=== PATIENT | male | born 1960 | race Caucasian/White ===

== ENCOUNTER 2018-04-17 16:39 | Emergency (ER) | payer OTHER ==
--- NOTE | 2018-04-17 18:16 | EDPHYS ---
Physician Documentation [facility] Name: Dale Tovar Age: 58 yrs Sex: Male : 1960 Arrival Date: 04/17/2018 Time: 16:49 Bed 19 Private MD: ED Physician Farhan Alejo HPI: 04/17 18:00 This 58 yrs old Male presents to ER via Wheelchair with complaints of Back pm1 Pain. 18:00 The patient presents with pain that is acute. The symptoms are located in the left low pm1 back. Onset: The symptoms/episode began/occurred 2 day(s) ago. The pain does not radiate. Associated signs and symptoms: Pertinent negatives: abdominal pain, dysuria, fever, numbness, tingling, weakness. The problem was sustained when bending over, when lifting. Modifying factors: The patient symptoms are alleviated by nothing, the patient symptoms are aggravated by any movement. Severity of symptoms: in the emergency department the symptoms are actually worse. The patient has experienced a previous episode, approximately 3 years ago. The patient has not recently seen a physician. Onset after working on the yard and around the house. Historical: - Allergies: 16:51 No Known Allergies; sv - Home Meds: 16:51 Lisinopril Oral [Active]; Simvastatin Oral [Active]; aspirin 325 mg Oral tab [Active]; sv - PMHx: 16:51 Hypertension; sv - PSHx: 16:51 AAA repair; endoscopy; Tonsillectomy; Knee surgery; sv - Immunization history:: Adult Immunizations up to date. - Social history:: Smoking status: Patient uses tobacco products, chewing tobacco. - Ebola Screening: : No symptoms or risks identified at this time. ROS: 18:00 Constitutional: Negative for fever, chills, and weight loss, Eyes: Negative for injury, pm1 pain, redness, and discharge, ENT: Negative for injury, pain, and discharge, Neck: Negative for injury, pain, and swelling, Cardiovascular: Negative for chest pain, palpitations, and edema, Respiratory: Negative for shortness of breath, cough, wheezing, and pleuritic chest pain, Abdomen/GI: Negative for abdominal pain, nausea, vomiting, diarrhea, and constipation. 18:00 : Negative for injury, bleeding, discharge, and swelling, MS/Extremity: Negative for injury and deformity, Skin: Negative for injury, rash, and discoloration, Neuro: Negative for headache, weakness, numbness, tingling, and seizure. 18:00 Back: Positive for of the left low back. Exam: 18:00 Constitutional: This is a well developed, well nourished patient who is awake, alert, pm1 and in no acute distress. Head/Face: Normocephalic, atraumatic. Eyes: Pupils equal round and reactive to light, extra-ocular motions intact. Lids and lashes normal. Conjunctiva and sclera are non-icteric and not injected. Cornea within normal limits. Periorbital areas with no swelling, redness, or edema. ENT: Nares patent. No nasal discharge, no septal abnormalities noted. Tympanic membranes are normal and external auditory canals are clear. Oropharynx with no redness, swelling, or masses, exudates, or evidence of obstruction, uvula midline. Mucous membranes moist. Neck: Trachea midline, no thyromegaly or masses palpated, and no cervical lymphadenopathy. Supple, full range of motion without nuchal rigidity, or vertebral point tenderness. No Meningismus. Chest/axilla: Normal chest wall appearance and motion. Nontender with no deformity. No lesions are appreciated. Cardiovascular: Regular rate and rhythm with a normal S1 and S2. No gallops, murmurs, or rubs. Normal PMI, no JVD. No pulse deficits. Respiratory: Lungs have equal breath sounds bilaterally, clear to auscultation and percussion. No rales, rhonchi or wheezes noted. No increased work of breathing, no retractions or nasal flaring. Abdomen/GI: Soft, non-tender, with normal bowel sounds. No distension or tympany. No guarding or rebound. No evidence of tenderness throughout. 18:00 Skin: Warm, dry with normal turgor. Normal color with no rashes, no lesions, and no evidence of cellulitis. MS/ Extremity: Pulses equal, no cyanosis. Neurovascular intact. Full, normal range of motion. 18:00 Back: normal spinal alignment noted, muscle spasm, is appreciated in the left low back. 18:00 Neuro: Orientation: is normal, Mentation: is normal, Motor: moves all fours, strength is normal, strength is 5/5 in all extremities, Sensation: is normal, no obvious gross deficits. Vital Signs: 16:52 BP 119 / 93; Pulse 71; Resp 22; Temp 97.6; Pulse Ox 96% ; Weight 88.45 kg; Height 5 ft. sv 7 in. (170.18 cm); Pain 8/10; 18:07 BP 104 / 77; Pulse 66; Resp 16; Pulse Ox 94% on R/A; mb3 16:52 Body Mass Index 30.54 (88.45 kg, 170.18 cm) sv MDM: 16:59 Patient medically screened. pm1 18:13 ED course: Patient able to ambulate in the ER post medication administration without pm1 difficulty. 18:13 Data reviewed: vital signs. Counseling: I had a detailed discussion with the patient pm1 and/or guardian regarding: the historical points, exam findings, and any diagnostic results supporting the discharge/admit diagnosis, the need for outpatient follow up, to return to the emergency department if symptoms worsen or persist or if there are any questions or concerns that arise at home. Administered Medications: 17:24 Drug: TORadol 30 mg Route: IM; Site: right deltoid; mb3 18:06 Follow up: Response: No adverse reaction; Pain is decreased mb3 17:24 Drug: Flexeril 10 mg Route: PO; mb3 18:06 Follow up: Response: No adverse reaction; Pain is decreased mb3 17:24 Drug: [place] 10 mg-325 mg 1 tabs Route: PO; mb3 18:06 Follow up: Response: No adverse reaction; Pain is decreased mb3 Disposition: 04/18 12:40 Co-signature as Attending Physician, Farhan Alejo MD. Disposition: 04/17/18 18:15 Discharged to Home. Impression: Low back pain, Strain of muscle, fascia and tendon of lower back. - Condition is Stable. - Discharge Instructions: Back Pain, Adult, Muscle Strain, Back Injury Prevention, [id number]. - Prescriptions for Tylenol- Codeine #3 300-30 mg Oral Tablet - take 2 tablets by ORAL route every 6 hours As needed; 20 tablet. Cyclobenzaprine 10 mg Oral Tablet - take 1 tablet by ORAL route every 8 hours As needed; 30 tablet. - Medication Reconciliation Form, Thank You Letter form. - Follow up: Emergency Department; When: As needed; Reason: Worsening of condition. Follow up: Private Physician; When: 2 - 3 days; Reason: Recheck today's complaints, Continuance of care, Re-evaluation by your physician. - Problem is new. - Symptoms have improved. Signatures: Kelley Gonzalez, RN RN Jesus Alberto Middleton NP REMANUFACTURING TECHNICIAN pm1 Farhan Alejo MD MD Roby Ham RN RN mb3 Corrections: (The following items were deleted from the chart) 04/17 18:34 18:15 04/17/2018 18:15 Discharged to Home. Impression: Low back pain; Strain of muscle, mb3 fascia and tendon of lower back. Condition is Stable. Forms are Medication Reconciliation Form, Thank You Letter, Antibiotic Education, Prescription Opioid Use. Follow up: Emergency Department; When: As needed; Reason: Worsening of condition. Follow up: Private Physician; When: 2 - 3 days; Reason: Recheck today's complaints, Continuance of care, Re-evaluation by your physician. Problem is new. Symptoms have improved. pm1
--- NOTE | 2018-04-17 18:16 | ER ---
Nurse's Notes [facility] Name: Dale Tovar Age: 58 yrs Sex: Male : 1960 Arrival Date: 04/17/2018 Time: 16:49 Bed 19 Private MD: Diagnosis: Low back pain;Strain of muscle, fascia and tendon of lower back Presentation: 04/17 16:49 Presenting complaint: Patient states: left low back pain that started , sv possibly after doing some overhead sawing or when he carried some stuff upstairs at home. c/o spasms. Has been using hot/cold packs and taking ibuprofen. Transition of care: patient was not received from another setting of care. Onset of symptoms was April 15, 2018. Risk Assessment: Do you want to hurt yourself or someone else? Patient reports no desire to harm self or others. Initial Sepsis Screen: Does the patient meet any 2 criteria? No. Patient's initial sepsis screen is negative. Does the patient have a suspected source of infection? No. Patient's initial sepsis screen is negative. Care prior to arrival: None. 16:49 Method Of Arrival: Wheelchair sv 16:49 Acuity: ANGELA 4 sv Historical: - Allergies: 16:51 No Known Allergies; sv - Home Meds: 16:51 Lisinopril Oral [Active]; Simvastatin Oral [Active]; aspirin 325 mg Oral tab [Active]; sv - PMHx: 16:51 Hypertension; sv - PSHx: 16:51 AAA repair; endoscopy; Tonsillectomy; Knee surgery; sv - Immunization history:: Adult Immunizations up to date. - Social history:: Smoking status: Patient uses tobacco products, chewing tobacco. - Ebola Screening: : No symptoms or risks identified at this time. Screenin:33 Abuse screen: Denies threats or abuse. Nutritional screening: No deficits noted. mb3 Tuberculosis screening: No symptoms or risk factors identified. Fall Risk None identified. Assessment: 17:18 General: Appears uncomfortable, well groomed, Behavior is calm, cooperative, mb3 appropriate for age. Pain: Complains of pain in left low back and left mid back Pain does not radiate. Pain currently is 10 out of 10 on a pain scale. Neuro: Level of Consciousness is awake, alert, obeys commands, Oriented to person, place, time, situation, Appropriate for age. Cardiovascular: No deficits noted. Respiratory: No deficits noted. GI: No deficits noted. No signs and/or symptoms were reported involving the gastrointestinal system. : No deficits noted. No signs and/or symptoms were reported regarding the genitourinary system. EENT: No deficits noted. No signs and/or symptoms were reported regarding the EENT system. Musculoskeletal: Reports pain in left low back and left mid back. Vital Signs: 16:52 BP 119 / 93; Pulse 71; Resp 22; Temp 97.6; Pulse Ox 96% ; Weight 88.45 kg; Height 5 ft. sv 7 in. (170.18 cm); Pain 8/10; 18:07 BP 104 / 77; Pulse 66; Resp 16; Pulse Ox 94% on R/A; mb3 16:52 Body Mass Index 30.54 (88.45 kg, 170.18 cm) sv ED Course: 16:49 Patient arrived in ED. sv 16:51 Triage completed. sv 16:52 Arm band placed on right wrist. sv 16:57 Jesus Alberto Mina NP is PHCP. pm1 16:57 Farhan Alejo MD is Attending Physician. pm1 17:08 Roby Ham, CHELLE is Primary Nurse. mb3 18:33 No provider procedures requiring assistance completed. Patient did not have IV access mb3 during this emergency room visit. 18:34 Patient has correct armband on for positive identification. mb3 Administered Medications: 17:24 Drug: TORadol 30 mg Route: IM; Site: right deltoid; mb3 18:06 Follow up: Response: No adverse reaction; Pain is decreased mb3 17:24 Drug: Flexeril 10 mg Route: PO; mb3 18:06 Follow up: Response: No adverse reaction; Pain is decreased mb3 17:24 Drug: [place] 10 mg-325 mg 1 tabs Route: PO; mb3 18:06 Follow up: Response: No adverse reaction; Pain is decreased mb3 Outcome: 18:15 Discharge ordered by . pm1 18:34 Discharged to home ambulatory, with family. mb3 18:34 Condition: stable 18:34 Discharge instructions given to patient, family, Instructed on discharge instructions, follow up and referral plans. medication usage, Demonstrated understanding of instructions, follow-up care, medications, Prescriptions given X 2. 18:34 Patient left the ED. mb3 Signatures: Kelley Gonzalez, RN RN sv Jesus Alberto Mina, RETAIL GREETER RETAIL GREETER pm1 Roby Ham, CHELLE RN mb3
[2018-04-17 18:38] VITALS: TEMP 97.6
[2018-04-17 18:40] VITALS: BP 104/77; O2SAT 94
== END 2018-04-17 18:34 | disposition home or self-care (01) ==
LOC: ER 16:39
DX: S39.012A Strain of muscle, fascia and tendon of lower back, initial encounter (principal); X58.XXXA Exposure to other specified factors, initial encounter; Y92.019 Unspecified place in single-family (private) house as the place of occurrence of the external cause; I10 Essential (primary) hypertension; F17.220 Nicotine dependence, chewing tobacco, uncomplicated
CPT/HCPCS: 96372; 99283

== ENCOUNTER 2018-06-21 07:18 | Day surgery (SDC) | payer OTHER ==
[2018-06-21] MEDS ORDERED: Ringers Lactate 1,000 ML IV ONE (07:26)
[2018-06-21] MEDS ORDERED: PROPOFOL 200 MG/20 ML VIAL IV ONE (08:21)
[2018-06-21] MEDS ORDERED: LIDOCAINE 1% MPF 5 ML VIAL ONE (08:22)
[2018-06-21 08:55] VITALS: TEMP 98.5
--- NOTE | 2018-06-21 09:02 | ENDO RPT ---
[address], [address] COLONOSCOPY PROCEDURE REPORT EXAM DATE: 06/21/2018 PATIENT NAME: Dale Tovar MR #: [id number] BIRTHDATE: 1960 ATTENDING: Lacho May Dr STATUS: outpatient CHEMICAL PLANT OPERATOR: Delma Chin, Marcella Martinez RN, and Seng Chin INDICATIONS: The patient is a 58 yr old Male here for a colonoscopy due to hematochezia, abdominal pain, change in bowel habits, abnormal CT of abdomen, and diverticulitis PROCEDURE PERFORMED: Colonoscopy with biopsy MEDICATIONS: Per Anesthesia. ESTIMATED BLOOD LOSS: None CONSENT: The patient understands the risks and benefits of the procedure and understands that these risks include, but are not limited to: sedation, allergic reaction, infection, perforation and/or bleeding. Alternative means of evaluation and treatment include, among others: physical exam, x-rays, and/or surgical intervention. The patient elects to proceed with this endoscopic procedure. DESCRIPTION OF PROCEDURE: During intra-op preparation period all mechanical medical equipment was checked for proper function. Hand hygiene and appropriate measures for infection prevention was taken. Procedure, possible complications, alternatives including, but not limited to possibility of bleeding, perforation, tear, infection, sepsis, need for surgery, need for blood transfusion, were explained to the patient. After the risks, benefits and alternatives of the procedure were thoroughly explained, Informed consent was verified, confirmed and timeout was successfully executed by the treatment team. The patient was placed in the left lateral position. A digital rectal exam was performed and revealed several skin tags. After appropriate level of anesthesia, the scope was passed. The EC-[id number] ([id number]) endoscope was introduced through the anus and advanced to the terminal ileum which was intubated for a short distance. The quality of the prep was good. The instrument was then slowly withdrawn as the colon was fully examined. Scope withdrawal time was 9 minutes. COLON FINDINGS: Coilits with inflammation / edema / erythema / loss of vascular pattern was moderate in the sigmoid colon and mild / patchy throughout the remainder of the colon, with sparing of the distal 2/3 of the rectum. Random biopsies of the terminal ileum / right colon / left colon / sigmoid colon / rectum obtained. Mild diverticulosis was noted in the sigmoid colon. Moderate sized internal hemorrhoids were found. Retroflexed views revealed medium hemorrhoids. The scope was then completely withdrawn from the patient and the procedure terminated. ADVERSE EVENTS: There were no complications. IMPRESSIONS: 1. Coilits with inflammation / edema / erythema / loss of vascular pattern moderate in the sigmoid colon and mild / patchy throughout the remainder of the colon, with sparing of the distal 2/3 of the rectum 2. Mild diverticulosis was noted in the sigmoid colon 3. Moderate sized internal hemorrhoids 4. Random biopsies of the terminal ileum / right colon / left colon / sigmoid colon / rectum obtained RECOMMENDATIONS: 1. await biopsy results 2. antibiotic therapy RECALL: Return in 10 year(s) for Colonoscopy. Lacho May Dr eSigned: Lacho May Dr 06/21/2018 8:52 AM cc: Uriel Rios and Flash Gimenez CPT CODES: ICD9 CODES: 1. 455.9 Residual hemorrhoidal skin tags 2. 564.9 Unspecified functional disorder of intestine PATIENT NAME: Dale Tovar MR#: [id number]
[2018-06-21 09:05] VITALS: BP 107/80; O2SAT 98
== END 2018-06-21 09:15 | disposition home or self-care (01) ==
LOC: OR 07:18
PROVIDERS: ATTEND Internal Medicine Gastroenterology
PROC: 0DBN8ZX Excision of Sigmoid Colon, Via Natural or Artificial Opening Endoscopic, Diagnostic (ICD-10-PCS; 2018-06-21)
PROC: 0DBP8ZX Excision of Rectum, Via Natural or Artificial Opening Endoscopic, Diagnostic (ICD-10-PCS; 2018-06-21)
PROC: 0DBB8ZX Excision of Ileum, Via Natural or Artificial Opening Endoscopic, Diagnostic (ICD-10-PCS; 2018-06-21)
PROC: 0DBM8ZX Excision of Descending Colon, Via Natural or Artificial Opening Endoscopic, Diagnostic (ICD-10-PCS; 2018-06-21)
PROC: 0DBK8ZX Excision of Ascending Colon, Via Natural or Artificial Opening Endoscopic, Diagnostic (ICD-10-PCS; principal; 2018-06-21 08:30)
DX: K52.89 Other specified noninfective gastroenteritis and colitis (principal); K62.89 Other specified diseases of anus and rectum; K57.10 Diverticulosis of small intestine without perforation or abscess without bleeding; K64.8 Other hemorrhoids; K92.1 Melena; Z88.6 Allergy status to analgesic agent; J44.9 Chronic obstructive pulmonary disease, unspecified; I10 Essential (primary) hypertension; Z87.891 Personal history of nicotine dependence
CPT/HCPCS: 88305

== ENCOUNTER 2018-09-03 06:55 | Day surgery (SDC) | payer OTHER ==
--- NOTE | 2018-09-03 06:52 | EKG ---
Test Date: 2018-09-02 Test Time: 12:48:30 Coping Machine Operator: ISABELA MEASUREMENT RESULTS: Intervals: Rate: 69 [place]: 148 QRSD: 88 QT: 386 QTc: 413 [place]: P: 45 [place]: 148 QRS: 37 T: 58 INTERPRETIVE STATEMENTS: Normal sinus rhythm Normal ECG Compared to ECG 11/24/2013 22:42:55 Sinus tachycardia no longer present Electronically Signed On 09-03-18 06:49:19 CDT by Uriel Rios
[2018-09-03] MEDS ORDERED: EPINEPHRINE/PF 1 MG/ML AMP ONE (07:18)
[2018-09-03] MEDS ORDERED: Ringers Lactate 1,000 ML IV ONE (07:39)
[2018-09-03] MEDS ORDERED: PROPOFOL 200 MG/20 ML VIAL IV ONE (07:59)
[2018-09-03] MEDS ORDERED: LIDOCAINE 2% MPF 5 ML VIAL ONE (08:00)
[2018-09-03] MEDS ORDERED: MIDAZOLAM HCL 2 MG/2 ML INJ ONE (08:00)
[2018-09-03] MEDS ORDERED: FENTANYL CITR 100 MCG/2 ML ONE (08:00)
[2018-09-03] MEDS ORDERED: ROCURONIUM 50 MG/5 ML VIAL IV ONE (08:02)
[2018-09-03] MEDS ORDERED: DEXAMETHASONE 10 MG/ML VIAL ONE (08:18)
[2018-09-03] MEDS ORDERED: EPHEDRINE SULF 50 MG/10 ML SYR ONE (08:20)
--- NOTE | 2018-09-03 08:26 | P.BOP ---
Preoperative diagnosis: laryngeal cyst Postoperative diagnosis: same Primary procedure: Dl with telescope and excision of cyst Controls Technician: NONE,NONE Estimated blood loss: <5ml Specimen: epiglottic cyst Findings: mucous filled cyst Anesthesia: General Implants: none Fluids & blood products: crystalloid 450ml Transferred to: Recovery Room Condition: Good
[2018-09-03] MEDS ORDERED: MEPERIDINE HCL 25 MG/0.5 ML ONE (08:49)
[2018-09-03] MEDS ORDERED: SUCCINYLCHOLINE 20 MG/ML (10 ML) IV ONE (09:22)
[2018-09-03] MEDS ORDERED: TRAMADOL HCL 50 MG TAB ONE (09:42)
[2018-09-03 11:17] VITALS: BP 112/70; TEMP 97.6; O2SAT 94
--- NOTE | 2018-09-03 14:46 | OP ---
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 Procedures: Direct laryngoscopy with telescope and excision of cyst/tumor. Indication For Procedure: Mr. Tovar is a 58-year-old who was diagnosed with a follicular cyst in . He had progressive dysphagia. 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 The risks, benefits, and al ternatives to the procedure were discussed with the patient, who agreed to proceed. Description Of Procedure: The patient was brought to the operating room. He was placed under genera l anesthesia via oral endotracheal tube. The patient's maxilla was edentulous, so no tooth guard was necessary. His upper gingiva was protected with a Ray-Jamal gauze and the Kenzie-Berci laryngoscope w as used to perform a direct laryngoscopy. The cyst was easily noted, but due to location the Kenzie- Berci was insufficient in allowing adequate exposure and the Kenzie-Berci was withdrawn, and a Lindho lm laryngoscope fitted with appropriate light cord was used for better visualization. Photodocumenta tion of the lesion was obtained. The lesion appeared to be a moderate to large cystic structure rudy ched to the left edge of the epiglottis. The wall of the cyst was grasped using an alligator and the n the small laryngeal scissors were used to cut through the mucosa and carefully dissect along the cy st wall. The wall of the cyst initially was kept intact, which improved adequate removal. On the de eper aspect of the cyst wall, the cyst was slightly ruptured and a thick clear mucoid fluid was noted to come from the cyst. The angled laryngeal scissors to the left were then used to divide the remai da attachment point. The cyst wall was removed and grossly examined. There was no significant con cerning findings on gross examination, and specimen was sent to pathology for permanent section. A R ay-Jamal gauze was packed into the operative site and left in place for several minutes. The gauze was then removed and the site was noted to be hemostatic. Photodocumentation of the site was taken and the patient was then returned to care of Anesthesia for awakening and extubation in the operating juan r m, which proceeded without difficulty. Complications: None. Disposition: The patient will be discharged home later today to follow up with Dr. Rodriguez in 10-14 days. He has no dietary or voice restrictions and can contact the clinic for any additional concerns . TYRONE Voice ID: [id number] Report ID: [id number]
== END 2018-09-03 10:14 | disposition home or self-care (01) ==
LOC: OR 06:55
PROVIDERS: ATTEND Otolaryngology
PROC: 0CBR8ZZ Excision of Epiglottis, Via Natural or Artificial Opening Endoscopic (ICD-10-PCS; principal; 2018-09-03 08:00)
DX: J38.7 Other diseases of larynx (principal); R13.10 Dysphagia, unspecified; J44.9 Chronic obstructive pulmonary disease, unspecified; I10 Essential (primary) hypertension; Z87.891 Personal history of nicotine dependence; Z80.9 Family history of malignant neoplasm, unspecified; Z83.3 Family history of diabetes mellitus; Z82.49 Family history of ischemic heart disease and other diseases of the circulatory system; Z82.3 Family history of stroke
CPT/HCPCS: 88305; 93005; J0171; J0330; J1100; J2175; J2250; J3010

== ENCOUNTER 2018-11-14 09:50 | Emergency (ER) | payer OTHER ==
[2018-11-14 10:46] LABS: Absolute Lymphocytes (CBC) 1.1 K/uL (0.7-4.9); Absolute Monocytes 0.9 K/uL (0.1-1.3); Absolute Neutrophil 10.8 K/uL (1.8-8.0); Basophils % 0.8 % (0-1.3); Eosinophils % 1.7 % (0-4.4); Hematocrit 44.7 % (39.6-49.0); Lymphocytes % 8.4 % (15.3-44.8); Monocytes % 6.7 % (3.3-12.3); RBC Red Blood Cell Count 5.52 M/uL (4.33-5.43)
[2018-11-14 11:02] LABS: ALT/SGPT 50 U/L (12-78); AST/SGOT 24 U/L (15-37); Albumin 3.7 g/dL (3.4-5.0); Alkaline Phosphatase 112 U/L (45-117); BUN Blood Urea Nitrogen 12 mg/dL (7-18); Bicarbonate 26 mmol/L (21-32); Bilirubin Direct 0.2 mg/dL (0-0.2); Bilirubin Total 0.5 mg/dL (0.2-1.0); Glucose Level 93 mg/dL (74-106); Lipase 93 U/L (73-393); Protein, Total 7.4 g/dL (6.4-8.2); Sodium Level 135 mmol/L (136-145)
[2018-11-14 11:20] LABS: Urine Blood NEGATIVE (NEG); Urine Glucose NEGATIVE (NEG); Urine Protein NEGATIVE (NEG); Urine Specific Gravity 1.015 (1.005-1.030); Urine pH 7.5 (5.0-7.0)
[2018-11-14] MEDS ORDERED: ONDANSETRON 4 MG/2 ML VIAL ONE (11:36)
[2018-11-14] MEDS ORDERED: MORPHINE 4 MG/ML SYR ONE (11:36)
--- NOTE | 2018-11-14 12:11 | RAD REPORT ---
EXAM DESCRIPTION: CTAbdomen Pelvis W Contrast - 11/14/2018 11:45 am CLINICAL HISTORY: Abdominal pain. LOwer abdominal pain, rectal pain, IV ONLY COMPARISON: CTANGIO PELVIS dated 03/12/2015; CT ANGIO ABDOMEN dated 03/12/2015 TECHNIQUE: Biphasic CT imaging of the abdomen and pelvis was performed with 100 ml non-ionic IV cont rast. All CT scans are performed using dose optimization technique as appropriate and may include automated exposure control or mA/KV adjustment according to patient size. FINDINGS: The lung bases are clear.Small hiatal hernia. The liver contains several very small low-density lesions likely representing cysts but too small ful ly characterize. The spleen, pancreas, adrenal glands kidneys are within normal limits. Infrarenal ab dominal aortic aneurysm measuring 6.8 cm is noted with endograft in place. No bowel obstruction, free air, free fluid or abscess. 7 cm length of the sigmoid colon shows multipl e diverticula as well as surrounding inflammation in the pericolonic fat compatible with acute divert iculitis. No abscess is seen. The appendix is normal. No evidence of significant lymphadenopathy. No suspicious bony findings. IMPRESSION: Mild acute sigmoid diverticulitis is noted. No abscess seen.
[2018-11-14] MEDS ORDERED: metroNIDAZOLE 500 MG TABLET ONE (12:40)
[2018-11-14] MEDS ORDERED: SMZ./TMP. 800/160 MG TABLET ONE (12:40)
--- NOTE | 2018-11-14 12:42 | EDPHYS ---
Physician Documentation [facility] Name: Dale Tovar Age: 58 yrs Sex: Male : 1960 Arrival Date: 11/14/2018 Time: 09:55 Bed 17 Private MD: Eliel Gimenez H ED Physician Sunday Monroe HPI: 11/14 10:39 This 58 yrs old Male presents to ER via Ambulatory with complaints of jmm Abdominal Pain, Abdominal Cramping, Rectal Pain. 10:39 The patient presents with abdominal pain in the lower abdomen. Onset: The jmm symptoms/episode began/occurred last night. The symptoms radiate to rectum. Associated signs and symptoms: Pertinent negatives: diarrhea, vomiting. This is a 58 year old male with a history of htn that presents to the ED with lower abdominal pain which radiates to his rectum. Patient states having a history of diverticulitis, hemorrhoids, and AAA. Denies vomiting or diarrhea. Patient states tylenol relieved his symptoms. . Historical: - Allergies: 10:07 Codeine; tw2 10:07 acetaminophen; tw2 - Home Meds: 10:07 aspirin 325 mg Oral tab [Active]; lisinopril-hydrochlorothiazide 20-25 mg oral tab 1 tw2 tab once daily [Active]; simvastatin 40 mg oral tab once daily [Active]; omeprazole 20 mg Oral cpDR 1 cap once daily [Active]; Zantac 150 mg Oral tab 1 tab once daily [Active]; hydrocortisone 1 % Rectal crea 2 times per day [Active]; - PMHx: 10:07 Hypertension; tw2 - PSHx: 10:07 Knee surgery; Tonsillectomy; endoscopy; AAA repair; tw2 - Immunization history:: Adult Immunizations. - Social history:: Smoking status: . - Ebola Screening: : Patient denies travel to an Ebola-affected area in the 21 days before illness onset. ROS: 10:39 Constitutional: Negative for fever, chills, and weight loss, Cardiovascular: Negative jmm for chest pain, palpitations, and edema, Respiratory: Negative for shortness of breath, cough, wheezing, and pleuritic chest pain. 10:39 Abdomen/GI: Positive for abdominal pain, rectal pain. 10:39 All other systems are negative. Exam: 10:39 Constitutional: This is a well developed, well nourished patient who is awake, alert, jmm and in no acute distress. Head/Face: atraumatic. Eyes: EOMI, no conjunctival erythema appreciated ENT: Moist Mucus Membranes Neck: Trachea midline, Supple Chest/axilla: Normal chest wall appearance and motion. Cardiovascular: Regular rate and rhythm. No edema appreciated Respiratory: Normal respirations, no respiratory distress appreciated 10:39 Abdomen/GI: Inspection: abdomen appears normal, Bowel sounds: normal, Palpation: soft, mild abdominal tenderness, in the suprapubic area. 10:39 Back: ROM is normal. 10:39 Musculoskeletal/extremity: ROM: intact in all extremities. 10:39 Skin: Appearance: Color: normal in color. 10:39 Neuro: Orientation: is normal, Mentation: is normal, Memory: is normal. 10:39 Psych: Behavior/mood is pleasant, cooperative. Vital Signs: 10:01 BP 121 / 78; Pulse 77; Resp 16; Temp 99.8(O); Pulse Ox 100% on R/A; Pain 0/10; tw2 10:01 no pain now but when it hits me its a 1010 tw2 MDM: 10:27 Patient medically screened. [facility] 12:40 Data reviewed: vital signs, nurses notes. Counseling: I had a detailed discussion with [facility] the patient and/or guardian regarding: the historical points, exam findings, and any diagnostic results supporting the discharge/admit diagnosis, lab results, radiology results, the need for outpatient follow up, to return to the emergency department if symptoms worsen or persist or if there are any questions or concerns that arise at home. 13:00 ED course: Patient is alert and non toxic in appearance on discharge. Patient declined [facility] discharge and states he will follow up with Dr. May tomorrw for reevaluation. patient given initial dose of abx in the ED. patient given return precautions. patient understood and agrees with the plan of care. . 11/14 10:28 Order name: Basic Metabolic Panel; Complete Time: 11:20 [facility] 11/14 10:28 Order name: CBC with Diff; Complete Time: 11:20 [facility] 11/14 10:28 Order name: Creatinine for Radiology; Complete Time: 11:20 [facility] 11/14 10:28 Order name: Hepatic Function; Complete Time: 11:20 [facility] 11/14 10:28 Order name: Lipase; Complete Time: 11:20 [facility] 11/14 10:53 Order name: Urine Dipstick--Ancillary (enter results); Complete Time: 11:26 bd 11/14 10:28 Order name: IV Saline Lock; Complete Time: 10:43 [facility] 11/14 10:28 Order name: Labs collected and sent; Complete Time: 10:43 [facility] 11/14 10:28 Order name: CT Abd/Pelvis - W/Contrast; Complete Time: 12:13 [facility] 11/14 10:53 Order name: Urine Culture dh3 11/14 10:28 Order name: Urine Dipstick-Ancillary (obtain specimen); Complete Time: 10:52 jm Administered Medications: 11:33 Drug: morphine 4 mg Route: IVP; Site: right forearm; la1 12:41 Follow up: Response: No adverse reaction; Pain is decreased la1 11:33 Drug: Zofran 4 mg Route: IVP; Site: right forearm; la1 12:41 Follow up: Response: No adverse reaction la1 13:00 Drug: Bactrim (160 mg-800 mg (DS) 1 tablet Route: PO; la1 13:02 Follow up: Response: Medication administered at discharge. la1 13:00 Drug: Flagyl 500 mg Route: PO; la1 13:02 Follow up: Response: Medication administered at discharge. la1 Disposition: 13:57 Co-signature as Attending Physician, Sunday Monroe MD. rn Disposition: 11/14/18 12:41 Discharged to Home. Impression: Sigmoid Diverticulitis. - Condition is Stable. - Discharge Instructions: Diverticulitis. - Prescriptions for Flagyl 500 mg Oral Tablet - take 1 tablet by ORAL route every 6 hours for 10 days; 40 tablet. Tramadol 50 mg Oral Tablet - take 1 tablet by ORAL route every 8 hours as needed; 20 tablet. Bactrim DS 800- 160 mg Oral Tablet - take 1 tablet by ORAL route every 12 hours for 10 days; 20 tablet. - Medication Reconciliation Form, Thank You Letter, Antibiotic Education, Prescription Opioid Use form. - Follow up: Lacho May MD; When: 2 - 3 days; Reason: Recheck today's complaints, Continuance of care, Re-evaluation by your physician. Signatures: Dispatcher [employer] EDMS Mickail, SHAHIDA Padilla Roman, MD MD rn Kit Luque RN RN la1 Genie Montoya RN RN tw2 Corrections: (The following items were deleted from the chart) 13:02 12:41 11/14/2018 12:41 Discharged to Home. Impression: Sigmoid Diverticulitis. la1 Condition is Stable. Forms are Medication Reconciliation Form, Thank You Letter, Antibiotic Education, Prescription Opioid Use. Follow up: Lacho May; When: 2 - 3 days; Reason: Recheck today's complaints, Continuance of care, Re-evaluation by your physician. josemanuel 20:12 20:11 ED course: Patient is alert and non toxic in appearance on discharge. Patient odessatulio declined discharge and states he will follow up with Dr. May tomorrw for reevaluation. patient given initial dose of abx in the ED. patient given return precautions. patient understood and agrees with the plan of care. . [facility]
--- NOTE | 2018-11-14 12:42 | ER ---
Nurse's Notes [facility] Name: Dale Tovar Age: 58 yrs Sex: Male : 1960 Arrival Date: 11/14/2018 Time: 09:55 Bed 17 Private MD: Eliel Gimenez H Diagnosis: Sigmoid Diverticulitis Presentation: 11/14 09:59 Presenting complaint: Patient states: yesterday evening, started having lower abdominal tw2 pain, denies nvd, woke up about midnight with cramps, then i started having severe cramps 06/25, it goes a way and comes back i did take a tylenol, after i urinated this morning i started having rectal pain, i do have hemorrhoids. Transition of care: patient was not received from another setting of care. Onset of symptoms was November 14, 2018. Risk Assessment: Do you want to hurt yourself or someone else? Patient reports no desire to harm self or others. Initial Sepsis Screen: Does the patient meet any 2 criteria? No. Patient's initial sepsis screen is negative. Does the patient have a suspected source of infection? No. Patient's initial sepsis screen is negative. Care prior to arrival: None. 09:59 Method Of Arrival: Ambulatory tw2 09:59 Acuity: ANGELA 3 tw2 Triage Assessment: 10:03 General: Appears in no apparent distress. Behavior is calm, cooperative, appropriate tw2 for age. Pain: Complains of pain in abdomen and rectum. GI: Reports cramping, Patient currently denies diarrhea, nausea, vomiting. Historical: - Allergies: 10:07 Codeine; tw2 10:07 acetaminophen; tw2 - Home Meds: 10:07 aspirin 325 mg Oral tab [Active]; lisinopril-hydrochlorothiazide 20-25 mg oral tab 1 tw2 tab once daily [Active]; simvastatin 40 mg oral tab once daily [Active]; omeprazole 20 mg Oral cpDR 1 cap once daily [Active]; Zantac 150 mg Oral tab 1 tab once daily [Active]; hydrocortisone 1 % Rectal crea 2 times per day [Active]; - PMHx: 10:07 Hypertension; tw2 - PSHx: 10:07 Knee surgery; Tonsillectomy; endoscopy; AAA repair; tw2 - Immunization history:: Adult Immunizations. - Social history:: Smoking status: . - Ebola Screening: : Patient denies travel to an Ebola-affected area in the 21 days before illness onset. Screenin:52 Abuse screen: Denies threats or abuse. Nutritional screening: No deficits noted. la1 Tuberculosis screening: No symptoms or risk factors identified. Fall Risk None identified. Assessment: 10:51 General: Appears in no apparent distress. Behavior is calm, cooperative. Pain: la1 Complains of pain in gluteal cleft and suprapubic area. Neuro: Level of Consciousness is awake, alert, obeys commands, Oriented to person, place, time, situation. Cardiovascular: Capillary refill < 3 seconds Patient's skin is warm and dry. Respiratory: Airway is patent Respiratory effort is even, unlabored, Respiratory pattern is regular, symmetrical, Breath sounds are clear bilaterally. GI: Bowel sounds present X 4 quads. Abd is soft X 4 quads Abdomen is tender to palpation in suprapubic area Reports lower abdominal pain. : No signs and/or symptoms were reported regarding the genitourinary system. 11:49 Reassessment: Patient appears in no apparent distress at this time. No changes from la1 previously documented assessment. Patient and/or family updated on plan of care and expected duration. Pain level reassessed. Patient is alert, oriented x 3, equal unlabored respirations, skin warm/dry/pink. Vital Signs: 10:01 BP 121 / 78; Pulse 77; Resp 16; Temp 99.8(O); Pulse Ox 100% on R/A; Pain 0/10; tw2 10:01 no pain now but when it hits me its a 10/10 tw2 ED Course: 09:55 Patient arrived in ED. sb2 09:55 Eliel Gimenez DO is Private Physician. sb2 10:01 Triage completed. tw2 10:01 Arm band placed on. tw2 10:07 Randy Faust PA is PHCP. jmm 10:07 Sunday Monore MD is Attending Physician. jmm 10:13 Kit Luque, CHELLE is Primary Nurse. la1 10:52 Bed in low position. Call light in reach. Side rails up X 1. la1 11:44 CT Abd/Pelvis - W/Contrast In Process Unspecified. EDMS 11:44 CT completed. Patient tolerated procedure well. Patient moved back from CT. mw3 12:40 Lacho May MD is Referral Physician. [facility] 13:01 No provider procedures requiring assistance completed. IV discontinued, intact, la1 bleeding controlled, No redness/swelling at site. Pressure dressing applied. Administered Medications: 11:33 Drug: morphine 4 mg Route: IVP; Site: right forearm; la1 12:41 Follow up: Response: No adverse reaction; Pain is decreased la1 11:33 Drug: Zofran 4 mg Route: IVP; Site: right forearm; la1 12:41 Follow up: Response: No adverse reaction la1 13:00 Drug: Bactrim (160 mg-800 mg (DS) 1 tablet Route: PO; la1 13:02 Follow up: Response: Medication administered at discharge. la1 13:00 Drug: Flagyl 500 mg Route: PO; la1 13:02 Follow up: Response: Medication administered at discharge. la1 Outcome: 12:41 Discharge ordered by . [facility] 13:01 Discharged to home ambulatory. la1 13:01 Condition: stable 13:01 Discharge instructions given to patient, Instructed on discharge instructions, follow up and referral plans. medication usage, Demonstrated understanding of instructions, follow-up care, medications, Prescriptions given X 2. 13:02 Patient left the ED. la1 Signatures: Dispatcher [employer] EDMS Randy Faust PA PA jmm Attema, Lee, RN RN la1 Genie Montoya RN RN tw2 Angelique Mcmahon sb2 Radha Lam mw3
[2018-11-14 13:31] VITALS: BP 121/78; TEMP 99.8; O2SAT 100
== END 2018-11-14 13:02 | disposition home or self-care (01) ==
LOC: ER 09:50
DX: K57.32 Diverticulitis of large intestine without perforation or abscess without bleeding (principal); I10 Essential (primary) hypertension; Z79.82 Long term (current) use of aspirin; Z88.5 Allergy status to narcotic agent; Z88.6 Allergy status to analgesic agent
CPT/HCPCS: 36415; 74177; 80048; 80076; 81003; 83690; 85025; 87086; 87088; 96374; 96375; 99284; J2405; Q9967

== ENCOUNTER 2019-11-09 18:17 | Inpatient (IN) | payer OTHER ==
[2019-11-09] MEDS ORDERED: NA CHLORIDE 0.9% 1,000 ML ONE (20:03)
[2019-11-09 20:08] LABS: Absolute Lymphocytes (CBC) 1.3 K/uL (0.7-4.9); Basophils % 0.8 % (0-1.3); Hematocrit 33.2 % (39.6-49.0); Lymphocytes % 12.8 % (15.3-44.8); MPV 8.4 fL (7.6-11.3); RBC Red Blood Cell Count 4.39 M/uL (4.33-5.43)
[2019-11-09 20:09] LABS: Protime INR 1.07
[2019-11-09 20:22] LABS: ALT/SGPT 26 U/L (12-78); AST/SGOT 17 U/L (15-37); Albumin 2.9 g/dL (3.4-5.0); Alkaline Phosphatase 70 U/L (45-117); BUN Blood Urea Nitrogen 13 mg/dL (7-18); Bicarbonate 25 mmol/L (21-32); Bilirubin Direct < 0.1 mg/dL (0-0.2); Bilirubin Total 0.2 mg/dL (0.2-1.0); Glucose Level 113 mg/dL (74-106); Lipase 112 U/L (73-393); Magnesium 2.1 mg/dL (1.8-2.4); NT PRO-BNP 20 pg/mL (<125); Potassium 3.7 mmol/L (3.5-5.1); Protein, Total 6.6 g/dL (6.4-8.2); Sodium Level 137 mmol/L (136-145); Troponin (Emerg Dept Use Only) < 0.02 ng/mL (0.0-0.045)
--- NOTE | 2019-11-09 20:50 | RAD REPORT ---
EXAM DESCRIPTION: CT - Angio Aorta For Dissection - 11/09/2019 8:34 pm CLINICAL HISTORY: Chest pain radiating to the back. ABDOMINAL DISTENTION COMPARISON: Abdomen Pelvis W Contrast dated 11/14/2018 TECHNIQUE: CT angiography of the aorta was performed with MIPs. All CT scans are performed using dose optimization technique as appropriate and may include automated exposure control or mA/KV adjustment according to patient size. FINDINGS: A left aortic arch is present with normal branching pattern of the great vessels.No aortic dissection seen. Evidence of infrarenal abdominal aortic aneurysm present status post endograft. Rina meter of the aneurysm sac is 6.8 cm, unchanged since 11/14/2018. The celiac axis, SMA, FRANCIA and renal arteries are patent. No evidence of pulmonary embolism. The lungs are mildly emphysematous. The liver demonstrates no focal mass or biliary dilatation.The spleen, pancreas, adrenal glands and k idneys are within normal limits for arterial phase imaging. No bowel obstruction, free fluid or abscess.Small fat containing umbilical hernia.Inflammatory change s are noted surrounding the sigmoid colon in the left lower quadrant compatible with mild acute diver ticulitis. No abscess. Bilateral spondylolysis, chronic, noted L5-S1. Chronic compression deformity is seen affecting the ce ntral aspect L1. IMPRESSION: No acute aortic finding is demonstrated. Mild acute sigmoid diverticulitis without abscess.
--- NOTE | 2019-11-09 21:02 | RAD REPORT ---
EXAM DESCRIPTION: RAD - Chest Single View - 11/09/2019 8:53 pm CLINICAL HISTORY: COUGH Chest pain. COMPARISON: CHEST PA AND LAT 2 VIEW dated 11/26/2013; CHEST PA AND LAT 2 VIEW dated 11/24/2013; CHEST P A AND LAT 2 VIEW dated 05/23/2010 FINDINGS: Portable technique limits examination quality. Calcified granuloma is present in the left mid lung laterally. The lungs are otherwise emphysematous but clear. The heart is upper limit of normal in size. No displaced fractures.
--- NOTE | 2019-11-09 21:07 | EDPHYS ---
Physician Documentation [facility] Name: Dale Tovar Age: 59 yrs Sex: Male : 1960 Arrival Date: 11/09/2019 Time: 18:21 Bed 5 Private MD: Eliel Gimenez H ED Physician Caden Hernández HPI: 11/09 19:55 This 59 yrs old Male presents to ER via Ambulatory with complaints of panda Dizziness. 19:55 The patient presents with dizziness, generalized weakness. Onset: The symptoms/episode panda began/occurred 1 week(s) ago. Context: occurred at home. Modifying factors: The symptoms are alleviated by nothing, the symptoms are aggravated by nothing. Historical: - Allergies: 18:42 ACETAMINOPHEN; iw 18:42 Codeine; iw - PMHx: 18:42 Hypertension; iw - PSHx: 18:42 Knee surgery; Tonsillectomy; endoscopy; AAA repair; iw - Ebola Screening: : Patient negative for fever greater than or equal to 101.5 degrees Fahrenheit, and additional compatible Ebola Virus Disease symptoms Patient denies exposure to infectious person Patient denies travel to an Ebola-affected area in the 21 days before illness onset No symptoms or risks identified at this time. ROS: 19:56 Constitutional: Negative for fever, chills, and weight loss, Eyes: Negative for injury, panda pain, redness, and discharge, ENT: Negative for injury, pain, and discharge, Neck: Negative for injury, pain, and swelling, Cardiovascular: Negative for chest pain, palpitations, and edema, Respiratory: Negative for shortness of breath, cough, wheezing, and pleuritic chest pain, Back: Negative for injury and pain, : Negative for injury, bleeding, discharge, and swelling, MS/Extremity: Negative for injury and deformity, Skin: Negative for injury, rash, and discoloration, Psych: Negative for depression, anxiety, suicide ideation, homicidal ideation, and hallucinations, Allergy/Immunology: Negative for hives, rash, and allergies, Endocrine: Negative for neck swelling, polydipsia, polyuria, polyphagia, and marked weight changes, Hematologic/Lymphatic: Negative for swollen nodes, abnormal bleeding, and unusual bruising. 19:56 Abdomen/GI: Positive for abdominal pain, of the left lower quadrant. 19:56 Neuro: Positive for dizziness, weakness. Exam: 19:56 Constitutional: This is a well developed, well nourished patient who is awake, alert, panda and in no acute distress. Head/Face: Normocephalic, atraumatic. Eyes: Pupils equal round and reactive to light, extra-ocular motions intact. Lids and lashes normal. Conjunctiva and sclera are non-icteric and not injected. Cornea within normal limits. Periorbital areas with no swelling, redness, or edema. ENT: Nares patent. No nasal discharge, no septal abnormalities noted. Tympanic membranes are normal and external auditory canals are clear. Oropharynx with no redness, swelling, or masses, exudates, or evidence of obstruction, uvula midline. Mucous membranes moist. Neck: Trachea midline, no thyromegaly or masses palpated, and no cervical lymphadenopathy. Supple, full range of motion without nuchal rigidity, or vertebral point tenderness. No Meningismus. Chest/axilla: Normal chest wall appearance and motion. Nontender with no deformity. No lesions are appreciated. Respiratory: Lungs have equal breath sounds bilaterally, clear to auscultation and percussion. No rales, rhonchi or wheezes noted. No increased work of breathing, no retractions or nasal flaring. Back: No spinal tenderness. No costovertebral tenderness. Full range of motion. Male : Normal genitalia with no discharge or lesions. Skin: Warm, dry with normal turgor. Normal color with no rashes, no lesions, and no evidence of cellulitis. MS/ Extremity: Pulses equal, no cyanosis. Neurovascular intact. Full, normal range of motion. Neuro: Awake and alert, GCS 15, oriented to person, place, time, and situation. Cranial nerves II-XII grossly intact. Motor strength 5/5 in all extremities. Sensory grossly intact. Cerebellar exam normal. Normal gait. Psych: Awake, alert, with orientation to person, place and time. Behavior, mood, and affect are within normal limits. 19:56 Cardiovascular: Rate: tachycardic, Rhythm: regular, Pulses: Pulses are 4+ in bilateral radial, brachial, femoral, popliteal, posterior tibial and and dorsalis pedis arteries.. Heart sounds: Edema: is not appreciated, JVD: is not appreciated. Vital Signs: 18:42 BP 107 / 62; Pulse 107; Resp 16; Temp 98.2; Pulse Ox 97% on R/A; Weight 87.09 kg; iw Height 5 ft. 7 in. (170.18 cm); 19:03 BP 88 / 60; Pulse 104; Resp 12; Pulse Ox 98% on R/A; jp3 19:05 BP 109 / 59 LA (auto/reg); jp3 20:05 BP 99 / 58; Pulse 102; Resp 16; Pulse Ox 99% on R/A; jb4 21:30 BP 98 / 60; Pulse 90; Resp 19; Pulse Ox 99% on R/A; jb4 22:00 BP 102 / 65; Pulse 89; Resp 20; Pulse Ox 97% on R/A; jb4 18:42 Body Mass Index 30.07 (87.09 kg, 170.18 cm) iw MDM: 19:22 Patient medically screened. [facility] 19:57 Data reviewed: vital signs, nurses notes, lab test result(s), EKG, radiologic studies, [facility] CT scan, doppler, plain films. 11/09 19:55 Order name: Basic Metabolic Panel; Complete Time: 21:00 [facility] 11/09 19:55 Order name: CBC with Diff; Complete Time: 21:00 [facility] 11/09 19:55 Order name: LFT's; Complete Time: 21:00 [facility] 11/09 19:55 Order name: Magnesium; Complete Time: 21:00 [facility] 11/09 19:55 Order name: NT PRO-BNP; Complete Time: 21:00 [facility] 11/09 19:55 Order name: PT-INR; Complete Time: 21:00 [facility] 11/09 19:55 Order name: Troponin (emerg Dept Use Only); Complete Time: 21:00 [facility] 11/09 19:55 Order name: Lipase; Complete Time: 21:00 [facility] 11/09 21:15 Order name: CBC with Automated Diff EDMS 11/09 21:15 Order name: CBC with Automated Diff EDMS 11/09 21:15 Order name: Comprehensive Metabolic Panel EDMA 11/09 21:16 Order name: Comprehensive Metabolic Panel EDMA 11/09 21:16 Order name: Magnesium EDMS 11/09 21:16 Order name: Magnesium EDMS 11/09 19:55 Order name: XRAY Chest (1 view) [facility] 11/09 19:55 Order name: EKG; Complete Time: 19:56 [facility] 11/09 19:55 Order name: Cardiac monitoring; Complete Time: 19:59 [facility] 11/09 19:55 Order name: EKG - Nurse/Tech; Complete Time: 20:28 [facility] 11/09 19:55 Order name: IV Saline Lock; Complete Time: 20:17 [facility] 11/09 19:55 Order name: Labs collected and sent; Complete Time: 19:59 [facility] 11/09 19:55 Order name: CT Aorta for Dissection; Complete Time: 21:00 [facility] 11/09 19:55 Order name: Carotid Artery Bilateral US [facility] 11/09 21:15 Order name: Full Liquid EDMS 11/09 21:16 Order name: Phosphorus EDMS 11/09 21:16 Order name: Phosphorus EDMS 11/09 19:55 Order name: O2 Per Protocol; Complete Time: 19:59 [facility] 11/09 19:55 Order name: O2 Sat Monitoring; Complete Time: 19:59 [facility] 11/09 19:55 Order name: Urine Dipstick-Ancillary (obtain specimen); Complete Time: 19:59 [facility] Administered Medications: 20:16 Drug: NS 0.9% 1000 ml Route: IV; Rate: 1 bolus; Site: left antecubital; jb4 21:40 Follow up: Response: No adverse reaction; IV Status: Completed infusion; IV Intake: jb4 1000ml 21:41 Drug: Rocephin - (cefTRIAXone) 1 grams Route: IVPB; Infused Over: 30 mins; Site: left jb4 forearm; 21:43 Follow up: Response: No adverse reaction; IV Status: Completed infusion jb4 21:45 Drug: Cipro 400 mg Volume: 200 ml; Route: IVPB; Infused Over: 60 mins; Site: left jb4 forearm; 21:59 Follow up: Response: No adverse reaction; IV Status: Infusion continued upon admission jb4 21:45 Drug: Flagyl 500 mg Volume: 100 ml; Route: IVPB; Rate: 200 ml/hr; Infused Over: 30 jb4 mins; Site: left forearm; 21:58 Follow up: Response: No adverse reaction; IV Status: Infusion continued upon admission jb4 21:45 Drug: NS 0.9% 1000 ml Route: IV; Rate: 125 ml/hr; Site: left forearm; jb4 21:59 Follow up: Response: No adverse reaction; IV Status: Infusion continued upon admission 4 Disposition: 11/09/19 21:06 Hospitalization ordered by Arnoldo Santizo for Inpatient Admission. Preliminary diagnosis are Abdominal tenderness, Dizziness and giddiness, Diverticulitis of large intestine without perforation or abscess without bleeding - sigmoid, Unspecified kidney failure - insufficency. - Bed requested for Telemetry/MedSurg (Inpatient). - Status is Inpatient Admission. jb4 - Condition is Fair. - Problem is new. - Symptoms have improved. UTI on Admission? No Signatures: Dispatcher [employer] EDMS Caden Hernández MD MD cha Williams, Irene, RN CHELLE Carli Rodriguez RN RN tl1 Keegan Sotomayor RN RN jb4 Corrections: (The following items were deleted from the chart) 21:41 21:06 Hospitalization Ordered by Arnoldo Santizo MD for Inpatient Admission. Preliminary tl1 diagnosis is Abdominal tenderness; Dizziness and giddiness; Diverticulitis of large intestine without perforation or abscess without bleeding - sigmoid; Unspecified kidney failure - insufficency. Bed requested for Telemetry/MedSurg (Inpatient). Status is Inpatient Admission. Condition is Fair. Problem is new. Symptoms have improved. UTI on Admission? No. panda 23:08 21:41 11/09/2019 21:06 Hospitalization Ordered by Arnoldo Santizo MD for Inpatient jb4 Admission. Preliminary diagnosis is Abdominal tenderness; Dizziness and giddiness; Diverticulitis of large intestine without perforation or abscess without bleeding - sigmoid; Unspecified kidney failure - insufficency. Bed requested for Telemetry/MedSurg (Inpatient). Status is Inpatient Admission. Condition is Fair. Problem is new. Symptoms have improved. UTI on Admission? No. tl1
--- NOTE | 2019-11-09 21:07 | ER ---
Nurse's Notes [facility] Name: Dale Tovar Age: 59 yrs Sex: Male : 1960 Arrival Date: 11/09/2019 Time: 18:21 Bed 5 Private MD: Eliel Gimenez H Diagnosis: Abdominal tenderness;Dizziness and giddiness;Diverticulitis of large intestine without perforation or abscess without bleeding-sigmoid;Unspecified kidney failure-insufficency Presentation: 11/09 18:40 Presenting complaint: Patient states: has had episode of diverticulitis, started Flagyl iw and Levaquin yesterday , is having abd pain, took tylenol 3 yesterday , feels like antibiotics are making him really dizzy and feeling faint. Transition of care: patient was not received from another setting of care. Onset of symptoms was November 09, 2019. Risk Assessment: Do you want to hurt yourself or someone else? Patient reports no desire to harm self or others. Initial Sepsis Screen: Does the patient meet any 2 criteria? No. Patient's initial sepsis screen is negative. Does the patient have a suspected source of infection? No. Patient's initial sepsis screen is negative. Care prior to arrival: None. 18:40 Method Of Arrival: Ambulatory iw 18:40 Acuity: ANGELA 3 iw Historical: - Allergies: 18:42 ACETAMINOPHEN; iw 18:42 Codeine; iw - PMHx: 18:42 Hypertension; iw - PSHx: 18:42 Knee surgery; Tonsillectomy; endoscopy; AAA repair; iw - Ebola Screening: : Patient negative for fever greater than or equal to 101.5 degrees Fahrenheit, and additional compatible Ebola Virus Disease symptoms Patient denies exposure to infectious person Patient denies travel to an Ebola-affected area in the 21 days before illness onset No symptoms or risks identified at this time. Screenin:20 Abuse screen: Denies threats or abuse. Nutritional screening: No deficits noted. jb4 Tuberculosis screening: No symptoms or risk factors identified. Fall Risk None identified. Assessment: 19:20 General: Appears in no apparent distress. comfortable, Behavior is calm, cooperative, jb4 appropriate for age. Pain: Denies pain. Neuro: Level of Consciousness is awake, alert, obeys commands, Oriented to person, place, time, situation, Reports dizziness, since dinner. Cardiovascular: Patient's skin is warm and dry. Respiratory: Airway is patent Respiratory effort is even, unlabored, Respiratory pattern is regular, symmetrical. GI: No signs and/or symptoms were reported involving the gastrointestinal system. : No signs and/or symptoms were reported regarding the genitourinary system. EENT: No signs and/or symptoms were reported regarding the EENT system. Derm: Skin is intact, Skin is pink, warm \T\ dry. Musculoskeletal: Circulation, motion, and sensation intact. Range of motion: intact in all extremities. 20:30 Reassessment: Patient appears in no apparent distress at this time. Patient and/or jb4 family updated on plan of care and expected duration. Pain level reassessed. Patient is alert, oriented x 3, equal unlabored respirations, skin warm/dry/pink. 21:45 Reassessment: Patient appears in no apparent distress at this time. Patient and/or jb4 family updated on plan of care and expected duration. Pain level reassessed. Patient is alert, oriented x 3, equal unlabored respirations, skin warm/dry/pink. Hospitalist at the bedside discussing plan of care. 22:07 Reassessment: attempted to call report instructed to wait for call back. jb4 Vital Signs: 18:42 BP 107 / 62; Pulse 107; Resp 16; Temp 98.2; Pulse Ox 97% on R/A; Weight 87.09 kg; iw Height 5 ft. 7 in. (170.18 cm); 19:03 BP 88 / 60; Pulse 104; Resp 12; Pulse Ox 98% on R/A; jp3 19:05 BP 109 / 59 LA (auto/reg); jp3 20:05 BP 99 / 58; Pulse 102; Resp 16; Pulse Ox 99% on R/A; jb4 21:30 BP 98 / 60; Pulse 90; Resp 19; Pulse Ox 99% on R/A; jb4 22:00 BP 102 / 65; Pulse 89; Resp 20; Pulse Ox 97% on R/A; jb4 18:42 Body Mass Index 30.07 (87.09 kg, 170.18 cm) iw ED Course: 18:21 Patient arrived in ED. mr 18:21 Eliel Gimenez DO is Private Physician. mr 18:42 Triage completed. iw 18:43 Arm band placed on. iw 18:55 Bed in low position. Call light in reach. Side rails up X 1. Warm blanket given. Verbal jp3 reassurance given. quality assurance monitor chassis on. Pulse ox on. NIBP on. 19:04 Urine collected: clean catch specimen, clear, cuco colored. Patient maintains SpO2 jp3 saturation greater than 95% on room air. 19:22 Caden Hernández MD is Attending Physician. panda 19:40 Keegan Sotomayor RN is Primary Nurse. jb4 19:45 Missed attempt(s): 18 gauge in right wrist. antecubital area. Bleeding controlled, band jb4 aid applied, catheter tip intact. 19:45 Initial lab(s) drawn, by me, sent to lab. jb4 20:35 CT Aorta for Dissection In Process Unspecified. EDMS 20:54 XRAY Chest (1 view) In Process Unspecified. EDMS 21:03 Arnoldo Santizo MD is Hospitalizing Provider. panda 21:49 No provider procedures requiring assistance completed. Patient admitted, IV remains in jb4 place. Administered Medications: 20:16 Drug: NS 0.9% 1000 ml Route: IV; Rate: 1 bolus; Site: left antecubital; jb4 21:40 Follow up: Response: No adverse reaction; IV Status: Completed infusion; IV Intake: jb4 1000ml 21:41 Drug: Rocephin - (cefTRIAXone) 1 grams Route: IVPB; Infused Over: 30 mins; Site: left jb4 forearm; 21:43 Follow up: Response: No adverse reaction; IV Status: Completed infusion jb4 21:45 Drug: Cipro 400 mg Volume: 200 ml; Route: IVPB; Infused Over: 60 mins; Site: left jb4 forearm; 21:59 Follow up: Response: No adverse reaction; IV Status: Infusion continued upon admission jb4 21:45 Drug: Flagyl 500 mg Volume: 100 ml; Route: IVPB; Rate: 200 ml/hr; Infused Over: 30 jb4 mins; Site: left forearm; 21:58 Follow up: Response: No adverse reaction; IV Status: Infusion continued upon admission jb4 21:45 Drug: NS 0.9% 1000 ml Route: IV; Rate: 125 ml/hr; Site: left forearm; jb4 21:59 Follow up: Response: No adverse reaction; IV Status: Infusion continued upon admission jb4 Intake: 21:40 IV: 1000ml; Total: 1000ml. jb4 Outcome: 21:06 Decision to Hospitalize by Provider. panda 22:23 Admitted to Med/surg accompanied by tech, via wheelchair, with chart, Report called to yohana Trevino RN 22:23 Condition: stable 22:23 Discharge instructions given to patient, family, Instructed on the need for admit, Demonstrated understanding of instructions. 23:08 Patient left the ED. 4 Signatures: Dispatcher [employer] EDCaden Sprague MD MD cha Rivera Mohini mr Yessi Painting, RN RN Keegan Major RN RN jbEfrain Flores jp3 Corrections: (The following items were deleted from the chart) 22:00 21:58 IV Status: Infusion continued upon admission jb4 jb4
[2019-11-09] MEDS ORDERED: ONDANSETRON 4 MG/2 ML VIAL IV PRN (21:10)
[2019-11-09] MEDS ORDERED: ACETAMINOPHEN 500 MG TAB PO PRN (21:10)
[2019-11-09] MEDS ORDERED: CEFTRIAXONE/SWI 1gm 1 GM/10 ML SYR ONE (21:24)
[2019-11-09] MEDS ORDERED: CIPROFLOXACIN 400mg IV 400 MG/200 ML BAG IV ONE (21:24)
[2019-11-09] MEDS ORDERED: METRONIDAZOLE 500mg IVPB 500 MG/100 ML BAG IV ONE (21:25)
--- NOTE | 2019-11-09 21:43 | P.HP ---
Certification for Inpatient Patient admitted to: Inpatient With expected LOS: >2 Midnights Patient will require the following post-hospital care: None Practitioner: I am a practitioner with admitting privileges, knowledge of patient current condition, hospital course, and medical plan of care. Services: Services provided to patient in accordance with Admission requirements found in Title 42 Section 412.3 of the Code of Federal Regulations Patient History Date of Service: 11/09/19 Reason for admission: Dizziness/ abdominal pain History of Present Illness: 59-year-old male with past medical history of hypertension, history of diverticulitis, AAA repair, GERD started having dizziness today after taking antibiotic levofloxacin and Flagyl for diverticulitis. He states he has generalized weakness and started having the dizziness and mild abdominal pain in the lower left quadrant. Denies any nausea vomiting, no diarrhea. He checked his blood pressure at home which was running around 80s and was brought to ER for further management. In the ER he was evaluated and found to have low borderline blood pressure and CT showed no leak in the AAA repair and was suggestive of a sigmoid diverticulitis and acute kidney injury and was admitted for further management Allergies acetaminophen [From Tylenol-Codeine #3] Adverse Reaction (Verified 09/02/18 12: 00) Nausea/Vomiting codeine [From Tylenol-Codeine #3] Adverse Reaction (Verified 09/02/18 12:00) Nausea/Vomiting Home medications list reviewed: Yes Home Medications: Simvastatin [Zocor*] 40 mg PO DAILY 11/25/13 Aspirin [Aspirin EC 325 MG] 1 mg PO DAILY 06/21/18 Lisinopril/Hydrochlorothiazide [Zestoretic 20-25 mg Tablet] 1 each PO DAILY Omeprazole [Prilosec] 40 mg PO DAILY 09/02/18 - Past Medical/Surgical History Diabetic: No Past Medical History: Reviewed- Non-Contributory -: AAA -: HTN -: Hypercholesterolemia Past Surgical History: Reviewed- Non-Contributory -: Aortic stent -: andrea knee tendon repair -: eye surgery (foreign object removal) -: tonsilectomy - Family History Family History: Reviewed- Non-Contributory - Social History Smoking Status: Never smoker Alcohol use: No CD- Drugs: No Caffeine use: Yes Review of Systems 10-point ROS is otherwise unremarkable General: Weakness, Malaise Cardiovascular: Light Headedness Gastrointestinal: Abdominal Pain Physical Examination - Vital Signs Temperature: 98.1 F Blood Pressure: 88/65 Pulse: 79 Respirations: 18 - Physical Exam General: Alert, In no apparent distress, Oriented x3 HEENT: Atraumatic, Normocephalic Neck: Supple, 2+ carotid pulse no bruit Respiratory: Clear to auscultation bilaterally, Normal air movement Cardiovascular: Normal pulses, Regular rate/rhythm Capillary refill: <2 Seconds Gastrointestinal: Soft and benign, W/out hepatosplenomegaly, Tenderness ( Maintenance in the left lower quadrant) Musculoskeletal: No clubbing, No swelling Integumentary: No rashes, No breakdown Neurological: Normal speech, Normal strength at 5/5 x4 extr Lymphatics: No axilla or inguinal lymphadenopathy Urinary: Other (No bladder distention) External genitalia: Deferred Rectal: Deferred - Studies Laboratory Data (last 24 hrs) 11/09/19 19:45: PT 12.6 H, INR 1.07 11/09/19 19:45: WBC 9.9, Hgb 10.9 L, Hct 33.2 L, Plt Count 358 11/09/19 19:45: Sodium 137, Potassium 3.7, BUN 13, Creatinine 1.49 H, Glucose 113 H, Magnesium 2.1, Total Bilirubin 0.2, AST 17, ALT 26, Alkaline Phosphatase 70, Lipase 112 Assessment and Plan - Problems (Diagnosis) (1) Dizziness Current Visit: Yes Status: Acute (2) Hypotension Current Visit: Yes Status: Acute (3) Dehydration Current Visit: Yes Status: Acute (4) Acute renal insufficiency Current Visit: Yes Status: Acute (5) Sigmoid diverticulitis Current Visit: Yes Status: Acute (6) History of hypertension Current Visit: Yes Status: Acute (7) History of AAA (abdominal aortic aneurysm) repair Current Visit: Yes Status: Acute (8) Hyperlipidemia Current Visit: Yes Status: Acute - Plan Dizziness Hypotension History of hypertension Dehydration Sigmoid diverticulitis Acute renal insufficiency possibly prerenal History of AAA repair Hyperlipidemia Plan Monitor under telemetry Aggressive hydration Monitor blood pressure closely IV antibiotic Monitor renal parameters CT abdomen did not show any leak from triple A repair site Hold antihypertensives for now Patient has been followed by Dr. May previously and had endoscopies done previously Will consult GI if not better by tomorrow GI/DVT prophylaxis - Advance Directives Does patient have a Living Will: No Does patient have a Durable POA for Healthcare: No
[2019-11-09] MEDS: NA CHLORIDE 0.9% 1,000 ML IV SCH (22:00)
[2019-11-09 23:20] VITALS: O2SAT 97
[2019-11-09 23:38] VITALS: BMI 30.2
[2019-11-10] MEDS: PIPER/TAZO/NS 3.375gm 3.375 GM/100 ML BAG IVPB SCH ×2 (00:56→10:06)
[2019-11-10 02:07] LABS: Urine Appearance CLEAR; Urine Bilirubin NEGATIVE (NEG); Urine Blood NEGATIVE (NEG); Urine Color YELLOW; Urine Glucose NEGATIVE (NEG); Urine Protein NEGATIVE (NEG); Urine Specific Gravity >=1.030 (1.005-1.030); Urine Urobilinogen 0.2 mg/dL (0.2-1.0); Urine pH 5.5 (5.0-7.0)
[2019-11-10 02:16] LABS: Urine Microscopic Reflex NO UMIC
[2019-11-10 06:23] LABS: Absolute Lymphocytes (CBC) 1.3 K/uL (0.7-4.9); Basophils % 0.9 % (0-1.3); Hematocrit 30.6 % (39.6-49.0); Lymphocytes % 14.7 % (15.3-44.8); MPV 8.5 fL (7.6-11.3); RBC Red Blood Cell Count 4.02 M/uL (4.33-5.43)
[2019-11-10 06:45] LABS: Albumin 2.6 g/dL (3.4-5.0); Bilirubin Total 0.3 mg/dL (0.2-1.0); Magnesium 2.1 mg/dL (1.8-2.4); Phosphorus 2.7 mg/dL (2.5-4.9); Potassium 3.7 mmol/L (3.5-5.1); Protein, Total 5.8 g/dL (6.4-8.2)
--- NOTE | 2019-11-10 08:09 | EKG ---
Test Date: 2019-11-09 Test Time: 20:22:44 Taping Supervisor: TATY MEASUREMENT RESULTS: Intervals: Rate: 93 MT: 146 QRSD: 78 QT: 360 QTc: 447 [place]: P: 53 MT: 146 QRS: 56 T: 65 INTERPRETIVE STATEMENTS: Sinus rhythm with premature atrial complexes Otherwise normal ECG Compared to ECG 09/02/2018 12:48:30 Atrial premature complex(es) now present Electronically Signed On 11-10-19 08:08:16 TRADE MARKER by Uriel Rios
[2019-11-10] MEDS ORDERED: POTASSIUM 25 MEQ EFFERV TAB PO ONE (09:00)
--- NOTE | 2019-11-10 09:20 | RAD REPORT ---
EXAM DESCRIPTION: US - CP - 11/10/2019 8:58 am CLINICAL HISTORY: DIZZINESS Headache, drowsiness, CVA symptomology COMPARISON: SOFT TISSUE NECK W CONTRAST dated 11/24/2013 TECHNIQUE: Real-time sonographic evaluation of both carotid systems was performed. Doppler interroga tion was performed with waveform tracing bilaterally. FINDINGS: Normal high resistance waveforms are noted in both external carotid arteries. The common c arotid arteries and internal carotid arteries show normal low resistance waveforms. A small amount of soft plaque is seen left carotid bulb. Peak systolic and end diastolic velocity eric ues and the ICA/CCA ratios are in the non-hemodynamically significant range. Antegrade flow seen in both vertebral arteries. IMPRESSION: Small amount of left carotid bulb soft plaque. No evidence of a hemodynamically significant stenosis.
[2019-11-10] MEDS: NA CHLORIDE 0.9% 1,000 ML IV SCH (10:04)
--- NOTE | 2019-11-10 11:55 | P.DS ---
Admission Date: 11/09/19 Discharge Date: 11/10/19 Disposition: DC HOME/HOME HEALTH CARE Discharge Condition: GOOD Reason for Admission: Dizziness/ abdominal pain Brief History of Present Illness: pt with hx of recurrent dizverticultiis admitted for dizizness, abdominal pain and recent diarrhea with ARF Hospital Course: on admission a CT abdomen shows mild sigmoid diverticulitis . he was started on IVF with improvement in his dizziness, resolution of abdominal cramps and improvement in cr from 1.5 to 0.9 now . patient feels much better . he is now symptoms free . he will be discharged on po abx for next 7-10 days now . Encouraged to do high fluid intake Vital Signs/Physical Exam: Temp Pulse Resp BP Pulse Ox 97.8 F 71 16 105/62 97 11/10/19 08:00 11/10/19 08:00 11/10/19 08:00 11/10/19 08:00 11/10/19 08:00 General: Alert, In no apparent distress, Obese HEENT: Atraumatic, Normocephalic Neck: 2+ carotid pulse no bruit, JVD not distended Respiratory: Clear to auscultation bilaterally, Normal air movement Cardiovascular: No edema, Normal pulses, Regular rate/rhythm, Normal S1 S2 Gastrointestinal: Normal bowel sounds, Soft and benign, Non-distended, W/out splenomegaly, No ascites, No tenderness, No rebound, No guarding Musculoskeletal: No clubbing, No swelling, No warmth Integumentary: No rashes, No breakdown Neurological: Normal gait, Normal speech, Normal strength at 5/5 x4 extr, Sensation intact Laboratory Data at Discharge: WBC 8.5 K/uL (4.3-10.9) D 11/10/19 05:16 Hgb 10.1 g/dL (13.6-17.9) L 11/10/19 05:16 Hct 30.6 % (39.6-49.0) L 11/10/19 05:16 Plt Count 322 K/uL (152-406) 11/10/19 05:16 PT 12.6 SECONDS (9.5-12.5) H 11/09/19 19:45 INR 1.07 11/09/19 19:45 Sodium 140 mmol/L (136-145) 11/10/19 05:16 Potassium 3.7 mmol/L (3.5-5.1) 11/10/19 05:16 BUN 9 mg/dL (7-18) 11/10/19 05:16 Creatinine 0.92 mg/dL (0.55-1.3) 11/10/19 05:16 Glucose 99 mg/dL (74-106) 11/10/19 05:16 Phosphorus 2.7 mg/dL (2.5-4.9) 11/10/19 05:16 Magnesium 2.1 mg/dL (1.8-2.4) 11/10/19 05:16 Total Bilirubin 0.3 mg/dL (0.2-1.0) 11/10/19 05:16 AST 11 U/L (15-37) L 11/10/19 05:16 ALT 23 U/L (12-78) 11/10/19 05:16 Alkaline Phosphatase 64 U/L (45-117) 11/10/19 05:16 Lipase 112 U/L (73-393) 11/09/19 19:45 Home Medications: Simvastatin [Zocor*] 40 mg PO BEDTIME 11/25/13 Aspirin [Aspirin EC 325 MG] 1 mg PO DAILY 06/21/18 Omeprazole [Prilosec] 40 mg PO DAILY 09/02/18 Famotidine [Pepcid*] 20 mg PO BEDTIME 11/10/19 Levofloxacin [Levaquin] 500 mg PO DAILY #7 tablet 11/10/19 Metronidazole [Flagyl] 375 mg PO TID #30 capsule 11/10/19 Multivit-Mins/Iron/Folic/Lycop [Centrum Men's Tablet] 1 tab PO DAILY 11/10/19 New Medications: Levofloxacin [Levaquin] 500 mg PO DAILY #7 tablet Metronidazole [Flagyl] 375 mg PO TID #30 capsule Patient Discharge Instructions: high fluid intake. -avoid constipation. -hold BP meds for now. - follow with your PCP in 1 week and can restart BP meds then Diet: Low sodium Activity: Ad danny Physician Review: Patient Assessed, Agree with Above Assessment and Plan Time spent managing pt's care (in minutes): 35
[2019-11-10] MEDS ORDERED: NA CHLORIDE 0.9% 500 ML IV ONE (11:56)
[2019-11-10 12:31] VITALS: BP 124/71; TEMP 97.3
== END 2019-11-10 15:00 | disposition home or self-care (01) | DRG 683 ==
LOC: ER 18:17 → ERHOLD 21:16 → 2ND 22:51
PROVIDERS: ADMIT Family Medicine; ATTEND Internal Medicine
DX: N17.9 Acute kidney failure, unspecified (principal); K57.32 Diverticulitis of large intestine without perforation or abscess without bleeding; E78.5 Hyperlipidemia, unspecified; I10 Essential (primary) hypertension; E86.0 Dehydration; I95.9 Hypotension, unspecified
CPT/HCPCS: 36415; 71045; 71275; 74175; 80048; 80053; 80076; 81003; 83690; 83735; 83880; 84100; 84484; 85025; 85610; 93005; 93880; 96361; 96374; 96375; 99285; J0696; J0744; J2543; J7030; Q9967

== ENCOUNTER 2019-12-02 09:20 | Inpatient (IN) | payer BC, OTHER ==
[2019-12-02] MEDS ORDERED: NA CHLORIDE 0.9% 2,000 ML ONE (10:01)
[2019-12-02 10:09] LABS: Absolute Lymphocytes (CBC) 0.4 K/uL (0.7-4.9); Hematocrit 26.6 % (39.6-49.0); Lymphocytes % 2.3 % (15.3-44.8); MPV 7.6 fL (7.6-11.3); RBC Red Blood Cell Count 3.71 M/uL (4.33-5.43)
[2019-12-02 10:16] LABS: Protime INR 1.13
[2019-12-02] MEDS ORDERED: IBUPROFEN 100 MG/5 ML UCUP ONE ×2 (10:25→10:27)
[2019-12-02 10:36] LABS: ALT/SGPT 27 U/L (12-78); AST/SGOT 19 U/L (15-37); Albumin 2.4 g/dL (3.4-5.0); Alkaline Phosphatase 66 U/L (45-117); BUN Blood Urea Nitrogen 6 mg/dL (7-18); Bicarbonate 26 mmol/L (21-32); Bilirubin Direct 0.2 mg/dL (0-0.2); Bilirubin Total 0.4 mg/dL (0.2-1.0); CKMB Creatine Kinase MB < 1.0 ng/mL (0.3-3.6); Creatine Phosphokinase 54 U/L (39-308); Glucose Level 97 mg/dL (74-106); Lipase 78 U/L (73-393); Potassium 3.3 mmol/L (3.5-5.1); Protein, Total 5.9 g/dL (6.4-8.2); Sodium Level 136 mmol/L (136-145); Troponin (Emerg Dept Use Only) < 0.02 ng/mL (0.0-0.045)
[2019-12-02 10:38] LABS: Magnesium 1.7 mg/dL (1.8-2.4)
[2019-12-02] MEDS ORDERED: Levofloxacin 750mg IV 750 MG/150 ML BAG IV ONE (10:38)
--- NOTE | 2019-12-02 11:41 | RAD REPORT ---
EXAM DESCRIPTION: Pema Single View12/02/2019 10:04 am CLINICAL HISTORY: Fever COMPARISON: October 2019 FINDINGS: Calcified granulomas present within the left lung The lungs appear clear of acute infiltrate. The heart is normal size IMPRESSION: No acute abnormalities displayed
[2019-12-02] MEDS ORDERED: METRONIDAZOLE 500mg IVPB 500 MG/100 ML BAG IV ONE (11:43)
--- NOTE | 2019-12-02 11:51 | RAD REPORT ---
EXAM DESCRIPTION: CT - Abdomen Pelvis W Contrast - 12/02/2019 11:30 am CLINICAL HISTORY: ABD PAIN Diarrhea and abdominal cramping, fever 2-3 days, recent antibiotic treatment for diverticulitis COMPARISON: Abdomen Pelvis W Contrast dated 11/14/2018 TECHNIQUE: Biphasic, helical CT imaging of the abdomen and pelvis was performed following 100 ml non -ionic IV contrast. Oral contrast was given. All CT scans are performed using dose optimization technique as appropriate and may include automated exposure control or mA/KV adjustment according to patient size. FINDINGS: No suspicious findings in the lung bases. The liver, spleen, and pancreas show no suspicious findings. Liver attenuation is borderline fatty in filtrated. No gallbladder or biliary tree abnormality. Symmetric renal function is seen with no hydronephrosis or suspicious renal mass. No pyelonephritis o r acute parenchymal process. No bladder abnormalities. No adrenal abnormalities. Prostate gland withi n normal limits. No gastric dilatation gastric wall thickening. No small bowel abnormality seen. Appendix normal. From cecum through the descending colon no acute findings seen. There is mild left-sided diverticulosis o f the descending colon. More prominent sigmoid diverticulosis pattern present. Wall thickening is pre sent in the proximal and midportion. Surrounding small reactive lymph nodes are present. There is min imal stranding around the proximal portion of the sigmoid colon. These findings are less prominent th an seen November 14. No abscess or free air. No extraluminal extravasation of bowel content. No pneu matosis. No hernia, mass or bulky lymphadenopathy. No suspicious bony findings. Patient has a large infrarenal abdominal aortic aneurysm approximately 6.8 cm in diameter. This has a and treated with an endovascular stent graft. No endoleak seen. No acute aortic finding evident on t his study. IMPRESSION: Mild diverticulitis changes are present in the sigmoid colon. Given the history and appe arance of the November 14 CT, this is probably remnant rather than recurrent disease. No abscess, free air or complication from diverticulitis. No suspicion for C diff colitis. The remainder the study, as detailed above, is without significant or suspicious change from prior im aging.
[2019-12-02] MEDS ORDERED: CEFTRIAXONE/SWI 1gm 1 GM/10 ML SYR ONE (12:31)
[2019-12-02] MEDS ORDERED: MAGNESIUM SULFATE 1 gm IVPB 1 GM/100 ML BAG IV ONE (12:31)
[2019-12-02] MEDS ORDERED: NS KCL 20MEQ 1,000 ML IV ONE (12:31)
[2019-12-02] MEDS ORDERED: FAMOTIDINE 20 MG/2 ML VIAL IV ONE (12:31)
--- NOTE | 2019-12-02 12:49 | EDPHYS ---
Physician Documentation [facility] Name: Dale Tovar Age: 59 yrs Sex: Male : 1960 Arrival Date: 12/02/2019 Time: 09:24 Bed 19 Private MD: Eliel Gimenez H ED Physician Caden Hernández HPI: 12/02 11:41 This 59 yrs old Male presents to ER via Ambulatory with complaints of Fever. panda 11:41 The patient reports fever, that was measured at 103 degrees Fahrenheit. Onset: The panda symptoms/episode began/occurred 2 day(s) ago. Modifying factors: there are no obvious modifying factors. Associated signs and symptoms: Pertinent positives: abdominal pain. Severity of symptoms: At their worst the symptoms were mild moderate in the emergency department the symptoms are unchanged. The patient has not experienced similar symptoms in the past. Historical: - Allergies: 09:38 ACETAMINOPHEN; hb 09:38 Codeine; nausea; hb - Home Meds: 09:38 aspirin 325 mg Oral tab [Active]; hydrocortisone 1 % Rectal crea 2 times per day hb [Active]; lisinopril-hydrochlorothiazide 20-25 mg Oral tab 1 tab once daily [Active]; omeprazole 20 mg Oral cpDR 1 cap once daily [Active]; simvastatin 40 mg Oral tab once daily [Active]; Zantac 150 mg Oral tab 1 tab once daily [Active]; - PMHx: 09:38 Hypertension; hb - PSHx: 09:38 Knee surgery; Tonsillectomy; endoscopy; AAA repair; hb - Immunization history:: Adult Immunizations up to date. - Social history:: Smoking status: Patient/guardian denies using tobacco. - Ebola Screening: : No symptoms or risks identified at this time. ROS: 11:42 Eyes: Negative for injury, pain, redness, and discharge, ENT: Negative for injury, panda pain, and discharge, Neck: Negative for injury, pain, and swelling, Cardiovascular: Negative for chest pain, palpitations, and edema, Respiratory: Negative for shortness of breath, cough, wheezing, and pleuritic chest pain, Back: Negative for injury and pain, : Negative for injury, bleeding, discharge, and swelling, MS/Extremity: Negative for injury and deformity, Skin: Negative for injury, rash, and discoloration, Neuro: Negative for headache, weakness, numbness, tingling, and seizure, Psych: Negative for depression, anxiety, suicide ideation, homicidal ideation, and hallucinations, Allergy/Immunology: Negative for hives, rash, and allergies, Endocrine: Negative for neck swelling, polydipsia, polyuria, polyphagia, and marked weight changes, Hematologic/Lymphatic: Negative for swollen nodes, abnormal bleeding, and unusual bruising. 11:42 Constitutional: Positive for body aches, fever, malaise. 11:42 Abdomen/GI: Positive for abdominal pain, diarrhea. Exam: 11:42 Constitutional: This is a well developed, well nourished patient who is awake, alert, panda and in no acute distress. Head/Face: Normocephalic, atraumatic. Eyes: Pupils equal round and reactive to light, extra-ocular motions intact. Lids and lashes normal. Conjunctiva and sclera are non-icteric and not injected. Cornea within normal limits. Periorbital areas with no swelling, redness, or edema. ENT: Nares patent. No nasal discharge, no septal abnormalities noted. Tympanic membranes are normal and external auditory canals are clear. Oropharynx with no redness, swelling, or masses, exudates, or evidence of obstruction, uvula midline. Mucous membranes moist. Neck: Trachea midline, no thyromegaly or masses palpated, and no cervical lymphadenopathy. Supple, full range of motion without nuchal rigidity, or vertebral point tenderness. No Meningismus. Chest/axilla: Normal chest wall appearance and motion. Nontender with no deformity. No lesions are appreciated. Respiratory: Lungs have equal breath sounds bilaterally, clear to auscultation and percussion. No rales, rhonchi or wheezes noted. No increased work of breathing, no retractions or nasal flaring. Back: No spinal tenderness. No costovertebral tenderness. Full range of motion. Male : Normal genitalia with no discharge or lesions. Skin: Warm, dry with normal turgor. Normal color with no rashes, no lesions, and no evidence of cellulitis. MS/ Extremity: Pulses equal, no cyanosis. Neurovascular intact. Full, normal range of motion. Neuro: Awake and alert, GCS 15, oriented to person, place, time, and situation. Cranial nerves II-XII grossly intact. Motor strength 5/5 in all extremities. Sensory grossly intact. Cerebellar exam normal. Normal gait. Psych: Awake, alert, with orientation to person, place and time. Behavior, mood, and affect are within normal limits. 11:42 Cardiovascular: Rate: tachycardic, Rhythm: regular, Pulses: Pulses are 4+ in bilateral radial, brachial, femoral, popliteal, posterior tibial and and dorsalis pedis arteries.. Heart sounds: normal, normal S1and S2, no S3 or S4, no murmur, no rub, no gallop, Edema: is not appreciated, JVD: is not appreciated. Vital Signs: 09:34 BP 114 / 85; Pulse 135; Resp 20; Temp 101.3(TE); Pulse Ox 95% on R/A; Weight 81.19 kg; hb Height 5 ft. 7 in. (170.18 cm); Pain 0/10; 10:30 BP 116 / 82; Pulse 111; Resp 18; Pulse Ox 98% on R/A; sg 10:54 BP 99 / 68; Pulse 117; Resp 24; Temp 101.4(O); Pulse Ox 99% ; mh5 14:00 BP 102 / 42; Pulse 100; Resp 18; Temp 99.0; Pulse Ox 98% on R/A; sg 14:34 BP 110 / 50; Pulse 102 MON; Resp 18; Temp 99.0; Pulse Ox 100% on R/A; Pain 0/10; sg 09:34 Body Mass Index 28.04 (81.19 kg, 170.18 cm) hb MDM: 10:01 Patient medically screened. [facility] 11:44 Data reviewed: vital signs, nurses notes, lab test result(s), EKG, radiologic studies, [facility] CT scan, plain films. 12/02 09:38 Order name: Basic Metabolic Panel 12/02 09:38 Order name: Blood Culture Adult (2) 12/02 09:38 Order name: CBC with Diff 12/02 09:38 Order name: Ckmb; Complete Time: 11:39 12/02 09:38 Order name: CPK; Complete Time: 11:39 12/02 09:38 Order name: Lactate; Complete Time: 11:39 12/02 09:38 Order name: LFT's; Complete Time: 11:39 12/02 09:38 Order name: Lipase; Complete Time: 11:39 12/02 09:38 Order name: Procalcitonin; Complete Time: 11:39 12/02 09:38 Order name: Protime (+inr); Complete Time: 11:39 12/02 09:38 Order name: Ptt, Activated; Complete Time: 11:39 12/02 09:38 Order name: Troponin (emerg Dept Use Only); Complete Time: 11:39 12/02 09:38 Order name: Urine Microscopic Only 12/02 09:39 Order name: Basic Metabolic Panel; Complete Time: 11:39 [facility] 12/02 09:38 Order name: Chest Single View XRAY; Complete Time: 11:58 12/02 09:57 Order name: Glucose, Ancillary Testing; Complete Time: 11:39 [facility] 12/02 10:04 Order name: Magnesium; Complete Time: 11:39 [facility] 12/02 10:04 Order name: NT PRO-BNP; Complete Time: 11:39 [facility] 12/02 10:04 Order name: CT Abd/Pelvis - PO and IV Contrast; Complete Time: 11:58 [facility] 12/02 11:39 Order name: Stool Culture [facility] 12/02 11:39 Order name: Fecal Leukocyte Stain [facility] 12/02 11:40 Order name: Type And Screen [facility] 12/02 12:23 Order name: Urine Dipstick--Ancillary (enter results) formerly [facility] 12/02 13:18 Order name: CBC Smear Scan [facility] 12/02 14:42 Order name: Blood Culture [facility] 12/02 09:38 Order name: Accucheck; Complete Time: 10:10 12/02 09:38 Order name: Cardiac monitoring; Complete Time: 10:09 12/02 09:38 Order name: EKG - Nurse/Tech; Complete Time: 10:09 12/02 09:38 Order name: IV Saline Lock - Large Bore; Complete Time: 10:09 12/02 09:38 Order name: Labs collected and sent; Complete Time: 10:09 12/02 09:38 Order name: O2 Per Protocol; Complete Time: 10:09 12/02 09:38 Order name: O2 Sat Monitoring; Complete Time: 10:09 12/02 09:38 Order name: Urine Dipstick-Ancillary (obtain specimen); Complete Time: 14:24 12/02 10:04 Order name: EKG; Complete Time: 10:04 [facility] 12/02 10:04 Order name: IV Saline Lock; Complete Time: 10:09 [facility] Administered Medications: 09:45 Drug: NS 0.9% (30 ml/kg) 30 ml/kg Route: IV; Rate: bolus; Site: right antecubital; sg 11:00 Follow up: Response: No adverse reaction; IV Status: Completed infusion; IV Intake: sg 2500ml 10:30 Drug: Motrin 600 mg Route: PO; sg 11:30 Follow up: Response: No adverse reaction; Temperature is decreased sg 10:32 Drug: levofloxacin 750 mg Volume: 150 ml; Route: IVPB; Infused Over: 90 mins; Site: sg right antecubital; 12:04 Follow up: Response: No adverse reaction; IV Status: Completed infusion; IV Intake: sg 150ml 11:20 Drug: Flagyl 500 mg Volume: 100 ml; Route: IVPB; Rate: 200 ml/hr; Infused Over: 30 sg mins; Site: right antecubital; 11:55 Follow up: Response: No adverse reaction; IV Status: Completed infusion; IV Intake: sg 100ml 12:25 Drug: Magnesium Sulfate 1 grams Route: IVPB; Infused Over: 1 hrs; Site: right sg antecubital; 13:24 Follow up: Response: No adverse reaction; IV Status: Completed infusion; IV Intake: sg 100ml 12:25 Drug: Pepcid 20 mg Route: IVP; Site: right antecubital; sg 12:40 Follow up: Response: No adverse reaction sg 12:25 Drug: Rocephin 1 grams Route: IV; Rate: per protocol; Site: right antecubital; sg 12:27 Follow up: IV Status: Completed infusion; IV Intake: 10ml sg 13:00 Follow up: Response: No adverse reaction sg 13:30 Drug: Potassium Effervescent Tablet 25 mEq Route: PO; sg 14:22 Follow up: Response: No adverse reaction sg 14:24 Drug: NS 0.9% with KCl 20 mEq/L 1000 ml Route: IV; Rate: 125 ml/hr; Site: right sg antecubital; 14:32 Follow up: Response: No adverse reaction; IV Status: Infusion continued upon admission; sg IV Intake: 25ml Disposition: 12/02/19 12:48 Hospitalization ordered by Sridhar Goncalves for Inpatient Admission. Preliminary diagnosis are Fever, unspecified, Diverticulitis of intestine, part unspecified, without perforation or abscess without bleeding, Anemia, unspecified, Hypotension, Weakness, Volume depletion. - Bed requested for Telemetry/MedSurg (Inpatient). - Status is Inpatient Admission. sg - Condition is Fair. - Problem is new. - Symptoms have improved. UTI on Admission? No Signatures: Dispatcher [employer] [facility] Lynette Cat RN RN dw Gay, Steven, RN RN sg Anderson, Corey, MD MD cha Baxter, Heather, RN RN Corrections: (The following items were deleted from the chart) 14:25 12:48 Hospitalization Ordered by Sridhar Goncalves DO for Inpatient Admission. Preliminary dw diagnosis is Fever, unspecified; Diverticulitis of intestine, part unspecified, without perforation or abscess without bleeding; Anemia, unspecified; Hypotension; Weakness; Volume depletion. Bed requested for Telemetry/MedSurg (Inpatient). Status is Inpatient Admission. Condition is Fair. Problem is new. Symptoms have improved. UTI on Admission? No. [facility] 14:52 14:25 12/02/2019 12:48 Hospitalization Ordered by Sridhar Goncalves DO for Inpatient sg Admission. Preliminary diagnosis is Fever, unspecified; Diverticulitis of intestine, part unspecified, without perforation or abscess without bleeding; Anemia, unspecified; Hypotension; Weakness; Volume depletion. Bed requested for Telemetry/MedSurg (Inpatient). Status is Inpatient Admission. Condition is Fair. Problem is new. Symptoms have improved. UTI on Admission? No. dw
--- NOTE | 2019-12-02 12:49 | ER ---
Nurse's Notes [facility] Name: Dale Tovar Age: 59 yrs Sex: Male : 1960 Arrival Date: 12/02/2019 Time: 09:24 Bed 19 Private MD: Eliel Gimenez H Diagnosis: Fever, unspecified;Diverticulitis of intestine, part unspecified, without perforation or abscess without bleeding;Anemia, unspecified;Hypotension;Weakness;Volume depletion Presentation: 12/02 09:35 Presenting complaint: Diarrhea and abdominal cramping x 3-4 weeks. Fever x 2-3 days. hb TMAX 104.9. Recently completed abx for diverticulitis. Transition of care: patient was not received from another setting of care. Onset of symptoms was October 2019. Risk Assessment: Do you want to hurt yourself or someone else? Patient reports no desire to harm self or others. Initial Sepsis Screen: Does the patient meet any 2 criteria? Temp <36.0*C (96.8*F)) or > 38.3*C (100.9*F). HR > 90 bpm. Yes Does the patient have a suspected source of infection? Yes: Other: diarrhea. Care prior to arrival: None. 09:35 Method Of Arrival: Ambulatory hb 09:35 Acuity: ANGELA 2 hb Historical: - Allergies: 09:38 ACETAMINOPHEN; hb 09:38 Codeine; nausea; hb - Home Meds: 09:38 aspirin 325 mg Oral tab [Active]; hydrocortisone 1 % Rectal crea 2 times per day hb [Active]; lisinopril-hydrochlorothiazide 20-25 mg Oral tab 1 tab once daily [Active]; omeprazole 20 mg Oral cpDR 1 cap once daily [Active]; simvastatin 40 mg Oral tab once daily [Active]; Zantac 150 mg Oral tab 1 tab once daily [Active]; - PMHx: 09:38 Hypertension; hb - PSHx: 09:38 Knee surgery; Tonsillectomy; endoscopy; AAA repair; hb - Immunization history:: Adult Immunizations up to date. - Social history:: Smoking status: Patient/guardian denies using tobacco. - Ebola Screening: : No symptoms or risks identified at this time. Screenin:13 Abuse screen: Denies threats or abuse. Denies injuries from another. Nutritional iw screening: No deficits noted. Tuberculosis screening: No symptoms or risk factors identified. Fall Risk IV access (20 points). Assessment: 09:35 Reassessment: CODE SEPSIS CALLED. hb 09:48 General: Appears in no apparent distress. ill, Behavior is calm, cooperative. Pain: sg Pain currently is 3 out of 10 on a pain scale. Neuro: Level of Consciousness is awake, alert, obeys commands, Oriented to person, place, time, situation. Cardiovascular: Capillary refill < 3 seconds Patient's skin is warm and dry. Respiratory: Airway is patent Respiratory effort is even, unlabored, Respiratory pattern is regular, symmetrical, Breath sounds are clear bilaterally. GI: Abdomen is non-distended, Bowel sounds present X 4 quads. Abd is soft X 4 quads Abdomen is tender to palpation diffusely. : No signs and/or symptoms were reported regarding the genitourinary system. EENT: No signs and/or symptoms were reported regarding the EENT system. Derm: Skin is intact, with poor turgor Skin is dry, Skin is jaundiced. Musculoskeletal: No signs and/or symptoms reported regarding the musculoskeletal system. 10:22 Reassessment: Pt finished drinking oral contrast, CT notified. hb 11:00 Reassessment: Patient appears in no apparent distress at this time. Patient and/or sg family updated on plan of care and expected duration. Pain level reassessed. Patient is alert, oriented x 3, equal unlabored respirations, skin warm/dry/pink. 12:00 Reassessment: Patient appears in no apparent distress at this time. Patient and/or sg family updated on plan of care and expected duration. Pain level reassessed. Patient is alert, oriented x 3, equal unlabored respirations, skin warm/dry/pink. 13:00 Reassessment: Patient appears in no apparent distress at this time. Patient and/or sg family updated on plan of care and expected duration. Pain level reassessed. Patient is alert, oriented x 3, equal unlabored respirations, skin warm/dry/pink. 13:15 Reassessment: Admission ordered, awaiting room assignment at this time. sg 14:00 Reassessment: Patient appears in no apparent distress at this time. Patient and/or sg family updated on plan of care and expected duration. Pain level reassessed. Patient is alert, oriented x 3, equal unlabored respirations, skin warm/dry/pink. Vital Signs: 09:34 BP 114 / 85; Pulse 135; Resp 20; Temp 101.3(TE); Pulse Ox 95% on R/A; Weight 81.19 kg; hb Height 5 ft. 7 in. (170.18 cm); Pain 0/10; 10:30 BP 116 / 82; Pulse 111; Resp 18; Pulse Ox 98% on R/A; sg 10:54 BP 99 / 68; Pulse 117; Resp 24; Temp 101.4(O); Pulse Ox 99% ; mh5 14:00 BP 102 / 42; Pulse 100; Resp 18; Temp 99.0; Pulse Ox 98% on R/A; sg 14:34 BP 110 / 50; Pulse 102 MON; Resp 18; Temp 99.0; Pulse Ox 100% on R/A; Pain 0/10; sg 09:34 Body Mass Index 28.04 (81.19 kg, 170.18 cm) hb ED Course: 09:24 Patient arrived in ED. mr 09:24 Eliel Gimenez DO is Private Physician. mr 09:37 Triage completed. hb 09:38 Arm band placed on. hb 09:42 Initial lab(s) drawn, by az, sent to lab. Inserted saline lock: 20 gauge in right iw antecubital area, using aseptic technique. 09:45 Germán Barfield, RN is Primary Nurse. sg 10:01 Caden Hernández MD is Attending Physician. panda 10:03 EKG done, by geology technician. reviewed by Caden Hernández MD. at1 10:04 Chest Single View XRAY In Process Unspecified. EDMS 11:04 Patient has correct armband on for positive identification. Placed in gown. Bed in low mh5 position. Call light in reach. Side rails up X 1. Pillow given. potline monitor on. Pulse ox on. NIBP on. 11:30 CT Abd/Pelvis - PO and IV Contrast In Process Unspecified. EDMS 12:46 Sridhar Goncalves DO is Hospitalizing Provider. panda 14:15 No provider procedures requiring assistance completed. Patient admitted, IV remains in sg place. Administered Medications: 09:45 Drug: NS 0.9% (30 ml/kg) 30 ml/kg Route: IV; Rate: bolus; Site: right antecubital; sg 11:00 Follow up: Response: No adverse reaction; IV Status: Completed infusion; IV Intake: sg 2500ml 10:30 Drug: Motrin 600 mg Route: PO; sg 11:30 Follow up: Response: No adverse reaction; Temperature is decreased sg 10:32 Drug: levofloxacin 750 mg Volume: 150 ml; Route: IVPB; Infused Over: 90 mins; Site: sg right antecubital; 12:04 Follow up: Response: No adverse reaction; IV Status: Completed infusion; IV Intake: sg 150ml 11:20 Drug: Flagyl 500 mg Volume: 100 ml; Route: IVPB; Rate: 200 ml/hr; Infused Over: 30 sg mins; Site: right antecubital; 11:55 Follow up: Response: No adverse reaction; IV Status: Completed infusion; IV Intake: sg 100ml 12:25 Drug: Magnesium Sulfate 1 grams Route: IVPB; Infused Over: 1 hrs; Site: right sg antecubital; 13:24 Follow up: Response: No adverse reaction; IV Status: Completed infusion; IV Intake: sg 100ml 12:25 Drug: Pepcid 20 mg Route: IVP; Site: right antecubital; sg 12:40 Follow up: Response: No adverse reaction sg 12:25 Drug: Rocephin 1 grams Route: IV; Rate: per protocol; Site: right antecubital; sg 12:27 Follow up: IV Status: Completed infusion; IV Intake: 10ml sg 13:00 Follow up: Response: No adverse reaction sg 13:30 Drug: Potassium Effervescent Tablet 25 mEq Route: PO; sg 14:22 Follow up: Response: No adverse reaction sg 14:24 Drug: NS 0.9% with KCl 20 mEq/L 1000 ml Route: IV; Rate: 125 ml/hr; Site: right sg antecubital; 14:32 Follow up: Response: No adverse reaction; IV Status: Infusion continued upon admission; sg IV Intake: 25ml Intake: 11:00 IV: 2500ml; Total: 2500ml. sg 11:55 IV: 100ml; Total: 2600ml. sg 12:04 IV: 150ml; Total: 2750ml. sg 12:27 IV: 10ml; Total: 2760ml. sg 13:24 IV: 100ml; Total: 2860ml. sg 14:32 IV: 25ml; Total: 2885ml. sg Outcome: 12:48 Decision to Hospitalize by Provider. panda 14:33 Admitted to Tele accompanied by tech, via wheelchair, room 212, with chart, Report sg called to CHELLE ESTEVES 14:33 Condition: stable 14:33 Instructed on the need for admit, safety practices, Demonstrated understanding of instructions, follow-up care. 14:52 Patient left the ED. sg Signatures: Dispatcher [employer] Germán Santos, Caden Adams RN, MD MD cha Rivera, Mary mr Williams, Irene RN Rosie Lyle, parking cashier EKG Tat1 Aissatou Navarro, Ericka Centeno RN [facility]
[2019-12-02 12:59] LABS: Urine Bacteria NONE SEEN /HPF (NONE SEEN); Urine Culture Reflex Order NOT NEEDED; Urine RBC <5 /HPF (NONE SEEN)
[2019-12-02 13:18] LABS: Anisocytosis 1+; Blood Morphology Comment NOTED (NOT SEEN); Platelet Estimate ADEQ; Polychromasia 1+; Urine White Blood Cell Casts OK
[2019-12-02 13:31] LABS: Urine Blood TRACE (NEG); Urine Glucose NEGATIVE (NEG); Urine Protein NEGATIVE (NEG); Urine Specific Gravity 1.005 (1.005-1.030); Urine pH 5.5 (5.0-7.0)
[2019-12-02] MEDS ORDERED: POTASSIUM 25 MEQ EFFERV TAB ONE (13:53)
--- NOTE | 2019-12-02 14:05 | P.HP ---
Certification for Inpatient Patient admitted to: Inpatient With expected LOS: >2 Midnights Patient will require the following post-hospital care: None Practitioner: I am a practitioner with admitting privileges, knowledge of patient current condition, hospital course, and medical plan of care. Services: Services provided to patient in accordance with Admission requirements found in Title 42 Section 412.3 of the Code of Federal Regulations Patient History Date of Service: 12/02/19 Primary Care Provider: Dr. Gimenez; GI-Dr. May Reason for admission: Abdominal pain History of Present Illness: 59-year-old male presented with abdominal pain. Patient with history of recurrent diverticulitis. Patient last seen for diverticulitis on 2018. Patient was hospitalized at that time. Patient was given antibiotics for 2 weeks. Since that time he has seen GI-Dr. Duggan. GI had planned for colonoscopy in the near future and referral to colorectal surgery-Dr. aBnks. Over the last day he has been having increasing abdominal pain mainly to the left lower quadrant. Cramping noted. He rates the pain about at 7/10. Some nausea noted. Patient reports very little bowel movement noted. Some rectal bleeding noted. He has reported some weight loss. Today he had an elevated fever. Some chills noted. He came to the ER for further evaluation. In the ER patient evaluated. Patient was febrile. Vital signs stable. Patient was given IV fluids and started on antibiotic therapy. White count elevated at 17.6, hemoglobin 8.5. Platelet count of 415. Sodium 136, potassium 3.3, BUN of 6, creatinine 0.94 with a GFR of 82. Pro calcitonin slightly elevated at 1.07. Lactic acid normal. Chest x-ray unremarkable. CT shows sigmoid diverticulitis, mild. No perforation or abscess noted. Patient was admitted for further treatment. When I saw the patient ER, he appeared much more comfortable. Pain well controlled. Patient reports history of diverticulitis multiple times since 2009. Patient with history of hypertension, hyperlipidemia, AAA repair and GERD. Allergies No Known Allergies Allergy (Verified 11/10/19 00:55) Home medications list reviewed: Yes Home Medications: Simvastatin [Zocor*] 40 mg PO BEDTIME 11/25/13 Aspirin [Aspirin EC 325 MG] 1 mg PO DAILY 06/21/18 Omeprazole [Prilosec] 40 mg PO DAILY 10/18/18 Famotidine [Pepcid*] 20 mg PO BEDTIME 11/10/19 Levofloxacin [Levaquin] 500 mg PO DAILY #7 tablet 11/10/19 Metronidazole [Flagyl] 375 mg PO TID #30 capsule 11/10/19 Multivit-Mins/Iron/Folic/Lycop [Centrum Men's Tablet] 1 tab PO DAILY 11/10/19 - Past Medical/Surgical History Diabetic: No -: AAA repair -: HTN -: Hyperlipidemia -: GERD -: AAA stent -: andrea knee tendon repair -: eye surgery (foreign object removal) -: tonsilectomy Psychosocial/ Personal History: Patient is - Family History Father -: Stroke Notes: dementia Mother -: Diabetes Brother -: Heart disease Notes: passed from [place] - Social History Smoking Status: Never smoker Alcohol use: No CD- Drugs: No Caffeine use: Yes Place of Residence: Home Review of Systems General: Fever, Chills, Malaise, As per HPI Eyes: Unremarkable ENT: Unremarkable Respiratory: Unremarkable Cardiovascular: Unremarkable Gastrointestinal: Nausea, Vomiting, Abdominal Pain, Hematochezia, As per HPI Genitourinary: Unremarkable Musculoskeletal: Unremarkable Integumentary: Unremarkable Neurological: Unremarkable Lymphatics: Unremarkable Physical Examination - Physical Exam General: Alert, In no apparent distress, Oriented x3, Cooperative HEENT: Atraumatic, Normocephalic, Mucous membr. moist/pink Neck: Supple Respiratory: Clear to auscultation bilaterally, Normal air movement Cardiovascular: Normal pulses, Regular rate/rhythm Gastrointestinal: Hypoactive (Throughout), Soft and benign, Non-distended, No masses, No rebound, No guarding, Tenderness (Pain to the left lower quadrant) Musculoskeletal: No erythema, No tenderness, No warmth Integumentary: No tenderness/swelling, No erythema, No warmth, No cyanosis Neurological: Normal speech, Normal strength at 5/5 x4 extr, Normal tone, Normal affect - Studies Laboratory Data (last 24 hrs) 12/02/19 09:52: Magnesium 1.7 L 12/02/19 09:52: PT 13.3 H, INR 1.13, APTT 26.3 12/02/19 09:52: WBC 17.6 H, Hgb 8.5 L, Hct 26.6 L, Plt Count 415 H 12/02/19 09:52: Sodium 136, Potassium 3.3 L, BUN 6 L, Creatinine 0.94, Glucose 97, Total Bilirubin 0.4, AST 19, ALT 27, Alkaline Phosphatase 66, Lipase 78 Assessment and Plan - Plan Impression: Fever, abdominal pain secondary to Recurrent sigmoid diverticulitis without perforation or abscess Acute on chronic anemia likely related to above with history of rectal bleeding Hypertension Hyperlipidemia GERD History of AAA repair with stent Plan: Fever, abdominal pain secondary to Recurrent sigmoid diverticulitis without perforation or abscess: Patient will be admitted for further evaluation and treatment. Will continue with IV fluids. Will continue with IV Cipro and Flagyl. Will keep the patient NPO at this time. Will advance diet slowly. Will obtain blood cultures. Will discuss case with his insurance examiner. Patient will require colorectal surgery evaluation as an outpatient in the near future due to his recurrent diverticulitis. He is expected to have a colonoscopy in the near future by his insurance examiner. Anticipate discharge in the next 2-4 days with clinical improvement. Acute on chronic anemia likely related to above with history of rectal bleeding : Will monitor hemoglobin closely. Patient may require transfusion if hemoglobin below 7.0. Hypertension: Blood pressure low at this time. Will hold blood pressure medication. Patient takes lisinopril/hydrochlorothiazide. He reports that it has been running low over the past several weeks. Hyperlipidemia: Hold medication at this time. GERD: Provide IV medication at this time. History of AAA repair with stent: Start DVT prophylaxis. Discharge Plan: Home Plan to discharge in: Greater than 2 days - Advance Directives Does patient have a Living Will: Yes Does patient have a Durable POA for Healthcare: Yes - Code Status/Comfort Care Code Status Assessed: Yes (Patient is full code) Time Spent Managing Pts Care (In Minutes): 55
[2019-12-02] MEDS ORDERED: ACETAMINOPHEN 500 MG TAB PO PRN (14:30)
[2019-12-02] MEDS ORDERED: MORPHINE 2 MG/ML SYR IV PRN (14:30)
[2019-12-02] MEDS ORDERED: ONDANSETRON 4 MG/2 ML VIAL IV PRN (14:30)
[2019-12-02 15:17] VITALS: BMI 28.0
[2019-12-02] MEDS: ENOXAPARIN 40 MG/0.4 ML SQ SCH (15:44)
[2019-12-02] MEDS: CIPROFLOXACIN 400mg IV 400 MG/200 ML BAG IV SCH ×2 (15:44→20:24)
[2019-12-02] MEDS: D5 0.9 NS 1,000 ML IV SCH (15:44)
[2019-12-02] MEDS: METRONIDAZOLE 500mg IVPB 500 MG/100 ML BAG IV SCH (15:45)
[2019-12-02] MEDS: ACETAMINOPHEN 650MG/RECT SUPP PR PRN ×2 (18:07→23:04)
[2019-12-02 19:05] LABS: Hematocrit 23.2 % (39.6-49.0)
[2019-12-02 20:11] LABS: Hematocrit 23.2 % (39.6-49.0)
[2019-12-02] MEDS: FAMOTIDINE 20 MG/2 ML VIAL IV SCH (20:24)
[2019-12-02] MEDS ORDERED: NA CHLORIDE 0.9% 100 ML ONE (21:10)
[2019-12-02] MEDS ORDERED: HYDROCORTISONE SUC 100 MG INJ IV ONE (23:59)
[2019-12-03] MEDS ORDERED: ACETAMINOPHEN 500 MG TAB PO ONE
[2019-12-03] MEDS: METRONIDAZOLE 500mg IVPB 500 MG/100 ML BAG IV SCH ×3 (03:05→17:39)
[2019-12-03 05:52] LABS: Absolute Lymphocytes (CBC) 0.3 K/uL (0.7-4.9); Hematocrit 26.7 % (39.6-49.0); Lymphocytes % 3.1 % (15.3-44.8); MPV 8.1 fL (7.6-11.3); RBC Red Blood Cell Count 3.57 M/uL (4.33-5.43)
[2019-12-03 05:55] LABS: Hematocrit 26.2 % (39.6-49.0)
[2019-12-03 06:10] LABS: Urine Appearance CLOUDY; Urine Bilirubin NEGATIVE (NEG); Urine Blood NEGATIVE (NEG); Urine Color DK YELLOW; Urine Glucose NEGATIVE (NEG); Urine Protein NEGATIVE (NEG); Urine Specific Gravity 1.015 (1.005-1.030); Urine Urobilinogen 0.2 mg/dL (0.2-1.0); Urine pH 5.5 (5.0-7.0)
[2019-12-03 06:17] LABS: Urine Microscopic Reflex ORDER UMIC
[2019-12-03 06:19] LABS: BUN Blood Urea Nitrogen 7 mg/dL (7-18); Bicarbonate 26 mmol/L (21-32); Glucose Level 140 mg/dL (74-106); Magnesium 2.1 mg/dL (1.8-2.4); Potassium 3.4 mmol/L (3.5-5.1); Sodium Level 141 mmol/L (136-145)
[2019-12-03] MEDS: D5 0.9 NS 1,000 ML IV SCH ×5 (06:30→22:30)
--- NOTE | 2019-12-03 06:37 | EKG ---
Test Date: 2019-12-02 Test Time: 09:57:07 Manufacturing Director: LUCIANO MEASUREMENT RESULTS: Intervals: Rate: 121 ND: 126 QRSD: 78 QT: 342 QTc: 485 [place]: P: 42 ND: 126 QRS: 51 T: 68 INTERPRETIVE STATEMENTS: Sinus tachycardia Nonspecific ST and T wave abnormality Abnormal ECG Compared to ECG 11/09/2019 20:22:44 ST (T wave) deviation now present Sinus rhythm no longer present Atrial premature complex(es) no longer present Electronically Signed On 12-03-19 06:36:04 PATTERN WEAVER by Uriel Rios
[2019-12-03 07:11] LABS: Urine Bacteria <20 /HPF (NONE SEEN); Urine Culture Reflex Order REFLEXED; Urine Mucus 2+ /HPF (NONE SEEN); Urine RBC <5 /HPF (NONE SEEN)
[2019-12-03] MEDS ORDERED: CALCIUM GLUC 10% INJ 4.65 MEQ in NA CHLORIDE 0.9% 100 ML IV ONE (08:00)
[2019-12-03] MEDS: CIPROFLOXACIN 400mg IV 400 MG/200 ML BAG IV SCH ×2 (08:12→21:05)
[2019-12-03] MEDS: FAMOTIDINE 20 MG/2 ML VIAL IV SCH ×2 (08:13→21:05)
[2019-12-03] MEDS: POTASSIUM CL 40 MEQ in NA CHLORIDE 0.9% 500 ML IV SCH ×2 (08:32→10:31)
[2019-12-03] MEDS: ENOXAPARIN 40 MG/0.4 ML SQ SCH (09:00)
[2019-12-03 14:10] LABS: C.diff Antigen/Toxin Ag neg : Tox neg (NEG : NEG)
[2019-12-03 14:37] LABS: Ferritin 88.5 ng/mL (26-388)
--- NOTE | 2019-12-03 18:02 | PN ---
Subjective: Currently patient is lying in bed. He looks comfortable. He continued to have some abd ominal pain, continued to have diarrhea. No chest pain or shortness of breath. He is very thirsty. He would like some clear liquid. He continue to have a low-grade temperature up to 101. His a t the bedside. Review of Systems: Otherwise negative. Objective: Current Vital Signs: Blood pressure is 97/60, respiratory rate 18, pulse 89, temperature 97.2, max 101. General: He is alert and oriented x3. Does not look in any distress. HEENT: Atraumatic, normocephalic. PERRLA. Oral mucosa is moist. Neck: Supple. No JVD. No carotid bruits. Chest: Clear to auscultation. Good air entry. Heart: Regular rate and rhythm. S1, S2 normal. No gallop or murmur. Abdomen: Soft with hypoactive bowel sounds. Nondistended. No masses. No guarding except mild tend erness in the left lower quadrant. Extremities: No clubbing, cyanosis, or edema. No calf tenderness. Neurologic: Grossly intact. Cranial nerve exam, 2 through 12 intact. Normal sensation. Normal ref lexes. Normal muscle strength. Laboratory Data: This morning showed CBC was normal except for hemoglobin 8.6, platelets of 306. Ch emistry was normal except for potassium 3.4, calcium 6.9. Stool studies still pending for C diff. Assessment And Plan: 1.Recurrent sigmoid diverticulitis without perforation associated with fever, abdominal pain. Patie nt continued to have diarrhea. Stool studies pending which again for C diff, which is still pending. I will order stool occult blood, given patient's severe anemia. Patient's hemoglobin improved afte r transfusion yesterday. Continue patient on IV Cipro, Flagyl. Advance diet to just clear liquid. GI consult on Thursday if patient is still with significant diarrhea. Patient is scheduled as outpatie nt. See Dr. Banks in the [place] to consider colectomy given his recurrent diverticulitis. 2.Acute on chronic anemia, most likely secondary to rectal bleed with iron deficiency. Patient achi eved transfusion yesterday. I will check his iron profile and start replacement if needed. 3.Hypertension, well controlled. Continue lisinopril, hydrochlorothiazide as before. 4.Deep vein thrombosis prophylaxis. We will hold Lovenox given his study. 5.Hypokalemia. We will replace. We will recheck potassium. 6.Hypocalcemia. We will replace. We will check with calcium today and replace IV. 7.Acid reflex. Patient on Pepcid 20 b.i.d. 8.History of abdominal aortic aneurysm repair with stent. We will hold the Lovenox for deep venous thrombosis prophylaxis given his active gastrointestinal bleed. BRODERICK/MODL Voice ID: [id number] Report ID: [id number]
[2019-12-03] MEDS ORDERED: POTASSIUM 25 MEQ EFFERV TAB PO ONE (22:05)
[2019-12-04] MEDS: METRONIDAZOLE 500mg IVPB 500 MG/100 ML BAG IV SCH ×4 (01:42→17:53)
[2019-12-04] MEDS: D5 0.9 NS 1,000 ML IV SCH ×4 (06:30→22:30)
[2019-12-04 06:36] LABS: Absolute Lymphocytes (CBC) 0.9 K/uL (0.7-4.9); Hematocrit 24.2 % (39.6-49.0); Lymphocytes % 11.7 % (15.3-44.8); MPV 8.2 fL (7.6-11.3); RBC Red Blood Cell Count 3.29 M/uL (4.33-5.43)
[2019-12-04 07:05] LABS: ALT/SGPT 25 U/L (12-78); AST/SGOT 28 U/L (15-37); Albumin 1.7 g/dL (3.4-5.0); Alkaline Phosphatase 53 U/L (45-117); BUN Blood Urea Nitrogen 7 mg/dL (7-18); Bicarbonate 25 mmol/L (21-32); Bilirubin Total 0.3 mg/dL (0.2-1.0); Glucose Level 105 mg/dL (74-106); Magnesium 1.9 mg/dL (1.8-2.4); Potassium 3.4 mmol/L (3.5-5.1); Protein, Total 4.6 g/dL (6.4-8.2); Sodium Level 142 mmol/L (136-145)
[2019-12-04] MEDS ORDERED: NA CHLORIDE 0.9% 250 ML ONE (07:21)
[2019-12-04] MEDS: FAMOTIDINE 20 MG/2 ML VIAL IV SCH ×3 (09:00→21:45)
[2019-12-04] MEDS: CIPROFLOXACIN 400mg IV 400 MG/200 ML BAG IV SCH ×3 (09:00→21:45)
[2019-12-04] MEDS ORDERED: POTASSIUM CL SA 10 MEQ TAB PO ONE ×2 (11:00→18:00)
[2019-12-04] MEDS ORDERED: CALCIUM GLUC 10% INJ 9.3 MEQ in NA CHLORIDE 0.9% 100 ML IV ONE (13:00)
[2019-12-04 16:23] LABS: Potassium 3.6 mmol/L (3.5-5.1)
--- NOTE | 2019-12-04 17:15 | PN ---
Subjective: Currently, patient is lying in bed. He looks comfortable. He has no chest pain. No ab dominal pain. No fever. No chills. Diarrhea improved. He is feeling much better. He denies any b lack stool. Objective: Vital Signs: Blood pressure 122/78, respiratory rate 19, pulse 86, temperature 98.9. GENERAL: He is alert and oriented x3, does not look in any distress. HEENT: Atraumatic, normocephalic. PERRLA. Oral mucosa is moist. Neck: Supple. No JVD. No bruits. Chest: Clear to auscultation. Good air entry. Heart: Regular rate and rhythm. S1, S2 normal. No gallop or murmur. Abdomen: Soft. Hypoactive bowel sounds. Minimal tenderness in the left lower quadrant. Extremities: No clubbing, cyanosis, or edema. No calf tenderness. Neurologic: Grossly intact. Cranial exam 2 through 12 intact. Normal sensation. Normal reflexes. Normal muscle strength. Laboratory Data: Today showed white blood cells 7.6, hemoglobin 7.9, and platelets at 283. Chemistr y was normal except for potassium 3.4, calcium 7. Albumin 1.7. Assessment And Plan: 1.Recurrent sigmoid diverticulitis without perforation associated with fever, abdominal pain. Patie nt's diarrhea improved. He is currently on clear liquid diet. Stool studies still pending. For Brittany stridium difficile, stool occult blood was positive. Patient's hemoglobin dropped today 7.9. He rec eived 1 unit of blood. He will see Dr. May tomorrow. There is another arrangement for colonoscop y to be done in [place] according to the patient because camera is better somewhat there, so much of the test was done as an outpatient. We will await for official consult. In the meantime, we will c ontinue on IV Cipro, Flagyl, and continue clear liquid diet for now. Patient also supposed to be see ing Dr. Banks at [facility] to consider colectomy given his recurrent diverticulitis. 2.Progressive anemia secondary to gastrointestinal bleed. Stool occult was positive. Patient recei anika blood transfusion today. His iron study was consistent with normal iron, but most likely that is secondary to his transfusion. 3.Hypertension, well controlled today. Continue lisinopril, hydrochlorothiazide as before. 4.Hypokalemia, replaced yesterday and today's almost normal at 3.4. Continue replacement. 5.Hypocalcemia. We will give 2 g of calcium today and recheck at 4 p.m. 6.Acid reflux, on Pepcid 20 mg twice a day. 7.History of abdominal aortic aneurysm repair with stent, observe for now, stable. 8.Deep vein thrombosis prophylaxis, none. We will hold Lovenox given patient GI bleed. MT/ANDRESL Voice ID: [id number] Report ID: [id number]
[2019-12-04 18:39] LABS: Hematocrit 26.7 % (39.6-49.0)
[2019-12-05] MEDS: METRONIDAZOLE 500mg IVPB 500 MG/100 ML BAG IV SCH ×2 (00:06→08:41)
[2019-12-05 05:55] LABS: BUN Blood Urea Nitrogen 3 mg/dL (7-18); Bicarbonate 27 mmol/L (21-32); Glucose Level 117 mg/dL (74-106); Magnesium 1.9 mg/dL (1.8-2.4); Potassium 3.9 mmol/L (3.5-5.1); Sodium Level 144 mmol/L (136-145)
[2019-12-05 05:57] LABS: Basophils % 0.8 % (0-1.3); Hematocrit 28.7 % (39.6-49.0); Lymphocytes % 10.2 % (15.3-44.8); MPV 8.2 fL (7.6-11.3); RBC Red Blood Cell Count 3.83 M/uL (4.33-5.43)
[2019-12-05] MEDS: D5 0.9 NS 1,000 ML IV SCH (06:08)
[2019-12-05 08:14] LABS: Anisocytosis 1+; Blood Morphology Comment NOTED (NOT SEEN); Platelet Estimate ADEQ
--- NOTE | 2019-12-05 08:19 | P.DS ---
Admission Date: 12/02/19 Discharge Date: 12/05/19 Primary Care Provider: Dr. Gimenez; GI-Dr. May Reason for Admission: Abdominal pain Brief History of Present Illness: Patient with hx of diverticulitis admitted for sigmoid diverticulitis with blood per rectum Hospital Course: Admitted for CT eveidence of recurrent sigmoid diverticulitis without perforation associated with fever, abdominal pain and symptomatic anemia . . Patient's diarrhea improved. He is currently on diet. , stool occult blood was positive. Patient's hemoglobin dropped to 7.9 and he received 1 unit of blood. . There is a history of prior arrangement for colonoscopy to be done in [place] according to the patient because camera is better somewhat there, so much of the test was done as an outpatient. Consult was placed for GI-Dr Duggan but non reached yet . He was started on antibiotics . Patient will be seeing Dr. Banks at [facility] to consider colectomy given his recurrent diverticulitis. He will be discharged home to continue his outpatient follow . his h/h improevd to 9.0 post PRBC and again to 9.4 today . His symptoms has significantly improved <Sabiha Ko - Last Filed: 12/05/19 13:20> Admission Date: 12/02/19 Discharge Date: 12/11/19 <Lacho May - Last Filed: 12/11/19 14:11> Disposition: ROUTINE DISCHARGE Discharge Condition: GOOD Vital Signs/Physical Exam: Temp Pulse Resp BP Pulse Ox 97.7 F 77 18 101/56 L 99 12/05/19 04:00 12/05/19 04:00 12/05/19 04:00 12/05/19 04:00 12/05/19 04:00 General: Alert, Oriented x3 HEENT: Atraumatic, Normocephalic, PERRLA Neck: Supple, 2+ carotid pulse no bruit, JVD not distended Respiratory: Clear to auscultation bilaterally, Normal air movement Cardiovascular: No edema, Regular rate/rhythm, Normal S1 S2 Gastrointestinal: Normal bowel sounds, Soft and benign Musculoskeletal: No clubbing, No swelling Neurological: Normal gait, Normal speech, Normal strength at 5/5 x4 extr Lymphatics: No axilla or inguinal lymphadenopathy, Axilla lymphadenopathy Laboratory Data at Discharge: WBC 9.7 K/uL (4.3-10.9) D 12/05/19 05:10 Hgb 9.4 g/dL (13.6-17.9) L 12/05/19 05:10 Hct 28.7 % (39.6-49.0) L 12/05/19 05:10 Plt Count 282 K/uL (152-406) 12/05/19 05:10 PT 13.3 SECONDS (9.5-12.5) H 12/02/19 09:52 INR 1.13 12/02/19 09:52 APTT 26.3 SECONDS (24.3-36.9) 12/02/19 09:52 Sodium 144 mmol/L (136-145) 12/05/19 05:10 Potassium 3.9 mmol/L (3.5-5.1) 12/05/19 05:10 BUN 3 mg/dL (7-18) L 12/05/19 05:10 Creatinine 0.67 mg/dL (0.55-1.3) 12/05/19 05:10 Glucose 117 mg/dL (74-106) H 12/05/19 05:10 Magnesium 1.9 mg/dL (1.8-2.4) 12/05/19 05:10 Total Bilirubin 0.3 mg/dL (0.2-1.0) 12/04/19 05:16 AST 28 U/L (15-37) 12/04/19 05:16 ALT 25 U/L (12-78) 12/04/19 05:16 Alkaline Phosphatase 53 U/L (45-117) 12/04/19 05:16 Lipase 78 U/L (73-393) 12/02/19 09:52 <Sabiha Ko - Last Filed: 12/05/19 13:20> Vital Signs/Physical Exam: Temp Pulse Resp BP Pulse Ox 97.8 F 75 18 114/78 99 12/05/19 12:00 12/05/19 12:00 12/05/19 12:00 12/05/19 12:00 12/05/19 12:00 Laboratory Data at Discharge: WBC 9.7 K/uL (4.3-10.9) D 12/05/19 05:10 Hgb 9.4 g/dL (13.6-17.9) L 12/05/19 05:10 Hct 28.7 % (39.6-49.0) L 12/05/19 05:10 Plt Count 282 K/uL (152-406) 12/05/19 05:10 PT 13.3 SECONDS (9.5-12.5) H 12/02/19 09:52 INR 1.13 12/02/19 09:52 APTT 26.3 SECONDS (24.3-36.9) 12/02/19 09:52 Sodium 144 mmol/L (136-145) 12/05/19 05:10 Potassium 3.9 mmol/L (3.5-5.1) 12/05/19 05:10 BUN 3 mg/dL (7-18) L 12/05/19 05:10 Creatinine 0.67 mg/dL (0.55-1.3) 12/05/19 05:10 Glucose 117 mg/dL (74-106) H 12/05/19 05:10 Magnesium 1.9 mg/dL (1.8-2.4) 12/05/19 05:10 Total Bilirubin 0.3 mg/dL (0.2-1.0) 12/04/19 05:16 AST 28 U/L (15-37) 12/04/19 05:16 ALT 25 U/L (12-78) 12/04/19 05:16 Alkaline Phosphatase 53 U/L (45-117) 12/04/19 05:16 Lipase 78 U/L (73-393) 12/02/19 09:52 <Lacho May - Last Filed: 12/11/19 14:11> Patient Discharge Instructions: -follow up with Dr Duggan. -Call Dr Banks for appt Diet: Low sodium Activity: Ad danny <Sabiha Ko - Last Filed: 12/05/19 13:20> <Lacho May - Last Filed: 12/11/19 14:11> Home Medications: Simvastatin [Zocor*] 40 mg PO BEDTIME 11/25/13 Aspirin [Aspirin EC 325 MG] 1 mg PO DAILY 06/21/18 Omeprazole [Prilosec] 40 mg PO DAILY PRN 09/02/18 Famotidine [Pepcid*] 20 mg PO BEDTIME 11/10/19 Multivit-Mins/Iron/Folic/Lycop [Centrum Men's Tablet] 1 tab PO DAILY 11/10/19 Ferrous Sulfate 325 mg PO BID #60 tablet 12/05/19 Levofloxacin [Levaquin] 500 mg PO DAILY #7 tablet 12/05/19 Metronidazole [Flagyl] 500 mg PO TID #21 capsule 12/05/19 New Medications: Ferrous Sulfate 325 mg PO BID #60 tablet Levofloxacin [Levaquin] 500 mg PO DAILY #7 tablet Metronidazole [Flagyl] 500 mg PO TID #21 capsule Followup: Lacho May MD [ASSOCIATE-ACTIVE - CAN ADMIT] -
[2019-12-05] MEDS: CIPROFLOXACIN 400mg IV 400 MG/200 ML BAG IV SCH (08:40)
[2019-12-05] MEDS: FAMOTIDINE 20 MG/2 ML VIAL IV SCH (08:41)
[2019-12-05] MEDS ORDERED: POTASSIUM 25 MEQ EFFERV TAB PO ONE (09:00)
[2019-12-05 09:50] VITALS: O2SAT 98
[2019-12-05 14:28] VITALS: BP 114/78; TEMP 97.8
== END 2019-12-05 15:40 | disposition home or self-care (01) | DRG 377 ==
LOC: ER 09:20 → ERHOLD 13:25 → 2ND 14:43
PROVIDERS: ADMIT Family Medicine; ATTEND Family Medicine
DX: K57.33 Diverticulitis of large intestine without perforation or abscess with bleeding (principal); E43 Unspecified severe protein-calorie malnutrition; K92.1 Melena; I10 Essential (primary) hypertension; E87.6 Hypokalemia; E83.51 Hypocalcemia; K21.9 Gastro-esophageal reflux disease without esophagitis; D50.0 Iron deficiency anemia secondary to blood loss (chronic); Z68.28 Body mass index [BMI] 28.0-28.9, adult
CPT/HCPCS: 36415; 36430; 71045; 74177; 80048; 80053; 80076; 81003; 81015; 82274; 82310; 82550; 82553; 82728; 82947; 83540; 83605; 83690; 83735; 83880; 84132; 84145; 84466; 84484; 85014; 85018; 85025; 85610; 85730; 86850; 86900; 86901; 87040; 87045; 87046; 87086; 87088; 87205; 87324; 87449; 89055; 93005; 96365; 96367; 96375; 99285; J0610; J0696; J0744; J1650; J1720; J3475; J7030; J7040; J7042; P9016; Q9967

== ENCOUNTER 2019-12-27 07:30 | Day surgery (SDC) | payer BC ==
[2019-12-27] MEDS ORDERED: Ringers Lactate 1,000 ML IV ONE (07:53)
[2019-12-27 08:08] VITALS: O2SAT 100
[2019-12-27] MEDS ORDERED: LIDOCAINE 1% MPF 5 ML VIAL ONE (10:04)
[2019-12-27] MEDS ORDERED: propofoL 200 MG/20 ML VIAL IV ONE ×2 (10:04)
--- NOTE | 2019-12-27 10:29 | ENDO RPT ---
[address], [address] COLONOSCOPY PROCEDURE REPORT EXAM DATE: 12/27/2019 PATIENT NAME: Dale Tovar MR #: [id number] BIRTHDATE: 1960 ATTENDING: Lacho May Dr STATUS: outpatient FOUR SLIDE OPERATOR: Tika Rose RN and Jada Patino RN INDICATIONS: The patient is a 59 yr old Male here for a colonoscopy due to diverticulitis, abnormal CT of abdomen, and abdominal pain PROCEDURE PERFORMED: Colonoscopy with biopsy MEDICATIONS: Per Anesthesia. ESTIMATED BLOOD LOSS: None CONSENT: The patient understands the risks and benefits of the procedure and understands that these risks include, but are not limited to: sedation, allergic reaction, infection, perforation and/or bleeding. Alternative means of evaluation and treatment include, among others: physical exam, x-rays, and/or surgical intervention. The patient elects to proceed with this endoscopic procedure. DESCRIPTION OF PROCEDURE: During intra-op preparation period all mechanical medical equipment was checked for proper function. Hand hygiene and appropriate measures for infection prevention was taken. Procedure, possible complications, alternatives including, but not limited to possibility of bleeding, perforation, tear, infection, sepsis, need for surgery, need for blood transfusion, were explained to the patient. After the risks, benefits and alternatives of the procedure were thoroughly explained, Informed consent was verified, confirmed and timeout was successfully executed by the treatment team. The patient was placed in the left lateral position. A digital rectal exam was performed and revealed several skin tags. After appropriate level of anesthesia, the scope was passed. The [id number] ([id number]) endoscope was introduced through the anus and advanced to the sigmoid colon. The quality of the prep was good. The instrument was then slowly withdrawn as the colon was fully examined. Scope withdrawal time was 7 minutes. COLON FINDINGS: An area of moderately hemorrhagic mucosa was found in the rectosigmoid colon. Multiple biopsies of the area were performed using cold forceps. Small internal hemorrhoids were found. Retroflexion was not performed. The scope was then completely withdrawn from the patient and the procedure terminated. ADVERSE EVENTS: There were no complications. IMPRESSIONS: 1. Colitis with hemorrhagic mucosa / inflammation / edema / erythema / loss of vascular pattern in the rectosigmoid colon; multiple further intubation past sigmoid colon with CT verified diverticulitis of the sigmoid colon already - increased risk of perforation 2. Small internal hemorrhoids RECOMMENDATIONS: 1. await biopsy results 2. Anusol therapy RECALL: Return in 8 week(s) for Colonoscopy. Lacho May Dr eSigned: Lacho May Dr 12/27/2019 10:28 AM cc: Uriel Rios M.D and Flash Gimenez M.D. CPT CODES: ICD9 CODES: PATIENT NAME: Dale Tovar MR#: [id number]
[2019-12-27] MEDS ORDERED: CEFAZOLIN/SWI 2gm 2 GM/20 ML SYR ONE (10:37)
[2019-12-27 11:40] VITALS: TEMP 98.4
[2019-12-27 11:42] VITALS: BP 101/65
== END 2019-12-27 10:55 | disposition home or self-care (01) ==
LOC: OR 07:30
PROVIDERS: ATTEND Internal Medicine Gastroenterology
PROC: 0DBN8ZX Excision of Sigmoid Colon, Via Natural or Artificial Opening Endoscopic, Diagnostic (ICD-10-PCS; principal; 2019-12-27 09:45)
DX: K57.32 Diverticulitis of large intestine without perforation or abscess without bleeding (principal); K52.9 Noninfective gastroenteritis and colitis, unspecified; K64.8 Other hemorrhoids; K21.9 Gastro-esophageal reflux disease without esophagitis; I10 Essential (primary) hypertension; I25.10 Atherosclerotic heart disease of native coronary artery without angina pectoris; Z79.82 Long term (current) use of aspirin; Z88.6 Allergy status to analgesic agent; Z87.891 Personal history of nicotine dependence; Z83.3 Family history of diabetes mellitus
CPT/HCPCS: 88305; 45331; J2704; J0690; J7120

== ENCOUNTER 2021-03-18 15:20 | Emergency (ER) | payer BC ==
--- OUTSIDE RECORDS SUMMARY | 2021-03-18 15:24 | XMS REPORT | Continuity of Care Document ---
:1960 Author Organization [facility] t Address [address] [place] [address] Care Team Providers Name Role Phone Max Gimenez DO Primary Care Physician Carlos Banks MD Attending Clinician Fredy NGUYEN Attending Clinician JULIAN Admitting Clinician Unavailable Payers Payer Name Policy Type Policy Effective Date Expiration Date [facility] Number BCBSBCBS [facility] [id number] 2019 [place] PPO/FEDERAL 00:00:00 [facility] EMPL [id number] 2019-Presen tPPO Problems Condition Condition Condition Status Onset Resolution Last Treating Co mments Source Name Details Category Date Date Treatment Clinician Date Diverticul Diverticul Disease Active [place] itis of itis of 3-11 [facility] large large 00:00: st intestine intestine 00 without without perforatio perforatio n or n or abscess abscess without without bleeding bleeding Allergies, Adverse Reactions, Alerts Allergy Allergy Status Severity Reaction(s) Onset Inactive Treating Comm ents Source Name Type Date Date Clinician codeine DA Active [facility] 6- [place] 00:00: [facility] [address] Acetamin Propensi Active GI [place] ophen-Co ty to Intolerance 3-11 Met hodi deine adverse 00:00: st reaction 00 s to drug Other Propensi Active GI 2020-0 Tylenol # [place] on ty to Intolerance 2-11 3 Metho di adverse 00:00: st reaction 00 s Family History Family Member Diagnosis Comments Start Date Stop Date Source Natural brother Heart disease [place] [facility] Natural brother Hypertension [place] [facility] Natural brother Heart attack [place] [facility] Natural father Dementia [place] [facility] thodist Natural father Heart attack [place] [facility] Natural father Stroke [place] [facility] Natural mother Arthritis [place] [facility] Natural mother Diabetes [place] [facility] Natural sister Multiple sclerosis [place] [facility] Social History Social Habit Start Date Stop Date Quantity Comments Source History of tobacco Current smoker [place] [facility] Alcohol Std Drinks History SDOH [place] Meth odist Alcohol Binge Cigarettes smoked 2020-01-27 2020-01-27 [place] [facility] current (pack per 00:00:00 00:00:00 day) - Reported Cigarette 2020-01-27 2020-01-27 Wing Method ist pack-years 00:00:00 00:00:00 Tobacco use and 2020-01-27 2020-01-27 Current user [place] [facility]ist exposure 00:00:00 00:00:00 Alcohol intake 2020-01-27 2020-01-27 Lifetime [place] [facility] 00:00:00 00:00:00 non-drinker (finding) History SDOH 2019-12-27 2019-12-27 1 [place] Meth odist Alcohol Frequency 00:00:00 00:00:00 Sex Ass[birth year] At [birth year] [facility] ethodist 00:00:00 00:00:00 Smoking Status Start Date Stop Date Source Former smoker 2020-01-27 00:00:00 2020-01-27 00:00:00 Maciej Pruitt Medications Ordered Filled Start Stop Current Ordering Indication Dosage Frequency Signature Comments Components Source Medication Medication Date Date Medication? Clinician (SIG) Name Name hydrocortis 2019- 2020- No Q.5D Insert Jeff ston one 05-10 07-25 into the Methodi (ANUSOL-HC) 00:00: 23:59 rectum 2 s t 2.5 % 00 :00 (two) rectal times a cream day for 30 days. simvastatin 2019-0 Yes 40mg QD Take 40 mg [place] (ZOCOR) 40 3-15 by mouth Metho di MG tablet 12:12: nightly. st 50 famotidine 2019-0 Yes 20mg QD Take 20 mg [place] (PEPCID) 20 3-15 by mouth Meth morteza MG tablet 12:12: nightly. st 50 lisinopril 2020-0 Yes QD Take by Milan ton 20 mg 3-15 mouth Methodi tablet 1 12:12: every st tablet, 50 morning. hydroCHLORO thiazide 25 MG tablet 1 tablet omeprazole 2020-0 Yes 40mg Take 40 mg [place] (PriLOSEC) 3-15 by mouth Metho di 40 MG 12:12: as needed. st capsule 50 acetaminoph 2020-0 Yes 500mg Q6H Take 500 [place] en 3-15 mg by [facility] (TYLENOL) 12:12: mouth st 500 MG 50 every 6 tablet (six) hours as needed for mild pain. DUCODYL, 2020-0 Yes Take by Zachary n BISACODYL, 3-15 mouth. Methodi ORAL 12:12: Took 4 st 50 tablets all at once Vital Signs Vital Name Observation Time Observation Value Comments Source Heart rate 2020-05-04 09:00:00 74 /min Maciej Pruitt Oxygen saturation in 2020-05-04 09:00:00 99 /min Maciej Pruitt Arterial blood by Pulse oximetry Systolic blood 2020-05-04 08:51:00 142 mm[Hg] Zachary Pruitt pressure Diastolic blood 2020-05-04 08:51:00 79 mm[Hg] Blanca Pruitt pressure Respiratory rate 2020-05-04 06:30:00 18 /min [place] Pruitt Body temperature 2020-05-04 05:57:00 37.11 Diane [place] Pruitt Body height 2020-05-04 05:57:00 170.2 cm Maciej Pruitt Procedures Procedure Date / Time Performing Clinician Source Performed XR CHEST 1 VW PORTABLE 2020-05-04 06:28:30 Minor Dalton ECG ED PRELIMINARY 2020-05-04 06:23:45 Nicole Daniel ethodist INTERPRETATION HC COMPLETE BLD COUNT 2020-05-04 06:10:00 Minor Dalton W/AUTO DIFF PROTHROMBIN TIME WITH INR 2020-05-04 06:10:00 Minor Dalton PARTIAL THROMBOPLASTIN 2020-05-04 06:10:00 Minor Dalton TIME (PTT) COMPREHENSIVE METABOLIC 2020-05-04 06:10:00 Sha Minor Jeff ston [facility] PANEL TROPONIN 2020-05-04 06:10:00 ShaMinor Met hodist B NATRIURETIC PEPTIDE 2020-05-04 06:10:00 Minor Dalton on Sabianist TYPE AND SCREEN 2020-05-04 06:10:00 DaltonMinor gomez Met hodist ESTIMATED GFR 2020-05-04 06:10:00 Sha Minorkaushal [facility] Met hodist ECG 12-LEAD 2020-05-04 06:09:28 DaltonMinor gomez Met hodist FL COLON GASTROGRAFIN 2020-03-22 09:52:36 Blanca Gómez on Sabianist WATER SOLUBLE ENEMA [facility] Plan of Care Planned Activity Planned Date Details Comments Source Future Scheduled 2021-06-16 INFLUENZA VACCINE [place] [facility] Test 00:00:00 [code = INFLUENZA VACCINE] Future Scheduled 2010 COLONOSCOPY SCREENING [place] [facility] Test 00:00:00 [code = COLONOSCOPY SCREENING] Future Scheduled 2010 SHINGLES VACCINES [place] [facility] Test 00:00:00 (#1) [code = SHINGLES VACCINES (#1)] Future Scheduled 1978 Hepatitis C screening [place] [facility] Test 00:00:00 (procedure) [code = 277427198] Future Scheduled 1976 COVID-19 VACCINE (1) Jeff ston Sabianist Test 00:00:00 [code = COVID-19 VACCINE (1)] Encounters Start End Encounter Admission Attending Care Care Encounter Source Date/Time Date/Time Type Type Clinicians Facility Department ID 2020-05-04 2020-05-04 Emergency [facility] 064 [id number] [place] 00:00:00 00:00:00 NICOLE [address] 2020-03-22 2020-03-22 Outpatient BANKS, HARPRE[facility] [id number] [place] 00:00:00 00:00:[address] 2020-01-25 2020-01-29 Inpatient BANKS, HAR[facility] 021 [id number] [place] 00:00:00 00:00:[address] Results Test Description Test Time Test Comments Results Result Comments Source ECG 12 lead 2020-05-04 08:57:25 Test Item Value Reference Range Interpretation Comme nts Ventricular rate (test code = 253) 79 Atrial rate (test code = 255) 79 OR interval (test code = 266) 130 QRSD interval (test code = 260) 78 QT interval (test code = 264) 406 QTC interval (test code = 265) 465 P axis 1 (test code = 267) 65 QRS axis 1 (test code = 268) 66 T wave axis (test code = 270) 65 EKG impression (test code = 273) Normal sinus rhythm-Normal ECG-In automated comparison with ECG of 25-JAN-2020 20:57,-No significant change was found- [place] Methodist[facility] Chest 1 Vw [id number] 06:32:24Hm Interface, Radiology Results Incoming - 05/04/2020 6:35 AM CDT EXAMINATION: XR CHEST 1 VW PORTABLECLINICAL HISTORY: chest painCOMPARISON: NoneIMPRESSION:No acute airspace disease, pleural effusion, or pneumothorax.1.5 cm dense circumscribed nodular density in the left mid hemithorax projecting over a rib is likely benign but indeterminate. Recommend correlation with CT on nonurgent basis.Normal cardiomediastinal silhouette.[facility]-[id number] [facility] [facility] Preliminary Interpretation - Not an [id number] 06:23:45Nicole Daniel MD 05/05/2020 11:11 AMECG ED Preliminary Interpretation - Not an OrderPerformed by: Nicole Daniel MDAuthorized by: Nicole Daniel MD ECG reviewed by ED Physician in the absence of a tire trucker: yes Interpretation: Interpretation: normal Rate: ECG rate: 79 ECG rate assessment: normal Rhythm: Rhythm: sinus rhythm ST segments: ST segments: [facility] W/AUTO DIFF 2020-04-27 14:44:00 Test Item Value Reference Range Interpretation Comments WHITE BLOOD CELL (test code = 11.5 x10 3/uL 4.8-10.8 H WBC) RED BLOOD CELL (test code = 4.29 x10 6/uL 4.70-6.10 L RBC) HEMOGLOBIN (test code = HGB) 8.7 g/dL 14.5-20 L HEMATOCRIT (test code = HCT) 29.6 % 42.0-52.0 L MEAN CELL VOLUME (test code = 69.0 fL 80.0-94.0 L MCV) MEAN CELL HGB (test code = MCH) 20.3 pg 27-31 L MEAN CELL HGB CONCENTRATION 29.4 G/DL 33-36.5 L (test code = MCHC) RED CELL DISTRIBUTION WIDTH 28.5 % 12.9-16.9 H (test code = RDW) PLATELET COUNT (test code = 346 150-440 N PLT) MEAN PLATELET VOLUME (test code 10.0 fL 8.9-12.4 N = MPV) NEUTROPHIL % (test code = NT%) 75.1 % 42.2-75.2 N LYMPHOCYTE % (test code = LY%) 8.5 % 20.5-51.1 L MONOCYTE % (test code = MO%) 10.0 % 1.7-9.3 H EOSINOPHIL % (test code = EO%) 5.6 % 0.0-7.0 N BASOPHIL % (test code = BA%) 0.4 % 0-2.5 N NEUTROPHIL # (test code = NT#) 8.64 x10 3/uL 1.80-7.70 H LYMPHOCYTE # (test code = LY#) 0.98 x10 3/uL 1.00-4.80 L MONOCYTE # (test code = MO#) 1.15 x10 3/uL 0.00-0.80 H EOSINOPHIL # (test code = EO#) 0.65 x10 3/uL 0.00-0.45 H BASOPHIL # (test code = BA#) 0.05 x10 3/uL 0.0-0.20 N BASIC METABOLIC [id number] 06:13:00 Test Item Value Reference Range Interpretation Comments SODIUM (test code 134 MMOL/L 136-143 L = NA) POTASSIUM (test 4.4 MMOL/L 3.5-5.1 N code = K) CHLORIDE (test 103 MMOL/L 98-107 N code = CL) CARBON DIOXIDE 23 mmol/L 24-31 L (test code = CO2) GLUCOSE (test code 95 mg/dL 70-104 N = GLU) BLOOD UREA 3.7 MG/DL 7.0-21.0 L NITROGEN (test code = BUN) GLOMERULAR >=60 max >60 The estimated FILTRATION RATE estimate glomerular (test code = GFR) filtration rate is computed usingpatient ra ce, age (>18), sex, and serum creatinin e. If anyof the neede d data elements a re missing the Laboratory chilo ot compute an estimation of t he glomerular filtration rate . CREATININE (test 0.6 mg/dL 0.8-1.5 L code = CREAT) CALCIUM (test code 7.8 mg/dL 8.8-10.2 L = CA) [id number] 06:13:00 Test Item Value Reference Range Interpretation Comments MAGNESIUM (test code = MAG) 1.6 mg/dL 1.4-2.6 N CBC W/AUTO [id number] 05:54:00 Test Item Value Reference Range Interpretation Comments WHITE BLOOD CELL (test code = 13.4 x10 3/uL 4.8-10.8 H WBC) RED BLOOD CELL (test code = 3.97 x10 6/uL 4.70-6.10 L RBC) HEMOGLOBIN (test code = HGB) 7.5 g/dL 14.5-20 L HEMATOCRIT (test code = HCT) 26.6 % 42.0-52.0 L MEAN CELL VOLUME (test code = 67.0 fL 80.0-94.0 L MCV) MEAN CELL HGB (test code = 18.9 pg 27-31 L MCH) MEAN CELL HGB CONCENTRATION 28.2 G/DL 33-36.5 L (test code = MCHC) RED CELL DISTRIBUTION WIDTH 27.0 % 12.9-16.9 H (test code = RDW) PLATELET COUNT (test code = 335 150-440 N PLT) MEAN PLATELET VOLUME (test 9.7 fL 8.9-12.4 N code = MPV) NEUTROPHIL % (test code = NT%) 74.9 % 42.2-75.2 N LYMPHOCYTE % (test code = LY%) 8.8 % 20.5-51.1 L MONOCYTE % (test code = MO%) 10.1 % 1.7-9.3 H EOSINOPHIL % (test code = EO%) 5.5 % 0.0-7.0 N BASOPHIL % (test code = BA%) 0.4 % 0-2.5 N NEUTROPHIL # (test code = NT#) 10.02 x10 3/uL 1.80-7.70 H LYMPHOCYTE # (test code = LY#) 1.18 x10 3/uL 1.00-4.80 N MONOCYTE # (test code = MO#) 1.35 x10 3/uL 0.00-0.80 H EOSINOPHIL # (test code = EO#) 0.73 x10 3/uL 0.00-0.45 H BASOPHIL # (test code = BA#) 0.06 x10 3/uL 0.0-0.20 N BASIC METABOLIC [id number] 06:44:00 Test Item Value Reference Range Interpretation Comments SODIUM (test code 138 MMOL/L 136-143 N = NA) POTASSIUM (test 4.3 MMOL/L 3.5-5.1 N code = K) CHLORIDE (test 106 MMOL/L 98-107 N code = CL) CARBON DIOXIDE 24 mmol/L 24-31 N (test code = CO2) GLUCOSE (test code 94 mg/dL 70-104 N = GLU) BLOOD UREA 2.9 MG/DL 7.0-21.0 L NITROGEN (test code = BUN) GLOMERULAR >=60 max >60 The estimated FILTRATION RATE estimate glomerular (test code = GFR) filtration rate is computed usingpatient ra ce, age (>18), sex, and serum creatinin e. If anyof the neede d data elements a re missing the Laboratory chilo ot compute an estimation of t he glomerular filtration rate . CREATININE (test 0.6 mg/dL 0.8-1.5 L code = CREAT) CALCIUM (test code 7.7 mg/dL 8.8-10.2 L = CA) [id number] 06:44:00 Test Item Value Reference Range Interpretation Comments MAGNESIUM (test code = MAG) 1.9 mg/dL 1.4-2.6 N CBC W/AUTO [id number] 06:38:00 Test Item Value Reference Range Interpretation Comments WHITE BLOOD CELL (test code = 13.0 x10 3/uL 4.8-10.8 H WBC) RED BLOOD CELL (test code = 4.30 x10 6/uL 4.70-6.10 L RBC) HEMOGLOBIN (test code = HGB) 8.1 g/dL 14.5-20 L HEMATOCRIT (test code = HCT) 29.7 % 42.0-52.0 L MEAN CELL VOLUME (test code = 69.1 fL 80.0-94.0 L MCV) MEAN CELL HGB (test code = MCH) 18.8 pg 27-31 L MEAN CELL HGB CONCENTRATION 27.3 G/DL 33-36.5 L (test code = MCHC) RED CELL DISTRIBUTION WIDTH 27.0 % 12.9-16.9 H (test code = RDW) PLATELET COUNT (test code = 340 150-440 N PLT) MEAN PLATELET VOLUME (test code 10.7 fL 8.9-12.4 N = MPV) NEUTROPHIL % (test code = NT%) 76.2 % 42.2-75.2 H LYMPHOCYTE % (test code = LY%) 9.5 % 20.5-51.1 L MONOCYTE % (test code = MO%) 9.4 % 1.7-9.3 H EOSINOPHIL % (test code = EO%) 3.7 % 0.0-7.0 N BASOPHIL % (test code = BA%) 0.8 % 0-2.5 N NEUTROPHIL # (test code = NT#) 9.91 x10 3/uL 1.80-7.70 H LYMPHOCYTE # (test code = LY#) 1.24 x10 3/uL 1.00-4.80 N MONOCYTE # (test code = MO#) 1.22 x10 3/uL 0.00-0.80 H EOSINOPHIL # (test code = EO#) 0.48 x10 3/uL 0.00-0.45 H BASOPHIL # (test code = BA#) 0.11 x10 3/uL 0.0-0.20 N SURGICAL [id number] 17:02:00 RUN DATE: 04/25/20 [facility] - LAB PAGE 1 RUN TIME: 1702 Specimen Inquiry RUN USER: INTERFACE PATIENT: [facility]OSLAVA [facility]END[facility] #: [id number] AGE/SX: 60/M ROOM: [facility] RE04/24/20REG DR: Walker Denson MD : 60 BED: 1 DIS: STATUS: ADM IN TLOC: SPEC #: [id number] RECD: 04/24/20 STATUS: LUCILA AGUILAR #: [id number] ANTONINO: 04/24/20-1034 [facility] DR: Walker Denson MD ENTERED: 04/24/20-110 SP TYPE: SURG OTHR DR: DOES_NOT KNOW No Primary or Family PhysicianORDERED: PATHGM3, PATH SPEC, H E STAIN HISTOLOGY: TISSUE ID BLK PCS CASIE LEV / PROCEDURE DISPOSITION ____ ___ ___ ___ ___ ILEOSTOMY A 2 1 TISSUES: A. ILEOSTOMY - Ileostomy CLINICAL HISTORY Diverticulitis, ileostomy stoma FINAL DIAGNOSIS ILEOSTOMY STOMA, EXCISION: EN TEROCUTANEOUS ANASTAMOSIS (ILEOSTOMY STOMA) FOCAL SEROSAL FIBROUS ADHESIONS [facility] [id number] GROSS DESCRIPTION The specimen is designated with the patient's name, demographics and "ileostomy". It consists of a segment of bowel (7.3 cm in length, 2.6 cm diameter) with an ileostomy stoma (2.4 cm diameter) at 3 cm from either resection margin. The bowel mucosa is normally folded. There are no mass lesions. The rim of skin around the stoma ranges from 0.1 to 0.2 cm in thickness. Cigar Patcher sections are submitted in A1-A2. SECTION CODE: A1, stoma; A2, resection margin. /th Signed SIGNATURE ON FILE Bernie Guadarrama MD 04/25/20 1707 END OF REPORT BASIC METABOLIC [id number] 08:18:00 Test Item Value Reference Range Interpretation Comments SODIUM (test code 135 MMOL/L 136-143 L = NA) POTASSIUM (test 3.9 MMOL/L 3.5-5.1 N code = K) CHLORIDE (test 103 MMOL/L 98-107 N code = CL) CARBON DIOXIDE 20 mmol/L 24-31 L (test code = CO2) GLUCOSE (test code 93 mg/dL 70-104 N = GLU) BLOOD UREA 3.9 MG/DL 7.0-21.0 L NITROGEN (test code = BUN) GLOMERULAR >=60 max >60 The estimated FILTRATION RATE estimate glomerular (test code = GFR) filtration rate is computed usingpatient ra ce, age (>18), sex, and serum creatinin e. If anyof the neede d data elements a re missing the Laboratory chilo ot compute an estimation of t he glomerular filtration rate . CREATININE (test 0.6 mg/dL 0.8-1.5 L code = CREAT) CALCIUM (test code 7.7 mg/dL 8.8-10.2 L = CA) [id number] 08:18:00 Test Item Value Reference Range Interpretation Comments MAGNESIUM (test code = MAG) 2.0 mg/dL 1.4-2.6 N CBC W/AUTO [id number] 07:23:00 Test Item Value Reference Range Interpretation Comments WHITE BLOOD CELL (test code = 12.8 x10 3/uL 4.8-10.8 H WBC) RED BLOOD CELL (test code = 4.40 x10 6/uL 4.70-6.10 L RBC) HEMOGLOBIN (test code = HGB) 8.3 g/dL 14.5-20 L HEMATOCRIT (test code = HCT) 29.8 % 42.0-52.0 L MEAN CELL VOLUME (test code = 67.7 fL 80.0-94.0 L MCV) MEAN CELL HGB (test code = MCH) 18.9 pg 27-31 L MEAN CELL HGB CONCENTRATION 27.9 G/DL 33-36.5 L (test code = MCHC) RED CELL DISTRIBUTION WIDTH 26.5 % 12.9-16.9 H (test code = RDW) PLATELET COUNT (test code = 328 150-440 N PLT) MEAN PLATELET VOLUME (test code 10.6 fL 8.9-12.4 N = MPV) NEUTROPHIL % (test code = NT%) 76.5 % 42.2-75.2 H LYMPHOCYTE % (test code = LY%) 11.0 % 20.5-51.1 L MONOCYTE % (test code = MO%) 9.6 % 1.7-9.3 H EOSINOPHIL % (test code = EO%) 1.9 % 0.0-7.0 N BASOPHIL % (test code = BA%) 0.5 % 0-2.5 N NEUTROPHIL # (test code = NT#) 9.78 x10 3/uL 1.80-7.70 H LYMPHOCYTE # (test code = LY#) 1.41 x10 3/uL 1.00-4.80 N MONOCYTE # (test code = MO#) 1.23 x10 3/uL 0.00-0.80 H EOSINOPHIL # (test code = EO#) 0.24 x10 3/uL 0.00-0.45 N BASOPHIL # (test code = BA#) 0.07 x10 3/uL 0.0-0.20 N CBC W/AUTO [id number] 06:46:00 Test Item Value Reference Range Interpretation Comments WHITE BLOOD CELL (test code = 12.8 x10 3/uL 4.8-10.8 H WBC) RED BLOOD CELL (test code = 4.40 x10 6/uL 4.70-6.10 L RBC) HEMOGLOBIN (test code = HGB) 8.3 g/dL 14.5-20 L HEMATOCRIT (test code = HCT) 29.8 % 42.0-52.0 L MEAN CELL VOLUME (test code = 67.7 fL 80.0-94.0 L MCV) MEAN CELL HGB (test code = MCH) 18.9 pg 27-31 L MEAN CELL HGB CONCENTRATION 27.9 G/DL 33-36.5 L (test code = MCHC) RED CELL DISTRIBUTION WIDTH 26.5 % 12.9-16.9 H (test code = RDW) PLATELET COUNT (test code = 150-440 N PLT) MEAN PLATELET VOLUME (test code fL 8.9-12.4 N = MPV) NEUTROPHIL % (test code = NT%) 76.5 % 42.2-75.2 H LYMPHOCYTE % (test code = LY%) 11.0 % 20.5-51.1 L MONOCYTE % (test code = MO%) 9.6 % 1.7-9.3 H EOSINOPHIL % (test code = EO%) 1.9 % 0.0-7.0 N BASOPHIL % (test code = BA%) 0.5 % 0-2.5 N NEUTROPHIL # (test code = NT#) 9.78 x10 3/uL 1.80-7.70 H LYMPHOCYTE # (test code = LY#) 1.41 x10 3/uL 1.00-4.80 N MONOCYTE # (test code = MO#) 1.23 x10 3/uL 0.00-0.80 H EOSINOPHIL # (test code = EO#) 0.24 x10 3/uL 0.00-0.45 N BASOPHIL # (test code = BA#) 0.07 x10 3/uL 0.0-0.20 N Novel Coronavirus 2019 [id number] 17:15:00 Test Item Value Reference Range Interpretation Comments Novel Coronavirus 2019 Inhouse (test Negative Negative code = COVNONPUI) Testing Criteria: Preprocedure ScreeningCBC W/AUTO [id number] 10:38:00 Test Item Value Reference Range Interpretation Comments WHITE BLOOD CELL (test code = 15.0 x10 3/uL 4.8-10.8 H WBC) RED BLOOD CELL (test code = 4.32 x10 6/uL 4.70-6.10 L RBC) HEMOGLOBIN (test code = HGB) 7.0 g/dL 14.5-20 L HEMATOCRIT (test code = HCT) 26.2 % 42.0-52.0 L MEAN CELL VOLUME (test code = 60.6 fL 80.0-94.0 L MCV) MEAN CELL HGB (test code = 16.2 pg 27-31 L MCH) MEAN CELL HGB CONCENTRATION 26.7 G/DL 33-36.5 L (test code = MCHC) RED CELL DISTRIBUTION WIDTH 19.5 % 12.9-16.9 H (test code = RDW) PLATELET COUNT (test code = 515 150-440 H PLT) MEAN PLATELET VOLUME (test 9.9 fL 8.9-12.4 N code = MPV) NEUTROPHIL % (test code = NT%) 77.2 % 42.2-75.2 H LYMPHOCYTE % (test code = LY%) 10.6 % 20.5-51.1 L MONOCYTE % (test code = MO%) 6.9 % 1.7-9.3 N EOSINOPHIL % (test code = EO%) 3.9 % 0.0-7.0 N BASOPHIL % (test code = BA%) 0.9 % 0-2.5 N NEUTROPHIL # (test code = NT#) 11.55 x10 3/uL 1.80-7.70 H LYMPHOCYTE # (test code = LY#) 1.58 x10 3/uL 1.00-4.80 N MONOCYTE # (test code = MO#) 1.03 x10 3/uL 0.00-0.80 H EOSINOPHIL # (test code = EO#) 0.58 x10 3/uL 0.00-0.45 H BASOPHIL # (test code = BA#) 0.13 x10 3/uL 0.0-0.20 N POLYCHROMASIA (test code = 1+ NONE SEEN A POLC) HYPOCHROMIA (test code = HYPO) 4+ NONE SEEN A POIKILOCYTOSIS (test code = 1+ NONE SEEN A POIK) ANISOCYTOSIS (test code = 2+ NONE SEEN A ANISO) MICROCYTOSIS (test code = 1+ NONE SEEN A MICR) TARGET CELLS (test code = TGT) 1+ NONE SEEN A BASIC METABOLIC [id number] 10:22:00 Test Item Value Reference Range Interpretation Comments SODIUM (test code 139 MMOL/L 136-143 N = NA) POTASSIUM (test 4.6 MMOL/L 3.5-5.1 N code = K) CHLORIDE (test 102 MMOL/L 98-107 N code = CL) CARBON DIOXIDE 26 mmol/L 24-31 N (test code = CO2) GLUCOSE (test code 90 mg/dL 70-104 N = GLU) BLOOD UREA 9.8 MG/DL 7.0-21.0 N NITROGEN (test code = BUN) GLOMERULAR >=60 max >60 The estimated FILTRATION RATE estimate glomerular (test code = GFR) filtration rate is computed usingpatient ra ce, age (>18), sex, and serum creatinin e. If anyof the neede d data elements a re missing the Laboratory chilo ot compute an estimation of t he glomerular filtration rate . CREATININE (test 0.6 mg/dL 0.8-1.5 L code = CREAT) CALCIUM (test code 9.2 mg/dL 8.8-10.2 N = CA) CBC W/AUTO [id number] 10:08:00 Test Item Value Reference Range Interpretation Comments WHITE BLOOD CELL (test code = 15.0 x10 3/uL 4.8-10.8 H WBC) RED BLOOD CELL (test code = 4.32 x10 6/uL 4.70-6.10 L RBC) HEMOGLOBIN (test code = HGB) 7.0 g/dL 14.5-20 L HEMATOCRIT (test code = HCT) 26.2 % 42.0-52.0 L MEAN CELL VOLUME (test code = 60.6 fL 80.0-94.0 L MCV) MEAN CELL HGB (test code = 16.2 pg 27-31 L MCH) MEAN CELL HGB CONCENTRATION 26.7 G/DL 33-36.5 L (test code = MCHC) RED CELL DISTRIBUTION WIDTH 19.5 % 12.9-16.9 H (test code = RDW) PLATELET COUNT (test code = 515 150-440 H PLT) MEAN PLATELET VOLUME (test 9.9 fL 8.9-12.4 N code = MPV) NEUTROPHIL % (test code = NT%) 77.2 % 42.2-75.2 H LYMPHOCYTE % (test code = LY%) 10.6 % 20.5-51.1 L MONOCYTE % (test code = MO%) 6.9 % 1.7-9.3 N EOSINOPHIL % (test code = EO%) 3.9 % 0.0-7.0 N BASOPHIL % (test code = BA%) 0.9 % 0-2.5 N NEUTROPHIL # (test code = NT#) 11.55 x10 3/uL 1.80-7.70 H LYMPHOCYTE # (test code = LY#) 1.58 x10 3/uL 1.00-4.80 N MONOCYTE # (test code = MO#) 1.03 x10 3/uL 0.00-0.80 H EOSINOPHIL # (test code = EO#) 0.58 x10 3/uL 0.00-0.45 H BASOPHIL # (test code = BA#) 0.13 x10 3/uL 0.0-0.20 N CBC W/AUTO [id number] 10:06:00 Test Item Value Reference Range Interpretation Comments WHITE BLOOD CELL (test code = 15.0 x10 3/uL 4.8-10.8 H WBC) RED BLOOD CELL (test code = 4.32 x10 6/uL 4.70-6.10 L RBC) HEMOGLOBIN (test code = HGB) 7.0 g/dL 14.5-20 L HEMATOCRIT (test code = HCT) 26.2 % 42.0-52.0 L MEAN CELL VOLUME (test code = 60.6 fL 80.0-94.0 L MCV) MEAN CELL HGB (test code = 16.2 pg 27-31 L MCH) MEAN CELL HGB CONCENTRATION 26.7 G/DL 33-36.5 L (test code = MCHC) RED CELL DISTRIBUTION WIDTH 19.5 % 12.9-16.9 H (test code = RDW) PLATELET COUNT (test code = 515 150-440 H PLT) MEAN PLATELET VOLUME (test 9.9 fL 8.9-12.4 N code = MPV) NEUTROPHIL % (test code = NT%) 77.2 % 42.2-75.2 H LYMPHOCYTE % (test code = LY%) 10.6 % 20.5-51.1 L MONOCYTE % (test code = MO%) 6.9 % 1.7-9.3 N EOSINOPHIL % (test code = EO%) 3.9 % 0.0-7.0 N BASOPHIL % (test code = BA%) 0.9 % 0-2.5 N NEUTROPHIL # (test code = NT#) 11.55 x10 3/uL 1.80-7.70 H LYMPHOCYTE # (test code = LY#) 1.58 x10 3/uL 1.00-4.80 N MONOCYTE # (test code = MO#) 1.03 x10 3/uL 0.00-0.80 H EOSINOPHIL # (test code = EO#) 0.58 x10 3/uL 0.00-0.45 H BASOPHIL # (test code = BA#) 0.13 x10 3/uL 0.0-0.20 N FL Colon Gastrografin Water Soluble [id number] 10:23:08Hm Interface, Radiology Results 03/22/2020 10:26 AM CDT EXAMINATION: FL COLON GASTROGRAFIN WATER SOLUBLE ENEMACLINICAL HISTORY: K57.92 Diverticulitis of intestine part unspecified without perforation or abscess without bleeding, Z93.2 Ileostomy status, evaluate anastomosisCOMPARISON: None.TECHNIQUE: Gastrografin administeredvia a rectal tube by gravity under fluoroscopic guidance. Spot radiographs and overhead films were obtained.RADIATION DOSE: 1.4 minutes. 13 fluoroscopic exposures. 153.7 mGy (Reference Air Kerma)FINDINGS:Store Clerk radiograph demonstrates aortoiliac stent graft and aortic aneurysm. There are scattered pe lvic phleboliths.Colon was normally distensible. No fixed stricture or annular mass. No contrast extravasation/leak.IMPRESSION:Unremarkable enema.[facility]-[id number] Sabianist
[2021-03-18] MEDS ORDERED: CYCLOBENZAPRINE 10 MG TAB ONE (16:41)
[2021-03-18] MEDS ORDERED: HYDROCODONE/APAP 10/325 TAB ONE (16:42)
[2021-03-18] MEDS ORDERED: KETOROLAC 30 MG/ML INJ ONE (16:42)
--- NOTE | 2021-03-18 17:42 | RAD REPORT ---
EXAM DESCRIPTION: RAD - Lumbar Spine 3 Views - 03/18/2021 5:34 pm CLINICAL HISTORY: PAIN COMPARISON: Small Bowel Series dated 12/25/2020; Abdomen Pelvis W Contrast dated 12/02/2019 FINDINGS: A three-view lumbar spine examination was performed. L2-L5 bodies are normal in height. Anterior subluxation of L5 on S1 noted of only a few mm. This is s econdary to pars interarticularis defects. Partial compression L1 body seen with concavity to the sup erior endplate. Posterior wall height is preserved. These findings are all stable from the December 05 CT study. No new or acute vertebral body finding. Mild facet joint degenerative change present. T12-L1 disc spa ce narrowing matches comparison. Aortoiliac stent in place. IMPRESSION: Negative Lumbar Spine examination for acute finding. L5 pars defects and partial compression of the L1 body date back to at least November 2019.
[2021-03-18] MEDS ORDERED: DIAZEPAM 5 MG TABLET ONE (18:07)
[2021-03-18] MEDS ORDERED: MORPHINE 2 MG/ML SYR ONE (18:07)
[2021-03-18] MEDS ORDERED: MORPHINE 4 MG/ML SYR ONE (18:08)
--- NOTE | 2021-03-18 18:35 | EDPHYS ---
Physician Documentation [facility] Name: Dale Tovar Age: 61 yrs Sex: Male : 1960 Arrival Date: 03/18/2021 Time: 15:33 Bed 25 Private MD: ED Physician Herve Garcia HPI: 03/18 18:31 This 61 yrs old Male presents to ER via EMS with complaints of back pain. ma2 18:31 Onset: The symptoms/episode began/occurred gradually, 2 day(s) ago. Severity of ma2 symptoms: At their worst the symptoms were mild in the emergency department the symptoms are unchanged. The patient has experienced similar episodes in the past. Historical: - Allergies: 16:11 Codeine; nausea; zb - Home Meds: 16:10 aspirin 325 mg Oral tab [Active]; hydrocortisone 1 % Rectal crea 2 times per day zb [Active]; lisinopril-hydrochlorothiazide 20-25 mg Oral tab 1 tab once daily [Active]; omeprazole 20 mg Oral cpDR 1 cap once daily [Active]; simvastatin 40 mg Oral tab once daily [Active]; Zantac 150 mg Oral tab 1 tab once daily [Active]; tramadol 50 mg Oral tab 1 tab every 6 hours [Active]; mesalamine oral oral [Active]; cyclobenzaprine 10 mg Oral tab 1 tab 3 times per day [Active]; - PMHx: 16:10 Hypertension; AAA; zb - PSHx: 16:10 Knee surgery; Tonsillectomy; endoscopy; zb - Immunization history:: Adult Immunizations up to date. - Social history:: Smoking status: unknown Patient/guardian denies using alcohol, street drugs, The patient lives with family. - Family history:: not pertinent. ROS: 18:31 Constitutional: Negative for fever, chills, and weight loss. ma2 18:31 All other systems are negative. Exam: 18:31 Constitutional: This is a well developed, well nourished patient who is awake, alert, ma2 and in no acute distress. Neck: Trachea midline, no thyromegaly or masses palpated, and no cervical lymphadenopathy. Supple, full range of motion without nuchal rigidity, or vertebral point tenderness. No Meningismus. Chest/axilla: Normal chest wall appearance and motion. Nontender with no deformity. No lesions are appreciated. Cardiovascular: Regular rate and rhythm with a normal S1 and S2. No gallops, murmurs, or rubs. Normal PMI, no JVD. No pulse deficits. Respiratory: Lungs have equal breath sounds bilaterally, clear to auscultation and percussion. No rales, rhonchi or wheezes noted. No increased work of breathing, no retractions or nasal flaring. Abdomen/GI: Soft, non-tender, with normal bowel sounds. No distension or tympany. No guarding or rebound. No evidence of tenderness throughout. Skin: Warm, dry with normal turgor. Normal color with no rashes, no lesions, and no evidence of cellulitis. MS/ Extremity: Pulses equal, no cyanosis. Neurovascular intact. Full, normal range of motion. Neuro: Awake and alert, GCS 15, oriented to person, place, time, and situation. Cranial nerves II-XII grossly intact. Motor strength 5/5 in all extremities. Sensory grossly intact. Cerebellar exam normal. Normal gait. 18:31 Back: pain, that is moderate, ROM is painful, normal spinal alignment noted, CVA tenderness, is absent, vertebral tenderness, is not appreciated, muscle spasm, is appreciated in the left low back. Vital Signs: 16:00 BP 147 / 89; Pulse 73; Resp 16; Temp 98.2; Pulse Ox 98% on R/A; Weight 63.05 kg; Height zb 5 ft. 7 in. (170.18 cm); Pain 10/10; 17:15 BP 146 / 87; Pulse 70; Resp 16; Pulse Ox 99% on R/A; zb 18:00 BP 131 / 94; Pulse 89; Resp 18; Pulse Ox 95% on R/A; zb 19:05 BP 144 / 76; Pulse 79; Resp 16; Pulse Ox 97% on R/A; zb 16:00 Body Mass Index 21.77 (63.05 kg, 170.18 cm) zb MDM: 15:39 Patient medically screened. ma2 18:31 Differential Diagnosis back pain, muscle sprain, chronic low back pain, vertebral ma2 fracture unlikley . Data reviewed: vital signs, nurses notes. Counseling: I had a detailed discussion with the patient and/or guardian regarding: the historical points, exam findings, and any diagnostic results supporting the discharge/admit diagnosis, the presence of at least one elevated blood pressure reading (>120/80) during this emergency department visit, the need for outpatient follow up. Response to treatment: the patient's symptoms have markedly improved after treatment. ED course: back pain w no red flags, no urinary incontinence or saddle anaesthesia, fever or midline tenderness . 03/18 16:37 Order name: Lumbar Spine 3 Views; Complete Time: 17:46 EDMS Administered Medications: 16:26 Drug: Flexeril (cyclobenzaprine) 10 mg Route: PO; zb 17:56 Follow up: Response: No adverse reaction; Marked relief of symptoms; Pain is decreased zb 16:26 Drug: Marcus (HYDROcodone-acetaminophen) 10 mg-325 mg 1 tabs {Note: RASS +1.} Route: PO; zb 17:56 Follow up: Response: No adverse reaction; Marked relief of symptoms; Pain is decreased; zb RASS: Alert and Calm (0) 16:52 Drug: TORadol (ketorolac) 60 mg Route: IM; Site: right gluteus; zb 17:56 Follow up: Response: No adverse reaction; Marked relief of symptoms; Pain is decreased zb 17:55 Drug: morphine 10 mg {Note: RASS +0.} Route: IM; Site: right gluteus; zb 19:00 Follow up: Response: No adverse reaction; Marked relief of symptoms; Pain is decreased; zb RASS: Alert and Calm (0) 17:56 Drug: Valium (diazepam) 5 mg Route: PO; zb 19:00 Follow up: Response: No adverse reaction; Marked relief of symptoms; Pain is decreased; zb RASS: Alert and Calm (0) Disposition: 03/18/21 18:34 Discharged to Home. Impression: Low back pain. - Condition is Stable. - Discharge Instructions: Back Pain, Adult, Back Exercises, [id number]. - Prescriptions for Cyclobenzaprine 10 mg Oral Tablet - take 1 tablet by ORAL route every 8 hours As needed; 30 tablet. Diclofenac Sodium 75 mg Oral Tablet Sustained Release - take 1 tablet by ORAL route 2 times per day; 30 tablet. Medrol ([place]) 4 mg Oral Tablets, Dose Pack - take 1 tablet by ORAL route as directed - follow package instructions; 1 packet. - Medication Reconciliation Form, Thank You Letter, Antibiotic Education, Prescription Opioid Use form. - Follow up: Private Physician; When: Tomorrow; Reason: Continuance of care. - Notes: follow up with your primary care doctor to get lumbar spine MRI for further evaluation Signatures: Dispatcher [employer] [facility] Herve Garcia MD MD ma2 Lizett Regan RN RN zb Corrections: (The following items were deleted from the chart) 16:37 16:29 Lumbar Spine Single View+[email or web address] ordered. [facility] 19:06 18:34 03/18/2021 18:34 Discharged to Home. Impression: Low back pain. Condition is zb Stable. Forms are Medication Reconciliation Form, Thank You Letter, Antibiotic Education, Prescription Opioid Use. Follow up: Private Physician; When: Tomorrow; Reason: Continuance of care. almas
--- NOTE | 2021-03-18 18:35 | ER ---
Nurse's Notes [facility] Name: Dale Tovar Age: 61 yrs Sex: Male : 1960 Arrival Date: 03/18/2021 Time: 15:33 Bed 25 Private MD: Diagnosis: Low back pain Presentation: 03/18 15:44 Chief complaint: EMS states: patient called from home states he is having severe back zb pain. chronic history of back pain but today has been the worst 08/25. Coronavirus screen: At this time, the client does not indicate any symptoms associated with coronavirus-19. Ebola Screen: No symptoms or risks identified at this time. Initial Sepsis Screen: Does the patient meet any 2 criteria? No. Patient's initial sepsis screen is negative. Does the patient have a suspected source of infection? No. Patient's initial sepsis screen is negative. Risk Assessment: Do you want to hurt yourself or someone else? Patient reports no desire to harm self or others. Onset of symptoms was March 18, 2021. Care prior to arrival: Medication(s) given: 25mcg of nasal fentanyl and 600mg of liquid IB. 15:44 Acuity: ANGELA 3 zb 15:44 Method Of Arrival: EMS: [facility] Triage Assessment: 16:10 General: Appears in no apparent distress. Behavior is agitated. Pain: Complains of pain zb in low back area Pain does not radiate. Pain currently is 10 out of 10 on a pain scale. at worst was 10 out of 10 on a pain scale. Quality of pain is described as crampy, throbbing, Aggravated by increased activity, repositioning, Noted to be agitated. Neuro: Level of Consciousness is awake, alert, obeys commands, Oriented to person, place, time, situation. Cardiovascular: Capillary refill < 3 seconds Patient's skin is warm and dry. Respiratory: No deficits noted. GI: No deficits noted. : Urine is clear. Derm: Skin is intact, is healthy with good turgor, Skin is dry, Skin is normal. Musculoskeletal: Range of motion: intact in all extremities. Historical: - Allergies: 16:11 Codeine; nausea; zb - Home Meds: 16:10 aspirin 325 mg Oral tab [Active]; hydrocortisone 1 % Rectal crea 2 times per day zb [Active]; lisinopril-hydrochlorothiazide 20-25 mg Oral tab 1 tab once daily [Active]; omeprazole 20 mg Oral cpDR 1 cap once daily [Active]; simvastatin 40 mg Oral tab once daily [Active]; Zantac 150 mg Oral tab 1 tab once daily [Active]; tramadol 50 mg Oral tab 1 tab every 6 hours [Active]; mesalamine oral oral [Active]; cyclobenzaprine 10 mg Oral tab 1 tab 3 times per day [Active]; - PMHx: 16:10 Hypertension; AAA; zb - PSHx: 16:10 Knee surgery; Tonsillectomy; endoscopy; zb - Immunization history:: Adult Immunizations up to date. - Social history:: Smoking status: unknown Patient/guardian denies using alcohol, street drugs, The patient lives with family. - Family history:: not pertinent. Screenin:14 Abuse screen: Denies threats or abuse. Denies injuries from another. Nutritional zb screening: No deficits noted. Tuberculosis screening: No symptoms or risk factors identified. Fall Risk None identified. Assessment: 15:44 Reassessment: ecp at bedside. zb 17:15 Reassessment: Patient appears in no apparent distress at this time. Patient and/or zb family updated on plan of care and expected duration. Pain level reassessed. Patient is alert, oriented x 3, equal unlabored respirations, skin warm/dry/pink. 18:00 Reassessment: Patient appears in no apparent distress at this time. Patient and/or zb family updated on plan of care and expected duration. Pain level reassessed. Patient is alert, oriented x 3, equal unlabored respirations, skin warm/dry/pink. pt states that he feel a lot better. able to sit up in bed. remains at bedside. 19:03 Reassessment: Patient appears in no apparent distress at this time. Patient and/or zb family updated on plan of care and expected duration. Pain level reassessed. Patient is alert, oriented x 3, equal unlabored respirations, skin warm/dry/pink. Patient states feeling better. Patient states symptoms have improved. 19:04 Reassessment: patient ambulated out with . d/c instructions given. zb Vital Signs: 16:00 BP 147 / 89; Pulse 73; Resp 16; Temp 98.2; Pulse Ox 98% on R/A; Weight 63.05 kg; Height zb 5 ft. 7 in. (170.18 cm); Pain 10/10; 17:15 BP 146 / 87; Pulse 70; Resp 16; Pulse Ox 99% on R/A; zb 18:00 BP 131 / 94; Pulse 89; Resp 18; Pulse Ox 95% on R/A; zb 19:05 BP 144 / 76; Pulse 79; Resp 16; Pulse Ox 97% on R/A; zb 16:00 Body Mass Index 21.77 (63.05 kg, 170.18 cm) zb ED Course: 15:33 Patient arrived in ED. ma2 15:39 Herve Garcia MD is Attending Physician. ma2 15:40 Lizett Regan RN is Primary Nurse. zb 15:46 Triage completed. zb 16:14 Arm band placed on. zb 16:14 Patient has correct armband on for positive identification. Placed in gown. Bed in low zb position. Call light in reach. Pulse ox on. NIBP on. Door closed. Noise minimized. Warm blanket given. 17:32 Lumbar Spine 3 Views In Process Unspecified. EDMS 19:04 No provider procedures requiring assistance completed. Patient did not have IV access zb during this emergency room visit. Administered Medications: 16:26 Drug: Flexeril (cyclobenzaprine) 10 mg Route: PO; zb 17:56 Follow up: Response: No adverse reaction; Marked relief of symptoms; Pain is decreased zb 16:26 Drug: Moss (HYDROcodone-acetaminophen) 10 mg-325 mg 1 tabs {Note: RASS +1.} Route: PO; zb 17:56 Follow up: Response: No adverse reaction; Marked relief of symptoms; Pain is decreased; zb RASS: Alert and Calm (0) 16:52 Drug: TORadol (ketorolac) 60 mg Route: IM; Site: right gluteus; zb 17:56 Follow up: Response: No adverse reaction; Marked relief of symptoms; Pain is decreased zb 17:55 Drug: morphine 10 mg {Note: RASS +0.} Route: IM; Site: right gluteus; zb 19:00 Follow up: Response: No adverse reaction; Marked relief of symptoms; Pain is decreased; zb RASS: Alert and Calm (0) 17:56 Drug: Valium (diazepam) 5 mg Route: PO; zb 19:00 Follow up: Response: No adverse reaction; Marked relief of symptoms; Pain is decreased; zb RASS: Alert and Calm (0) Outcome: 18:34 Discharge ordered by MD. coburn 19:05 Discharged to home ambulatory, with family. zb 19:05 Condition: stable 19:05 Discharge instructions given to patient, family, Instructed on discharge instructions, follow up and referral plans. medication usage, Demonstrated understanding of instructions, follow-up care, medications, Prescriptions given X 3. 19:06 Patient left the ED. faustina Signatures: Dispatcher [employer] EDMS Herve Garcia MD MD ma2 Brown, Zipporah, RN RN faustina
[2021-03-18 19:11] VITALS: TEMP 98.2
[2021-03-18 19:15] VITALS: BP 144/76; O2SAT 97
== END 2021-03-18 19:06 | disposition home or self-care (01) ==
LOC: ER 15:20
DX: M54.5 Low back pain (principal); I10 Essential (primary) hypertension; Z79.82 Long term (current) use of aspirin; Z88.5 Allergy status to narcotic agent
CPT/HCPCS: 72100; J2270; 96372; 99284

== ENCOUNTER 2022-12-27 08:22 | Emergency (ER) | payer BC ==
--- OUTSIDE RECORDS SUMMARY | 2022-12-27 08:25 | XMS REPORT | Continuity of Care Document ---
:1960 Author Organization [facility] t Address [address] [place] [address] Care Team Providers Name Role Phone Eliel Gimenez DO [place]ana Primary Care Physician Walker Denson Attending Clinician Unavailable GENNY GRUBBS Attending Clinician Unavailable UNKNOWN Attending Clinician Unavailable HARPREET JORDAN Attending Clinician Unavailable Physician, No Primary or Family Admitting Clinician Unavaila HARPREET Appiah Admitting Clinician Unavailable Payers Payer Name Policy Type Policy Number Effective Date Expiration Date S ource Problems Condition Condition Condition Status Onset Resolution Last Treating Co mments Source Name Details Category Date Date Treatment Clinician Date Diverticul Diverticul Disease Active 2019-0 M ethod[facility] itis of itis of [facility] large large 00:00: Hospita intestine intestine 00 l without without perforatio perforatio n or n or abscess abscess without without bleeding bleeding Allergies, Adverse Reactions, Alerts Allergy Allergy Status Severity Reaction(s) Onset Inactive Treating Comm ents Source Name Type Date Date Clinician codeine DA Active SV NAUSEA 2019-0 [facility] 04-20 [place] 00:00: [facility] 00 are [facility] codeine DA Active SV 2019-0 [facility] 04-20 [place] 00:00: [facility] 00 are [facility] Acetamin Propensi Active GI 2019-0 Method i ophen-Co ty to Intolerance 11 st deine adverse 00:00: Hospita reaction 00 l s to drug Other Propensi Active GI 2020-0 Tylenol # Metho di ty to Intolerance 12-[address] adverse 00:00: Hospita reaction 00 l s Family History Family Member Diagnosis Comments Start Date Stop Date Source Natural mother Arthritis [facility] Natural mother Diabetes [facility] Natural sister [facility] Natural brother Heart attack [facility] Natural brother Heart disease [facility] Natural brother Hypertension [facility] Natural father Dementia [facility] Natural father Heart attack [facility] Natural father Stroke [facility] Social History Social Habit Start Date Stop Date Quantity Comments Source History of tobacco Current smoker [facility] Hospital History [facility] Alcohol Std Drinks Hospit al History [facility] Alcohol Binge Hospital Alcohol intake 2020-01-27 2020-01-27 Lifetime [facility] 00:00:00 00:00:00 non-drinker Hospital (finding) History SDOH 2020-01-25 2020-01-25 1 [facility] Alcohol Frequency 00:00:00 00:00:00 Hospita l Cigarettes smoked 2019-12-27 2019-12-[address] [facility] current (pack per 00:00:00 00:00:00 Hospita l day) - Reported Cigarette 2019-12-27 2019-12-27 [facility] pack-years 00:00:00 00:00:00 Hospital Tobacco use and 2019-12-27 2019-12-27 User of smokeless [facility] exposure 00:00:00 00:00:00 tobacco Hospital Sex Assigned At [birth year] [facility] 00:00:00 00:00:00 Hospital Smoking Status Start Date Stop Date Source Ex-smoker 2019-12-27 00:00:00 2019-12-27 00:00:00 [facility] Medications Ordered Filled Start Stop Current Ordering Indication Dosage Frequency Signature Comments Components Source Medication Medication Date Date Medication? Clinician (SIG) Name Name simvastatin 2019-0 Yes 40mg QD Take 40 mg Methodi (ZOCOR) 40 3-[address] MG tablet 12:12: nightly. Hosp tanner 50 l famotidine 2020-0 Yes 20mg QD Take 20 mg M ethodi (PEPCID) 20 3-[address] MG tablet 12:12: nightly. Hosp tanner 50 l lisinopril 2020-0 Yes QD Take by Meth morteza 20 mg 3-[address] tablet 1 12:12: every Hospita tablet, 50 morning. l hydroCHLORO thiazide 25 MG tablet 1 tablet omeprazole 2020-0 Yes 40mg Take 40 mg M ethodi (PriLOSEC) 3-[address] 40 MG 12:12: as needed. Hospit a capsule 50 l acetaminoph 2020-0 Yes 500mg Q6H Take 500 M ethodi en 3-[address] (TYLENOL) 12:12: mouth Hospita 500 MG 50 every 6 l tablet (six) hours as needed for mild pain. DUCODYL, 2020-0 Yes Take by Method i BISACODYL, 3-[address] ORAL 12:12: Took 4 Hospita 50 tablets l all at once Procedures Procedure Date / Time Performed Performing Clinician [facility] john [id number] 2020-04-24 00:00:00 [facility] [id number] 2020-04-24 00:00:00 [facility] [id number] 2020-04-24 00:00:00 [facility] Plan of Care Planned Activity Planned Date Details Comments Source Future Scheduled 2022-11-02 COVID-19 VACCINE (#1) [facility] Test 06:56:40 [code = COVID-19 VACCINE (#1)] Future Scheduled 2022-11-02 Hepatitis C screening [facility] Test 06:56:40 (procedure) [code = [id number]] Future Scheduled 2022-11-02 COLONOSCOPY SCREENING [facility] Test 06:56:40 [code = COLONOSCOPY SCREENING] Future Scheduled 2022-11-02 SHINGLES VACCINES (1 [facility] Test 06:56:40 of 2) [code = SHINGLES VACCINES (1 of 2)] Future Scheduled 2022-11-02 INFLUENZA VACCINE [facility] Test 06:56:40 [code = INFLUENZA VACCINE] Encounters Start End Encounter Admission Attending Care Care Encounter Source Date/Time Date/Time Type Type Clinicians Facility Department ID 2020-04-24 [id number] 07:30:[address] [place] [address] 2020-05-04 2020-05-04 Emergency [facility] [id number] [place] 00:00:00 00:00:00 GENNY [address] 2020-04-24 2020-04-24 Outpatient Janiya, HCANW REF [id number] [facility] 15:00:00 15:00:00 Walker crowe [facility] 2020-04-20 2020-04-20 Outpatient UNKNOWN HCACL OUTD [id number] [facility] 09:55:00 09:55:00 00 [facility] 2020-03-22 2020-03-22 Outpatient JORDAN, HARPREET [facility] [id number] [place] 00:00:00 00:00:[address] 2020-01-25 2020-01-29 Inpatient JORDAN, HARPREET [facility] [id number] [place] 00:00:00 00:00:[address] Results Test Description Test Time Test Comments Results Result Comments Source CBC W/AUTO DIFF 2020-04-27 14:44:00 Test Item Value Reference Range Interpretation Comme nts WHITE BLOOD CELL (test code = WBC) 11.5 x10 3/uL 4.8-10.8 H RED BLOOD CELL (test code = RBC) 4.29 x10 6/uL 4.70-6.10 L HEMOGLOBIN (test code = HGB) 8.7 g/dL 14.5-20 L HEMATOCRIT (test code = HCT) 29.6 % 42.0-52.0 L MEAN CELL VOLUME (test code = MCV) 69.0 fL 80.0-94.0 L MEAN CELL HGB (test code = MCH) 20.3 pg 27-31 L MEAN CELL HGB CONCENTRATION (test code = MCHC) 29.4 G/DL 33-36.5 L RED CELL DISTRIBUTION WIDTH (test code = RDW) 28.5 % 12.9-16. 9 H PLATELET COUNT (test code = PLT) 346 150-440 N MEAN PLATELET VOLUME (test code = MPV) 10.0 fL 8.9-12.4 N NEUTROPHIL % (test code = NT%) 75.1 [...] 0.05 x10 3/uL 0.0-0.20 N BASIC METABOLIC [id number] 06:13:00 Test Item Value Reference Range Interpretation [...] code 7.8 mg/dL 8.8-10.2 L = CA) [id number] 06:13:00 Test Item Value Reference Range Interpretation Comments MAGNESIUM (test code = MAG) 1.6 mg/dL 1.4-2.6 N CBC W/AUTO [id number] 05:54:00 Test Item Value Reference Range Interpretation [...] 0.06 x10 3/uL 0.0-0.20 N BASIC METABOLIC [id number] 06:44:00 Test Item Value Reference Range Interpretation [...] code 7.7 mg/dL 8.8-10.2 L = CA) [id number] 06:44:00 Test Item Value Reference Range Interpretation Comments MAGNESIUM (test code = MAG) 1.9 mg/dL 1.4-2.6 N CBC W/AUTO [id number] 06:38:00 Test Item Value Reference Range Interpretation [...] BA#) 0.11 x10 3/uL 0.0-0.20 N SURGICAL [id number] 17:02:00 RUN DATE: 04/25/20 [facility] - LAB PAGE 1 RUN TIME: 1702 Specimen Inquiry RUN USER: INTERFACE ------- -----PATIENT: MIROSLAVA TOVAR LOC: PNicciN POD B U #: [id number] AGE/SX: 60/M ROOM: [facility] RE04/24/20REG DR: Walker Denson MD : 60 BED: 1 DIS: STATUS: ADM IN TLOC: SPEC #: [id number] RECD: 04/24/20 STATUS: LUCILA AGUILAR #: [id number] ANTONINO: 04/24/[address] [facility] [address]: Walker Denson MD ENTERED: 04/24/20 SP TYPE: SURG OTHR DR: DOES_NOT KNOW No Primary or Family PhysicianORDERED: PATHGM3, PATH SPEC, H E STAIN HISTOLOGY: TISSUE ID BLK PCS CASIE LEV / PROCEDURE DISPOSITION ____ ___ ___ ___ ___ ILEOSTOMY A 2 1 TISSUES: A. ILEOSTOMY - Ileostomy CLINICAL HISTORY Diverticulitis, ileostomy stoma FINAL DIAGNOSIS ILEOSTOMY STOMA, EXCISION: ENTER OCUTANEOUS ANASTAMOSIS (ILEOSTOMY STOMA) FOCAL SEROSAL FIBROUS ADHESIONS [facility] [id number] GROSS DESCRIPTIONThe specimen is designated with the patient's name, demographics and "ileostomy". It consists of a segment of bowel (7.3 cm in length, 2.6 cm diameter) with an ileostomy stoma (2.4 cm diameter) at 3 cmfrom either resection margin. The bowel mucosa is normally folded. There are no mass lesions. The rim of skin around the stoma ranges from 0.1 to 0.2 cm in thickness. Data Warehousing Engineer sections are submitted in A1-A2. SECTION CODE: A1, stoma; A2, resection margin. /th Signed SIGNATURE ON FILE Bernie Guadarrama MD 04/25/20 1702 END OF REPORT BASIC METABOLIC [id number] 08:18:00 Test Item Value Reference Range Interpretation [...] code 7.7 mg/dL 8.8-10.2 L = CA) [id number] 08:18:00 Test Item Value Reference Range Interpretation Comments MAGNESIUM (test code = MAG) 2.0 mg/dL 1.4-2.6 N CBC W/AUTO [id number] 07:23:00 Test Item Value Reference Range Interpretation [...] 0.07 x10 3/uL 0.0-0.20 N CBC W/AUTO [id number] 06:46:00 Test Item Value Reference Range Interpretation [...] x10 3/uL 0.0-0.20 N Novel Coronavirus 2019 [id number] 17:15:00 Test Item Value Reference Range Interpretation Comments Novel Coronavirus 2019 Inhouse (test Negative Negative code = COVNONPUI) Testing Criteria: Preprocedure ScreeningNovel Coronavirus 2019 [id number] 17:14:00 Test Item Value Reference Range Interpretation Comments Novel Coronavirus 2019 Inhouse (test Negative Negative code = COVNONPUI) Testing Criteria: Preprocedure ScreeningCBC W/AUTO [id number] 10:38:00 Test Item Value Reference Range Interpretation [...] TGT) 1+ NONE SEEN A BASIC METABOLIC [id number] 10:22:00 Test Item Value Reference Range Interpretation [...] mg/dL 8.8-10.2 N = CA) CBC W/AUTO [id number] 10:08:00 Test Item Value Reference Range Interpretation [...] 0.13 x10 3/uL 0.0-0.20 N CBC W/AUTO [id number] 10:06:00 Test Item Value Reference Range Interpretation [...]
[2022-12-27 09:15] LABS: Absolute Lymphocytes (CBC) 1.1 K/uL (0.7-4.9); Hematocrit 47.3 % (39.6-49.0); Lymphocytes % 13.5 % (15.3-44.8); MCV 80.5 fL (80-100); MPV 8.5 fL (7.6-11.3); RBC Red Blood Cell Count 5.87 M/uL (4.33-5.43)
[2022-12-27 09:36] LABS: Albumin 3.7 g/dL (3.4-5.0); Bilirubin Direct 0.2 mg/dL (0-0.2); Bilirubin Total 0.6 mg/dL (0.2-1.0); Magnesium 2.1 mg/dL (1.6-2.4); Potassium 3.8 mmol/L (3.5-5.1); Protein, Total 7.7 g/dL (6.4-8.2); Troponin High Sensitivity 8.7 pg/mL (<58.9)
[2022-12-27 10:03] LABS: Urine Blood Negative (Negative); Urine Glucose Negative (Negative); Urine Protein Negative (Negative)
--- NOTE | 2022-12-27 10:34 | RAD REPORT ---
EXAM DESCRIPTION: CTAngio Aorta For Dissection - 12/27/2022 10:16 am CLINICAL HISTORY: ABD PAIN COMPARISON: Angio Aorta For Dissection dated 11/09/2019; Abdomen Pelvis W Contrast dated 0 TECHNIQUE: CTA of the chest, abdomen, and pelvis was performed. MIPs of the aorta created. All CT scans are performed using dose optimization technique as appropriate and may include automated exposure control or mA/KV adjustment according to patient size. FINDINGS: Thorax: Chest Wall: No abnormal mass Lungs: No acute abnormality. Pleura: No effusions or pneumothorax. Anjelica/Mediastinum: No lymphadenopathy. Small hiatal hernia. Aorta/Pulmonary Arteries: Unremarkable Heart: Normal size. Abdomen/Pelvis: Liver: Hepatic steatosis sub mm low-density lesion in segment 8 is unchanged from prior and almost ce rtainly benign. Biliary: No biliary ductal dilatation. Stomach: No significant focal abnormality. Duodenum: No significant focal abnormality. Pancreas: No significant abnormality. Spleen: No significant abnormality. Adrenal: No suspicious lesions. Kidney/ureter: No hydronephrosis. No renal calculi. Retroperitoneum: No retroperitoneal adenopathy. Vascular: Status post aorto bi-iliac stent graft repair. The aneurysm sac is increased in size from a pproximately 6.9 cm to 7.5 cm. Bowel: No significant focal abnormality. Appendectomy. Peritoneum: No ascites or free air. Right lateral ventral hernia. Bladder: Grossly unremarkable. Reproductive: No adnexal masses. Bones: No acute fracture. Remote L1 compression fracture. Pars defects at L5. Other: n/a IMPRESSION: Enlarging aneurysm sac s/p abdominal aortic aneurysm repair with aortic stent graft. Thi s could suggest a chronic endoleak. Referral to vascular surgery and/or interventional radiology is r ecommended for further evaluation. No acute findings identified.
[2022-12-27] MEDS ORDERED: METOPROLOL TARTRATE 5 MG/5 ML INJ IV ONE (10:37)
--- NOTE | 2022-12-27 10:57 | ER ---
Nurse's Notes [facility] Name: Dale Tovar Age: 62 yrs Sex: Male : 1960 Arrival Date: 12/27/2022 Time: 08:24 Bed External Waiting Private MD: Eliel Gimenez H Diagnosis: Essential (primary) hypertension;Abdominal aortic aneurysm, without rupture-endovascular leak , 7.5 cm aneurysm sac Presentation: 12/27 08:43 Chief complaint: Patient states: "I had an ultrasound yesterday at Dr. Alexis's office ss to check my AAA repair that I had in 2009. They said they didn't like what they saw and that I needed a CT. Well, they couldn't get me in until next week, so they told me to come here in the morning.". Coronavirus screen: Client denies travel out of the [place] in the last 14 days. Ebola Screen: Patient denies exposure to infectious person. Patient denies travel to an Ebola-affected area in the 21 days before illness onset. Initial Sepsis Screen: Does the patient meet any 2 criteria? No. Patient's initial sepsis screen is negative. Does the patient have a suspected source of infection? No. Patient's initial sepsis screen is negative. Risk Assessment: Do you want to hurt yourself or someone else? Patient reports no desire to harm self or others. Onset of symptoms is unknown. 08:43 Method Of Arrival: Ambulatory ss 08:43 Acuity: ANGELA 3 ss Triage Assessment: 08:54 General: Appears in no apparent distress. comfortable, Behavior is calm, cooperative. ss Pain: Denies pain. Respiratory: Airway is patent Respiratory effort is even, unlabored, Respiratory pattern is regular, symmetrical. Derm: Skin is pink, warm \\T\\ dry. normal. Historical: - Allergies: 08:47 NKA; ss - Home Meds: 08:47 simvastatin 40 mg Oral tab once daily [Active]; omeprazole 20 mg Oral cpDR 1 cap once ss daily [Active]; iron supplement [Active]; - PMHx: 08:47 AAA; Hypertension; Diverticulitis; ss - PSHx: 08:47 AAA repair 2009; colon resection; ss - Immunization history:: Client reports receiving the 1st dose of the Covid vaccine. - Social history:: Smoking status: Patient reports use of chewing tobacco. - Family history:: not pertinent. Screenin:15 [facility] ED Fall Risk Assessment (Adult) History of falling in the last 3 months, ph including since admission No falls in past 3 months (0 pts) Confusion or Disorientation No (0 pts) Intoxicated or Sedated No (0 pts) Impaired Gait No (0 pts) Mobility Assist Device Used No (0 pt) Altered Elimination No (0 pt) Score/Fall Risk Level 0 - 2 = Low Risk Oriented to surroundings, Maintained a safe environment, Hourly rounding (assess needs \\T\\ fall precautionary measures) done. Abuse screen: Denies threats or abuse. Denies injuries from another. Nutritional screening: No deficits noted. Tuberculosis screening: No symptoms or risk factors identified. Assessment: 09:31 General: Appears in no apparent distress. comfortable, well groomed, Behavior is calm, ph cooperative, appropriate for age, Denies fever, feeling ill. Pain: Denies pain. Neuro: Level of Consciousness is awake, alert, obeys commands, Oriented to person, place, time, situation, Denies weakness dizziness. Cardiovascular: Denies chest pain, fatigue, lightheadedness, nausea, shortness of breath, vomiting, Capillary refill < 3 seconds in bilateral fingers Patient's skin is warm and dry. Rhythm is sinus rhythm. Respiratory: Airway is patent Respiratory effort is even, unlabored, Respiratory pattern is regular, symmetrical, Denies shortness of breath. GI: No signs and/or symptoms were reported involving the gastrointestinal system. Derm: Skin is healthy with good turgor, Skin is pink, warm \\T\\ dry. Musculoskeletal: Circulation, motion, and sensation intact. Range of motion: intact in all extremities. 10:30 Reassessment: Patient appears in no apparent distress at this time. Patient and/or ph family updated on plan of care and expected duration. Pain level reassessed. Patient is alert, oriented x 3, equal unlabored respirations, skin warm/dry/pink. Patient denies pain at this time. 11:30 Reassessment: Patient appears in no apparent distress at this time. Patient and/or ph family updated on plan of care and expected duration. Pain level reassessed. Patient is alert, oriented x 3, equal unlabored respirations, skin warm/dry/pink. Informed pt that ERP was initiating transfer to another facility for possible intervention for AAA, transfer process explained to pt, when pt learned that he would go from this facility to another via EMS pt states, " I'm not doing that. I have perishable food in my truck refrigerator, my doesn't know that I'm going because I don't have my phone with me. I haven't eaten yet today, I need to get some clothes together. I understand why he wants me to go but if I had went about this another way and just got my CT scan done outpatient on Thursday I would be at home waiting on results and then they would have called me to make an appointment w/ the surgeon. I don't think me going home and waiting until Thursday would make any difference. I know that it needs to be addressed and I am definitely going to call the news editor first thing Thursday but I don't want to be transferred right now.". 12:30 Reassessment: Patient appears in no apparent distress at this time. Patient and/or ph family updated on plan of care and expected duration. Pain level reassessed. Patient is alert, oriented x 3, equal unlabored respirations, skin warm/dry/pink. Pt accepted at [facility], informed pt of acceptance, pt states that he does not want to be transferred, requesting to speak w/ ED provider. 13:10 Reassessment: Dr Hernández at bedside to speak w/ pt about transfer. ph 13:39 Reassessment: Patient appears in no apparent distress at this time. Patient and/or ph family updated on plan of care and expected duration. Pain level reassessed. Patient is alert, oriented x 3, equal unlabored respirations, skin warm/dry/pink. Pt refusing transfer at this time, states, " I should have just kept my CT appointment for Thursday. I'll be sure and call the news editor first thing Thursday morning and get everything scheduled." Pt instructed to return to ED if he has HTN at home, chest pain or SOB. Vital Signs: 08:43 BP 177 / 108; Pulse 78; Resp 16; Temp 97.7(O); Pulse Ox 97% on R/A; Weight 92.99 kg; ss Height 5 ft. 7 in. (170.18 cm); Pain 0/10; 09:32 BP 163 / 93; Pulse 72; Resp 18; Pulse Ox 98% on R/A; ph 10:30 BP 156 / 91; Pulse 71; Resp 18; Pulse Ox 98% ; ph 11:33 BP 151 / 100; Pulse 61; Resp 18; Pulse Ox 96% on R/A; ph 12:31 BP 147 / 105; Pulse 65; Resp 16; Pulse Ox 95% on R/A; ph 13:30 BP 148 / 98; Pulse 60; Resp 16; Temp 97.9; Pulse Ox 97% on R/A; ph 08:43 Body Mass Index 32.11 (92.99 kg, 170.18 cm) ss Vitals: 09:33 Cardiac Rhythm Assessment Sinus rhythm. ph 13:30 Cardiac Rhythm Assessment Sinus rhythm. ph ED Course: 08:24 Patient arrived in ED. mr 08:25 Eliel Gimenez DO is Private Physician. mr 08:33 Caden Hernández MD is Attending Physician. panda 08:[address], RN is Primary Nurse. ph 08:47 Triage completed. ss 08:47 Arm band placed on right wrist. ss 09:09 Basic Metabolic Panel Sent. bc6 09:09 CBC with Diff Sent. bc6 09:09 LFT's Sent. bc6 09:09 Magnesium Sent. bc6 09:09 NT PRO-BNP Sent. bc6 09:09 PT-INR Sent. bc6 09:09 Troponin HS Sent. bc6 09:09 Inserted saline lock: 20 gauge in right antecubital area, using aseptic technique. bc6 09:15 Patient has correct armband on for positive identification. Placed in gown. Bed in low ph position. Call light in reach. Side rails up X2. Client placed on continuous cardiac and pulse oximetry monitoring. NIBP monitoring applied. Door closed. Noise minimized. 10:18 CT Aorta for Dissection In Process Unspecified. EDMS 10:[address] Hernández with H[facility] from the [facility] transfer enter at eb the request of the patient. / patient was denied due to facility being at capacity. 10:57 Alejandro Alexis MD is Referral Physician. panda 11:04 intiated a transfer with Zackary Madrid from the [facility]. eb 11:19 per Zackary Rivera [facility] will have to decline the patient in transfer due to the eb facility being at capacity. 11:22 initiated a transfer with Philomena from the [facility]. eb 11:29 per Philomena [facility] will have to decline the patient in transfer due to facility eb being at capacity. 11:36 intiated a transfer with Leroy Draperoswaldomj from the [facility] transfer Center. eb 12:14 connected the cardiovascular surgeon interface control officer for [facility] with Dr. Hernández for eb patient transfer consultation. 12:15 connected the hospitalist interface control officer for [facility] with Dr. Hernández for patient eb transfer consultation. 12:16 administrative approval given by Leroy Nunez/ patient has been accepted to [facility] 4a 4015/ Dr. Alejo has accepted the patient in transfer/ report to be called to [phone]. 12:31 No provider procedures requiring assistance completed. ph 14:27 Alejandro Alexis MD is Referral Physician. panda 14:30 Referral Physician role handed off by Alejandro Alexis MD panda 14:30 Alejandro Alexis MD is Referral Physician. panda Administered Medications: 10:39 Drug: Lopressor (metoprolol) 5 mg Route: IVP; Site: right antecubital; ph 13:51 Follow up: Response: No adverse reaction ph 11:15 Drug: NS 0.9% 1000 ml Route: IV; Rate: 125 ml/hr; Site: right antecubital; ph 13:51 Follow up: Response: No adverse reaction; IV Status: Completed infusion ph 11:15 Drug: Lopressor (metoprolol TARTRATE) 50 mg Route: PO; ph 13:51 Follow up: Response: No adverse reaction ph 11:15 Drug: Labetalol 20 mg Route: IV; Rate: per protocol; Infused Over: 2 mins; Site: right ph antecubital; 11:20 Follow up: Response: No adverse reaction; IV Status: Completed infusion ph 13:38 Not Given (Patient Refused): Labetalol 20 mg IV at per protocol once over 2 mins ph 13:38 Not Given (Patient Refused): Labetalol 100 mg PO once ph Medication: 09:15 VIS not applicable for this client. ph Outcome: 10:57 Discharge ordered by . panda 11:01 ER care complete, transfer ordered by . panda 13:50 AMA AMA form signed ph 13:50 Condition: stable 13:50 Instructed on follow up and referral plans. 14:30 Discharge ordered by MD. mosqueda 14:37 Patient left the ED. Signatures: Dispatcher [employer] EDCaden Sprague MD MD cha Rivera, Mohini Shaniqua Ragsdale, CHELLE RN Princess Street RN RN Wilda Mejia [facility]
--- NOTE | 2022-12-27 11:02 | EDPHYS ---
Physician Documentation [facility] Name: Dale Tovar Age: 62 yrs Sex: Male : 1960 Arrival Date: 12/27/2022 Time: 08:24 Bed External Waiting [facility] MD: Eliel Gimenez H ED Physician Caden Hernández HPI: 12/27 09:22 This 62 yrs old Male presents to ER via Ambulatory with complaints of panda Abnormal Lab Results. 09:22 The patient presents with abdominal distention in the upper abdomen, in the lower panda abdomen. Onset: The symptoms/episode began/occurred 2 day(s) ago. The symptoms do not radiate. Associated signs and symptoms: none. Severity of pain: At its worst the pain was none, in the emergency department the pain is unchanged. The patient has experienced similar episodes in the past, several times. Historical: - Allergies: 08:47 NKA; ss - Home Meds: 08:47 simvastatin 40 mg Oral tab once daily [Active]; omeprazole 20 mg Oral cpDR 1 cap once ss daily [Active]; iron supplement [Active]; - PMHx: 08:47 AAA; Hypertension; Diverticulitis; ss - PSHx: 08:47 AAA repair 2009; colon resection; ss - Immunization history:: Client reports receiving the 1st dose of the Covid vaccine. - Social history:: Smoking status: Patient reports use of chewing tobacco. - Family history:: not pertinent. ROS: 09:22 Constitutional: Negative for fever, chills, and weight loss, Eyes: Negative for injury, panda pain, redness, and discharge, ENT: Negative for injury, pain, and discharge, Neck: Negative for injury, pain, and swelling, Cardiovascular: Negative for chest pain, palpitations, and edema, Respiratory: Negative for shortness of breath, cough, wheezing, and pleuritic chest pain, Abdomen/GI: Negative for abdominal pain, nausea, vomiting, diarrhea, and constipation, Back: Negative for injury and pain, : Negative for injury, bleeding, discharge, and swelling, MS/Extremity: Negative for injury and deformity, Skin: Negative for injury, rash, and discoloration, Neuro: Negative for headache, weakness, numbness, tingling, and seizure, Psych: Negative for depression, anxiety, suicide ideation, homicidal ideation, and hallucinations, Allergy/Immunology: Negative for hives, rash, and allergies, Endocrine: Negative for neck swelling, polydipsia, polyuria, polyphagia, and marked weight changes, Hematologic/Lymphatic: Negative for swollen nodes, abnormal bleeding, and unusual bruising. Exam: 09:22 Constitutional: This is a well developed, well nourished patient who is awake, alert, panda and in no acute distress. Head/Face: Normocephalic, atraumatic. Eyes: Pupils equal round and reactive to light, extra-ocular motions intact. Lids and lashes normal. Conjunctiva and sclera are non-icteric and not injected. Cornea within normal limits. Periorbital areas with no swelling, redness, or edema. ENT: Nares patent. No nasal discharge, no septal abnormalities noted. Tympanic membranes are normal and external auditory canals are clear. Oropharynx with no redness, swelling, or masses, exudates, or evidence of obstruction, uvula midline. Mucous membranes moist. Neck: Trachea midline, no thyromegaly or masses palpated, and no cervical lymphadenopathy. Supple, full range of motion without nuchal rigidity, or vertebral point tenderness. No Meningismus. Chest/axilla: Normal chest wall appearance and motion. Nontender with no deformity. No lesions are appreciated. Cardiovascular: Regular rate and rhythm with a normal S1 and S2. No gallops, murmurs, or rubs. Normal PMI, no JVD. No pulse deficits. Respiratory: Lungs have equal breath sounds bilaterally, clear to auscultation and percussion. No rales, rhonchi or wheezes noted. No increased work of breathing, no retractions or nasal flaring. Abdomen/GI: Soft, non-tender, with normal bowel sounds. No distension or tympany. No guarding or rebound. No evidence of tenderness throughout. Back: No spinal tenderness. No costovertebral tenderness. Full range of motion. Male : Normal genitalia with no discharge or lesions. Skin: Warm, dry with normal turgor. Normal color with no rashes, no lesions, and no evidence of cellulitis. MS/ Extremity: Pulses equal, no cyanosis. Neurovascular intact. Full, normal range of motion. Neuro: Awake and alert, GCS 15, oriented to person, place, time, and situation. Cranial nerves II-XII grossly intact. Motor strength 5/5 in all extremities. Sensory grossly intact. Cerebellar exam normal. Normal gait. Psych: Awake, alert, with orientation to person, place and time. Behavior, mood, and affect are within normal limits. 09:22 ECG was reviewed by the Attending Physician. Vital Signs: 08:43 BP 177 / 108; Pulse 78; Resp 16; Temp 97.7(O); Pulse Ox 97% on R/A; Weight 92.99 kg; ss Height 5 ft. 7 in. (170.18 cm); Pain 0/10; 09:32 BP 163 / 93; Pulse 72; Resp 18; Pulse Ox 98% on R/A; ph 10:30 BP 156 / 91; Pulse 71; Resp 18; Pulse Ox 98% ; ph 11:33 BP 151 / 100; Pulse 61; Resp 18; Pulse Ox 96% on R/A; ph 12:31 BP 147 / 105; Pulse 65; Resp 16; Pulse Ox 95% on R/A; ph 13:30 BP 148 / 98; Pulse 60; Resp 16; Temp 97.9; Pulse Ox 97% on R/A; ph 08:43 Body Mass Index 32.11 (92.99 kg, 170.18 cm) ss MDM: 08:33 Patient medically screened. [facility] 09:24 Differential diagnosis: AAA, bowel obstruction, Cholelithiasis, diverticulitis, panda gastritis, non-specific abd pain, pancreatitis, Prostatitis, Pyelonephritis. Data reviewed: vital signs, nurses notes, lab test result(s), EKG, radiologic studies, CT scan, plain films. Consideration of Admission/Observation Patient was admitted/placed on observation. Escalation of care including admission/observation considered. Test considered but Not performed: MRI: no mri abd. Care significantly affected by the following chronic conditions: Hypertension. 09:59 I considered the following discharge prescriptions or medication management in the [facility] emergency department Medications were administered in the Emergency Department. See JAN. 12/27 08:44 Order name: Basic Metabolic Panel; Complete Time: 09:59 [facility] 12/27 08:44 Order name: CBC with Diff; Complete Time: 09:59 [facility] 12/27 08:44 Order name: LFT's; Complete Time: 09:59 [facility] 12/27 08:44 Order name: Magnesium; Complete Time: 09:59 [facility] 12/27 08:44 Order name: NT PRO-BNP; Complete Time: 09:59 panda 12/27 08:44 Order name: PT-INR; Complete Time: 09:59 [facility] 12/27 08:44 Order name: Troponin HS; Complete Time: 09:59 panda 12/27 08:44 Order name: CT Aorta for Dissection; Complete Time: 10:36 panda 12/27 10:04 Order name: Urine Dipstick-Ancillary; Complete Time: 10:36 EDMS 12/27 10:47 Order name: SARS RAPID 12/27 08:44 Order name: EKG; Complete Time: 08:45 panda 12/27 08:44 Order name: Cardiac monitoring; Complete Time: 08:59 [facility] 12/27 08:44 Order name: EKG - Nurse/Tech; Complete Time: 09:10 [facility] 12/27 08:44 Order name: IV Saline Lock; Complete Time: 09:09 panda 12/27 08:44 Order name: Labs collected and sent; Complete Time: 09:09 [facility] 12/27 08:44 Order name: O2 Per Protocol; Complete Time: 09:00 [facility] 12/27 08:44 Order name: O2 Sat Monitoring; Complete Time: 08:59 [facility] 12/27 08:44 Order name: Urine Dipstick-Ancillary (obtain specimen); Complete Time: 10:21 panda EC:22 Rate is 74 beats/min. Rhythm is regular. QRS [place] is Normal. DE interval is normal. QRS panda interval is normal. QT interval is normal. No Q waves. T waves are Normal. No ST changes noted. Clinical impression: Normal ECG and No evidence of ischemia. Interpreted by me. Reviewed by me. Administered Medications: 10:39 Drug: Lopressor (metoprolol) 5 mg Route: IVP; Site: right antecubital; ph 13:51 Follow up: Response: No adverse reaction ph 11:15 Drug: NS 0.9% 1000 ml Route: IV; Rate: 125 ml/hr; Site: right antecubital; ph 13:51 Follow up: Response: No adverse reaction; IV Status: Completed infusion ph 11:15 Drug: Lopressor (metoprolol TARTRATE) 50 mg Route: PO; ph 13:51 Follow up: Response: No adverse reaction ph 11:15 Drug: Labetalol 20 mg Route: IV; Rate: per protocol; Infused Over: 2 mins; Site: right ph antecubital; 11:20 Follow up: Response: No adverse reaction; IV Status: Completed infusion ph 13:38 Not Given (Patient Refused): Labetalol 20 mg IV at per protocol once over 2 mins ph 13:38 Not Given (Patient Refused): Labetalol 100 mg PO once ph Disposition Summary: 12/27/22 14:30 Discharge Ordered Location: Home(12/27/22 14:30) panda Problem: new(12/27/22 14:30) panda Symptoms: are unchanged(12/27/22 14:31) panda Condition: Undetermined(12/27/22 14:31) panda Diagnosis - Essential (primary) hypertension(12/27/22 14:30) panda - Abdominal aortic aneurysm, without rupture - endovascular leak , 7.5 cm aneurysm panda sac(12/27/22 14:30) Followup: panda - With: Private Physician - When: 2 - 3 days - Reason: Recheck today's complaints, Continuance of care, Re-evaluation by your physician Followup: panda - With: - When: 2 - 3 days - Reason: Recheck today's complaints, Re-evaluation by your physician Followup: panda - With: Alejandro Alexis MD - When: Upon discharge from the Emergency Department - Reason: Recheck today's complaints, Continuance of care, Re-evaluation by your physician Forms: - Medication Reconciliation Form panda - Thank You Letter panda - Antibiotic Education panda - Prescription Opioid Use panda Signatures: Dispatcher [employer] EDCaden Sprague MD MD cha Smirch, Shelby, RN RN ss [address] RN RN ph Corrections: (The following items were deleted from the chart) 10:57 10:57 Home panda panda 10:57 10:57 new panda panda 10:57 10:57 have improved panda panda 10:57 10:57 Stable panda panda 10:57 10:57 Essential (primary) hypertension panda panda 14:27 11:01 janeen llanos panda panda 14:27 11:01 [employer] panda panda 14:27 11:01 Higher level of care panda panda 14:27 11:01 Fair panda panda 14:27 11:01 new panda panda 14:27 11:01 have improved panda panda 14:27 11:01 Essential (primary) hypertension panda panda 14:27 11:01 Abdominal aortic aneurysm, without rupture - enlarging aneurysm sac with aortic panda stent graft 7.5 cm panda 14:30 have improved panda panda 14:30 Stable panda panda
[2022-12-27] MEDS ORDERED: LABETALOL 20 MG/4ML SYRINGE IV ONE (11:06)
[2022-12-27] MEDS ORDERED: NA CHLORIDE 0.9% 1,000 ML ONE (11:06)
[2022-12-27] MEDS ORDERED: METOPROLOL TAR 50 MG TAB ONE (11:06)
[2022-12-27 11:35] LABS: SARS-CoV-2 Antigen Rapid Res Negative (Negative)
[2022-12-27 15:04] VITALS: BP 148/98; TEMP 97.9; O2SAT 97
--- NOTE | 2022-12-30 17:22 | EKG ---
Test Date: 2022-12-27 Test Time: 09:15:41 Academic Dean: KEVIN MEASUREMENT RESULTS: Intervals: Rate: 74 WV: 150 QRSD: 84 QT: 406 QTc: 450 [place]: P: 67 WV: 150 QRS: 45 T: 74 INTERPRETIVE STATEMENTS: Normal sinus rhythm Normal ECG Compared to ECG 12/02/2019 09:57:07 Sinus tachycardia no longer present ST (T wave) deviation no longer present Electronically Signed On 12-30-22 17:15:17 HIDE OR SKIN BUFFER by Alejandro Alexis
== END 2022-12-27 14:37 | disposition home or self-care (01) ==
LOC: ER 08:22
DX: I71.40 Abdominal aortic aneurysm, without rupture, unspecified (principal); I10 Essential (primary) hypertension; F17.220 Nicotine dependence, chewing tobacco, uncomplicated; Z20.822 Contact with and (suspected) exposure to COVID-19
CPT/HCPCS: 96361; 85025; 80048; 36415; 83735; 85610; 80076; 81003; 84484; 83880; 71275; 74175; 96375; 96374; 99284; 87811; Q9967; J7030; 93005

== ENCOUNTER 2023-09-05 11:09 | Inpatient (IN) | payer BC ==
--- OUTSIDE RECORDS SUMMARY | 2023-09-05 11:17 | XMS REPORT | Continuity of Care Document ---
:[address] [facility] t Address [address] [facility]. [address] [place] [address] Care Team Providers Name Role Phone Eliel Gimenez DO Primary Care Physician Walker Denson Attending Clinician Unavailable Maximo Murphy Attending Clinician Unavailable GENNY GRUBBS Attending Clinician Unavailable UNKNOWN Attending Clinician Unavailable HARPREET JORDAN Attending Clinician Unavailable Julianna Do Admitting Clinician Unavailable Physician, No Primary or Family Admitting Clinician Unavaila HARPREET Appiah Admitting Clinician Unavailable Payers Payer Name Policy Type Policy Number Effective Date Expiration Date S ource Problems Condition Condition Condition Status Onset Resolution Last Treating Co mments Source Name Details Category Date Date Treatment Clinician Date Diverticul Diverticul Disease Active M ethodi itis of itis of 3-[facility] st large large 00:00: Hospita intestine intestine 00 l without without perforatio perforatio n or n or abscess abscess without without bleeding bleeding Allergies, Adverse Reactions, Alerts Allergy Allergy Status Severity Reaction(s) Onset Inactive Treating Comm ents Source Name Type Date Date Clinician No Known DA Active U [facility] Allergie 2-27 Clear s 00:00: Mejia 00 [facility] codeine DA Active SV [facility] 6 [place] 00:00: [facility] 00 are [facility] codeine DA Active SV NAUSEA 2019- [facility] 6-05 Wing 00:00: [facility] 00 are [facility] Acetamin Propensi Active GI Method i ophen-Co ty to Intolerance 3-11 st deine adverse 00:00: Hospita reaction 00 l s to drug Other Propensi Active GI Tylenol # Metho di ty to Intolerance 2-[address] adverse 00:00: Hospita reaction 00 l s Family History Family Member Diagnosis Comments Start Date Stop Date Source Natural mother Arthritis [facility] Natural mother Diabetes [facility] Natural sister Multiple sclerosis [facility] Natural brother Heart attack [facility] Natural brother Heart disease [facility] Natural brother Hypertension [facility] father Dementia [facility] Natural father Heart attack [facility] Natural father Stroke [facility] Social History Social Habit Start Date Stop Date Quantity Comments Source History of tobacco Snuff User [facility] use Hospital History [facility] al History [facility] Sexual orientation [facility] History of Social 2023-01-23 2023-01-[address] function 00:00:00 00:00:00 Hospital Alcohol intake 2020-01-27 2020-01-27 [facility] 00:00:00 00:00:00 non-drinker Hospital (finding) History SDOH 2020-01-25 2020-01-25 1 [facility] Alcohol Frequency 00:00:00 00:00:00 Hospita l Tobacco use and 2019-12-27 2019-12-27 [facility] of [facility] exposure 00:00:00 00:00:00 smokeless Hospital tobacco Cigarettes smoked 2019-12-27 2019-12-[address] current (pack per 00:00:00 00:00:00 Hospita l day) - Reported Cigarette 2019-12-27 2019-12-27 [facility] pack-years 00:00:00 00:00:00 Hospital Sex Assigned At [birth year] [facility] 00:00:00 [facility]00 Hospital Smoking Status Start Date Stop Date Source Ex-smoker 2019-12-27 00:00:00 2019-12-27 00:00:00 [facility] Medications Ordered Filled Start Stop Current Ordering Indication Dosage Frequency Signature Comments Components Source Medication Medication Date Date Medication? Clinician (SIG) Name Name simvastatin 2020-0 Yes 40mg QD Take 40 mg Methodi [...] Hospita 50 tablets l all at once simvastatin 2020-0 Yes 40mg QD Take 40 mg Methodi [...] Hospita 50 tablets l all at once simvastatin 2020-0 Yes 40mg QD Take 40 mg Methodi [...] Procedure Date / Time Performed Performing Clinician Jakub john [id number] 2023-01-14 00:00:00 [facility] [id number] 2023-01-14 00:00:00 [facility] [id number] 2023-01-14 00:00:00 [facility] [id number] 2023-01-14 00:00:00 [facility] [id number] 2020-04-24 00:00:00 [facility] [id number] 2020-04-24 00:00:00 [facility] [id number] 2020-04-24 00:00:00 [facility] Plan of Care Planned Activity Planned Date Details Comments Source Future Scheduled 2023-08-29 [facility] Test 09:55:48 malignant neoplasm of colon (procedure) [code = 855526168] Future Scheduled 2023-08-29 [facility] Test 09:55:48 malignant neoplasm of colon (procedure) [code = 460853149] Future Scheduled 2023-08-29 [facility] Test 09:55:48 malignant neoplasm of colon (procedure) [code = 653117994] Future Scheduled 2023-08-29 COVID-19 VACCINE (#1) [facility] Test 09:55:48 [code = COVID-19 VACCINE (#1)] Future Scheduled 2023-08-29 [facility] Test 09:55:48 malignant neoplasm of colon (procedure) [code = 113011247] Future Scheduled 2023-08-29 [facility] Test 09:55:48 malignant neoplasm of colon (procedure) [code = 572014493] Future Scheduled 2023-08-29 SHINGLES VACCINES (1 [facility] Test 09:55:48 of 2) [code = SHINGLES VACCINES (1 of 2)] Future Scheduled 2023-08-29 RSV VACCINES > 60 YR [facility] Test 09:55:48 (1 - 1-dose 60+ series) [code = RSV VACCINES > 60 YR (1 - 1-dose 60+ series)] Future Scheduled 2023-08-29 INFLUENZA VACCINE [facility] Test 09:55:48 (#1) [code = INFLUENZA VACCINE (#1)] Future Scheduled 2022-11-02 COVID-19 VACCINE (#1) [facility] Test 06:56:40 [code = COVID-19 VACCINE (#1)] Future Scheduled 2022-11-02 Hepatitis C screening [facility] Test 06:56:40 (procedure) [code = [id number]] Future Scheduled 2022-11-02 COLONOSCOPY SCREENING [facility] Test 06:56:40 [code = COLONOSCOPY SCREENING] Future Scheduled 2022-11-02 SHINGLES VACCINES (1 [facility] Test 06:56:40 of 2) [code = SHINGLES VACCINES (1 of 2)] Future Scheduled 2022-11-02 INFLUENZA VACCINE [facility] Test 06:56:40 [code = INFLUENZA VACCINE] Future Scheduled 2022-11-02 COVID-19 VACCINE (#1) [facility] Test 06:56:40 [code = COVID-19 VACCINE (#1)] Future Scheduled 2022-11-02 Hepatitis C screening [facility] Test 06:56:40 (procedure) [code = [id number]] Future Scheduled 2022-11-02 COLONOSCOPY SCREENING [facility] Test 06:56:40 [code = COLONOSCOPY SCREENING] Future Scheduled 2022-11-02 SHINGLES VACCINES (1 Met [facility] Test 06:56:40 of 2) [code = SHINGLES VACCINES (1 of 2)] Future Scheduled 2022-11-02 INFLUENZA VACCINE [facility] Test 06:56:40 [code = INFLUENZA VACCINE] Encounters Start End Encounter Admission Attending Care Care Encounter Source Date/Time Date/Time Type Type Clinicians Facility Department ID 2020-04-24 Inpatient Janiya, [facility] DAYS [id number] [facility] 07:30:00 Walkerwin Morrell [facility] 2023-01-14 2023-01-26 Inpatient LALIT Murphy, HCACL INTE [id number] [facility] 08:32:00 14:37:[address] [place] [address] 2020-05-04 2020-05-04 Emergency [facility] [id number] [place] 00:00:00 00:00:00 GENNY [address] 2020-04-24 2020-04-24 Outpatient Janiya, JOLIENW REF [id number] [facility] 15:00:00 15:00:00 Walker Youssef [facility] 2020-04-20 2020-04-20 Outpatient UNKNOWN [facility] OUTD [id number] [facility] 09:55:00 09:55:00 00 [facility] 2020-03-22 2020-03-22 Outpatient JORDAN, HARPREET [facility] [id number] [place] 00:00:00 00:00:[address] 2020-01-25 2020-01-29 Inpatient JORDAN, HARPREET [facility] [id number] [place] 00:00:00 00:00:[address] Results Test Description Test Time Test Comments Results Result Comments Source CBC W/AUTO DIFF 2023-01-26 21:08:00 Test Item Value Reference Range Interpretation Comme nts WHITE BLOOD CELL (test code = 15.6 x10 3/uL 4.5-11.0 H WBC) RED BLOOD CELL (test code = 3.28 x10 6/uL 4.00-5.60 L RBC) HEMOGLOBIN (test code = HGB) 8.5 g/dL 12.5-16.9 L HEMATOCRIT (test code = HCT) 28.7 % 37.5-50.7 L MEAN CELL VOLUME (test code = 87.5 fL 81.0-99.0 MCV) MEAN CELL HGB (test code = 25.9 pg 27.0-33.0 L MCH) MEAN CELL HGB CONCETRATION 29.6 g/dL 33.0-37.0 L (test code = MCHC) RED CELL DISTRIBUTION WIDTH CV 14.9 % 11.5-14.5 H (test code = RDW) RED CELL DISTRIBUTION WIDTH SD 48.1 fL 37.0-54.0 N (test code = RDW-SD) PLATELET COUNT (test code = 210 x10 3/uL 150-400 N PLT) MEAN PLATELET VOLUME (test 11.6 fL 7.0-9.0 H code = MPV) NEUTROPHIL % (test code = NT%) 77.3 % 56.0-77.0 H LYMPHOCYTE % (test code = LY%) 5.8 % 14.0-32.0 L NEUTROPHIL # (test code = NT#) 12.06 x10 3/uL 2.0-7.6 H LYMPHOCYTE # (test code = LY#) 0.91 x10 3/uL 1.0-3.8 L MANUAL DIFF REQUIRED (test NO S LIDE REVIEWED, CONSISTENT code = MDIFF) WITH AUTO DIFF . IMMATURE GRANULOCYTE % (test 4.6 % 0.0-2.0 H code = IG%) MONOCYTE % (test code = MO%) 9.7 % 4.8-9.0 H EOSINOPHIL % (test code = EO%) 1.8 % 0.3-3.7 N BASOPHIL % (test code = BA%) 0.8 % 0.0-2.0 N NUCLEATED RBC % (test code = 0.0 % 0-0 N NRBC%) IMMATURE GRANULOCYTE # (test 0.72 x10 3/uL 0.00-0.03 H code = IG#) MONOCYTE # (test code = MO#) 1.52 x10 3/uL 0.1-0.8 H EOSINOPHIL # (test code = EO#) 0.28 x10 3/uL 0.0-0.2 H BASOPHIL # (test code = BA#) 0.12 x10 3/uL 0.0-0.2 N NUCLEATED RBC # (test code = 0.00 x10 3/uL 0.0-0.1 N NRBC#) BASIC METABOLIC [id number] 19:04:00 Test Item Value Reference Range Interpretation Comments SODIUM (test code = 136 mEq/L 134-147 N NA) POTASSIUM (test code 4.1 mEq/L 3.4-5.0 N = K) CHLORIDE (test code 100 mEq/L 100-108 N = CL) CARBON DIOXIDE (test 28 mEq/l 21-33 N code = CO2) ANION GAP (test code 13 0-20 N = GAP) GLUCOSE (test code = 79 mg/dL 70-110 N GLU) BLOOD UREA NITROGEN 14 mg/dL 7-18 N (test code = BUN) GLOMERULAR 52.0 80-90 L The Glomerular FILTRATION RATE Filtration R ate is a (test code = GFR) calculated parameterbased on serum Creatinine, pat ient age and sex. GFR va luesless than 60 mL/min/ 1.73 square meters a re indicative ofCh ronic Kidney Disease. Values less than 15 mL/min/1.73squa re meters indicate Kidney failure. The calculation forGFR is based on the CKD-EPI (2020) calculat ion. This formulais race indifferent and is the recommended for diomedes for GFRby the [facility] on for Adults.The GFR will not calculate if th e sex is unknown or if thepatient's ag e is <18 years. CREATININE (test 1.5 mg/dL 0.6-1.3 H code = CREAT) CALCIUM (test code = 8.3 mg/dL 8.0-10.5 N CA) [id number] 19:04:00 Test Item Value Reference Range Interpretation Comments PHOSPHOROUS (test code = PHOS) 3.2 MG/DL 2.5-4.9 N [id number] 19:04:00 Test Item Value Reference Range Interpretation Comments MAGNESIUM (test code = MAG) 1.99 mg/dL 1.80-2.40 N CBC W/AUTO [id number] 08:31:00 Test Item Value Reference Range Interpretation Comments WHITE BLOOD CELL 15.1 x10 3/uL 4.5-11.0 H (test code = WBC) RED BLOOD CELL (test 2.98 x10 6/uL 4.00-5.60 L code = RBC) HEMOGLOBIN (test code 7.8 g/dL 12.5-16.9 L = HGB) HEMATOCRIT (test code 24.7 % 37.5-50.7 L = HCT) MEAN CELL VOLUME 82.9 fL 81.0-99.0 N (test code = MCV) MEAN CELL HGB (test 26.2 pg 27.0-33.0 L code = MCH) MEAN CELL HGB 31.6 g/dL 33.0-37.0 L CONCETRATION (test code = MCHC) RED CELL DISTRIBUTION 14.6 % 11.5-14.5 H WIDTH CV (test code = RDW) RED CELL DISTRIBUTION 43.7 fL 37.0-54.0 N WIDTH SD (test code = RDW-SD) PLATELET COUNT (test 187 x10 3/uL 150-400 N code = PLT) MEAN PLATELET VOLUME 11.4 fL 7.0-9.0 H (test code = MPV) NEUTROPHIL % (test 76.6 % 56.0-77.0 N code = NT%) LYMPHOCYTE % (test 5.3 % 14.0-32.0 L code = LY%) NEUTROPHIL # (test 11.62 x10 3/uL 2.0-7.6 H code = NT#) LYMPHOCYTE # (test 0.80 x10 3/uL 1.0-3.8 L code = LY#) MANUAL DIFF REQUIRED NO SLIDE R SARA, (test code = MDIFF) CONSISTE NT WITH AUTO DIFF. IMMATURE GRANULOCYTE 4.2 % 0.0-2.0 H % (test code = IG%) MONOCYTE % (test code 12.1 % 4.8-9.0 H = MO%) EOSINOPHIL % (test 1.5 % 0.3-3.7 N code = EO%) BASOPHIL % (test code 0.3 % 0.0-2.0 N = BA%) NUCLEATED RBC % (test 0.0 % 0-0 N code = NRBC%) IMMATURE GRANULOCYTE 0.63 x10 3/uL 0.00-0.03 H # (test code = IG#) MONOCYTE # (test code 1.83 x10 3/uL 0.1-0.8 H = MO#) EOSINOPHIL # (test 0.22 x10 3/uL 0.0-0.2 H code = EO#) BASOPHIL # (test code 0.04 x10 3/uL 0.0-0.2 N = BA#) NUCLEATED RBC # (test 0.00 x10 3/uL 0.0-0.1 N code = NRBC#) BASIC METABOLIC [id number] 07:55:00 Test Item Value Reference Range Interpretation Comments SODIUM (test code = 136 mEq/L 134-147 N NA) POTASSIUM (test code 4.5 mEq/L 3.4-5.0 N = K) CHLORIDE (test code 97 mEq/L 100-108 L = CL) CARBON DIOXIDE (test 33 mEq/l 21-33 N code = CO2) ANION GAP (test code 10 0-20 N = GAP) GLUCOSE (test code = 89 mg/dL 70-110 N GLU) BLOOD UREA NITROGEN 17 mg/dL 7-18 N (test code = BUN) GLOMERULAR 56.5 80-90 L The Glomerular FILTRATION RATE Filtration R ate is a (test code = GFR) calculated parameterbased on serum Creatinine, pat ient age and sex. GFR va luesless than 60 mL/min/ 1.73 square meters a re indicative ofCh ronic Kidney Disease. Values less than 15 mL/min/1.73squa re meters indicate Kidney failure. The calculation forGFR is based on the CKD-EPI (2020) calculat ion. This formulais race indifferent and is the recommended for diomedes for GFRby the [facility]ney Foundati on for Adults.The GFR will not calculate if th e sex is unknown or if thepatient's ag e is <18 years. CREATININE (test 1.4 mg/dL 0.6-1.3 H code = CREAT) CALCIUM (test code = 7.7 mg/dL 8.0-10.5 L CA) [id number] 07:55:00 Test Item Value Reference Range Interpretation Comments PHOSPHOROUS (test code = PHOS) 2.6 MG/DL 2.5-4.9 N [id number] 07:55:00 Test Item Value Reference Range Interpretation Comments MAGNESIUM (test code = MAG) 1.81 mg/dL 1.80-2.40 N - DUP VEIN [id number] 00:00:00 [facility] 1960 Sex: M Name: MIROSLAVA MENDOZA [facility] : 1960 Age/S: 63 / M [address] [place] [address] Unit #: [id number] Loc: KAROLINE Maldonado [address] Phys: Maximo Murphy MD Acct: [id number] Dis Date: Status: ADM IN PHONE #: [phone] Exam Date: 01/25/2023 1042 FAX #: [phone] Reason: RULE OUT BLOODCLOT Report Has Been Amended EXAMS: CPT CODE: [id number] DUP VEIN UNI/LTD 35058 Addendum - 01/25/2023 SIGNED 01/25/2023 ADDENDUM: [id number] US/DUPVUNI The patient's nurse, Sheyla, was notified of these findings by telephone on 01/25/2023 11:10 AM CDT. at 1110 Reported and signed by: Miguel Jean M.D. Report PROCEDURE INFORMATION: Exam: US Duplex Right Upper Extremity Veins, Limited Exam date and time: 01/25/2023 9:58 AMAge: 63 years old Clinical indication: Edema, localized; Upper extremity, right; Additional info: Rule out blood clot TECHNIQUE: Imaging protocol: Real-time duplex ultrasound of the right Upper Extremity with 2-D dhaliwal scale, color Doppler flow and spectral waveform analysis with image documentation. Limited exam focused on the right upper extremity veins. COMPARISON: No relevant prior studies available. FINDINGS: Right deep veins: The deep veins of the right upper extremity including the deep brachial vein, axillary vein, subclavian vein, and right internal jugular vein are patent and compressible. Right superficial veins: Venous thrombosis is noted in the right basilic vein. The right basilic vein is thrombosed without flow. The right cephalic vein is patent and compressible. Soft tissues: Unremarkable. IMPRESSION: 1. Venous thrombosis is noted in the right basilic vein. The right basilic vein is thrombosed without flow. 2. The deep veins of the right upper extremity including the deep brachial vein, axillary vein, subclavian vein, and right internal jugular vein are patent and compressible. PAGE 1 Signed Report (CONTINUED) Name: MIROSLAVA MENDOZA [facility] : 1960 Age/S: 63 / M [address] [place] [address] Unit #: [id number] Loc: [place] [address] Phys: Maximo Murphy MD Acct: [id number] Dis Date: Status: ADM IN PHONE #: [phone] Exam Date: 01/25/2023 1042 FAX #: [phone] Reason: RULE OUT BLOOD CLOT Report Has Been Amended EXAMS: CPT CODE: [id number] DUP VEIN UNI/LTD 37005 (Continued) at 1102 Reported and signed by: Miguel Jean M.D. CC: Eliel Gimenez DO; Uriel Teixeira MD; Maximo Murphy MD Technologist: Jammie Asher RDMS(AB) Trnscb Date/Time: 01/25/2023 (1102) [id number] Orig Print D/T: S: 01/25/2023 (1103) Probe: PAGE 2 Signed ReportBASIC METABOLIC PANEL 2023-01-24 04:57:00 Test Item Value Reference Range Interpretation Comments SODIUM (test code = 134 mEq/L 134-147 N NA) POTASSIUM (test code 3.8 mEq/L 3.4-5.0 N = K) CHLORIDE (test code 97 mEq/L 100-108 L = CL) CARBON DIOXIDE (test 31 mEq/l 21-33 N code = CO2) ANION GAP (test code 10 0-20 N = GAP) GLUCOSE (test code = 117 mg/dL 70-110 H GLU) BLOOD UREA NITROGEN 18 mg/dL 7-18 N (test code = BUN) GLOMERULAR 56.5 80-90 L The Glomerular FILTRATION RATE Filtration R ate is a (test code = GFR) calculated parameterbased on serum Creatinine, pat ient age and sex. GFR va luesless than 60 mL/min/ 1.73 square meters a re indicative ofCh ronic Kidney Disease. Values less than 15 mL/min/1.73squa re meters indicate Kidney failure. The calculation forGFR is based on the CKD-EPI (2020) calculat ion. This formulais race indifferent and is the recommended for diomedes for GFRby the [facility] on for Adults.The GFR will not calculate if th e sex is unknown or if thepatient's ag e is <18 years. CREATININE (test 1.4 mg/dL 0.6-1.3 H code = CREAT) CALCIUM (test code = 7.6 mg/dL 8.0-10.5 L CA) [id number] 04:57:00 Test Item Value Reference Range Interpretation Comments PHOSPHOROUS (test code = PHOS) 2.9 MG/DL 2.5-4.9 N [id number] 04:57:00 Test Item Value Reference Range Interpretation Comments MAGNESIUM (test code = MAG) 1.82 mg/dL 1.80-2.40 N CBC W/AUTO [id number] 04:51:00 Test Item Value Reference Range Interpretation Comments WHITE BLOOD CELL 15.4 x10 3/uL 4.5-11.0 H (test code = WBC) RED BLOOD CELL (test 3.20 x10 6/uL 4.00-5.60 L code = RBC) HEMOGLOBIN (test code 8.2 g/dL 12.5-16.9 L = HGB) HEMATOCRIT (test code 26.9 % 37.5-50.7 L = HCT) MEAN CELL VOLUME 84.1 fL 81.0-99.0 N (test code = MCV) MEAN CELL HGB (test 25.6 pg 27.0-33.0 L code = MCH) MEAN CELL HGB 30.5 g/dL 33.0-37.0 L CONCETRATION (test code = MCHC) RED CELL DISTRIBUTION 14.6 % 11.5-14.5 H WIDTH CV (test code = RDW) RED CELL DISTRIBUTION 44.8 fL 37.0-54.0 N WIDTH SD (test code = RDW-SD) PLATELET COUNT (test 189 x10 3/uL 150-400 N code = PLT) MEAN PLATELET VOLUME 11.0 fL 7.0-9.0 H (test code = MPV) NEUTROPHIL % (test 79.8 % 56.0-77.0 H code = NT%) LYMPHOCYTE % (test 3.8 % 14.0-32.0 L code = LY%) NEUTROPHIL # (test 12.27 x10 3/uL 2.0-7.6 H code = NT#) LYMPHOCYTE # (test 0.59 x10 3/uL 1.0-3.8 L code = LY#) MANUAL DIFF REQUIRED NO SLIDE R SARA, (test code = MDIFF) CONSISTE NT WITH AUTO DIFF. IMMATURE GRANULOCYTE 3.8 % 0.0-2.0 H % (test code = IG%) MONOCYTE % (test code 10.5 % 4.8-9.0 H = MO%) EOSINOPHIL % (test 1.8 % 0.3-3.7 N code = EO%) BASOPHIL % (test code 0.3 % 0.0-2.0 N = BA%) NUCLEATED RBC % (test 0.0 % 0-0 N code = NRBC%) IMMATURE GRANULOCYTE 0.58 x10 3/uL 0.00-0.03 H # (test code = IG#) MONOCYTE # (test code 1.62 x10 3/uL 0.1-0.8 H = MO#) EOSINOPHIL # (test 0.28 x10 3/uL 0.0-0.2 H code = EO#) BASOPHIL # (test code 0.05 x10 3/uL 0.0-0.2 N = BA#) NUCLEATED RBC # (test 0.00 x10 3/uL 0.0-0.1 N code = NRBC#) CBC W/AUTO [id number] 10:34:00 Test Item Value Reference Range Interpretation Comments WHITE BLOOD CELL (test code = 17.9 x10 3/uL 4.5-11.0 H WBC) RED BLOOD CELL (test code = 3.20 x10 6/uL 4.00-5.60 L RBC) HEMOGLOBIN (test code = HGB) 8.3 g/dL 12.5-16.9 L HEMATOCRIT (test code = HCT) 26.6 % 37.5-50.7 L MEAN CELL VOLUME (test code = 83.1 fL 81.0-99.0 N MCV) MEAN CELL HGB (test code = MCH) 25.9 pg 27.0-33.0 L MEAN CELL HGB CONCETRATION 31.2 g/dL 33.0-37.0 L (test code = MCHC) RED CELL DISTRIBUTION WIDTH CV 14.6 % 11.5-14.5 H (test code = RDW) RED CELL DISTRIBUTION WIDTH SD 44.8 fL 37.0-54.0 N (test code = RDW-SD) PLATELET COUNT (test code = 213 x10 3/uL 150-400 N PLT) MEAN PLATELET VOLUME (test code 10.7 fL 7.0-9.0 H = MPV) NEUTROPHIL % (test code = NT%) % 56.0-77.0 LYMPHOCYTE % (test code = LY%) % 14.0-32.0 NEUTROPHIL # (test code = NT#) x10 3/uL 2.0-7.6 LYMPHOCYTE # (test code = LY#) x10 3/uL 1.0-3.8 MANUAL DIFF REQUIRED (test code YES = MDIFF) WBC [id number] 10:34:00 Test Item Value Reference Range Interpretation Comments BAND NEUTROPHIL (test code 0.9 % 0.0-10.0 N = BAND) ANISOCYTOSIS (test code = 1+ ANISO) PLATELET ESTIMATE (test Adequate THOUSAND ADEQUATE code = PLTEST) SEGMENTED NEUTROPHILS (test 83.7 % 37-69 H code = SEG) LYMPHOCYTE (test code = 2.7 % 23-55 L LYMPH) MONOCYTE (test code = MON) 7.3 % 0-10 N EOSINOPHIL (test code = 2.7 % 0.0-4.0 N EOS) METAMYELOCYTE (test code = 0.9 % 0.0-0.0 H META) MYELOCYTE (test code = 1.8 % 0.0-0.0 H MYELO) POLYCHROMASIA (test code = 1+ POLC) BASOPHILIC STIPPLING (test 1+ code = STP) BASIC METABOLIC [id number] 10:18:00 Test Item Value Reference Range Interpretation Comments SODIUM (test code = 132 mEq/L 134-147 L NA) POTASSIUM (test code 3.7 mEq/L 3.4-5.0 N = K) CHLORIDE (test code 96 mEq/L 100-108 L = CL) CARBON DIOXIDE (test 32 mEq/l 21-33 N code = CO2) ANION GAP (test code 8 0-20 N = GAP) GLUCOSE (test code = 101 mg/dL 70-110 N GLU) BLOOD UREA NITROGEN 22 mg/dL 7-18 H (test code = BUN) GLOMERULAR 52.0 80-90 L The Glomerular FILTRATION RATE Filtration R ate is a (test code = GFR) calculated parameterbased on serum Creatinine, pat ient age and sex. GFR va luesless than 60 mL/min/ 1.73 square meters a re indicative ofCh ronic Kidney Disease. Values less than 15 mL/min/1.73squa re meters indicate Kidney failure. The calculation forGFR is based on the CKD-EPI (2020) calculat ion. This formulais race indifferent and is the recommended for diomedes for GFRby the [facility] on for Adults.The GFR will not calculate if th e sex is unknown or if thepatient's ag e is <18 years. CREATININE (test 1.5 mg/dL 0.6-1.3 H code = CREAT) CALCIUM (test code = 7.6 mg/dL 8.0-10.5 L CA) [id number] 10:18:00 Test Item Value Reference Range Interpretation Comments PHOSPHOROUS (test code = PHOS) 2.6 MG/DL 2.5-4.9 N [id number] 10:18:00 Test Item Value Reference Range Interpretation Comments MAGNESIUM (test code = MAG) 1.91 mg/dL 1.80-2.40 N [id number] 08:44:00 Test Item Value Reference Range Interpretation Comments MAGNESIUM (test code = MAG) 1.97 mg/dL 1.80-2.40 N CBC W/AUTO [id number] 06:13:00 Test Item Value Reference Range Interpretation Comments WHITE BLOOD CELL 13.9 x10 3/uL 4.5-11.0 H (test code = WBC) RED BLOOD CELL (test 3.16 x10 6/uL 4.00-5.60 L code = RBC) HEMOGLOBIN (test code 8.3 g/dL 12.5-16.9 L = HGB) HEMATOCRIT (test code 25.9 % 37.5-50.7 L = HCT) MEAN CELL VOLUME 82.0 fL 81.0-99.0 N (test code = MCV) MEAN CELL HGB (test 26.3 pg 27.0-33.0 L code = MCH) MEAN CELL HGB 32.0 g/dL 33.0-37.0 L CONCETRATION (test code = MCHC) RED CELL DISTRIBUTION 14.9 % 11.5-14.5 H WIDTH CV (test code = RDW) RED CELL DISTRIBUTION 44.8 fL 37.0-54.0 N WIDTH SD (test code = RDW-SD) PLATELET COUNT (test 248 x10 3/uL 150-400 N code = PLT) MEAN PLATELET VOLUME 10.8 fL 7.0-9.0 H (test code = MPV) NEUTROPHIL % (test 76.2 % 56.0-77.0 N code = NT%) LYMPHOCYTE % (test 5.8 % 14.0-32.0 L code = LY%) NEUTROPHIL # (test 10.56 x10 3/uL 2.0-7.6 H code = NT#) LYMPHOCYTE # (test 0.80 x10 3/uL 1.0-3.8 L code = LY#) MANUAL DIFF REQUIRED NO SLIDE R SARA, (test code = MDIFF) CONSISTE NT WITH AUTO DIFF. IMMATURE GRANULOCYTE 5.0 % 0.0-2.0 H % (test code = IG%) MONOCYTE % (test code 9.7 % 4.8-9.0 H = MO%) EOSINOPHIL % (test 3.2 % 0.3-3.7 N code = EO%) BASOPHIL % (test code 0.1 % 0.0-2.0 N = BA%) NUCLEATED RBC % (test 0.1 % 0-0 H code = NRBC%) IMMATURE GRANULOCYTE 0.69 x10 3/uL 0.00-0.03 H # (test code = IG#) MONOCYTE # (test code 1.35 x10 3/uL 0.1-0.8 H = MO#) EOSINOPHIL # (test 0.44 x10 3/uL 0.0-0.2 H code = EO#) BASOPHIL # (test code 0.02 x10 3/uL 0.0-0.2 N = BA#) NUCLEATED RBC # (test 0.02 x10 3/uL 0.0-0.1 N code = NRBC#) BASIC METABOLIC [id number] 06:08:00 Test Item Value Reference Range Interpretation Comments SODIUM (test code = 137 mEq/L 134-147 N NA) POTASSIUM (test code 3.5 mEq/L 3.4-5.0 N = K) CHLORIDE (test code 100 mEq/L 100-108 N = CL) CARBON DIOXIDE (test 32 mEq/l 21-33 N code = CO2) ANION GAP (test code 9 0-20 N = GAP) GLUCOSE (test code = 105 mg/dL 70-110 N GLU) BLOOD UREA NITROGEN 29 mg/dL 7-18 H (test code = BUN) GLOMERULAR 48.1 80-90 L The Glomerular FILTRATION RATE Filtration R ate is a (test code = GFR) calculated parameterbased on serum Creatinine, pat ient age and sex. GFR va luesless than 60 mL/min/ 1.73 square meters a re indicative ofCh ronic Kidney Disease. Values less than 15 mL/min/1.73squa re meters indicate Kidney failure. The calculation forGFR is based on the CKD-EPI (2020) calculat ion. This formulais race indifferent and is the recommended for diomedes for GFRby the [facility] Ad[facility].The GFR will not calculate if th e sex is unknown or if thepatient's ag e is <18 years. CREATININE (test 1.6 mg/dL 0.6-1.3 H code = CREAT) CALCIUM (test code = 7.9 mg/dL 8.0-10.5 L CA) [id number] 06:08:00 Test Item Value Reference Range Interpretation Comments PHOSPHOROUS (test code = PHOS) 3.0 MG/DL 2.5-4.9 N CBC W/AUTO [id number] 16:20:00 Test Item Value Reference Range Interpretation Comments WHITE BLOOD CELL 14.3 x10 3/uL 4.5-11.0 H (test code = WBC) RED BLOOD CELL (test 3.14 x10 6/uL 4.00-5.60 L code = RBC) HEMOGLOBIN (test code 8.3 g/dL 12.5-16.9 L = HGB) HEMATOCRIT (test code 26.1 % 37.5-50.7 L = HCT) MEAN CELL VOLUME 83.1 fL 81.0-99.0 N (test code = MCV) MEAN CELL HGB (test 26.4 pg 27.0-33.0 L code = MCH) MEAN CELL HGB 31.8 g/dL 33.0-37.0 L CONCETRATION (test code = MCHC) RED CELL DISTRIBUTION 15.3 % 11.5-14.5 H WIDTH CV (test code = RDW) RED CELL DISTRIBUTION 46.3 fL 37.0-54.0 N WIDTH SD (test code = RDW-SD) PLATELET COUNT (test 246 x10 3/uL 150-400 N code = PLT) MEAN PLATELET VOLUME 11.1 fL 7.0-9.0 H (test code = MPV) NEUTROPHIL % (test 77.0 % 56.0-77.0 N code = NT%) LYMPHOCYTE % (test 4.3 % 14.0-32.0 L code = LY%) NEUTROPHIL # (test 10.98 x10 3/uL 2.0-7.6 H code = NT#) LYMPHOCYTE # (test 0.61 x10 3/uL 1.0-3.8 L code = LY#) MANUAL DIFF REQUIRED NO SLIDE R EVDESIRAEWED, (test code = MDIFF) CONSISTE NT WITH AUTO DIFF. IMMATURE GRANULOCYTE 4.1 % 0.0-2.0 H % (test code = IG%) MONOCYTE % (test code 11.4 % 4.8-9.0 H = MO%) EOSINOPHIL % (test 3.0 % 0.3-3.7 N code = EO%) BASOPHIL % (test code 0.2 % 0.0-2.0 N = BA%) NUCLEATED RBC % (test 0.1 % 0-0 H code = NRBC%) IMMATURE GRANULOCYTE 0.58 x10 3/uL 0.00-0.03 H # (test code = IG#) MONOCYTE # (test code 1.63 x10 3/uL 0.1-0.8 H = MO#) EOSINOPHIL # (test 0.43 x10 3/uL 0.0-0.2 H code = EO#) BASOPHIL # (test code 0.03 x10 3/uL 0.0-0.2 N = BA#) NUCLEATED RBC # (test 0.02 x10 3/uL 0.0-0.1 N code = NRBC#) COMPREHENSIVE METABOLIC [id number] 16:00:00 Test Item Value Reference Range Interpretation Comments SODIUM (test code = 138 mEq/L 134-147 N NA) POTASSIUM (test code 3.9 mEq/L 3.4-5.0 N = K) CHLORIDE (test code 104 mEq/L 100-108 N = CL) CARBON DIOXIDE (test 28 mEq/l 21-33 N code = CO2) ANION GAP (test code 9 0-20 N = GAP) GLUCOSE (test code = 113 mg/dL 70-110 H GLU) BLOOD UREA NITROGEN 23 mg/dL 7-18 H (test code = BUN) GLOMERULAR 56.5 80-90 L The Glomerular FILTRATION RATE Filtration R ate is a (test code = GFR) calculated parameterbased on serum Creatinin e, patient age and sex. GFR valuesless than 60 mL/min/1.73 squ are meters are harman cative ofChronic Kidne y Disease. Values less than 15 mL/min/1.73squa re meters indicate Kidney failure. The calculation for GFR is based on the CK D-EPI (2020) calculat ion. This formulais race indifferent and is the recommended for diomedes for G[facility]by the [facility].The GFR will not calculate i f the sex is unknown or if thepatient's ag e is <18 years. CREATININE (test 1.4 mg/dL 0.6-1.3 H code = CREAT) TOTAL PROTEIN (test 5.4 g/dL 6.4-8.2 L code = PROT) ALBUMIN (test code = 2.40 g/dL 3.4-5.0 L ALB) CALCIUM (test code = 7.7 mg/dL 8.0-10.5 L CA) BILIRUBIN TOTAL 0.70 mg/dL 0.0-1.0 N (test code = BILT) SGOT/AST (test code 25 IUnit/L 15-37 N = AST) SGPT/ALT (test code 23 IUnit/L 30-65 L = ALT) ALKALINE PHOSPHATASE 102 IUnit/L 20-125 N TOTAL (test code = ALKP) CBC W/AUTO [id number] 05:19:00 Test Item Value Reference Range Interpretation Comments WHITE BLOOD CELL (test code = 12.8 x10 3/uL 4.5-11.0 H WBC) RED BLOOD CELL (test code = 2.90 x10 6/uL 4.00-5.60 L RBC) HEMOGLOBIN (test code = HGB) 7.6 g/dL 12.5-16.9 L HEMATOCRIT (test code = HCT) 24.0 % 37.5-50.7 L MEAN CELL VOLUME (test code = 82.8 fL 81.0-99.0 N MCV) MEAN CELL HGB (test code = MCH) 26.2 pg 27.0-33.0 L MEAN CELL HGB CONCETRATION 31.7 g/dL 33.0-37.0 L (test code = MCHC) RED CELL DISTRIBUTION WIDTH CV 14.8 % 11.5-14.5 H (test code = RDW) RED CELL DISTRIBUTION WIDTH SD 44.6 fL 37.0-54.0 N (test code = RDW-SD) PLATELET COUNT (test code = 207 x10 3/uL 150-400 N PLT) MEAN PLATELET VOLUME (test code 11.2 fL 7.0-9.0 H = MPV) NEUTROPHIL % (test code = NT%) % 56.0-77.0 LYMPHOCYTE % (test code = LY%) % 14.0-32.0 NEUTROPHIL # (test code = NT#) x10 3/uL 2.0-7.6 LYMPHOCYTE # (test code = LY#) x10 3/uL 1.0-3.8 MANUAL DIFF REQUIRED (test code YES = MDIFF) WBC [id number] 05:19:00 Test Item Value Reference Range Interpretation Comments BAND NEUTROPHIL (test code 0.0 % 0.0-10.0 N = BAND) ANISOCYTOSIS (test code = 1+ ANISO) PLATELET ESTIMATE (test Adequate THOUSAND ADEQUATE code = PLTEST) SEGMENTED NEUTROPHILS (test 80.9 % 37-69 H code = SEG) LYMPHOCYTE (test code = 11.8 % 23-55 L LYMPH) MONOCYTE (test code = MON) 2.7 % 0-10 N EOSINOPHIL (test code = 4.6 % 0.0-4.0 H EOS) MICROCYTOSIS (test code = 1+ MICR) BASIC METABOLIC [id number] 05:09:00 Test Item Value Reference Range Interpretation Comments SODIUM (test code = 140 mEq/L 134-147 N NA) POTASSIUM (test code 3.8 mEq/L 3.4-5.0 N = K) CHLORIDE (test code 105 mEq/L 100-108 N = CL) CARBON DIOXIDE (test 30 mEq/l 21-33 N code = CO2) ANION GAP (test code 9 0-20 N = GAP) GLUCOSE (test code = 113 mg/dL 70-110 H GLU) BLOOD UREA NITROGEN 27 mg/dL 7-18 H (test code = BUN) GLOMERULAR 56.5 80-90 L The Glomerular FILTRATION RATE Filtration R ate is a (test code = GFR) calculated parameterbased on serum Creatinine, pat ient age and sex. GFR va luesless than 60 mL/min/ 1.73 square meters a re indicative ofCh ronic Kidney Disease. Values less than 15 mL/min/1.73squa re meters indicate Kidney failure. The calculation forGFR is based on the CKD-EPI (2020) calculat ion. This formulais race indifferent and is the recommended for diomedes for GFRby the [facility] Ad[facility].The GFR will not calculate if th e sex is unknown or if thepatient's ag e is <18 years. CREATININE (test 1.4 mg/dL 0.6-1.3 H code = CREAT) CALCIUM (test code = 7.7 mg/dL 8.0-10.5 L CA) [id number] 05:09:00 Test Item Value Reference Range Interpretation Comments PHOSPHOROUS (test code = PHOS) 3.3 MG/DL 2.5-4.9 N [id number] 05:08:00 Test Item Value Reference Range Interpretation Comments MAGNESIUM (test code = MAG) 2.12 mg/dL 1.80-2.40 N HGB [id number] 21:01:00 Test Item Value Reference Range Interpretation Comments HEMOGLOBIN (test code = HGB) 7.2 g/dL 12.5-16.9 L HEMATOCRIT (test code = HCT) 22.9 % 37.5-50.7 L BASIC METABOLIC [id number] 12:39:00 Test Item Value Reference Range Interpretation Comments SODIUM (test code = 140 mEq/L 134-147 N NA) POTASSIUM (test code 3.7 mEq/L 3.4-5.0 N = K) CHLORIDE (test code 105 mEq/L 100-108 N = CL) CARBON DIOXIDE (test 28 mEq/l 21-33 N code = CO2) ANION GAP (test code 10 0-20 N = GAP) GLUCOSE (test code = 113 mg/dL 70-110 H GLU) BLOOD UREA NITROGEN 28 mg/dL 7-18 H (test code = BUN) GLOMERULAR 56.5 80-90 L The Glomerular FILTRATION RATE Filtration R ate is a (test code = GFR) calculated parameterbased on serum Creatinine, pat ient age and sex. GFR va luesless than 60 mL/min/ 1.73 square meters a re indicative ofCh ronic Kidney Disease. Values less than 15 mL/min/1.73squa re meters indicate Kidney failure. The calculation forGFR is based on the CKD-EPI (2020) calculat ion. This formulais race indifferent and is the recommended for diomedes for GFRby the [facility] Ad[facility].The GFR will not calculate if th e sex is unknown or if thepatient's ag e is <18 years. CREATININE (test 1.4 mg/dL 0.6-1.3 H code = CREAT) CALCIUM (test code = 8.0 mg/dL 8.0-10.5 N CA) BASIC METABOLIC [id number] 03:48:00 Test Item Value Reference Range Interpretation Comments SODIUM (test code = 143 mEq/L 134-147 N NA) POTASSIUM (test code 3.8 mEq/L 3.4-5.0 N = K) CHLORIDE (test code 104 mEq/L 100-108 N = CL) CARBON DIOXIDE (test 30 mEq/l 21-33 N code = CO2) ANION GAP (test code 12 0-20 N = GAP) GLUCOSE (test code = 94 mg/dL 70-110 N GLU) BLOOD UREA NITROGEN 42 mg/dL 7-18 H (test code = BUN) GLOMERULAR 48.1 80-90 L The Glomerular FILTRATION RATE Filtration R ate is a (test code = GFR) calculated parameterbased on serum Creatinine, pat ient age and sex. GFR va luesless than 60 mL/min/ 1.73 square meters a re indicative ofCh ronic Kidney Disease. Values less than 15 mL/min/1.73squa re meters indicate Kidney failure. The calculation forGFR is based on the CKD-EPI (2020) calculat ion. This formulais race indifferent and is the recommended for diomedes for GFRby the [facility] Ad[facility].The GFR will not calculate if th e sex is unknown or if thepatient's ag e is <18 years. CREATININE (test 1.6 mg/dL 0.6-1.3 H code = CREAT) CALCIUM (test code = 8.1 mg/dL 8.0-10.5 N CA) [id number] 03:48:00 Test Item Value Reference Range Interpretation Comments PHOSPHOROUS (test code = PHOS) 3.8 MG/DL 2.5-4.9 N [id number] 03:48:00 Test Item Value Reference Range Interpretation Comments MAGNESIUM (test code = MAG) 2.18 mg/dL 1.80-2.40 N CBC W/AUTO [id number] 03:39:00 Test Item Value Reference Range Interpretation Comments WHITE BLOOD CELL (test code = 13.1 x10 3/uL 4.5-11.0 H WBC) RED BLOOD CELL (test code = 2.96 x10 6/uL 4.00-5.60 L RBC) HEMOGLOBIN (test code = HGB) 7.8 g/dL 12.5-16.9 L HEMATOCRIT (test code = HCT) 24.4 % 37.5-50.7 L MEAN CELL VOLUME (test code = 82.4 fL 81.0-99.0 N MCV) MEAN CELL HGB (test code = 26.4 pg 27.0-33.0 L MCH) MEAN CELL HGB CONCETRATION 32.0 g/dL 33.0-37.0 L (test code = MCHC) RED CELL DISTRIBUTION WIDTH CV 14.5 % 11.5-14.5 N (test code = RDW) RED CELL DISTRIBUTION WIDTH SD 43.7 fL 37.0-54.0 N (test code = RDW-SD) PLATELET COUNT (test code = 217 x10 3/uL 150-400 N PLT) MEAN PLATELET VOLUME (test 11.0 fL 7.0-9.0 H code = MPV) NEUTROPHIL % (test code = NT%) 79.9 % 56.0-77.0 H IMMATURE GRANULOCYTE % (test 1.5 % 0.0-2.0 N code = IG%) LYMPHOCYTE % (test code = LY%) 5.4 % 14.0-32.0 L MONOCYTE % (test code = MO%) 10.8 % 4.8-9.0 H EOSINOPHIL % (test code = EO%) 2.2 % 0.3-3.7 N BASOPHIL % (test code = BA%) 0.2 % 0.0-2.0 N NUCLEATED RBC % (test code = 0.2 % 0-0 H NRBC%) NEUTROPHIL # (test code = NT#) 10.49 x10 3/uL 2.0-7.6 H IMMATURE GRANULOCYTE # (test 0.20 x10 3/uL 0.00-0.03 H code = IG#) LYMPHOCYTE # (test code = LY#) 0.71 x10 3/uL 1.0-3.8 L MONOCYTE # (test code = MO#) 1.42 x10 3/uL 0.1-0.8 H EOSINOPHIL # (test code = EO#) 0.29 x10 3/uL 0.0-0.2 H BASOPHIL # (test code = BA#) 0.03 x10 3/uL 0.0-0.2 N NUCLEATED RBC # (test code = 0.02 x10 3/uL 0.0-0.1 N NRBC#) MANUAL DIFF REQUIRED (test NO code = MDIFF) GLUCOSE [id number] 20:58:00 Test Item Value Reference Range Interpretation Comments GLUCOSE BEDSIDE (test 77 MG/DL 70-110 N Perfor med by certified code = GLUBED) 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 [facility] BASIC METABOLIC [id number] 17:21:00 Test Item Value Reference Range Interpretation Comments SODIUM (test code = 143 mEq/L 134-147 N NA) POTASSIUM (test code 3.6 mEq/L 3.4-5.0 N = K) CHLORIDE (test code 104 mEq/L 100-108 N = CL) CARBON DIOXIDE (test 31 mEq/l 21-33 N code = CO2) ANION GAP (test code 12 0-20 N = GAP) GLUCOSE (test code = 89 mg/dL 70-110 N GLU) BLOOD UREA NITROGEN 38 mg/dL 7-18 H (test code = BUN) GLOMERULAR 41.8 80-90 L The Glomerular FILTRATION RATE Filtration R ate is a (test code = GFR) calculated parameterbased on serum Creatinine, pat ient age and sex. GFR va luesless than 60 mL/min/ 1.73 square meters a re indicative ofCh ronic Kidney Disease. Values less than 15 mL/min/1.73squa re meters indicate Kidney failure. The calculation forGFR is based on the CKD-EPI (2020) calculat ion. This formulais race indifferent and is the recommended for diomedes for GFRby the [facility].The GFR will not calculate if th e sex is unknown or if thepatient's ag e is <18 years. CREATININE (test 1.8 mg/dL 0.6-1.3 H code = CREAT) CALCIUM (test code = 8.3 mg/dL 8.0-10.5 N CA) B-TYPE NATRIURETIC [id number] 03:51:00 Test Item Value Reference Range Interpretation Comments B-TYPE NATRIURETIC PEPTIDE (test 60.0 PG/ML 0-100 N code = BNP) BASIC METABOLIC [id number] 03:50:00 Test Item Value Reference Range Interpretation Comments SODIUM (test code = 149 mEq/L 134-147 H NA) POTASSIUM (test code 3.8 mEq/L 3.4-5.0 N = K) CHLORIDE (test code 109 mEq/L 100-108 H = CL) CARBON DIOXIDE (test 32 mEq/l 21-33 N code = CO2) ANION GAP (test code 12 0-20 N = GAP) GLUCOSE (test code = 102 mg/dL 70-110 N GLU) BLOOD UREA NITROGEN 52 mg/dL 7-18 H (test code = BUN) GLOMERULAR 34.7 80-90 L The Glomerular FILTRATION RATE Filtration R ate is a (test code = GFR) calculated parameterbased on serum Creatinine, pat ient age and sex. GFR va luesless than 60 mL/min/ 1.73 square meters a re indicative ofCh ronic Kidney Disease. Values less than 15 mL/min/1.73squa re meters indicate Kidney failure. The calculation forGFR is based on the CKD-EPI (2020) calculat ion. This formulais race indifferent and is the recommended for diomedes for GFRby the [facility].The GFR will not calculate if th e sex is unknown or if thepatient's ag e is <18 years. CREATININE (test 2.1 mg/dL 0.6-1.3 H code = CREAT) CALCIUM (test code = 8.0 mg/dL 8.0-10.5 N CA) [id number] 03:50:00 Test Item Value Reference Range Interpretation Comments PHOSPHOROUS (test code = PHOS) 3.6 MG/DL 2.5-4.9 N CALCIUM [id number] 03:50:00 Test Item Value Reference Range Interpretation Comments CALCIUM IONIZED (test code = JONEL) 1.07 MMOL/L 1.09-1.30 L [id number] 03:49:00 Test Item Value Reference Range Interpretation Comments MAGNESIUM (test code = MAG) 2.29 mg/dL 1.80-2.40 N CBC W/AUTO [id number] 03:28:00 Test Item Value Reference Range Interpretation Comments WHITE BLOOD CELL (test code = 12.3 x10 3/uL 4.5-11.0 H WBC) RED BLOOD CELL (test code = 3.02 x10 6/uL 4.00-5.60 L RBC) HEMOGLOBIN (test code = HGB) 8.1 g/dL 12.5-16.9 L HEMATOCRIT (test code = HCT) 25.1 % 37.5-50.7 L MEAN CELL VOLUME (test code = 83.1 fL 81.0-99.0 N MCV) MEAN CELL HGB (test code = 26.8 pg 27.0-33.0 L MCH) MEAN CELL HGB CONCETRATION 32.3 g/dL 33.0-37.0 L (test code = MCHC) RED CELL DISTRIBUTION WIDTH CV 14.6 % 11.5-14.5 H (test code = RDW) RED CELL DISTRIBUTION WIDTH SD 44.0 fL 37.0-54.0 N (test code = RDW-SD) PLATELET COUNT (test code = 186 x10 3/uL 150-400 N PLT) MEAN PLATELET VOLUME (test 10.4 fL 7.0-9.0 H code = MPV) NEUTROPHIL % (test code = NT%) 82.1 % 56.0-77.0 H IMMATURE GRANULOCYTE % (test 0.6 % 0.0-2.0 N code = IG%) LYMPHOCYTE % (test code = LY%) 4.7 % 14.0-32.0 L MONOCYTE % (test code = MO%) 10.9 % 4.8-9.0 H EOSINOPHIL % (test code = EO%) 1.5 % 0.3-3.7 N BASOPHIL % (test code = BA%) 0.2 % 0.0-2.0 N NUCLEATED RBC % (test code = 0.0 % 0-0 N NRBC%) NEUTROPHIL # (test code = NT#) 10.08 x10 3/uL 2.0-7.6 H IMMATURE GRANULOCYTE # (test 0.07 x10 3/uL 0.00-0.03 H code = IG#) LYMPHOCYTE # (test code = LY#) 0.58 x10 3/uL 1.0-3.8 L MONOCYTE # (test code = MO#) 1.34 x10 3/uL 0.1-0.8 H EOSINOPHIL # (test code = EO#) 0.18 x10 3/uL 0.0-0.2 N BASOPHIL # (test code = BA#) 0.02 x10 3/uL 0.0-0.2 N NUCLEATED RBC # (test code = 0.00 x10 3/uL 0.0-0.1 N NRBC#) MANUAL DIFF REQUIRED (test NO code = MDIFF) - CTA ABD PEL W [id number] 00:00:[address] [facility] 1960 Sex: M Name: MIROSLAVA MENDOZA [facility] Zach Mejia : 1960 Age/S: 63 / M [address] [place] [address] Blvd Unit #: [id number] Loc: [place] [address] Phys: Reyna Robbins APRNNDominick Acct: [id number] Dis Date: Status: ADM IN PHONE #: [phone] Exam Date: 01/19/2023 1229 FAX #: [phone] Reason: R/o obstruction EXAMS: CPT CODE: [id number] CTA ABD PEL W CONT [id number] PROCEDURE INFORMATION: Exam: CTA Abdomen and Pelvis Without And With Contrast Exam date and time: 01/19/2023 12:09 PM Age: 63 years old Clinical indication: Other: Abd distention, S/P aaa repair, obstruction; Additional info: R/O obstruction TECHNIQUE: Imaging protocol: Computed tomographic angiography of the abdomen and pelvis without and with c ontrast. 3D rendering (Not supervised by radiologist): MIP and/or 3D reconstructed images were created by the technologist. Radiation optimization: All CT scans at this facility use at least one of these dose optimization techniques: automated exposure control; mA and/or kV adjustment per patient size (includes targeted exams where dose is matched to clinical indication); or iterative reconstruction.Contrast material: ISOVUE 370; Contrast volume: 100 ml; Contrast route: INTRAVENOUS (IV); REPORTING DATA: Count of CT and Cardiac NM exams in prior 12 months: This patient has received 0 known CTs and 0 known cardiac nuclear medicine studies in the 12 months prior to the current study. COMPARISON: CR XR ABDOMEN AP 1 V 01/19/2023 8:39 AM FINDINGS: Lungs: There are bandlike opacities in the lung bases compatible with subsegmental atelectasis or scarring. There is no consolidation. Pleural spaces: Smallleft pleural effusion layering dependently to approximately 3 cm depth. Aorta: There is extensive castro cified plaque in the infrarenal abdominal aorta. There are postoperative changes of recent in situ graft repair of infrarenal aortic aneurysm. The graft lumen is patent through the iliac anastomoses. There is no contrast extravasation to indicate anastomotic leak. Partially collapsed excluded aneurysmcavity is otherwise thrombosed with maximum AP and transverse diameters 5.4 x 4.8 cm respectively. There is ill-defined low-attenuation fluid in the para-aortic space with small volume gas in the operative bed. Celiac trunk and mesenteric arteries: The celiac and superior mesenteric arteries are patent. Caudal course of the proximal celiac artery with moderate luminal narrowing compatible with arcuate ligament impression. The inferior mesenteric artery is occluded proximally, reconstituting distally via collateral supply. Renal arteries: No occlusion or significant stenosis. PAGE 1 Signed Report(CONTINUED) Name: MIROSLAVA MENDOZA [facility] : 1960 Age/S: 63 / M [address] [place] [address] Unit #: [id number] Loc: [place] [address] Phys: Reyna Robbins APRNNP Acct: [id number] Dis Date: Status: ADM IN PHONE #: [phone] Exam Date: 01/19/2023 1229 FAX #: [phone] Reason: R/o obstruction EXAMS: CPT CODE: [id number] CTA ABD PEL W CONT [id number] (Continued) Right iliac arteries: Mild calcified plaque. No flow limiting stenosis. Ectasia of the common iliac artery to 1.8 cm diameter. Left iliac arteries: Moderate atherosclerosis. 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 Focal plaque ulceration with displaced intima narrowing the vessel lumen. The external iliac artery is patent. The visualized femoral arteries are patent. Veins: The IVC is displaced posteriorly by the para-aortic fluid collection with diffuse luminal narrowing of the infrarenal IVC and common iliac veins from extrinsic mass effect. Examination not designed for survey of the venous system. Grossly patency is maintained. Liver: There is a diffuse decrease in liver parenchymal density, consistent with fatty infiltration. There is a 7 mm low-attenuation lesion segment 4A, series 10, image 27, too small to characterize. Otherwise normal liver morphology. Gallbladder and bile ducts: Unremarkable. No ductal dilation. Pancreas: The caudal aspect of the tail of pancreas is inseparable from edema in the anterior pararenal space. Pancreas otherwise demonstrates normal morphology and attenuation. The remaining peripancreatic tissue planes are maintained. The main pancreatic duct is nondilated. Spleen: Unremarkable. Adrenal glands: Unremarkable. No mass. Kidneys and ureters: The kidneys are unremarkable. There is no hydronephrosis. Stomach and bowel: The stomach is unremarkable. Enteric contrast progresses into proximal small bowel. Few air- fluid levels within normal caliber to mildly dilated small bowel. Anastomotic segment of bowel in the left mid abdomen is unremarkable. Distal small bowel is unopacified at the time of this exam, predominantly contracted. Liquid feces in the colon. The colon is predominantly contracted. Left-sided colonic diverticula. Mild stranding of regional tissue planes along the descending and proximal sigmoid colon not out of proportion to edematous changes elsewhere. Appendix: No evidence of appendicitis. Intraperitoneal space: There is trace free intraperitoneal fluid in the pelvis, simple water attenuation. There is no free intraperitoneal air. Retroperitoneal space: Low-attenuation para-aortic fluid as noted. Edema in the anterior and posterior pararenal spaces. Asymmetric involvement left anterior pararenal space. Lymph nodes: Unremarkable. No enlarged lymph nodes. Urinary bladder: Contracted with Gutierrez catheter in place. PAGE 2 Signed Report (CONTINUED) Name: MIROSLAVA MENDOZA [facility] : 1960 Age/S: 63 / M [address] [place] [address] Blvd Unit #: [id number] Loc: [place] [address] Phys: Reyna Robbins [facility] Acct: [id number] Dis Date: Status: ADM IN PHONE #: [phone] Exam Date: 01/19/2023 1229 FAX #: [phone] Reason: R/o obstruction EXAMS: CPT CODE: [id number] CTA ABD PEL W CONT [id number] (Continued) Associated small volume of intraluminal gas. No radiopaque filling defects. Reproductive: Unremarkable as visualized. Bones/joints: The chronic appearing superior endplate depression L1 vertebral body associated withSchmorl's node. Similar findings superior endplate T8, inferior endplate T10 vertebrae. Bilateral L5pars interarticularis defects. Grade 1 anterolisthesis L5-S1. 1.3 cm sclerotic lesion right iliac wing. No lytic or expansile components. No acute skeletal abnormality. Soft tissues: Generalized subcutaneous edema. No focal fluid collection. Small fat containing right spigelian hernia the level of umbilicus. IMPRESSION: 1. Postoperative changes of recent in situ graft repair of abdominal aortic aneurysm. Low- attenuation tissue in the adjacent retroperitoneal spaces compatible with postoperative seroma and or evolving hematoma to be correlated with preoperative imaging outside of this facility. Patent graft lumen without contrast extravasation to indicate active hemorrhage. 2. Bilateral lytton common iliac atherosclerosis. 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 Recommend consultation with vascular interventionalist. 3. Air contrast levels within mildly dilated proximal small bowel. Anastomotic segment of small bowel in the left mid abdomen. No definite evidence of high-grade obstruction. Continued radiographic follow-up is suggested to confirm egress of contrast. 4. Retroperitoneal edema in the left anterior pararenal space extending to the tail of pancreas. Acute pancreatitis included in the differential. 5. Small volume ascites. 6. Small left pleural effusion. 7. Incidental subcentimeter left lobe liver lesion, too small to characterize.In a low-risk patient, this is most likely to be benign and no further follow-up is recommended. In a high-risk patient, follow-up MRI in 3-6 months is recommended (or earlier if warranted by the patient's specific clinical circumstances). (Reference: Margaret) 8. Other nonemergent findings as above. REFERENCES: Margaret CARDENAS, et al. Management of Incidental Liver Lesions onCT: A White Paper of the ACR Incidental Findings Committee. J Am Madhav Radiol. 2017;14(11):0351-8676.PAGE 3 Signed Report (CONTINUED) Name: MIROSLAVA MENDOZA [facility] : 1960 Age/S: 63 / M [address] [place] [address] Unit #: [id number] Loc: [place] [address] Phys: Reyna Robbins Acct: [id number] Dis Date: Status: ADM IN PHONE #: [phone] Exam Date: 01/19/2023 1229 FAX #: [phone] Reason: R/o obstruction EXAMS: CPT CODE: [id number] CTA ABD PEL W CONT 21807 (Continued) at 1344 Reported and signed by: Darion Curry M.D. CC: Eliel Gimenez DO; Reyna Robbins; Uriel Murphy MD Technologist:Boogie Lizama, RT(R)(CT) CTDI: DLP: Trnscb Date/Time: 01/19/2023 (1343) VandanaL Orig Print D/T: S: 01/19/2023 (6188) PAGE 4 Signed Report- XR CHEST 1 [id number] 00:00:00[facility] 1960 Sex: M FAX: Paulo GimenezEarleneSebastian EspinoRajioh Westfall DO [phone] [place]: St: [facility] FAX: Reyna Robbins FAX: Uriel Torers [phone] FAX: Maximo Murphy MD [phone] Name: MIROSLAVA MENDOZA [facility] : 1960 Age/S: 63/M [address] [place] [address] Unit #: [id number] Loc: [id number] [place] [address] Phys: Reyna Robbins Acct: [id number] Dis Date: Status: ADM IN PHONE #: [phone] Exam Date: 01/19/2023 1101 FAX #: [phone] Reason: Acute resp failure, hypoxia EXAMS: CPT CODE: [id number] XR CHEST1 V 98867 PROCEDURE INFORMATION: Exam: XR Chest Exam date and time: 01/19/2023 10:23 AM Age: 63 years old Clinical indication: Other: Hypoxia; Additional info: Acute resp failure, hypoxia TECHNIQUE: Imaging protocol: Radiologic exam of the chest. Views: 1 view. COMPARISON: CR XR CHEST 1V 01/16/2023 6:09 AM FINDINGS: Lungs: Minimal bibasilar airspace opacities. Pleural spaces: No pleural effusion. Heart/M ediastinum: The heart and vascular markings are within limits of normal. Bones/joints: No gross acute findings. IMPRESSION: Minimal bibasilar airspace opacities. at 1125 Reported and signed by: Genaro Iniguez D.O. CC: Eliel Gimenez DO; Reyna Robbins; Uriel Murphy MD Technologist: Sanam CostaRT(R) Trnscrd Date/Time/By: 01/19/2023 (1125) : By: [email or web address] Orig Print D/T: S: 01/19/2023 (1126) PAGE 1 Signed Report- XR ABDOMEN 1V (KUB) 2023-01-19 00:00:[address] [facility] 1960 Sex: M FAX: Jose Thompson DO [phone] [place]: St: [facility] FAX: Reyna Robbins AP FAX: Uriel Torres Rafael [phone] FAX: Maximo Murphy MD [phone] Name: MIROSLAVA MENDOZA [facility] : 1960Age/S: 63/M [address] [place] [address] Unit #: [id number] Loc: G.3314 [place] [address] Phys: Reyna Robbins APRNNP Acct: [id number] Dis Date: Status: ADM IN PHONE #: [phone] Exam Date: 01/19/2023931 FAX #: [phone] Reason: ileus EXAMS: CPT CODE: [id number] XR ABDOMEN 1V (KUB) 20798 PROCEDURE INFORMATION: Exam: XR Abdomen Exam date and time: 01/19/2023 8:39 AM Age: 63 years old Clinical indication: Abdominal distension: Ileus TECHNIQUE: Imaging protocol: Radiologic exam of the abdomen. Views: Frontal supine view of the abdomen. 1 View. COMPARISON: CR XR ABDOMEN AP 1 V 01/18/2023 6:56 AM. Studies of 01/17/2023, 01/16/2023, and 01/14/2023 were reviewed. * ABDOMEN, 1 view HISTORY: Abdominal distension. Concern for ileus. TECHNIQUE: A supine radiograph of the abdomen was obtained. IMPRESSION: 1. Moderately severely dilated gas-filled loops of small bowel, worsening from yesterday and significant worsening from 01/14/2023. The findings may represent ileus or obstruction. It is noted there is minimal gas within the colon. 2. The previously noted nasogastric tube has been removed. 3. Postoperative changes involving the abdomen. at 1026 Reported and signed by: Miguel Jean M.D. 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 [facility] GLUCOSE [id number] 17:24:00 Test Item Value Reference Range Interpretation Comments GLUCOSE BEDSIDE (test 104 MG/DL 70-110 N Perfor med by certified code = GLUBED) 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 [facility] BASIC METABOLIC [id number] 04:20:00 Test Item Value Reference Range Interpretation Comments SODIUM (test code = 146 mEq/L 134-147 N NA) POTASSIUM (test code 4.2 mEq/L 3.4-5.0 N = K) CHLORIDE (test code 113 mEq/L 100-108 H = CL) CARBON DIOXIDE (test 30 mEq/l 21-33 N code = CO2) ANION GAP (test code 7 0-20 N = GAP) GLUCOSE (test code = 108 mg/dL 70-110 N GLU) BLOOD UREA NITROGEN 59 mg/dL 7-18 H (test code = BUN) GLOMERULAR 22.6 80-90 L The Glomerular FILTRATION RATE Filtration R ate is a (test code = GFR) calculated parameterbased on serum Creatinine, pat ient age and sex. GFR va luesless than 60 mL/min/ 1.73 square meters a re indicative ofCh ronic Kidney Disease. Values less than 15 mL/min/1.73squa re meters indicate Kidney failure. The calculation forGFR is based on the CKD-EPI (2020) calculat ion. This formulais race indifferent and is the recommended for diomedes for GFRby the Natio nal Kidney Foundati on for Adults.The GFR will not calculate if th e sex is unknown or if thepatient's ag e is <18 years. CREATININE (test 3.0 mg/dL 0.6-1.3 H code = CREAT) CALCIUM (test code = 7.6 mg/dL 8.0-10.5 L CA) CALCIUM [id number] 04:20:00 Test Item Value Reference Range Interpretation Comments CALCIUM IONIZED (test code = JONEL) 1.07 MMOL/L 1.09-1.30 L [id number] 04:20:00 Test Item Value Reference Range Interpretation Comments MAGNESIUM (test code = MAG) 2.35 mg/dL 1.80-2.40 N CBC W/AUTO [id number] 04:05:00 Test Item Value Reference Range Interpretation Comments WHITE BLOOD CELL (test code = 13.3 x10 3/uL 4.5-11.0 H WBC) RED BLOOD CELL (test code = 3.04 x10 6/uL 4.00-5.60 L RBC) HEMOGLOBIN (test code = HGB) 8.1 g/dL 12.5-16.9 L HEMATOCRIT (test code = HCT) 25.1 % 37.5-50.7 L MEAN CELL VOLUME (test code = 82.6 fL 81.0-99.0 MCV) MEAN CELL HGB (test code = 26.6 pg 27.0-33.0 L MCH) MEAN CELL HGB CONCETRATION 32.3 g/dL 33.0-37.0 L (test code = MCHC) RED CELL DISTRIBUTION WIDTH CV 14.6 % 11.5-14.5 H (test code = RDW) RED CELL DISTRIBUTION WIDTH SD 43.6 fL 37.0-54.0 N (test code = RDW-SD) PLATELET COUNT (test code = 172 x10 3/uL 150-400 N PLT) MEAN PLATELET VOLUME (test 11.2 fL 7.0-9.0 H code = MPV) NEUTROPHIL % (test code = NT%) 86.9 % 56.0-77.0 H IMMATURE GRANULOCYTE % (test 0.5 % 0.0-2.0 N code = IG%) LYMPHOCYTE % (test code = LY%) 3.2 % 14.0-32.0 L MONOCYTE % (test code = MO%) 8.7 % 4.8-9.0 N EOSINOPHIL % (test code = EO%) 0.5 % 0.3-3.7 N BASOPHIL % (test code = BA%) 0.2 % 0.0-2.0 N NUCLEATED RBC % (test code = 0.0 % 0-0 N NRBC%) NEUTROPHIL # (test code = NT#) 11.53 x10 3/uL 2.0-7.6 H IMMATURE GRANULOCYTE # (test 0.06 x10 3/uL 0.00-0.03 H code = IG#) LYMPHOCYTE # (test code = LY#) 0.43 x10 3/uL 1.0-3.8 L MONOCYTE # (test code = MO#) 1.15 x10 3/uL 0.1-0.8 H EOSINOPHIL # (test code = EO#) 0.07 x10 3/uL 0.0-0.2 N BASOPHIL # (test code = BA#) 0.03 x10 3/uL 0.0-0.2 N NUCLEATED RBC # (test code = 0.00 x10 3/uL 0.0-0.1 N NRBC#) MANUAL DIFF REQUIRED (test NO code = MDIFF) - XR ABDOMEN 1V ([facility])2023-01-18 00:00:[address] [facility] [facility] : 1960 Sex: M FAX: Jose Thompson DO [phone] [place]: St: ADM FAX: Reyna Robbins FAX: Uriel Torres [phone] FAX: Maximo Murphy MD [phone] Name: MIROSLAVA MENDOZA [facility] : 1960 Age/S: 63/M [address] [place] [address] Unit #: [id number] Loc: .[address] [place] [address] Phys: Reyna Robbins Acct: [id number] Dis Date: Status: ADM IN PHONE #: [phone] Exam Date: 01/18/2023701 FAX #: [phone] Reason: ileus follow up EXAMS: CPT CODE: [id number] XR ABDOMEN 1V (KUB)[id number] PROCEDURE INFORMATION: Exam: XR Abdomen Exam date and time: 01/18/2023 6:56 AM Age: 63 years oldClinical indication: Other: Ileus follow up TECHNIQUE: Imaging protocol: Radiologic exam of the abdomen. Views: Frontal supine view of the abdomen. 1 View. COMPARISON: CR XR ABDOMEN AP 1 V 01/17/2023 6:43 AM FINDINGS: Enteric feeding catheter with tip projecting over the expected region the gastric fundu s. Gastrointestinal tract: There is a non-obstructive bowel gas pattern. There is no abnormal dilatation of bowel loops. There is no pneumatosis or mass effect. Several air-filled prominent loops of small bowel. Air and feces are present in the rectum. Bones/joints: Unremarkable. Degenerative changes of the lumbar spine. Soft tissues: No abnormal radiopaque densities. Nodule projects over the left lung base. Surgical clips in the mid abdomen. IMPRESSION: Air- filled loops of small bowel, without air-fluid levels may represent ileus. Air and feces are present in the rectum. at 0849 Reported and signed by: Keegan Desouza M.D. 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 [facility] GLUCOSE [id number] 16:20:00 Test Item Value Reference Range Interpretation Comments GLUCOSE BEDSIDE (test 89 MG/DL 70-110 N Perfor med by certified code = GLUBED) 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 [facility] [id number] 04:03:00 Test Item Value Reference Range Interpretation Comments MAGNESIUM (test code = MAG) 2.22 mg/dL 1.80-2.40 N B-TYPE NATRIURETIC [id number] 04:03:00 Test Item Value Reference Range Interpretation Comments B-TYPE NATRIURETIC PEPTIDE (test 50.0 PG/ML 0-100 code = BNP) BASIC METABOLIC [id number] 03:55:00 Test Item Value Reference Range Interpretation Comments SODIUM (test code = 145 mEq/L 134-147 N NA) POTASSIUM (test code 4.8 mEq/L 3.4-5.0 N = K) CHLORIDE (test code 115 mEq/L 100-108 H = CL) CARBON DIOXIDE (test 25 mEq/l 21-33 N code = CO2) ANION GAP (test code 10 0-20 N = GAP) GLUCOSE (test code = 140 mg/dL 70-110 H GLU) BLOOD UREA NITROGEN 55 mg/dL 7-18 H (test code = BUN) GLOMERULAR 16.5 80-90 L The Glomerular FILTRATION RATE Filtration R ate is a (test code = GFR) calculated parameterbased on serum Creatinine, pat ient age and sex. GFR va luesless than 60 mL/min/ 1.73 square meters a re indicative ofCh ronic Kidney Disease. Values less than 15 mL/min/1.73squa re meters indicate Kidney failure. The calculation forGFR is based on the CKD-EPI (2020) calculat ion. This formulais race indifferent and is the recommended for diomedes for GFRby the Natio nal Kidney Foundati on for Adults.The GFR will not calculate if th e sex is unknown or if thepatient's ag e is <18 years. CREATININE (test 3.9 mg/dL 0.6-1.3 H code = CREAT) CALCIUM (test code = 7.3 mg/dL 8.0-10.5 L CA) [id number] 03:55:00 Test Item Value Reference Range Interpretation Comments PHOSPHOROUS (test code = PHOS) 4.8 MG/DL 2.5-4.9 N CBC W/AUTO [id number] 03:27:00 Test Item Value Reference Range Interpretation Comments WHITE BLOOD CELL (test code = 15.4 x10 3/uL 4.5-11.0 H WBC) RED BLOOD CELL (test code = 3.01 x10 6/uL 4.00-5.60 L RBC) HEMOGLOBIN (test code = HGB) 8.1 g/dL 12.5-16.9 L HEMATOCRIT (test code = HCT) 25.9 % 37.5-50.7 L MEAN CELL VOLUME (test code = 86.0 fL 81.0-99.0 MCV) MEAN CELL HGB (test code = 26.9 pg 27.0-33.0 L MCH) MEAN CELL HGB CONCETRATION 31.3 g/dL 33.0-37.0 L (test code = MCHC) RED CELL DISTRIBUTION WIDTH CV 14.8 % 11.5-14.5 H (test code = RDW) RED CELL DISTRIBUTION WIDTH SD 46.5 fL 37.0-54.0 N (test code = RDW-SD) PLATELET COUNT (test code = 143 x10 3/uL 150-400 L PLT) MEAN PLATELET VOLUME (test 11.0 fL 7.0-9.0 H code = MPV) NEUTROPHIL % (test code = NT%) 89.3 % 56.0-77.0 H IMMATURE GRANULOCYTE % (test 0.5 % 0.0-2.0 N code = IG%) LYMPHOCYTE % (test code = LY%) 2.6 % 14.0-32.0 L MONOCYTE % (test code = MO%) 7.2 % 4.8-9.0 N EOSINOPHIL % (test code = EO%) 0.1 % 0.3-3.7 L BASOPHIL % (test code = BA%) 0.3 % 0.0-2.0 N NUCLEATED RBC % (test code = 0.0 % 0-0 N NRBC%) NEUTROPHIL # (test code = NT#) 13.73 x10 3/uL 2.0-7.6 H IMMATURE GRANULOCYTE # (test 0.08 x10 3/uL 0.00-0.03 H code = IG#) LYMPHOCYTE # (test code = LY#) 0.40 x10 3/uL 1.0-3.8 L MONOCYTE # (test code = MO#) 1.11 x10 3/uL 0.1-0.8 H EOSINOPHIL # (test code = EO#) 0.02 x10 3/uL 0.0-0.2 N BASOPHIL # (test code = BA#) 0.04 x10 3/uL 0.0-0.2 N NUCLEATED RBC # (test code = 0.00 x10 3/uL 0.0-0.1 N NRBC#) MANUAL DIFF REQUIRED (test NO code = MDIFF) GLUCOSE [id number] 00:11:00 Test Item Value Reference Range Interpretation Comments GLUCOSE BEDSIDE (test 117 MG/DL 70-110 H Perfor med by certified code = GLUBED) 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 [facility] - XR ABDOMEN 1V (KUB)2023-01-17 00:00:00 [facility] : 1960 Sex: M FAX: Jose Thompson DO [phone] [place]: St: ADM FAX: Reyna Robbins FAX: Uriel Torres [phone] FAX: Maximo Murphy MD [phone] Name: MIROSLAVA MENDOZA [facility] : 1960 Age/S: 63/M [address] [place] [address] Unit #: [id number] Loc: G.3314 [place] [address] Phys: Reyna Robbins Acct: [id number] Dis Date: Status: ADM IN PHONE #: [phone] Exam Date: 01/17/2023733 FAX #: [phone] Reason: ileus follow up EXAMS: CPT CODE: [id number] XR ABDOMEN 1V (KUB)[id number] PROCEDURE INFORMATION: Exam: XR Abdomen Exam date and time: 01/17/2023 6:43 AM Age: 63 years oldClinical indication: Other: Ileus follow up TECHNIQUE: Imaging protocol: Radiologic exam of the abdomen. Views: Frontal supine view of the abdomen. 1 View. COMPARISON: CR XR ABDOMEN AP 1 V 01/16/2023 6:09 AM IMPRESSION: NG tube projects over the left upper abdomen, expected location of the stomach. Persistent moderate volume gas within small bowel loops measuring up to 3.5 cm diameter without definite e vidence of obstruction. Left mid abdominal and pelvic surgical clips. Osseous structures are unchanged. at 0801 Reported and signed by: Antoni Mayberry M.D. CC: Jose Gimenez DO; Reyna Robbins; Uriel Murphy MD Technologist: Durga Velasco; Marilee Vasquez, RT(R) Trnscrd Date/Time/By: 01/17/2023 (800) : By: [email or web address] Orig Print D/T: S: 01/17/2023 (800) PAGE 1 Signed ReportGLUCOSE [id number] 20:15:00 Test Item Value Reference Range Interpretation Comments GLUCOSE BEDSIDE (test 123 MG/DL 70-110 H [facility] med by certified code = GLUBED) 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 [facility] BASIC METABOLIC [id number] 15:38:00 Test Item Value Reference Range Interpretation Comments SODIUM (test code = 145 mEq/L 134-147 N NA) POTASSIUM (test code 5.0 mEq/L 3.4-5.0 N = K) CHLORIDE (test code 113 mEq/L 100-108 H = CL) CARBON DIOXIDE (test 28 mEq/l 21-33 N code = CO2) ANION GAP (test code 9 0-20 N = GAP) GLUCOSE (test code = 115 mg/dL 70-110 H GLU) BLOOD UREA NITROGEN 54 mg/dL 7-18 H (test code = BUN) GLOMERULAR 14.3 80-90 L The Glomerular FILTRATION RATE Filtration R ate is a (test code = GFR) calculated parameterbased on serum Creatinine, pat ient age and sex. GFR va luesless than 60 mL/min/ 1.73 square meters a re indicative ofCh ronic Kidney Disease. Values less than 15 mL/min/1.73squa re meters indicate Kidney failure. The calculation forGFR is based on the CKD-EPI (2020) calculat ion. This formulais race indifferent and is the recommended for diomedes for GFRby the [facility] Kidney Foundati on for Adults.The GFR will not calculate if th e sex is unknown or if thepatient's ag e is <18 years. CREATININE (test 4.4 mg/dL 0.6-1.3 H code = CREAT) CALCIUM (test code = 7.4 mg/dL 8.0-10.5 L CA) [id number] 11:01:00 Test Item Value Reference Range Interpretation Comments SURGICAL (test code = SR) R UN DATE: 01/16/23 [facility] PAGE 1 RUN TIME: 1102 Specimen Inquiry RUN USER: INTERFACE P ATIENT: MIROSLAVA MENDOZA LOC: [place] U #: [id number] AGE/SX: 63/M ROOM: [facility] RE01/14/23REG DR: Maximo Murphy MD : 60 BED: 1 DIS: STATUS: ADM IN TLOC: SPEC #: [id number] RECD: 01/15/23 STATUS: LUCILA JEFF #: [id number] MDAHAV: 01/14/23- SUBM DR: Maximo Murphy MD ENTERED: 01/15/23 SP TYPE: SURGICAL OTHR DR: Eliel Gimenez Zulfiqar F MD Dweik, Mahmood O MD Mouchli, Anas MDORDERED: GROSS ONL 99512, 91469, ANATOMIC SPEC COPIES TO: Eliel Gimenez DO [address] [place] [address] Uriel Teixeira MD [address] [facility] [place] [address] Julianna Do MD [address] [place] [address] [place] [address] [address] [place] [address] Gaudencio Sesay MD [address] [place] [address] PROCEDURES: GROSS ONL 99245 (01/16/23-1051) 60226 (01/16/23) TISSUES: A. AORTA, ABDOMINAL - ABDOMINAL AORTIC ANEURYSM CLINICAL HISTORY SAME CONTINUED ON NEXT PAGE R UN DATE: 01/16/23 [place] - LAB PAGE 2 RUN TIME: 1102 Specimen Inquiry RUN USER: INTERFACE S PEC #: [id number] PATIENT: MIROSLAVA MENDOZA #[id number] (Continued) FINAL DIAGNOSIS Abdominal aortic aneurysm and old stents/graft, removal:Hemorrhage and necrosis consistent with aneurysm.Stent/graft (gross diagnosis). GROSS DESCRIPTION The specimen received in formalin in a container labeled with the patient's name anddesignated abdominal aortic aneurysm with old stents/graft and consists of multiplefragments of soft tissue and stent which in aggregate measures 20 x 15 x 5 cm. Adult Neuropsychologist sections of the soft tissue are submitted in cassettes A through C. Noidentifiers are seen on the old stents/graft. Technical component performed at [facility],[address] [place] [address], [place] [address] Unless gross only, the diagnosis is based upon microscopic examination.Immunohistochemistr y: This test was developed and its performance characteristicsdetermined by this laboratory. It has not been approved nor does it need approvalby the [place] FDA. Appropriate positive and negative controls are reviewed and judgedto be acceptable. This laboratory is certified under the Clinical Laboratory ImprovementAmendments (CLIA-88) as qualified to perform high complexity clinical laboratory testing. MICROSCOPIC DESCRIPTION A microscopic examination was performed. CLINICAL INFORMATION DISLOCATION OF PREVIOUS INTRARENAL ENDOVASCULAR ANEURISM REPAIR STENT GRAFT ---- Signed SIGNATURE ON FILE Ken Krause Flash 01/16/23 1101 END OF REPORT [id number] 04:35:00 Test Item Value Reference Range Interpretation Comments MAGNESIUM (test code = MAG) 2.04 mg/dL 1.80-2.40 N B-TYPE NATRIURETIC [id number] 04:35:00 Test Item Value Reference Range Interpretation Comments B-TYPE NATRIURETIC PEPTIDE (test 16.0 PG/ML 0-100 N code = BNP) BASIC METABOLIC [id number] 04:10:00 Test Item Value Reference Range Interpretation Comments SODIUM (test code = 143 mEq/L 134-147 N NA) POTASSIUM (test code 5.0 mEq/L 3.4-5.0 N = K) CHLORIDE (test code 112 mEq/L 100-108 H = CL) CARBON DIOXIDE (test 28 mEq/l 21-33 N code = CO2) ANION GAP (test code 8 0-20 N = GAP) GLUCOSE (test code = 129 mg/dL 70-110 H GLU) BLOOD UREA NITROGEN 51 mg/dL 7-18 H (test code = BUN) GLOMERULAR 15.6 80-90 L The Glomerular FILTRATION RATE Filtration R ate is a (test code = GFR) calculated parameterbased on serum Creatinine, pat ient age and sex. GFR va luesless than 60 mL/min/ 1.73 square meters a re indicative ofCh ronic Kidney Disease. Values less than 15 mL/min/1.73squa re meters indicate Kidney failure. The calculation forGFR is based on the CKD-EPI (2020) calculat ion. This formulais race indifferent and is the recommended for diomedes for GFRby the [facility] Kidney Foundati on for Adults.The GFR will not calculate if th e sex is unknown or if thepatient's ag e is <18 years. CREATININE (test 4.1 mg/dL 0.6-1.3 H code = CREAT) CALCIUM (test code = 7.3 mg/dL 8.0-10.5 L CA) [id number] 04:10:00 Test Item Value Reference Range Interpretation Comments PHOSPHOROUS (test code = PHOS) 5.2 MG/DL 2.5-4.9 H CBC W/AUTO [id number] 03:57:00 Test Item Value Reference Range Interpretation Comments WHITE BLOOD CELL (test code = 18.5 x10 3/uL 4.5-11.0 H WBC) RED BLOOD CELL (test code = 3.48 x10 6/uL 4.00-5.60 L RBC) HEMOGLOBIN (test code = HGB) 9.2 g/dL 12.5-16.9 L HEMATOCRIT (test code = HCT) 28.8 % 37.5-50.7 L MEAN CELL VOLUME (test code = 82.8 fL 81.0-99.0 N MCV) MEAN CELL HGB (test code = 26.4 pg 27.0-33.0 L MCH) MEAN CELL HGB CONCETRATION 31.9 g/dL 33.0-37.0 L (test code = MCHC) RED CELL DISTRIBUTION WIDTH CV 14.8 % 11.5-14.5 H (test code = RDW) RED CELL DISTRIBUTION WIDTH SD 44.6 fL 37.0-54.0 N (test code = RDW-SD) PLATELET COUNT (test code = 161 x10 3/uL 150-400 N PLT) MEAN PLATELET VOLUME (test 10.4 fL 7.0-9.0 H code = MPV) NEUTROPHIL % (test code = NT%) 88.4 % 56.0-77.0 H IMMATURE GRANULOCYTE % (test 0.8 % 0.0-2.0 N code = IG%) LYMPHOCYTE % (test code = LY%) 3.5 % 14.0-32.0 L MONOCYTE % (test code = MO%) 7.1 % 4.8-9.0 N EOSINOPHIL % (test code = EO%) 0.0 % 0.3-3.7 L BASOPHIL % (test code = BA%) 0.2 % 0.0-2.0 N NUCLEATED RBC % (test code = 0.0 % 0-0 N NRBC%) NEUTROPHIL # (test code = NT#) 16.33 x10 3/uL 2.0-7.6 H IMMATURE GRANULOCYTE # (test 0.15 x10 3/uL 0.00-0.03 H code = IG#) LYMPHOCYTE # (test code = LY#) 0.65 x10 3/uL 1.0-3.8 L MONOCYTE # (test code = MO#) 1.31 x10 3/uL 0.1-0.8 H EOSINOPHIL # (test code = EO#) 0.00 x10 3/uL 0.0-0.2 N BASOPHIL # (test code = BA#) 0.03 x10 3/uL 0.0-0.2 N NUCLEATED RBC # (test code = 0.00 x10 3/uL 0.0-0.1 N NRBC#) MANUAL DIFF REQUIRED (test NO code = MDIFF) - XR CHEST 1 [id number] 00:00:00 [facility] [place] : 1960 Sex: M FAX: Jose Thompson DO [phone] [place]: St: ADM FAX: Uriel Torres [phone]: Maximo Murphy MD [phone] FAX: Chuck Lockwood Jr [phone] Name: MIROSLAVA MENDOZA [facility] Zach Mejia : 1960 Age/S: 63/M [address] [place] [address] Unit #: [id number] Loc: [id number] [place] [address] Phys: Chuck Lockwood Jr, MD Acct: [id number] Dis Date: Status: ADM IN PHONE #: [phone] Exam Date: 01/16/2023 0709 FAX #: [phone] Reason: REQUIRING MORE OXYGEN EXAMS: CPT CODE: [id number] XR CHEST 1 V 65041 PROCEDURE INFORMATION: Exam: XR Chest Exam date and time: 01/16/2023 6:09 AM Age: 63 yearsold Clinical indication: Other: Requiring more oxygen TECHNIQUE: Imaging protocol: Radiologic exam of the chest. Views: 1 view. COMPARISON: CR XR ABDOMEN AP 1 V 01/15/2023 10:01 AM FINDINGS: Tubes, catheters and devices: Nasogastric tube with distal tip projecting over gastric body. Lungs: Bilateral lung opacities have not significantly changed. Pleural spaces: No pneumothorax. No large pleural effusion. Heart/Mediastinum: The heart size is stable. Bones/joints: Stable. IMPRESSION: No significant feldman e. at 0827 Reported and signed by: Marv Navarro M.D. CC: Eliel Gimenez DO; Uriel Teixeira MD; Maximo Murphy MD; Chuck Lockwood Jr, MD Technologist: RT Camilo(R) Trnscrd Date/Time/By: 01/16/2023 (826) : By: [email or web address] [facility] HospitalPrint [facility]T: S: 01/16/2023 (826) PAGE 1 Signed Report- XR ABDOMEN 1V (KUB)2023-01-16 00:00:00[facility] : 1960 Sex: M FAX: Jose Thompson DO [phone] [place]: St: ADM FAX: Reyna Robbins FAX: Uriel Torres [phone] FAX: Maximo Murphy MD [phone] Name: MIROSLAVA MENDOZA [facility] : 1960Age/S: 63/M [address] [place] [address] Bl Unit #: [id number] Loc: G.3314 [place] [address] Phys: Reyna Robbins Acct: [id number] Dis Date: Status: ADM IN PHONE #: [phone] Exam Date: 01/16/2023 0709 FAX #: [phone] Reason: ileus follow up EXAMS: CPT CODE: [id number] XR ABDOMEN 1V (KUB) [id number] PROCEDURE INFORMATION: Exam: XR Abdomen Exam date and time: 01/16/2023 6:09 AM Age: 63 years old Clinical indication: Other: Ileus follow up TECHNIQUE: Imaging protocol: Radiologic exam of the abdomen. Views: Frontal supine view of the abdomen. 1 View. COMPARISON: CR XR ABDOMEN AP 1 V 01/14/2023 7:04 PM FINDINGS: Tubes, catheters and devices: Enteric tube with tip and side port projecting the stomach.Gastrointestinal tract: Nonspecific, nonobstructive bowel gas pattern with scattered gas seen throughout the small and large bowel. Intraperitoneal space: Surgical clips projecting in the left abdomen.Bones/joints: No acute abnormality. IMPRESSION: Nonspecific, nonobstructive bowel gas pattern. at 0807 Reported and signed by: Faheem Ca M.D. CC: Earlene-Raji H Gimenez ; Reyna Robbins; Uriel Murphy MD Technologist: RT Camilo(R) Trnscrd Date/Time/By: 01/16/2023 (0807) : By: BaileyAM01 PAGE 1 Signed [id number] 17:00:00 Test Item Value Reference Range Interpretation Comments MAGNESIUM (test code = MAG) 2.01 mg/dL 1.80-2.40 N BASIC METABOLIC [id number] 16:37:00 Test Item Value Reference Range Interpretation Comments SODIUM (test code = 145 mEq/L 134-147 N NA) POTASSIUM (test code 4.8 mEq/L 3.4-5.0 N = K) CHLORIDE (test code 110 mEq/L 100-108 H = CL) CARBON DIOXIDE (test 28 mEq/l 21-33 N code = CO2) ANION GAP (test code 11 0-20 N = GAP) GLUCOSE (test code = 124 mg/dL 70-110 H GLU) BLOOD UREA NITROGEN 40 mg/dL 7-18 H (test code = BUN) GLOMERULAR 18.8 80-90 L The Glomerular FILTRATION RATE Filtration R ate is a (test code = GFR) calculated parameterbased on serum Creatinine, pat ient age and sex. GFR va luesless than 60 mL/min/ 1.73 square meters a re indicative ofCh ronic Kidney Disease. Values less than 15 mL/min/1.73squa re meters indicate Kidney failure. The calculation forGFR is based on the CKD-EPI (2020) calculat ion. This formulais race indifferent and is the recommended for diomedes for GFRby the [facility] Found[facility] on for Adults.The GFR will not calculate if th e sex is unknown or if thepatient's ag e is <18 years. CREATININE (test 3.5 mg/dL 0.6-1.3 H code = CREAT) CALCIUM (test code = 7.1 mg/dL 8.0-10.5 L CA) [id number] 16:37:00 Test Item Value Reference Range Interpretation Comments PHOSPHOROUS (test code = PHOS) 4.7 MG/DL 2.5-4.9 N CALCIUM [id number] 16:37:00 Test Item Value Reference Range Interpretation Comments CALCIUM IONIZED (test code = JONEL) 1.03 MMOL/L 1.09-1.30 L CBC W/AUTO [id number] 16:28:00 Test Item Value Reference Range Interpretation Comments WHITE BLOOD CELL (test code = 16.3 x10 3/uL 4.5-11.0 H WBC) RED BLOOD CELL (test code = 3.57 x10 6/uL 4.00-5.60 L RBC) HEMOGLOBIN (test code = HGB) 9.3 g/dL 12.5-16.9 L HEMATOCRIT (test code = HCT) 29.9 % 37.5-50.7 L MEAN CELL VOLUME (test code = 83.8 fL 81.0-99.0 N MCV) MEAN CELL HGB (test code = 26.1 pg 27.0-33.0 L MCH) MEAN CELL HGB CONCETRATION 31.1 g/dL 33.0-37.0 L (test code = MCHC) RED CELL DISTRIBUTION WIDTH CV 14.7 % 11.5-14.5 H (test code = RDW) RED CELL DISTRIBUTION WIDTH SD 44.9 fL 37.0-54.0 N (test code = RDW-SD) PLATELET COUNT (test code = 174 x10 3/uL 150-400 N PLT) MEAN PLATELET VOLUME (test 10.8 fL 7.0-9.0 H code = MPV) NEUTROPHIL % (test code = NT%) 86.0 % 56.0-77.0 H IMMATURE GRANULOCYTE % (test 0.6 % 0.0-2.0 N code = IG%) LYMPHOCYTE % (test code = LY%) 5.2 % 14.0-32.0 L MONOCYTE % (test code = MO%) 8.0 % 4.8-9.0 N EOSINOPHIL % (test code = EO%) 0.0 % 0.3-3.7 L BASOPHIL % (test code = BA%) 0.2 % 0.0-2.0 N NUCLEATED RBC % (test code = 0.0 % 0-0 N NRBC%) NEUTROPHIL # (test code = NT#) 14.03 x10 3/uL 2.0-7.6 H IMMATURE GRANULOCYTE # (test 0.10 x10 3/uL 0.00-0.03 H code = IG#) LYMPHOCYTE # (test code = LY#) 0.85 x10 3/uL 1.0-3.8 L MONOCYTE # (test code = MO#) 1.31 x10 3/uL 0.1-0.8 H EOSINOPHIL # (test code = EO#) 0.00 x10 3/uL 0.0-0.2 N BASOPHIL # (test code = BA#) 0.03 x10 3/uL 0.0-0.2 N NUCLEATED RBC # (test code = 0.00 x10 3/uL 0.0-0.1 N NRBC#) MANUAL DIFF REQUIRED (test NO code = MDIFF) UR SODIUM [id number] 12:09:00 Test Item Value Reference Range Interpretation Comments UR SODIUM RANDOM 38 MEQ/L The Referen ce Range and (test code = AISHWARYA) Method Per formance specificationsh ave not been established for this fluid. The test result should be correlated into the clinical context forinte rpretation. UR POTASSIUM [id number] 12:09:00 Test Item Value Reference Range Interpretation Comments UR POTASSIUM 88.3 MEQ/L The Reference R theresa and RANDOM (test code Method Per formance = KU) specificationsh ave not been establishe d for this fluid. The test resultshould be correlated into the clinic al context forinterpretati on. UR PROTEIN [id number] 12:09:00 Test Item Value Reference Range Interpretation Comments UR PROTEIN RANDOM (test code = 63 mg/dL PROTU) UR CREATININE [id number] 12:09:00 Test Item Value Reference Range Interpretation Comments UR CREATININE 119.0 mg/dL The Reference Range and RANDOM (test code Method Per formance = CREATU) specificationsh ave not been establishe d for this fluid. The test resultshould be correlated into the clinical contex t forinterpretati on. [id number] 08:46:00 Test Item Value Reference Range Interpretation Comments MAGNESIUM (test code = MAG) 2.02 mg/dL 1.80-2.40 N GLUCOSE [id number] 08:16:00 Test Item Value Reference Range Interpretation Comments GLUCOSE BEDSIDE (test 111 MG/DL 70-110 H [facility] med by certified code = GLUBED) 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 [facility] BASIC METABOLIC [id number] 05:02:00 Test Item Value Reference Range Interpretation Comments SODIUM (test code = 145 mEq/L 134-147 N NA) POTASSIUM (test code 4.9 mEq/L 3.4-5.0 N = K) CHLORIDE (test code 109 mEq/L 100-108 H = CL) CARBON DIOXIDE (test 27 mEq/l 21-33 N code = CO2) ANION GAP (test code 14 0-20 N = GAP) GLUCOSE (test code = 144 mg/dL 70-110 H GLU) BLOOD UREA NITROGEN 27 mg/dL 7-18 H (test code = BUN) GLOMERULAR 24.6 80-90 L The Glomerular FILTRATION RATE Filtration R ate is a (test code = GFR) calculated parameterbased on serum Creatinine, pat ient age and sex. GFR va luesless than 60 mL/min/ 1.73 square meters a re indicative ofCh ronic Kidney Disease. Values less than 15 mL/min/1.73squa re meters indicate Kidney failure. The calculation forGFR is based on the CKD-EPI (2020) calculat ion. This formulais race indifferent and is the recommended for diomedes for GFRby the [facility] Kidney Foundati on for Adults.The GFR will not calculate if th e sex is unknown or if thepatient's ag e is <18 years. CREATININE (test 2.8 mg/dL 0.6-1.3 H code = CREAT) CALCIUM (test code = 7.6 mg/dL 8.0-10.5 L CA) LACTIC ACID 2ND [id number] 04:58:00 Test Item Value Reference Range Interpretation Comments LACTIC ACID 2ND REPEAT (test code 2.6 mmol/L 0.4-1.9 H = LACT2) 0228CBC W/AUTO [id number] 04:44:00 Test Item Value Reference Range Interpretation Comments WHITE BLOOD CELL (test code = 16.6 x10 3/uL 4.5-11.0 H WBC) RED BLOOD CELL (test code = 3.75 x10 6/uL 4.00-5.60 L RBC) HEMOGLOBIN (test code = HGB) 10.0 g/dL 12.5-16.9 L HEMATOCRIT (test code = HCT) 30.6 % 37.5-50.7 L MEAN CELL VOLUME (test code = 81.6 fL 81.0-99.0 N MCV) MEAN CELL HGB (test code = 26.7 pg 27.0-33.0 L MCH) MEAN CELL HGB CONCETRATION 32.7 g/dL 33.0-37.0 L (test code = MCHC) RED CELL DISTRIBUTION WIDTH CV 14.6 % 11.5-14.5 H (test code = RDW) RED CELL DISTRIBUTION WIDTH SD 42.5 fL 37.0-54.0 N (test code = RDW-SD) PLATELET COUNT (test code = 198 x10 3/uL 150-400 N PLT) MEAN PLATELET VOLUME (test 10.6 fL 7.0-9.0 H code = MPV) NEUTROPHIL % (test code = NT%) 86.2 % 56.0-77.0 H IMMATURE GRANULOCYTE % (test 0.8 % 0.0-2.0 N code = IG%) LYMPHOCYTE % (test code = LY%) 5.3 % 14.0-32.0 L MONOCYTE % (test code = MO%) 7.6 % 4.8-9.0 N EOSINOPHIL % (test code = EO%) 0.0 % 0.3-3.7 L BASOPHIL % (test code = BA%) 0.1 % 0.0-2.0 N NUCLEATED RBC % (test code = 0.0 % 0-0 N NRBC%) NEUTROPHIL # (test code = NT#) 14.28 x10 3/uL 2.0-7.6 H IMMATURE GRANULOCYTE # (test 0.14 x10 3/uL 0.00-0.03 H code = IG#) LYMPHOCYTE # (test code = LY#) 0.88 x10 3/uL 1.0-3.8 L MONOCYTE # (test code = MO#) 1.26 x10 3/uL 0.1-0.8 H EOSINOPHIL # (test code = EO#) 0.00 x10 3/uL 0.0-0.2 N BASOPHIL # (test code = BA#) 0.02 x10 3/uL 0.0-0.2 N NUCLEATED RBC # (test code = 0.00 x10 3/uL 0.0-0.1 N NRBC#) MANUAL DIFF REQUIRED (test NO code = MDIFF) - RETROPERITONEAL [id number] 00:00:[address] [facility] : 1960 Sex: M Name: MIROSLAVA MENDOZA [facility] : 1960 Age/S: [address] Unit #: [id number] Loc: KAROLINE Maldonado [address] Phys: ItzleReyna CARBALLO Acct: [id number] Dis Date: Status: ADM IN PHONE #: [phone] Exam Date: 01/15/2023 1328 FAX #: [phone] Reason: acute renal failure EXAMS: CPT CODE: [id number] US RETROPERITONEAL COM [id number] PROCEDURE INFORMATION: Exam: US Retroperitoneal; Complete; Kidneys and Bladder Exam date and time: 01/15/2023 12:39 PM Age: 63 years old Clinical indication: Screening exam; Post surgical status; Acute renal failure TECHNIQUE: Imaging protocol: Real-time ultrasound of the retroperitoneum with image documentation. Complete exam focused on the kidneys and bladder. COMPARISON: CR XR ABDOMEN AP 1 V 01/14/2023 7:04 PM FINDINGS: Right kidney:The right kidney measures 11.6 cm. No mass, calculi or hydronephrosis. Left kidney: The left kidney measures 10 cm. No mass, calculi or hydronephrosis. Urinary bladder: The bladder was not well seen secondary to the presence of a Gutierrez catheter and overlying bandage material. IMPRESSION: No acute findings. at 1350 Reported and signed by: Leon Peralta M.D. CC: Jose Gimenez DO; Reyna Robbins; Uriel Murphy MD Technologist: Jammie Asher RDMS(AB) Trnscb Date/Time: 01/15/2023 (1350) BaileyTDO Orig Print D/T: S: 01/15/2023 (9721) Probe: PAGE 1 Signed Report- XR ABDOMEN 1V (KUB)2023-01-15 00:00:[address] [facility] [address] [facility]: 1960 Sex: M FAX: Jose Thompson DO [phone] [place]: St: ADM FAX: Reyna Robbins FAX: Paulo TeixeiraUriel Rafael [phone] FAX: Maximo Murphy MD [phone] Name: MIROSLAVA MENDOZA [facility] : 1960 Age/S: 63/M [address] [place] [address] Unit #: [id number] Loc: G.3314 [place] [address] Phys: Reyna Robbins APRNNP Acct: [id number] Dis Date: Status: ADM IN PHONE #: [phone] Exam Date: 01/15/2023 1003 FAX #: [phone] Reason: Ileus EXAMS: CPT CODE: [id number] XR ABDOMEN 1V (KUB) [id number] PROCEDURE INFORMATION: Exam: XR Chest Exam date and time: 01/15/2023 10:01 AM Age: 63 years old Clinical in dication: Other: Ileus TECHNIQUE: Imaging protocol: Radiologic exam of the chest. Views: 1 view. Other technique: AP portable view of the chest obtained with the patient semi upright. COMPARISON: 1. CR XR ABDOMEN AP 1 V 01/14/2023 7:04 PM 2. DX XR CHEST 2 V 01/12/2023 12:15 PM FINDINGS: Tubes, cathetersand devices: Enteric tube tip below the diaphragm. Lungs: Lung volumes are diminished from 01/12/2023. Aeration slightly improved from 01/14/2023 with decreased interstitial opacities. There are bandlike opacities in the mid and lower lung zones. There is no consolidation. A rounded partially circumscribed relatively dense nodule in the left mid lung zone redemonstrated. Pleural spaces: There is no pneumothorax. The costophrenic angles are indistinct and small pleural effusion would be difficult toexclude. Heart/Mediastinum: The cardiomediastinal silhouette is normal for projection. The pulmonaryvasculature is indistinct. Bones/joints: Unremarkable. IMPRESSION: 1. Lung aeration improved at 1 day interval compatible with resolving edema. Hypoventilatory changes with bibasilar subsegmental atelectasis. 2. Nodular opacity left mid lung zone redemonstrated, possibly calcified. By report, this hasbeen previously evaluated with PET-CT, results unknown to this reader. at 1140 Reported and signed by: Darion Curry M.D. PAGE 1 Signed Report (CONTINUED) FAX: Eliel Thompson DO [phone] [place]: St: [facility] FAX: Reyna Robbins FAX: Uriel Torres [phone] FAX: Maximo Murphy MD [phone] Name: MIROSLAVA MENDOZA [facility] : 1960 Age/S: 63/M [address] [place] [address] Unit #: [id number] Loc: G.3314 [place] [address] Phys: Reyna Robbins APRNNP Acct: [id number] Dis Date: Status: ADM IN PHONE #: [phone] Exam Date: 01/15/2023 1003 FAX #: [phone] Reason: Ileus EXAMS: CPT CODE: [id number] XR ABDOMEN 1V (KUB) [id number] (Continued) CC: Eliel Gimenez DO; Reyna Robbins; Uriel Murphy MD Technologist: Claritza Pedersen RT(R) Trnscrd Date/Time/By: 01/15/2023 (1140) :By: Hitesh Orig Print D/T: S: 01/15/2023 (1141) PAGE 2 Signed Report- XR ABDOMEN 1V (KUB)2023-01-15 00:00:00 [facility] JIMMIE : 1960 Sex: M FAX: Jose Thompson DO [phone] [place]: St: [facility] FAX: Uriel Torres [phone]: Ok Alfred CRNA [phone] FAX: Maximo Murphy MD [phone] Name: MIROSLAVA MENDOZA [facility] : 1960 Age/S: 63/M [address] [place] [address] Unit #: [id number] Loc: Slava[address]14 [place] [address] Phys: Ok Alfred MEGAN Acct: [id number] Dis Date: Status: ADM IN PHONE #: [phone] Exam Date: 2022 FAX #: [phone] Reason: NGT placement EXAMS: CPT CODE: [id number] XR ABDOMEN 1V (KUB) [id number] PROCEDURE INFORMATION: Exam: XR Abdomen Exam date and time: 01/14/2023 7:04 PM Age: 63 years old Clinical indication: Device placement; Gi device; Nasogastric tube; Additional info: Ngt placement TECHNIQUE: Imaging protocol: Radiologic exam of the abdomen. Views: Frontal supine view of the abdomen. 1 View. COMPARISON: DX XR CHEST 2 V 01/12/2023 12:15 PM FINDINGS: Tubes, catheters and devices: The nasogastric tube tip terminates at the level of the stomach. Heart/Mediastinum: The cardiac silhouette is magnified in the AP projection. Lungs: Limited inspiration with marked pulmonary vascular congestion and or interstitial edema. Ill-defined bibasilar pulmonary opacities, left greater than right. Similar round nodular density in the left lower lobe. Gastrointestinal tract: Nonobstructive bowel gas pattern without pneumatosis. Moderate volume colonic fecal material diffusely. Bones/joints: No destructive bone lesions. Soft tissues: No abnormal radiopaque densities. IMPRESSION: 1. Nasogastric tube terminating in the stomach. 2. Limited inspiration with marked pulmonary vascular congestion and or central interstitial edema. 3. Ill-defined bibasilar pulmonary opacities, probably atelectasis and or secretions. at 0727 Reported and signed by: Juan Bailey M.D. CC: Eliel Gimenez DO; Uriel Teixeira MD; Desiree GUZMAN; Maximo Murphy MD Technologist: RT Nirmal(R) Trnscrd Date/Time/By: 01/15/2023 (726) : By: [email or web address] Orig Print D/T: S: 01/15/2023 (727) PAGE 1 Signed ReportLACTIC ACID REPEAT 2023-01-14 20:53:00 Test Item Value Reference Range Interpretation Comments LACTIC ACID REPEAT (test code = 3.0 mmol/l 0.4-1.9 H LACTR) CBC W/AUTO [id number] 17:52:00 Test Item Value Reference Range Interpretation Comments WHITE BLOOD CELL (test code = 21.7 x10 3/uL 4.5-11.0 H WBC) RED BLOOD CELL (test code = 4.10 x10 6/uL 4.00-5.60 N RBC) HEMOGLOBIN (test code = HGB) 11.0 g/dL 12.5-16.9 L HEMATOCRIT (test code = HCT) 33.4 % 37.5-50.7 L MEAN CELL VOLUME (test code = 81.5 fL 81.0-99.0 N MCV) MEAN CELL HGB (test code = MCH) 26.8 pg 27.0-33.0 L MEAN CELL HGB CONCETRATION 32.9 g/dL 33.0-37.0 L (test code = MCHC) RED CELL DISTRIBUTION WIDTH CV 14.1 % 11.5-14.5 N (test code = RDW) RED CELL DISTRIBUTION WIDTH SD 41.2 fL 37.0-54.0 N (test code = RDW-SD) PLATELET COUNT (test code = 243 x10 3/uL 150-400 N PLT) MEAN PLATELET VOLUME (test code 10.4 fL 7.0-9.0 H = MPV) NEUTROPHIL % (test code = NT%) % 56.0-77.0 LYMPHOCYTE % (test code = LY%) % 14.0-32.0 NEUTROPHIL # (test code = NT#) x10 3/uL 2.0-7.6 LYMPHOCYTE # (test code = LY#) x10 3/uL 1.0-3.8 MANUAL DIFF REQUIRED (test code YES = MDIFF) WBC [id number] 17:52:00 Test Item Value Reference Range Interpretation Comments BAND NEUTROPHIL (test code 0.0 % 0.0-10.0 N = BAND) ANISOCYTOSIS (test code = ANISO) PLATELET ESTIMATE (test Adequate THOUSAND ADEQUATE code = PLTEST) SEGMENTED NEUTROPHILS (test 86.4 % 37-69 H code = SEG) LYMPHOCYTE (test code = 4.5 % 23-55 L LYMPH) MONOCYTE (test code = MON) 7.3 % 0-10 N METAMYELOCYTE (test code = 1.8 % 0.0-0.0 H META) POLYCHROMASIA (test code = FEW POLC) BASOPHILIC STIPPLING (test RARE code = STP) BASIC METABOLIC [id number] 17:51:00 Test Item Value Reference Range Interpretation Comments SODIUM (test code = 144 mEq/L 134-147 N NA) POTASSIUM (test code 5.0 mEq/L 3.4-5.0 N SPECIM EN 1+ = K) HEMOLYZED.Resul ts known to be adversely affected by hemolysis ar e: Potassium Magne sium LDH Phosphorus CHLORIDE (test code 109 mEq/L 100-108 H = CL) CARBON DIOXIDE (test 28 mEq/l 21-33 N code = CO2) ANION GAP (test code 12 0-20 N = GAP) GLUCOSE (test code = 168 mg/dL 70-110 H GLU) BLOOD UREA NITROGEN 16 mg/dL 7-18 N (test code = BUN) GLOMERULAR 48.1 80-90 L The Glomerular FILTRATION RATE Filtration R ate is a (test code = GFR) calculated parameterbased on serum Creatinine, pat ient age and sex. GFR va luesless than 60 mL/min/ 1.73 square meters a re indicative ofCh ronic Kidney Disease. Values less than 15 mL/min/1.73squa re meters indicate Kidney failure. The calculation forGFR is based on the CKD-EPI (2020) calculat ion. This formulais race indifferent and is the recommended for diomedes for GFRby the [facility] Kidney Foundati on for Adults.The GFR will not calculate if th e sex is unknown or if thepatient's ag e is <18 years. CREATININE (test 1.6 mg/dL 0.6-1.3 H code = CREAT) CALCIUM (test code = 8.2 mg/dL 8.0-10.5 N CA) [id number] 17:51:00 Test Item Value Reference Range Interpretation Comments PHOSPHOROUS (test code = PHOS) 3.8 MG/DL 2.5-4.9 N CALCIUM [id number] 17:51:00 Test Item Value Reference Range Interpretation Comments CALCIUM IONIZED (test code = JONEL) 1.08 MMOL/L 1.09-1.30 L [id number] 17:50:00 Test Item Value Reference Range Interpretation Comments MAGNESIUM (test code = MAG) 2.02 mg/dL 1.80-2.40 N LACTIC [id number] 17:40:00 Test Item Value Reference Range Interpretation Comments LACTIC ACID (test 4.4 mmol/L 0.4-1.9 HH Critical r esult called code = LACT) to HARPER Dyson,RNby [id number] at 174 0 01/14/23Nurse r ead back result and tech confirmed it's correct? Y PROTHROMBIN [id number] 17:36:00 Test Item Value Reference Range Interpretation Comments PROTHROMBIN TIME 13.7 SECONDS 9.3-12.9 H PATIENT (test code = PTP) INTERNATIONAL NORMAL 1.2 0.8-1.2 N TARGE T INR BY RATIO (test code = INDICATIO N Indication INR) INR1. Prophylax is of venous thrombos is 2.0 - 3.0 (orthoped ic surgery), Proph ylaxis of venous throm bosis (other than hig h-risk surgery), Treat ment of Deep Vein Thrombosis/Pulm onary Embolism, Preve ntion of systemic emb olism - Tissue heart va lves, Acute Myocardia l Infarction (to prevent systemic embol ism), Valvular heart disease, Atrial Fibrillation, Bileaflet mecha nical valve in aortic position.2. Mec hanical prosthetic valv es (high risk), 2. 5 - 3.5 Presence of Lup us Anticoagulant o r Antiphospholipi d Antibodies, Pre vention of systemic emb olism - Acute Myocardia l Infarction (to prevent recurrent infar ct). HGB [id number] 17:00:00 Test Item Value Reference Range Interpretation Comments HEMOGLOBIN (test code = HGB) 11.5 g/dL 12.5-16.9 L HEMATOCRIT (test code = HCT) 35.9 % 37.5-50.7 L [id number] 15:05:00 Test Item Value Reference Range Interpretation Comments ACT-ISTAT (test code 143 SEC 74-137 H Perform ed by certified = ACTI) 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 [facility] POC ARTERIAL BLOOD [id number] 15:04:00 Test Item Value Reference Range Interpretation Comments POC ARTERIAL BLOOD GAS PH (test 7.340 7.35-7.45 L code = POCPHA) POC ARTERIAL BLOOD GAS PCO2 (test 49.8 mmHg 35.0-45 H code = [id number]) POC TCO2 ARTERIAL (test code = 28.4 POCTCO2) POC ARTERIAL BLOOD GAS PO2 (test 259.2 mmHg 80-100.0 HH code = TVQIP7D) POC HCO3 ARTERIAL (test code = 26.9 MMOL/L 22.0-26.0 H [id number]) POC BASE EXCESS (test code = 0.7 MMOL/L -4.0-4.0 N POCBEA) POC O2 SATURATION (test code = 99.8 % 90-100 N POCO2S) BASIC METABOLIC [id number] 15:04:00 Test Item Value Reference Range Interpretation Comments SODIUM (test code = NA/ABG) 145 mmol/L 134-147 N POTASSIUM (test code = K/ABG) 4.9 mmol/L 3.4-5.0 N CHLORIDE (test code = CL/ABG) 107 mmol/L 100-108 N CREATININE ABG (test code = 1.4 mg/dL 0.8-1.3 H CREAABG) POC IONIZED CALCIUM (test code = 1.05 MMOL/L 1.12-1.32 L POCCA) POC GLUCOSE (test code = POCGLU) 129 MG/DL 70-110 H HEMOGLOBIN [id number] 15:04:00 Test Item Value Reference Range Interpretation Comments HEMOGLOBIN ABG (test code = HGB/ABG) 9.3 G/DL 12.5-16.9 L [id number] 15:04:00 Test Item Value Reference Range Interpretation Comments HEMATOCRIT (test code = HCT/ABG) 27 % 37.5-50.7 L POC LACTIC [id number] 15:04:00 Test Item Value Reference Range Interpretation Comments POC LACTIC ACID (test code = 6.5 mmol/l 0.9-1.7 HH POCLAC) [id number] 13:58:00 Test Item Value Reference Range Interpretation Comments ACT-ISTAT (test code 215 SEC 74-137 H Perform ed by certified = ACTI) 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 [facility] POC ARTERIAL BLOOD [id number] 13:45:00 Test Item Value Reference Range Interpretation Comments POC ARTERIAL BLOOD GAS PH (test 7.233 7.35-7.45 LL code = POCPHA) POC ARTERIAL BLOOD GAS PCO2 (test 52.6 mmHg 35.0-45 HH code = [id number]) POC TCO2 ARTERIAL (test code = 23.8 POCTCO2) POC ARTERIAL BLOOD GAS PO2 (test 420.6 mmHg 80-100.0 HH code = [id number]) POC HCO3 ARTERIAL (test code = 22.2 MMOL/L 22.0-26.0 N [id number]) POC BASE EXCESS (test code = -5.5 MMOL/L -4.0-4.0 L POCBEA) POC O2 SATURATION (test code = 99.9 % 90-100 N POCO2S) BASIC METABOLIC [id number] 13:45:00 Test Item Value Reference Range Interpretation Comments SODIUM (test code = NA/ABG) 144 mmol/L 134-147 N POTASSIUM (test code = K/ABG) 5.4 mmol/L 3.4-5.0 H CHLORIDE (test code = CL/ABG) 106 mmol/L 100-108 N CREATININE ABG (test code = 1.3 mg/dL 0.8-1.3 CREAABG) POC IONIZED CALCIUM (test code = 1.30 MMOL/L 1.12-1.32 N POCCA) POC GLUCOSE (test code = POCGLU) 171 MG/DL 70-110 H HEMOGLOBIN [id number] 13:45:00 Test Item Value Reference Range Interpretation Comments HEMOGLOBIN ABG (test code = 11.0 G/DL 12.5-16.9 L HGB/ABG) [id number] 13:45:00 Test Item Value Reference Range Interpretation Comments HEMATOCRIT (test code = HCT/ABG) 32 % 37.5-50.7 L POC LACTIC [id number] 13:45:00 Test Item Value Reference Range Interpretation Comments POC LACTIC ACID (test code = 11.4 mmol/l 0.9-1.7 HH POCLAC) [id number] 13:20:00 Test Item Value Reference Range Interpretation Comments ACT-ISTAT (test code 293 SEC 74-137 H Perform ed by certified = ACTI) 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 [facility] POC ARTERIAL BLOOD [id number] 13:11:00 Test Item Value Reference Range Interpretation Comments POC ARTERIAL BLOOD GAS PH (test 7.237 7.35-7.45 LL code = POCPHA) POC ARTERIAL BLOOD GAS PCO2 36.4 mmHg 35.0-45 N (test code = [id number]) POC TCO2 ARTERIAL (test code = 16.6 POCTCO2) POC ARTERIAL BLOOD GAS PO2 (test 381.6 mmHg 80-100.0 HH code = [id number]) POC HCO3 ARTERIAL (test code = 15.5 MMOL/L 22.0-26.0 LL [id number]) POC BASE EXCESS (test code = -11.1 MMOL/L -4.0-4.0 L POCBEA) POC O2 SATURATION (test code = 99.9 % 90-100 N POCO2S) BASIC METABOLIC [id number] 13:11:00 Test Item Value Reference Range Interpretation Comments SODIUM (test code = NA/ABG) 140 mmol/L 134-147 N POTASSIUM (test code = K/ABG) 5.2 mmol/L 3.4-5.0 H CHLORIDE (test code = CL/ABG) 109 mmol/L 100-108 H CREATININE ABG (test code = 1.0 mg/dL 0.8-1.3 N CREAABG) POC IONIZED CALCIUM (test code = 0.98 MMOL/L 1.12-1.32 L POCCA) POC GLUCOSE (test code = POCGLU) 185 MG/DL 70-110 H HEMOGLOBIN [id number] 13:11:00 Test Item Value Reference Range Interpretation Comments HEMOGLOBIN ABG (test code = 10.6 G/DL 12.5-16.9 L HGB/ABG) [id number] 13:11:00 Test Item Value Reference Range Interpretation Comments HEMATOCRIT (test code = HCT/ABG) 31 % 37.5-50.7 L POC LACTIC [id number] 13:11:00 Test Item Value Reference Range Interpretation Comments POC LACTIC ACID (test code = 6.5 mmol/l 0.9-1.7 HH POCLAC) [id number] 12:49:00 Test Item Value Reference Range Interpretation Comments ACT-ISTAT (test code 203 SEC 74-137 H Perform ed by certified = ACTI) 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 [facility] POC ARTERIAL BLOOD [id number] 12:40:00 Test Item Value Reference Range Interpretation Comments POC ARTERIAL BLOOD GAS PH (test 7.336 7.35-7.45 L code = POCPHA) POC ARTERIAL BLOOD GAS PCO2 (test 40.5 mmHg 35.0-45 N code = [id number]) POC TCO2 ARTERIAL (test code = 22.9 POCTCO2) POC ARTERIAL BLOOD GAS PO2 (test 397.1 mmHg 80-100.0 HH code = WHYXS9K) POC HCO3 ARTERIAL (test code = 21.6 MMOL/L 22.0-26.0 L [id number]) POC BASE EXCESS (test code = -4.0 MMOL/L -4.0-4.0 N POCBEA) POC O2 SATURATION (test code = 100.0 % 90-100 N POCO2S) BASIC METABOLIC [id number] 12:40:00 Test Item Value Reference Range Interpretation Comments SODIUM (test code = NA/ABG) 143 mmol/L 134-147 N POTASSIUM (test code = K/ABG) 4.5 mmol/L 3.4-5.0 N CHLORIDE (test code = CL/ABG) 108 mmol/L 100-108 N CREATININE ABG (test code = 0.9 mg/dL 0.8-1.3 N CREAABG) POC IONIZED CALCIUM (test code = 1.23 MMOL/L 1.12-1.32 N POCCA) POC GLUCOSE (test code = POCGLU) 177 MG/DL 70-110 H HEMOGLOBIN [id number] 12:40:00 Test Item Value Reference Range Interpretation Comments HEMOGLOBIN ABG (test code = 11.4 G/DL 12.5-16.9 L HGB/ABG) [id number] 12:40:00 Test Item Value Reference Range Interpretation Comments HEMATOCRIT (test code = HCT/ABG) 33 % 37.5-50.7 L POC LACTIC [id number] 12:40:00 Test Item Value Reference Range Interpretation Comments POC LACTIC ACID (test code = 5.1 mmol/l 0.9-1.7 HH POCLAC) [id number] 12:11:00 Test Item Value Reference Range Interpretation Comments ACT-ISTAT (test code 269 SEC 74-137 H Perform ed by certified = ACTI) 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 [facility] POC ARTERIAL BLOOD [id number] 12:03:00 Test Item Value Reference Range Interpretation Comments POC ARTERIAL BLOOD GAS PH (test 7.329 7.35-7.45 L code = POCPHA) POC ARTERIAL BLOOD GAS PCO2 (test 40.0 mmHg 35.0-45 N code = BSLFIZ1E) POC TCO2 ARTERIAL (test code = 22.3 POCTCO2) POC ARTERIAL BLOOD GAS PO2 (test 305.8 mmHg 80-100.0 HH code = WDGVU5E) POC HCO3 ARTERIAL (test code = 21.1 MMOL/L 22.0-26.0 L [id number]) POC BASE EXCESS (test code = -4.6 MMOL/L -4.0-4.0 L POCBEA) POC O2 SATURATION (test code = 99.9 % 90-100 N POCO2S) BASIC METABOLIC [id number] 12:03:00 Test Item Value Reference Range Interpretation Comments SODIUM (test code = NA/ABG) 142 mmol/L 134-147 N POTASSIUM (test code = K/ABG) 5.8 mmol/L 3.4-5.0 H CHLORIDE (test code = CL/ABG) 107 mmol/L 100-108 N CREATININE ABG (test code = 0.9 mg/dL 0.8-1.3 N CREAABG) POC IONIZED CALCIUM (test code = 1.08 MMOL/L 1.12-1.32 L POCCA) POC GLUCOSE (test code = POCGLU) 201 MG/DL 70-110 H HEMOGLOBIN [id number] 12:03:00 Test Item Value Reference Range Interpretation Comments HEMOGLOBIN ABG (test code = 13.8 G/DL 12.5-16.9 N HGB/ABG) [id number] 12:03:00 Test Item Value Reference Range Interpretation Comments HEMATOCRIT (test code = HCT/ABG) 40 % 37.5-50.7 N POC LACTIC [id number] 12:03:00 Test Item Value Reference Range Interpretation Comments POC LACTIC ACID (test code = 4.1 mmol/l 0.9-1.7 HH POCLAC) [id number] 11:29:00 Test Item Value Reference Range Interpretation Comments ACT-ISTAT (test code 239 SEC 74-137 H Perform ed by certified = ACTI) 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 [facility] POC ARTERIAL BLOOD [id number] 11:28:00 Test Item Value Reference Range Interpretation Comments POC ARTERIAL BLOOD GAS PH (test 7.350 7.35-7.45 N code = POCPHA) POC ARTERIAL BLOOD GAS PCO2 (test 38.0 mmHg 35.0-45 N code = VMQVHX0F) POC TCO2 ARTERIAL (test code = 22.1 POCTCO2) POC ARTERIAL BLOOD GAS PO2 (test 317.3 mmHg 80-100.0 HH code = QTAZI6U) POC HCO3 ARTERIAL (test code = 20.9 MMOL/L 22.0-26.0 L [id number]) POC BASE EXCESS (test code = -4.2 MMOL/L -4.0-4.0 L POCBEA) POC O2 SATURATION (test code = 99.9 % 90-100 N POCO2S) BASIC METABOLIC [id number] 11:28:00 Test Item Value Reference Range Interpretation Comments SODIUM (test code = NA/ABG) 138 mmol/L 134-147 N POTASSIUM (test code = K/ABG) 5.7 mmol/L 3.4-5.0 H CHLORIDE (test code = CL/ABG) 108 mmol/L 100-108 N CREATININE ABG (test code = 1.0 mg/dL 0.8-1.3 N CREAABG) POC IONIZED CALCIUM (test code = 1.05 MMOL/L 1.12-1.32 L POCCA) POC GLUCOSE (test code = POCGLU) 156 MG/DL 70-110 H HEMOGLOBIN [id number] 11:28:00 Test Item Value Reference Range Interpretation Comments HEMOGLOBIN ABG (test code = 12.9 G/DL 12.5-16.9 N HGB/ABG) [id number] 11:28:00 Test Item Value Reference Range Interpretation Comments HEMATOCRIT (test code = HCT/ABG) 38 % 37.5-50.7 N POC LACTIC [id number] 11:28:00 Test Item Value Reference Range Interpretation Comments POC LACTIC ACID (test code = 3.1 mmol/l 0.9-1.7 H POCLAC) [id number] 11:01:00 Test Item Value Reference Range Interpretation Comments ACT-ISTAT (test code 263 SEC 74-137 H Perform ed by certified = ACTI) 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 [facility] POC ARTERIAL BLOOD [id number] 10:55:00 Test Item Value Reference Range Interpretation Comments POC ARTERIAL BLOOD GAS PH (test 7.324 7.35-7.45 L code = POCPHA) POC ARTERIAL BLOOD GAS PCO2 (test 47.7 mmHg 35.0-45 H code = NMOWTZ8M) POC TCO2 ARTERIAL (test code = 26.2 POCTCO2) POC ARTERIAL BLOOD GAS PO2 (test 249.6 mmHg 80-100.0 HH code = AMSJE0P) POC HCO3 ARTERIAL (test code = 24.8 MMOL/L 22.0-26.0 N [id number]) POC BASE EXCESS (test code = -1.7 MMOL/L -4.0-4.0 N POCBEA) POC O2 SATURATION (test code = 99.8 % 90-100 N POCO2S) BASIC METABOLIC [id number] 10:55:00 Test Item Value Reference Range Interpretation Comments SODIUM (test code = NA/ABG) 139 mmol/L 134-147 N POTASSIUM (test code = K/ABG) 5.5 mmol/L 3.4-5.0 H CHLORIDE (test code = CL/ABG) 105 mmol/L 100-108 N CREATININE ABG (test code = 1.0 mg/dL 0.8-1.3 N CREAABG) POC IONIZED CALCIUM (test code = 1.00 MMOL/L 1.12-1.32 L POCCA) POC GLUCOSE (test code = POCGLU) 139 MG/DL 70-110 H HEMOGLOBIN [id number] 10:55:00 Test Item Value Reference Range Interpretation Comments HEMOGLOBIN ABG (test code = 13.0 G/DL 12.5-16.9 N HGB/ABG) [id number] 10:55:00 Test Item Value Reference Range Interpretation Comments HEMATOCRIT (test code = HCT/ABG) 38 % 37.5-50.7 N POC LACTIC [id number] 10:55:00 Test Item Value Reference Range Interpretation Comments POC LACTIC ACID (test code = 1.8 mmol/l 0.9-1.7 H POCLAC) [id number] 10:42:00 Test Item Value Reference Range Interpretation Comments ACT-ISTAT (test code 251 SEC 74-137 H Perform ed by certified = ACTBrianda) 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 [facility] BASIC METABOLIC [id number] 13:38:00 Test Item Value Reference Range Interpretation Comments SODIUM (test code = 137 mEq/L 134-147 N NA) POTASSIUM (test code 3.9 mEq/L 3.4-5.0 N = K) CHLORIDE (test code 105 mEq/L 100-108 N = CL) CARBON DIOXIDE (test 27 mEq/l 21-33 N code = CO2) ANION GAP (test code 9 0-20 N = GAP) GLUCOSE (test code = 81 mg/dL 70-110 N GLU) BLOOD UREA NITROGEN 8 mg/dL 7-18 N (test code = BUN) GLOMERULAR 99.4 80-90 H The Glomerular FILTRATION RATE Filtration R ate is a (test code = GFR) calculated parameterbased on serum Creatinine, pat ient age and sex. GFR va luesless than 60 mL/min/ 1.73 square meters a re indicative ofCh ronic Kidney Disease. Values less than 15 mL/min/1.73squa re meters indicate Kidney failure. The calculation forGFR is based on the CKD-EPI (2020) calculat ion. This formulais race indifferent and is the recommended for diomedes for GFRby the [facility] on for Adults.The GFR will not calculate if th e sex is unknown or if thepatient's ag e is <18 years. CREATININE (test 0.8 mg/dL 0.6-1.3 N code = CREAT) CALCIUM (test code = 8.6 mg/dL 8.0-10.5 N CA) PROTHROMBIN [id number] 13:32:00 Test Item Value Reference Range Interpretation Comments PROTHROMBIN TIME 11.0 SECONDS 9.3-12.9 N PATIENT (test code = PTP) INTERNATIONAL NORMAL 1.0 0.8-1.2 N TARGET INR BY RATIO (test code = INDICATIO N Indication INR) INR1. Prophylax is of venous thrombos is 2.0 - 3.0 (orthoped ic surgery), Proph ylaxis of venous throm bosis (other than hig h-risk surgery), Treat ment of Deep Vein Thrombosis/Pulm onary Embolism, Preve ntion of systemic emb olism - Tissue heart va lves, Acute Myocardia l Infarction (to prevent systemic emboli sm), Valvular heart disease, Atrial Fibrillation, Bileaflet mecha nical valve in aortic position.2. Mec hanical prosthetic valv es (high risk), 2. 5 - 3.5 Presence of Lup us Anticoagulant o r Antiphospholipi d Antibodies, Pre vention of systemic emb olism - Acute Myocardia l Infarction (to prevent recurrent infar ct). CBC W/AUTO [id number] 13:23:00 Test Item Value Reference Range Interpretation Comments WHITE BLOOD CELL (test code = 9.4 x10 3/uL 4.5-11.0 N WBC) RED BLOOD CELL (test code = 6.00 x10 6/uL 4.00-5.60 H RBC) HEMOGLOBIN (test code = HGB) 15.7 g/dL 12.5-16.9 N HEMATOCRIT (test code = HCT) 48.0 % 37.5-50.7 N MEAN CELL VOLUME (test code = 80.0 fL 81.0-99.0 L MCV) MEAN CELL HGB (test code = MCH) 26.2 pg 27.0-33.0 L MEAN CELL HGB CONCETRATION 32.7 g/dL 33.0-37.0 L (test code = MCHC) RED CELL DISTRIBUTION WIDTH CV 13.6 % 11.5-14.5 N (test code = RDW) RED CELL DISTRIBUTION WIDTH SD 39.3 fL 37.0-54.0 N (test code = RDW-SD) PLATELET COUNT (test code = 320 x10 3/uL 150-400 N PLT) MEAN PLATELET VOLUME (test code 10.9 fL 7.0-9.0 H = MPV) NEUTROPHIL % (test code = NT%) 68.2 % 56.0-77.0 N IMMATURE GRANULOCYTE % (test 0.9 % 0.0-2.0 N code = IG%) LYMPHOCYTE % (test code = LY%) 18.6 % 14.0-32.0 N MONOCYTE % (test code = MO%) 8.1 % 4.8-9.0 N EOSINOPHIL % (test code = EO%) 3.0 % 0.3-3.7 N BASOPHIL % (test code = BA%) 1.2 % 0.0-2.0 N NUCLEATED RBC % (test code = 0.0 % 0-0 N NRBC%) NEUTROPHIL # (test code = NT#) 6.42 x10 3/uL 2.0-7.6 N IMMATURE GRANULOCYTE # (test 0.08 x10 3/uL 0.00-0.03 H code = IG#) LYMPHOCYTE # (test code = LY#) 1.75 x10 3/uL 1.0-3.8 N MONOCYTE # (test code = MO#) 0.76 x10 3/uL 0.1-0.8 N EOSINOPHIL # (test code = EO#) 0.28 x10 3/uL 0.0-0.2 H BASOPHIL # (test code = BA#) 0.11 x10 3/uL 0.0-0.2 N NUCLEATED RBC # (test code = 0.00 x10 3/uL 0.0-0.1 N NRBC#) MANUAL DIFF REQUIRED (test code NO = MDIFF) - XR CHEST 2 [id number] 00:00:[address] [facility] : 1960 Sex: M FAX: Jose Thompson DO [phone] [place]: St: PRE FAX: Uriel Torres [phone] Name: GAYLE MENDOZA [facility] : 1960 Age/S: 63/M [address] [place] [address] Unit #: [id number] Loc: KAROLINE Olivas [address] Phys: Uriel Teixeira MD Acct: [id number] Dis Date: Status: PRE SDC PHONE #: [phone] Exam Date: 01/12/2023 1218 FAX #: [phone] Reason: PREOP EXAMS: CPT CODE: [id number] XR CHEST 2 V [id number] PROCEDURE INFORMATION: Exam: XR Chest Exam date and time: 01/12/2023 12:15 PM Age: 63 years old Clinical indication: Pre-operative exam; Respiratory screening exam; Additional info:Preop TECHNIQUE: Imaging protocol: Radiologic exam of the chest. Views: 2 views. PA and Lateral COMPARISON: No relevant prior studies available. FINDINGS: Lungs: There is a 1.9 cm nodular density projected at the lateral left lung base. There is minimal adjacent subsegmental atelectasis. Pleural spaces: Unremarkable. No pleural effusion. No pneumothorax. Heart/Mediastinum: The heart size is normal. The pulmonary vasculature is normal. The mediastinal contour is normal. The trachea is midline. Bones/joints: No acute abnormality seen. IMPRESSION: Nodular density projected at the lateral left lung base, further assessment with chest CT is recommended if indicated clinically. Electronically Signedby Marcelo Peralta on 01/12/2023 at 1244 Reported and signed by: Leon Peralta M.D. CC: Eliel Gimenez DO; Uriel Teixeira MD Technologist: Keya Juarez, RT(R) Trnscrd Date/Time/By: 01/12/2023 (6221) : By: Markos Orig Print D/T: S: 01/12/2023 (8323) PAGE 1 Signed ReportCBC W/AUTO DIFF 2020-04-27 14:44:00 Test Item Value [...] 0.05 x10 3/uL 0.0-0.20 N BASIC METABOLIC [id number] 06:13:00 Test Item Value Reference Range Interpretation [...] code 7.8 mg/dL 8.8-10.2 L = CA) [id number] 06:13:00 Test Item Value Reference Range Interpretation Comments MAGNESIUM (test code = MAG) 1.6 mg/dL 1.4-2.6 N CBC W/AUTO [id number] 05:54:00 Test Item Value Reference Range Interpretation [...] 0.06 x10 3/uL 0.0-0.20 N BASIC METABOLIC [id number] 06:44:00 Test Item Value Reference Range Interpretation [...] code 7.7 mg/dL 8.8-10.2 L = CA) [id number] 06:44:00 Test Item Value Reference Range Interpretation Comments MAGNESIUM (test code = MAG) 1.9 mg/dL 1.4-2.6 N CBC W/AUTO [id number] 06:38:00 Test Item Value Reference Range Interpretation [...] BA#) 0.11 x10 3/uL 0.0-0.20 N SURGICAL [id number] 17:02:00 RUN DATE: 04/25/20 [facility] - LAB PAGE 1 RUN TIME: 1702 Specimen Inquiry RUN USER: INTERFACE ------- -----PATIENT: MIROSLAVA MENDOZA LOC: Bhumi5N POD B U #: [id number] AGE/SX: 60/M ROOM: [facility] RE04/24/20REG DR: Walker Denson MD : 60 BED: 1 DIS: STATUS: ADM IN TLOC: SPEC #: [id number] RECD:04/24/20 STATUS: LUCILA REBrianne #: [id number] MADHAV: 04/24/20- 1034 [facility] DR: Walker Denson MD ENTERED:04/24/20 SP TYPE: SURG OTHR DR: DOES_NOT KNOW No Primary or Family PhysicianORDERED: PATHGM3, PATH SPEC, H E STAIN HISTOLOGY: TISSUE ID BLK PCS CASIE LEV / PROCEDURE DISPOSITION ____ ___ ___ ___ ___ ILEOSTOMY A 2 1 TISSUES: A. ILEOSTOMY - Ileostomy CLINICAL HISTORY Diverticulitis, ileostomy stoma FINAL DIAGNOSIS ILEOSTOMY STOMA, EXCISION: ENTEROCUTANEOUS ANASTAMOSIS (ILEOSTOMY STOMA) FOCAL SEROSAL FIBROUS ADHESIONS [facility] [id number] GROSS DESCRIPTION The specimen is designated with [...] from 0.1 to 0.2 cm in thickness. Adult Neuropsychologist sections are submittedin A1-A2. SECTION CODE: A1, stoma; A2, resection margin. / Signed SIGNATURE ON FILE Bernie Guadarrama MD 04/25/20 4442 END OF REPORT BASIC METABOLIC [id number] 08:18:00 Test Item Value Reference Range Interpretation [...] code 7.7 mg/dL 8.8-10.2 L = CA) [id number] 08:18:00 Test Item Value Reference Range Interpretation Comments MAGNESIUM (test code = MAG) 2.0 mg/dL 1.4-2.6 N CBC W/AUTO [id number] 07:23:00 Test Item Value Reference Range Interpretation [...] 0.07 x10 3/uL 0.0-0.20 N CBC W/AUTO [id number] 06:46:00 Test Item Value Reference Range Interpretation [...] x10 3/uL 0.0-0.20 N Novel Coronavirus 2019 [id number] 17:15:00 Test Item Value Reference Range Interpretation Comments Novel Coronavirus 2019 Inhouse (test Negative Negative code = COVNONPUI) Testing Criteria: Preprocedure ScreeningNovel Coronavirus 2019 [id number] 17:14:00 Test Item Value Reference Range Interpretation Comments Novel Coronavirus 2019 Inhouse (test Negative Negative code = COVNONPUI) Testing Criteria: Preprocedure ScreeningCBC W/AUTO [id number] 10:38:00 Test Item Value Reference Range Interpretation [...] TGT) 1+ NONE SEEN A BASIC METABOLIC [id number] 10:22:00 Test Item Value Reference Range Interpretation [...] mg/dL 8.8-10.2 N = CA) CBC W/AUTO [id number] 10:08:00 Test Item Value Reference Range Interpretation [...] 0.13 x10 3/uL 0.0-0.20 N CBC W/AUTO [id number] 10:06:00 Test Item Value Reference Range Interpretation [...]
[2023-09-05] MEDS ORDERED: ALBUTEROL 2.5 MG/3 ML NEB SOL ONE ×2 (12:18→15:34)
[2023-09-05] MEDS ORDERED: ACETAMINOPHEN 325 MG TABLET ONE (12:19)
--- NOTE | 2023-09-05 13:06 | RAD REPORT ---
EXAM DESCRIPTION: RADChest Single View09/05/2023 12:33 pm CLINICAL HISTORY: Cough;Dyspnea COMPARISON: Chest Single View dated 12/02/2019; Chest Single View dated 11/09/2019; CHEST PA AND LAT 2 VIEW dated 11/26/2013; CHEST PA AND LAT 2 VIEW dated 11/24/2013; Angio Aorta For Dissection dated 12/17 TECHNIQUE: Portable AP view of the chest. FINDINGS: Patchy opacification in the left lower lobe. 1.7 cm calcified granuloma is stable. . No p neumothorax or effusion. The cardiomediastinal contours are unchanged with mild prominence of the car diac silhouette. IMPRESSION: Patchy left lower lobe opacification, concerning for pneumonia.
[2023-09-05 13:28] LABS: Absolute Lymphocytes (CBC) 0.9 K/uL (0.7-4.9); Hematocrit 47.9 % (39.6-49.0); Lymphocytes % 8.2 % (15.3-44.8); MPV 8.9 fL (7.6-11.3); Platelets 146 thou/uL (152-406); RBC Red Blood Cell Count 5.91 M/uL (4.33-5.43)
[2023-09-05 13:32] LABS: Protime INR 1.18
[2023-09-05] MEDS ORDERED: AZITHROMYCIN 500 MG INJ IVPB ONE (13:38)
[2023-09-05] MEDS ORDERED: NA CHLORIDE 0.9% 250 ML ONE (13:38)
[2023-09-05 14:20] LABS: Albumin 3.2 g/dL (3.4-5.0); Bilirubin Direct 0.3 mg/dL (0-0.2); Bilirubin Indirect, Calculated 0.3 mg/dL (0.2-0.8); Bilirubin Total 0.6 mg/dL (0.2-1.0); Potassium 4.4 mEq/L (3.5-5.1); Protein, Total 7.2 g/dL (6.4-8.2); Troponin High Sensitivity 35.8 pg/mL (<58.9)
--- NOTE | 2023-09-05 14:39 | ER ---
Nurse's Notes [facility] Name: Dale Tovar Age: 63 yrs Sex: Male : 1960 Arrival Date: 09/05/2023 Time: 11:09 Bed 6 Private MD: Eliel Gimenez H Diagnosis: Pneumonia due to SARS-associated coronavirus Presentation: 09/05 11:29 Chief complaint: Patient states: Covid positive. Has SOB, cough, fever still. 1 Coronavirus screen: Vaccine status: Patient reports receiving the 2nd dose of the covid vaccine. Client denies travel out of the [place] in the last 14 days. congestion, cough unrelated to allergies, sore throat, Client presents with at least one sign or symptom that may indicate coronavirus-19. Standard/surgical mask placed on the client. Ebola Screen: Patient denies travel to an Ebola-affected area in the 21 days before illness onset. Resp Distress? Mild respiratory distress is noted. Initial Sepsis Screen: Does the patient meet any 2 criteria? RR > 20 per min. HR > 90 bpm. Yes Does the patient have a suspected source of infection? Yes: Productive cough/pneumonia. Risk Assessment: Do you want to hurt yourself or someone else? Patient reports no desire to harm self or others. Onset of symptoms was September 03, 2023. 11:29 Method Of Arrival: Ambulatory [facility] 11:29 Acuity: ANGELA 2 1 Triage Assessment: 11:32 General: Appears uncomfortable, ill, Behavior is calm, cooperative, appropriate for 1 age. General: Reports feeling ill for fatigue for. Pain: Complains of pain in throat Pain currently is 8 out of 10 on a pain scale. Quality of pain is described as aching. EENT: Reports nasal congestion. Respiratory: Reports cough that is labored breathing pain with cough. 17:45 Respiratory: Breath sounds with rhonchi bilaterally. me1 Historical: - Allergies: 11:20 Codeine; nausea; ll1 - PMHx: 11:20 AAA; Diverticulitis; Hypertension; ll1 - PSHx: 11:20 AAA repair 2009; colon resection; ll1 - Immunization history:: Adult Immunizations up to date. - Social history:: Smoking status: Patient denies any tobacco usage or history of. Screenin:59 [facility] ED Fall Risk Assessment (Adult) History of falling in the last 3 months, me1 including since admission No falls in past 3 months (0 pts) Confusion or Disorientation No (0 pts) Intoxicated or Sedated No (0 pts) Impaired Gait No (0 pts) Mobility Assist Device Used No (0 pt) Altered Elimination No (0 pt) Score/Fall Risk Level 0 - 2 = Low Risk Maintained a safe environment, Provided non-skid footwear, Hourly rounding (assess needs \T\ fall precautionary measures) done. Abuse screen: Denies threats or abuse. Nutritional screening: No deficits noted. Tuberculosis screening: No symptoms or risk factors identified. Assessment: 12:59 General: Appears uncomfortable, well groomed, well developed, well nourished, Behavior me1 is cooperative, appropriate for age, anxious, restless, Reports chills for fever for feeling ill for fatigue for 2-3 days, cough, congestion, shortness of breath, sore throat body aches since Thursday. Pain: Complains of pain in throat Pain does not radiate. Pain currently is 8 out of 10 on a pain scale. Quality of pain is described as sore Pain began 2-3 days ago. Is continuous, Aggravated by eating, drinking. Neuro: Level of Consciousness is awake, alert, obeys commands, Oriented to person, place, time, situation, Appropriate for age. Cardiovascular: Capillary refill < 3 seconds Patient's skin is warm and dry. Respiratory: Airway is patent Respiratory effort is even, unlabored, Respiratory pattern is regular, symmetrical. 13:29 Reassessment: Patient appears in no apparent distress at this time. Patient is alert, ld1 oriented x 3, equal unlabored respirations, skin warm/dry/pink. Patient states symptoms have improved. Vital Signs: 11:29 BP 121 / 73; Pulse 102; Resp 24; Temp 100.3; Pulse Ox 92% on R/A; Weight 88.45 kg; ll1 Height 5 ft. 7 in. ; Pain 8/10; 11:42 Pulse Ox 93% on 2 lpm NC; ll1 13:29 BP 140 / 82; Pulse 106; Resp 18; Pulse Ox 92% on R/A; ld1 14:30 BP 115 / 82; Pulse 104; Resp 23; Pulse Ox 92% on 2 lpm NC; me1 14:48 Temp 98.9(O); me1 16:00 BP 95 / 55; Pulse 81; Resp 21; Pulse Ox 92% on 3 lpm NC; me1 17:11 BP 100 / 59; Pulse 98; Resp 20; Pulse Ox 91% on 3 lpm NC; ld1 11:29 Body Mass Index 30.54 (88.45 kg, 170.18 cm) ll1 11:29 Pain Scale: Adult [facility] ED Course: 11:14 Patient arrived in ED. mr 11:14 Eliel Gimenez DO is Private Physician. mr 11:15 Mackenzie Jean, [facility] jh7 11:15 Lupillo Ya MD is Attending Physician. 7 11:20 Arm band placed on Patient placed in an exam room, on a stretcher. ll1 11:32 Triage completed. ll1 11:58 Radha Sevilla, RN is Primary Nurse. me1 12:29 Lactate w/ 2H reflex if indic. Sent. me1 12:34 XRAY Chest (1 view) In Process Unspecified. EDMS 12:43 Basic Metabolic Panel Sent. me1 12:43 CBC with Diff Sent. me1 12:44 NT PRO-BNP Sent. me1 12:44 PT-INR Sent. me1 12:44 Troponin HS Sent. me1 12:44 LFT's Sent. me1 12:59 Patient has correct armband on for positive identification. Bed in low position. Call me1 light in reach. Side rails up X2. Provided Education on: POC. Verbalized understanding. . 12:59 No provider procedures requiring assistance completed. Missed attempt(s): 20 gauge in me1 left antecubital area. 13:25 EKG completed in triage. Results shown to MD. ld1 13:28 Blood Culture Adult (2) Sent. ld1 13:29 Inserted saline lock: 22 gauge in right antecubital area, using aseptic technique. ld1 Blood collected. 14:37 Ralph Hernandez is Hospitalizing Provider. jh7 15:35 CT Chest For PE Angio In Process Unspecified. EDMS 17:46 Patient admitted, IV remains in place. me1 Administered Medications: 12:29 Drug: Albuterol Inhalation 2.5 mg Inhalation every 20 minutes x3 Route: Inhalation; me1 13:21 Follow up: Response: No adverse reaction me1 12:44 Drug: Acetaminophen PO 650 mg PO once Route: PO; me1 14:48 Follow up: Response: No adverse reaction; Temperature is decreased me1 13:28 Drug: AZITHromycin IVPB 500 mg IVPB once over 1 hrs; (mix in 250 mL NS) Route: IVPB; ld1 Infused Over: 1 hrs; Site: right upper arm; 14:34 Follow up: Response: No adverse reaction; IV Status: Completed infusion me1 14:40 Drug: NS 0.9% IV 1000 ml IV at 1 bolus Per protocol; 1000 mL bolus Route: IV; Rate: 1 me1 bolus; Site: right upper arm; 14:41 Drug: Ketorolac IVP 15 mg IVP once Route: IVP; Site: right upper arm; me1 17:41 Follow up: Response: No adverse reaction; Pain is unchanged, physician notified me1 15:19 Drug: morphine IVP or IV 2 mg IVP once over 4 mins Route: IVP; Infused Over: 4 mins; ld1 Site: right antecubital; 17:41 Follow up: Response: No adverse reaction; Pain is decreased me1 Medication: 12:59 VIS not applicable for this client. me1 Outcome: 14:38 Decision to Hospitalize by Provider. [facility] 17:46 Admitted to Tele accompanied by tech, via stretcher, room 418, with chart, Report me1 called to CHELLE Pina 17:46 Condition: stable 17:46 Instructed on the need for admit, 18:11 Patient left the ED. 1 Signatures: Dispatcher [employer] Mohini Mullins, Reg Reg mr Aquiles Alfred, RN RN 1 Zora Claros RN RN ld1 Mackenzie Jean, [employer] [facility] Radha Sevilla RN RN ky1
--- NOTE | 2023-09-05 14:39 | EDPHYS ---
Physician Documentation [facility] Name: Dale Tovar Age: 63 yrs Sex: Male : 1960 Arrival Date: 09/05/2023 Time: 11:09 Bed 6 Private MD: Eliel Gimenez H ED Physician Lupillo Ya HPI: 09/05 11:20 This 63 yrs old Male presents to ER via Unassigned with complaints of Covid+, jh7 Congestion, Fever. 11:20 Onset: The symptoms/episode began/occurred 3 day(s) ago. Associated signs and symptoms: jh7 Pertinent positives: congestion, cough, fever, headache, shortness of breath, Pertinent negatives: abdominal pain, chest pain. C3-year-old male presents to the ER for congestion, headache, fever, and dyspnea. Reports that he was diagnosed with COVID on the and is currently taking Paxlovid and Promethazine DM. He has a history of hypertension and AAA. Reports that they were supposed to prescribe an albuterol inhaler, but he never received the prescription.. Historical: - Allergies: 11:20 Codeine; nausea; ll1 - PMHx: 11:20 AAA; Diverticulitis; Hypertension; ll1 - PSHx: 11:20 AAA repair 2009; colon resection; ll1 - Immunization history:: Adult Immunizations up to date. - Social history:: Smoking status: Patient denies any tobacco usage or history of. ROS: 11:20 Eyes: Negative for injury, pain, redness, and discharge, Neck: Negative for injury, jh7 pain, and swelling, Cardiovascular: Negative for chest pain, palpitations, and edema, Abdomen/GI: Negative for abdominal pain, nausea, vomiting, diarrhea, and constipation, Back: Negative for injury and pain, MS/Extremity: Negative for injury and deformity, Skin: Negative for injury, rash, and discoloration, Neuro: Negative for headache, weakness, numbness, tingling, and seizure, 11:20 Constitutional: Positive for body aches, fever, 11:20 ENT: Positive for sinus congestion, 11:20 Respiratory: Positive for cough, shortness of breath, at rest. 11:20 All other systems are negative, Exam: 11:20 Head/Face: Normocephalic, atraumatic. Eyes: Pupils equal round and reactive to light, jh7 extra-ocular motions intact. Lids and lashes normal. Conjunctiva and sclera are non-icteric and not injected. Cornea within normal limits. Periorbital areas with no swelling, redness, or edema. Neck: Trachea midline, no thyromegaly or masses palpated, and no cervical lymphadenopathy. Supple, full range of motion without nuchal rigidity, or vertebral point tenderness. No Meningismus. Cardiovascular: Regular rate and rhythm with a normal S1 and S2. No gallops, murmurs, or rubs. Normal PMI, no JVD. No pulse deficits. Abdomen/GI: Soft, non-tender, with normal bowel sounds. No distension or tympany. No guarding or rebound. No evidence of tenderness throughout. Back: No spinal tenderness. No costovertebral tenderness. Full range of motion. Skin: Warm, dry with normal turgor. Normal color with no rashes, no lesions, and no evidence of cellulitis. MS/ Extremity: Pulses equal, no cyanosis. Neurovascular intact. Full, normal range of motion. Neuro: Awake and alert, GCS 15, oriented to person, place, time, and situation. Motor strength 5/5 in all extremities. Sensory grossly intact. Normal gait. 11:20 Constitutional: The patient appears alert, awake, 11:20 Constitutional: The patient appears in no acute distress, 11:20 ENT: Posterior pharynx: pooling of secretions, that are mild, 11:20 Respiratory: the patient does not display signs of respiratory distress, Respirations: normal, Breath sounds: decreased breath sounds, that are mild, are scattered, Vital Signs: 11:29 BP 121 / 73; Pulse 102; Resp 24; Temp 100.3; Pulse Ox 92% on R/A; Weight 88.45 kg; ll1 Height 5 ft. 7 in. ; Pain 8/10; 11:42 Pulse Ox 93% on 2 lpm NC; ll1 13:29 BP 140 / 82; Pulse 106; Resp 18; Pulse Ox 92% on R/A; ld1 14:30 BP 115 / 82; Pulse 104; Resp 23; Pulse Ox 92% on 2 lpm NC; me1 14:48 Temp 98.9(O); me1 16:00 BP 95 / 55; Pulse 81; Resp 21; Pulse Ox 92% on 3 lpm NC; me1 17:11 BP 100 / 59; Pulse 98; Resp 20; Pulse Ox 91% on 3 lpm NC; ld1 11:29 Body Mass Index 30.54 (88.45 kg, 170.18 cm) ll1 11:29 Pain Scale: Adult ll1 MDM: 11:16 Patient medically screened. [facility] 14:35 Differential diagnosis: bronchitis, pneumonia Pulmonary embolism, COVID-19. Data [facility] reviewed: vital signs, nurses notes, lab test result(s), EKG, radiologic studies, CT scan, plain films. Consideration of Admission/Observation Patient was admitted/placed on observation. Management of patient was discussed with the following: Hospitalist: Bethany, hospitalist for Dr. Radford. I considered the following discharge prescriptions or medication management in the emergency department Medications were administered in the Emergency Department. See MAR. Independent interpretation of the following test(s) in the Emergency Department EKG: See my EKG interpretation above. Historians other than the Patient: Spouse/Significant Other: . Care significantly affected by the following chronic conditions: Hypertension. Counseling: I had a detailed discussion with the patient and/or guardian regarding the historical points, exam findings, and any diagnostic results supporting the discharge/admit diagnosis, the need for further work-up and treatment in the hospital. Response to treatment: the patient's symptoms have mildly improved after treatment. 09/05 11:43 Order name: Basic Metabolic Panel; Complete Time: 14:23 [facility] 09/05 11:43 Order name: CBC with Diff; Complete Time: 13:33 [facility] 09/05 11:43 Order name: NT PRO-BNP; Complete Time: 14:23 [facility] 09/05 11:43 Order name: PT-INR; Complete Time: 13:33 [facility] 09/05 11:43 Order name: Troponin HS; Complete Time: 14:23 [facility] 09/05 11:44 Order name: LFT's; Complete Time: 14:23 [facility] 09/05 11:56 Order name: Lactate w/ 2H reflex if indic.; Complete Time: 12:55 [facility] 09/05 13:24 Order name: Blood Culture Adult (2) [facility] 09/05 16:58 Order name: Urinalysis w/ reflexes EDMS 09/05 16:58 Order name: Basic Metabolic Panel EDMS 09/05 16:58 Order name: Basic Metabolic Panel EDMS 09/05 16:58 Order name: CBC with Automated Diff EDMS 09/05 16:58 Order name: CBC with Automated Diff EDMS 09/05 16:58 Order name: Magnesium EDMS 09/05 16:58 Order name: Magnesium EDMS 09/05 16:58 Order name: Phosphorus EDMS 09/05 16:58 Order name: Phosphorus EDMS 09/05 16:58 Order name: Troponin High Sensitivity EDMS 09/05 16:58 Order name: Troponin High Sensitivity EDMS 09/05 16:58 Order name: Troponin High Sensitivity EDMS 09/05 11:25 Order name: XRAY Chest (1 view); Complete Time: 13:08 [facility] 09/05 11:44 Order name: CT Chest For PE Angio; Complete Time: 16:33 [facility] 09/05 11:43 Order name: EKG; Complete Time: 11:44 [facility] 09/05 11:43 Order name: Cardiac monitoring; Complete Time: 13:28 [facility] 09/05 11:43 Order name: EKG - Nurse/Tech; Complete Time: 13:25 [facility] 09/05 11:43 Order name: IV Saline Lock; Complete Time: 13:28 [facility] 09/05 11:43 Order name: Labs collected and sent; Complete Time: 12:43 [facility] 09/05 11:43 Order name: O2 Per Protocol; Complete Time: 11:52 [facility] 09/05 11:43 Order name: O2 Sat Monitoring; Complete Time: 11:52 [facility] EC:24 Rate is 104 beats/min. Rhythm is regular. QRS [place] is Normal. OH interval is normal at 7 130 msec. QRS interval is normal at 80 msec. QT interval is normal at 344 msec. No Q waves. T waves are Normal. No ST changes noted. Clinical impression: Sinus tachycardia. Administered Medications: 12:29 Drug: Albuterol Inhalation 2.5 mg Inhalation every 20 minutes x3 Route: Inhalation; me1 13:21 Follow up: Response: No adverse reaction me1 12:44 Drug: Acetaminophen PO 650 mg PO once Route: PO; me1 14:48 Follow up: Response: No adverse reaction; Temperature is decreased me1 13:28 Drug: AZITHromycin IVPB 500 mg IVPB once over 1 hrs; (mix in 250 mL NS) Route: IVPB; ld1 Infused Over: 1 hrs; Site: right upper arm; 14:34 Follow up: Response: No adverse reaction; IV Status: Completed infusion me1 14:40 Drug: NS 0.9% IV 1000 ml IV at 1 bolus Per protocol; 1000 mL bolus Route: IV; Rate: 1 me1 bolus; Site: right upper arm; 14:41 Drug: Ketorolac IVP 15 mg IVP once Route: IVP; Site: right upper arm; me1 17:41 Follow up: Response: No adverse reaction; Pain is unchanged, physician notified me1 15:19 Drug: morphine IVP or IV 2 mg IVP once over 4 mins Route: IVP; Infused Over: 4 mins; ld1 Site: right antecubital; 17:41 Follow up: Response: No adverse reaction; Pain is decreased me1 Disposition: 18:51 Co-signature as Attending Physician, Lupillo Ya MD I agree with the assessment and kdr plan of care. Disposition Summary: 09/05/23 14:38 Hospitalization Ordered Notes: Hospitalization Status: Inpatient Admission [facility] Provider: Ralph Hernandez [facility] Location: Telemetry/MedSurg (Inpatient) [facility] Condition: Fair [facility] Problem: new [facility] Symptoms: have worsened [facility] Bed/Room Type: Standard [facility] Room Assignment: 418(09/05/23 17:03) Diagnosis - Pneumonia due to SARS-associated coronavirus [facility] Forms: - Medication Reconciliation Form [facility] - SBAR form [facility] - Leadership Thank You Letter [facility] Signatures: Dispatcher [employer] Lynette Lindsey RN RN dw Lupillo Ya MD MD kdr Lewis, Lynsay, RN RN 1 Zora Claros RN RN ld1 Mackenzie Jean FNP [employer] [facility] Radha Sevilla RN RN me1 Corrections: (The following items were deleted from the chart) 17:03 14:38 [facility]
[2023-09-05] MEDS ORDERED: NA CHLORIDE 0.9% 1,000 ML ONE (14:49)
[2023-09-05] MEDS ORDERED: KETOROLAC 30 MG/ML INJ ONE (14:52)
[2023-09-05] MEDS ORDERED: MORPHINE 2 MG/ML SYR ONE (15:31)
--- NOTE | 2023-09-05 16:32 | RAD REPORT ---
EXAM DESCRIPTION: CT - Chest For Pe Angio - 09/05/2023 3:33 pm CLINICAL HISTORY: DYSPNEA COMPARISON: Angio Aorta For Dissection dated 12/27/2022 TECHNIQUE: Thin axial CT images of the chest were obtained following administration of 100 mL Isovue 370 IV contrast. Multiplanar reconstructions, and maximum intensity projection reconstructions were generated and reviewed. Exam utilizes a protocol for optimal evaluation of pulmonary arterial tree. All CT scans are performed using dose optimization technique as appropriate and may include automated exposure control or mA/KV adjustment according to patient size. FINDINGS: Pulmonary arteries are normal. No emboli or other suspicious finding. No acute or signific ant aorta findings. Elevation of the left hemidiaphragm. Calcified left lower lobe 1.6 cm subpleural granuloma is stable. Patchy consolidation in the left lower lobe basal segments and lingula with some air bronchograms. N o pleural thickening or pleural effusion. No pneumothorax. No abnormal mediastinal or hilar masses or lymphadenopathy seen. No chest wall mass or abnormal axill iary lymphadenopathy. Healing/ healed anterior left seventh rib fracture. Lower thoracic and L1 endplate compression deform ities, stable. IMPRESSION: No evidence of acute central pulmonary emboli. Patchy consolidative changes in the left lower lobe and lingula, concerning for pneumonia. Healing/ healed anterior left seventh rib fracture
[2023-09-05] MEDS ORDERED: ACETAMINOPHEN 325 MG TABLET PO PRN (16:52)
[2023-09-05] MEDS ORDERED: ONDANSETRON 4 MG/2 ML VIAL IV PRN (16:52)
[2023-09-05] MEDS ORDERED: ALBUTEROL 2.5 MG/3 ML NEB SOL NEB PRN (16:52)
--- NOTE | 2023-09-05 17:08 | P.HP ---
Certification for Inpatient Patient admitted to: Inpatient With expected LOS: >2 Midnights Patient will require the following post-hospital care: None Practitioner: I am a practitioner with admitting privileges, knowledge of patient current condition, hospital course, and medical plan of care. Services: Services provided to patient in accordance with Admission requirements found in Title 42 Section 412.3 of the Code of Federal Regulations Patient History Date of Service: 09/05/23 Reason for admission: Pneumonia History of Present Illness: Dale Tovar is a 63-year-old male with past medical of hypertension, diverticulitis (requiring colon resection) , AAA (repair in 2009) who presents to the ED with a prior COVID-positive diagnoses x3 days. Dale states he went to an urgent care after not feeling well. He was sent home with Paxlovid and has taken 3 of those pills but cannot tolerate the GI upset and diarrhea. Dale reports starting with generalized body aches first day and then started to spike a fever the second day and lastly feeling like his throat was swelling that he does not want to drink. Dale also reports he ate yesterday. Upon examination Dale presents uncomfortable, diaphoretic, on 3 L nasal cannula, lung sounds are clear. Initial vitals BP 121/73, HR 102, respirations 24, temperature 100.3, pulse ox 92 on room air. Lab values WBC 10.5, H&H 16.3/47.9, BUN/creatinine 21/1.60, BNP 340, troponin 35.8. Chest x-ray showing "patchy left lower lobe opacification, concerning for pneumonia". CT chest angio verifying "no PE, patchy consolidative changes in the left lower lobe and lingula normal, concerning for pneumonia". Dale will be admitted to hospitalist service for further treatment of COVID pneumonia. Allergies codeine Adverse Reaction (Verified 12/02/19 15:08) Nausea/Vomiting Home Medications: Simvastatin [Zocor*] 40 mg PO BEDTIME 11/25/13 Aspirin [Aspirin EC 325 MG] 1 mg PO DAILY 06/21/18 Omeprazole [Prilosec] 40 mg PO DAILY PRN 09/02/18 Famotidine [Pepcid*] 20 mg PO BEDTIME 11/10/19 Multivit-Mins/Iron/Folic/Lycop [Centrum Men's Tablet] 1 tab PO DAILY 11/10/19 Ferrous Sulfate 325 mg PO BID #60 tablet 12/05/19 Levofloxacin [Levaquin] 500 mg PO DAILY #7 tablet 12/05/19 metroNIDAZOLE [Flagyl] 500 mg PO TID #21 capsule 12/05/19 - Past Medical/Surgical History Diabetic: No -: AAA repair -: HTN -: Hyperlipidemia -: GERD -: AAA stent -: andrea knee tendon repair -: eye surgery (foreign object removal) -: tonsilectomy Psychosocial/ Personal History: Patient is - Family History Father -: Stroke Notes: dementia Mother -: Diabetes Brother -: Heart disease Notes: passed from [place] - Social History Alcohol use: No CD- Drugs: No Caffeine use: Yes Review of Systems General: Fever, Chills, Sweats, Weakness, Malaise, Other (Fatigue and headache) Eyes: Unremarkable ENT: Unremarkable Respiratory: Cough, Shortness of Breath Gastrointestinal: Diarrhea Genitourinary: Unremarkable Musculoskeletal: Unremarkable Integumentary: Unremarkable Neurological: Unremarkable Physical Examination - Physical Exam General: Oriented x3, Mild distress HEENT: Atraumatic, Normocephalic, PERRLA Neck: Supple, 2+ carotid pulse no bruit, JVD not distended Respiratory: Clear to auscultation bilaterally, Normal air movement Cardiovascular: No edema, Normal pulses, Regular rate/rhythm, Normal S1 S2 Capillary refill: <2 Seconds Gastrointestinal: Soft and benign, Hyperactive Musculoskeletal: No clubbing, No swelling, No contractures Integumentary: No rashes, No breakdown, No significant lesion Neurological: Normal speech, Normal strength at 5/5 x4 extr, Normal tone - Studies Laboratory Data (last 24 hrs) 09/05/23 09/05/23 09/05/23 13:50 13:15 13:15 WBC 10.50 Hgb 16.3 Hct 47.9 Plt Count 146 L PT 13.0 H INR 1.18 Sodium 133 L Potassium 4.4 BUN 21 H Creatinine 1.60 H Glucose 144 H Total Bilirubin 0.6 AST 22 ALT 26 Alkaline Phosphatase 74 Assessment and Plan - Plan Assessment and Plan Septic without septic shock 2/ COVID-19 positive test with Acute Pneumonia Acute hypoxic respiratory failure Fever -Temp 100.3, HR 102, Resp 24 -Covid positive from outside facility three days ago, Dale has taken three days of paxlovid -kidney function is not appropriate for remdesivir -Chest x-ray showing "patchy left lower lobe opacification, concerning for pneumonia". -CT chest angio verifying "no PE, patchy consolidative changes in the left lower lobe and lingula normal, concerning for pneumonia" -Azithromycin given in ED -Axithromycin, rocephin, and dexamethasone daily -Duonebs Q6h PRN -Oxygen protocol, currently on 3 LNC -tylenol for fever and pain PRN, allergic to codeine h/o HTN -Restart home medications h/o AAA -repaired 2009 DVT ppx heparin full code LOS 2-3 days Discharge Plan: Home Plan to discharge in: 72 Hours - Advance Directives Does patient have a Living Will: No Does patient have a Durable POA for Healthcare: Yes Time Spent Managing Pts Care (In Minutes): 55
[2023-09-05] MEDS: HEPARIN 5000 UNIT/ML 1 ML VIAL SQ SCH ×2 (18:37→18:38)
[2023-09-05] MEDS: CEFTRIAXONE 1,000 MG in NA CHLORIDE 0.9% 50 ML IVPB SCH (18:37)
[2023-09-05] MEDS: NA CHLORIDE 0.9% 1,000 ML IV SCH (18:38)
[2023-09-05] MEDS: dexAMETHasone 10 MG/ML VIAL IV SCH (18:45)
[2023-09-06] MEDS: HEPARIN 5000 UNIT/ML 1 ML VIAL SQ SCH ×3 (01:00→16:37)
[2023-09-06 06:33] LABS: Absolute Lymphocytes (CBC) 0.3 K/uL (0.7-4.9); Hematocrit 41.8 % (39.6-49.0); Lymphocytes % 3.7 % (15.3-44.8); MCV 80.3 fL (80-100); MPV 9.1 fL (7.6-11.3); Platelets 119 thou/uL (152-406); RBC Red Blood Cell Count 5.21 M/uL (4.33-5.43)
[2023-09-06] MEDS: ACETAMINOPHEN 500 MG TAB PO PRN ×2 (06:47→13:09)
[2023-09-06 06:52] LABS: Magnesium 2.5 mg/dL (1.6-2.4); Phosphorus 2.3 mg/dL (2.5-4.9)
[2023-09-06 08:12] LABS: Blood Morphology Comment NOT SEEN (NOT SEEN); Platelet Estimate ADEQ
[2023-09-06] MEDS ORDERED: CHLORASEPTIC LOZENGES PO PRN (08:29)
[2023-09-06] MEDS: NA CHLORIDE 0.9% 1,000 ML IV SCH ×2 (08:47→21:48)
[2023-09-06] MEDS: CEFTRIAXONE 1,000 MG in NA CHLORIDE 0.9% 50 ML IVPB SCH (08:48)
[2023-09-06] MEDS: dexAMETHasone 10 MG/ML VIAL IV SCH (08:48)
[2023-09-06] MEDS: AZITHROMYCIN IV 500 MG in NA CHLORIDE 0.9% 250 ML IVPB SCH ×2 (08:48→09:00)
[2023-09-06] MEDS: AZITHROMYCIN 250 MG TAB PO SCH (11:30)
--- NOTE | 2023-09-06 13:18 | P.PN ---
Subjective Date of Service: 09/06/23 Chief Complaint: Pneumonia Subjective: Doing well HPI 09/05/23: Dale Tovar is a 63-year-old male with past medical of hypertension, diverticulitis (requiring colon resection) , AAA (repair in 2009) who presents to the ED with a prior COVID-positive diagnoses x3 days. Dale states he went to an urgent care after not feeling well. He was sent home with Paxlovid and has taken 3 of those pills but cannot tolerate the GI upset and diarrhea. Dale reports starting with generalized body aches first day and then started to spike a fever the second day and lastly feeling like his throat was swelling that he does not want to drink. Dale also reports he ate yesterday. Upon examination Dale presents uncomfortable, diaphoretic, on 3 L nasal cannula, lung sounds are clear. Initial vitals BP 121/73, HR 102, respirations 24, temperature 100.3, pulse ox 92 on room air. Lab values WBC 10.5, H&H 16.3/47.9, BUN/creatinine 21/1.60, BNP 340, troponin 35.8. Chest x-ray showing "patchy left lower lobe opacification, concerning for pneumonia". CT chest angio verifying "no PE, patchy consolidative changes in the left lower lobe and lingula normal, concerning for pneumonia". Dale will be admitted to hospitalist service for further treatment of COVID pneumonia. 09/06: Dale is awake and appears more comfortable, Able to talk in complete sentences. Not diaphoretic although he states he will still sweat without having a fever. He states he is feeling much better, able to drink water and eat. Will order mucinex and IS for his congestion. He denies SOB, CP, GRANDA, and abdominal pain. Physical Exam General: Oriented x3,comfortable, NAD HEENT: Atraumatic, Normocephalic, PERRLA Neck: Supple, 2+ carotid pulse no bruit, JVD not distended Respiratory: Clear to auscultation bilaterally, Normal air movement Cardiovascular: No edema, Normal pulses, Regular rate/rhythm, Normal S1 S2 Capillary refill: <2 Seconds Gastrointestinal: Soft and benign, Hyperactive Musculoskeletal: No clubbing, No swelling, No contractures Integumentary: No rashes, No breakdown, No significant lesion Neurological: Normal speech, Normal strength at 5/5 x4 extr, Normal tone Review of Systems General: Chills, Sweats Physical Examination - Vital Signs Temperature: 97.1 F Blood Pressure: 149/83 Pulse: 72 Respirations: 18 Pulse Ox (%): 100 - Studies Laboratory Data (last 24 hrs) 09/05/23 09/05/23 09/05/23 13:50 13:15 13:15 WBC 10.50 Hgb 16.3 Hct 47.9 Plt Count 146 L PT 13.0 H INR 1.18 Sodium 133 L Potassium 4.4 BUN 21 H Creatinine 1.60 H Glucose 144 H Total Bilirubin 0.6 AST 22 ALT 26 Alkaline Phosphatase 74 Assessment And Plan - Plan Assessment and Plan Septic without septic shock 12/18 COVID-19 positive test with Acute Pneumonia Acute hypoxic respiratory failure Fever -Temp 100.3, HR 102, Resp 24 -Covid positive from outside facility three days ago, Dale has taken three days of paxlovid -kidney function is not appropriate for remdesivir -Chest x-ray showing "patchy left lower lobe opacification, concerning for pneumonia". -CT chest angio verifying "no PE, patchy consolidative changes in the left lower lobe and lingula normal, concerning for pneumonia" -Azithromycin given in ED -Axithromycin, rocephin, and dexamethasone daily -Duonebs Q6h PRN, mucinex, and IS -Oxygen protocol, currently on 2 LNC -tylenol for fever and pain PRN, allergic to codeine h/o HTN -Restart home medications h/o AAA -repaired 2009 DVT ppx heparin full code LOS 2-3 days Discharge Plan: Home Plan to discharge in: 48 Hours Time Spent Managing PTS Care (In Minutes): 35
--- NOTE | 2023-09-06 13:51 | EKG ---
Test Date: 2023-09-05 Test Time: 13:22:09 News Intern: MEASUREMENT RESULTS: Intervals: Rate: 104 MS: 130 QRSD: 80 QT: 344 QTc: 452 [place]: P: 65 MS: 130 QRS: 60 T: 78 INTERPRETIVE STATEMENTS: Sinus tachycardia Otherwise normal ECG Compared to ECG 12/27/2022 09:15:41 Sinus rhythm no longer present Electronically Signed On 09-06-23 13:50:07 CDT by Alejandro Alexis
[2023-09-06] MEDS: GUAIFENESIN 600 MG SA TAB PO SCH (21:48)
[2023-09-07] MEDS: HEPARIN 5000 UNIT/ML 1 ML VIAL SQ SCH ×3 (00:08→16:00)
[2023-09-07 07:33] LABS: Magnesium 2.4 mg/dL (1.6-2.4); Phosphorus 2.1 mg/dL (2.5-4.9); Potassium 3.9 mEq/L (3.5-5.1)
[2023-09-07] MEDS: GUAIFENESIN 600 MG SA TAB PO SCH (08:40)
[2023-09-07] MEDS: dexAMETHasone 10 MG/ML VIAL IV SCH (08:40)
[2023-09-07] MEDS: AZITHROMYCIN 250 MG TAB PO SCH (08:40)
[2023-09-07] MEDS: POTASS/SODIUM PHOSPHATE 1 PKT POWD.PACK PO SCH ×2 (08:41→10:41)
[2023-09-07] MEDS: CEFTRIAXONE 1,000 MG in NA CHLORIDE 0.9% 50 ML IVPB SCH (08:41)
[2023-09-07] MEDS: NA CHLORIDE 0.9% 1,000 ML IV SCH (08:41)
[2023-09-07] MEDS ORDERED: AZITHROMYCIN 250 MG TAB PO SCH (09:00)
--- NOTE | 2023-09-07 13:22 | RAD REPORT ---
[facility] 11[facility]48 am CLINICAL HISTORY: Radiographic abnormality. Radiographic follow-up COMPARISON: Chest Single View dated 09/05/2023; Chest Single View dated 12/02/2019; Chest Single View dated 11/09/2019; CHEST PA AND LAT 2 VIEW dated 11/26/2013; Chest For Pe Angio dated 09/05/2023 TECHNIQUE: Portable AP view of the chest. FINDINGS: Partially improving patchy airspace opacification in the left lower lobe. Central intersti tial prominence in the perihilar and basilar regions may be slightly progressed since the prior exam. Ovoid 1.7 cm nodule on the left is stable. Elevation of the left hemidiaphragm again seen. No pneum othorax or effusion. The cardiomediastinal contours are unremarkable. IMPRESSION: Partial improvement of left basilar opacities, may suggest improving pneumonia. Central and bibasilar interstitial prominence may reflect a degree of central congestion or edema.
[2023-09-07] MEDS ORDERED: ALBUTEROL 2.5 MG/3 ML NEB SOL NEB PRN (14:00)
--- NOTE | 2023-09-07 19:32 | P.DS ---
Admission Date: 09/05/23 Discharge Date: 09/07/23 Reason for Admission: Pneumonia Brief History of Present Illness: Dale Tovar is a 63-year-old male with past medical of hypertension, diverticulitis (requiring colon resection) , AAA (repair in 2009) who presents to the ED with a prior COVID-positive diagnoses x3 days. Dale states he went to an urgent care after not feeling well. He was sent home with Paxlovid and has taken 3 of those pills but cannot tolerate the GI upset and diarrhea. Dale reports starting with generalized body aches first day and then started to spike a fever the second day and lastly feeling like his throat was swelling that he does not want to drink. Dale also reports he ate yesterday. Upon examination Dale presents uncomfortable, diaphoretic, on 3 L nasal cannula, lung sounds are clear. Initial vitals BP 121/73, HR 102, respirations 24, temperature 100.3, pulse ox 92 on room air. Lab values WBC 10.5, H&H 16.3/47.9, BUN/creatinine 21/1.60, BNP 340, troponin 35.8. Chest x-ray showing "patchy left lower lobe opacification, concerning for pneumonia". CT chest angio verifying "no PE, patchy consolidative changes in the left lower lobe and lingula normal, concerning for pneumonia". Dale will be admitted to hospitalist service for further treatment of COVID pneumonia. Hospital Course: Dale is a pleasant 63-year-old man with a past medical history significant for hypertension, diverticulitis (requiring colon resection) , AAA (repair in 2009) who presents to the ED with a prior COVID-positive diagnoses x3 days who was admitted to the [facility] on 09/05/2023 for COVID-19 with Acute Pneumonia Dale presented to the ED complaining of generalized body aches, fever and diaphoresis, throat feeling like it was swelling. He was tested positive for COVID 3 days prior to arrival. Pneumonia was found on his chest x-ray and azithromycin was started. Dale tolerated fluids, IV antibiotics, and a p.o. diet He is ambulating independently in the room, blood pressure stable, on room air satting 98%. On 09/07/2020, Dale was seen on morning rounds and deemed medically stable for discharge. Dale was discharged with instructions to schedule follow-up appointments with PCP. Dale was provided prescriptions for Levaquin, Mucinex. The patient and family members were given the opportunity to ask questions and reported no further questions. Furthermore, all questions were answered to the best of my ability. A copy of this discharge summary will be sent to the above providers to facilitate continuity of care. Today, I personally spent 55 minutes with Dale, of which greater than 50% of the time was spent in patient education, counseling, and coordination of care as described above. Physical Exam General: Oriented x3,comfortable, NAD HEENT: Atraumatic, Normocephalic, PERRLA Neck: Supple, 2+ carotid pulse no bruit, JVD not distended Respiratory: Clear to auscultation bilaterally, Normal air movement Cardiovascular: No edema, Normal pulses, Regular rate/rhythm, Normal S1 S2 Capillary refill: <2 Seconds Gastrointestinal: Soft and benign, Hyperactive Musculoskeletal: No clubbing, No swelling, No contractures Integumentary: No rashes, No breakdown, No significant lesion Neurological: Normal speech, Normal strength at 5/5 x4 extr, Normal tone <Bethany Plascencia - Last Filed: 09/07/23 19:36> Admission Date: 09/05/23 Discharge Date: 09/07/23 - Problems (1) Pneumonia Status: Acute (2) Acute respiratory failure with hypoxemia Status: Acute <josafat botello - Last Filed: 09/07/23 20:33> Disposition: ROUTINE DISCHARGE Discharge Condition: GOOD Vital Signs/Physical Exam: Temp Pulse Resp BP Pulse Ox 98.2 F 67 17 125/75 93 09/07/23 16:00 09/07/23 16:00 09/07/23 16:00 09/07/23 16:00 09/07/23 16:00 Laboratory Data at Discharge: WBC 8.90 thou/uL (4.3-10.9) 09/06/23 06:10 Hgb 14.4 g/dL (13.6-17.9) D 09/06/23 06:10 Hct 41.8 % (39.6-49.0) 09/06/23 06:10 Plt Count 119 thou/uL (152-406) L 09/06/23 06:10 PT 13.0 SECONDS (9.5-12.5) H 09/05/23 13:15 INR 1.18 09/05/23 13:15 Sodium 138 mEq/L (136-145) 09/07/23 06:38 Potassium 3.9 mEq/L (3.5-5.1) 09/07/23 06:38 BUN 23 mg/dL (7-18) H 09/07/23 06:38 Creatinine 0.81 mg/dL (0.70-1.30) 09/07/23 06:38 Glucose 166 mg/dL (74-106) H 09/07/23 06:38 Phosphorus 2.1 mg/dL (2.5-4.9) L 09/07/23 06:38 Magnesium 2.4 mg/dL (1.6-2.4) 09/07/23 06:38 Total Bilirubin 0.6 mg/dL (0.2-1.0) 09/05/23 13:50 AST 22 U/L (15-37) 09/05/23 13:50 ALT 26 U/L (16-61) 09/05/23 13:50 Alkaline Phosphatase 74 U/L (45-117) 09/05/23 13:50 <Bethany Plascencia - Last Filed: 09/07/23 19:36> Vital Signs/Physical Exam: Temp Pulse Resp BP Pulse Ox 98.2 F 67 17 125/75 93 09/07/23 16:00 09/07/23 16:00 09/07/23 16:00 09/07/23 16:00 09/07/23 16:00 Laboratory Data at Discharge: WBC 8.90 thou/uL (4.3-10.9) 09/06/23 06:10 Hgb 14.4 g/dL (13.6-17.9) D 09/06/23 06:10 Hct 41.8 % (39.6-49.0) 09/06/23 06:10 Plt Count 119 thou/uL (152-406) L 09/06/23 06:10 PT 13.0 SECONDS (9.5-12.5) H 09/05/23 13:15 INR 1.18 09/05/23 13:15 Sodium 138 mEq/L (136-145) 09/07/23 06:38 Potassium 3.9 mEq/L (3.5-5.1) 09/07/23 06:38 BUN 23 mg/dL (7-18) H 09/07/23 06:38 Creatinine 0.81 mg/dL (0.70-1.30) 09/07/23 06:38 Glucose 166 mg/dL (74-106) H 09/07/23 06:38 Phosphorus 2.1 mg/dL (2.5-4.9) L 09/07/23 06:38 Magnesium 2.4 mg/dL (1.6-2.4) 09/07/23 06:38 Total Bilirubin 0.6 mg/dL (0.2-1.0) 09/05/23 13:50 AST 22 U/L (15-37) 09/05/23 13:50 ALT 26 U/L (16-61) 09/05/23 13:50 Alkaline Phosphatase 74 U/L (45-117) 09/05/23 13:50 <josafat botello - Last Filed: 09/07/23 20:33> Diet: Regular Activity: Ad danny Time spent managing pt's care (in minutes): 55 <Bethany Plascencia - Last Filed: 09/07/23 19:36> <josafat botello - Last Filed: 09/07/23 20:33> Home Medications: Simvastatin [Zocor*] 40 mg PO BEDTIME 11/25/13 Aspirin [Aspirin EC 325 MG] 1 mg PO DAILY 06/21/18 Omeprazole [Prilosec] 40 mg PO DAILY PRN 09/02/18 Famotidine [Pepcid*] 20 mg PO BEDTIME 11/10/19 Multivit-Mins/Iron/Folic/Lycop [Centrum Men's Tablet] 1 tab PO DAILY 11/10/19 Ferrous Sulfate 325 mg PO BID #60 tablet 12/05/19 Guaifenesin [Mucinex] 600 mg PO Q12H 7 Days #14 tab 09/07/23 Levofloxacin [Levaquin] 750 mg PO DAILY 7 Days #7 cap 09/07/23 New Medications: Levofloxacin [Levaquin] 750 mg PO DAILY 7 Days #7 cap Guaifenesin [Mucinex] 600 mg PO Q12H 7 Days #14 tab Physician Discharge Instructions: PROBLEM: Covid Pneumonia GOAL: Clear understanding of disease process INSTRUCTIONS: 1. Please call and schedule a follow-up appointment with your PCP in 3-5 days - Please follow-up with your PCP for medication refills/adjustments -Follow up concerning COVID symptoms and manage recovery 2. Please call and schedule a follow-up appointment with in 3-5 days 3.Activity as tolerated, no restrictions but be sure to walk when steady and balanced 4. Heart healthy diet 5. return to the ED is symptoms return New medications: Levaquin 750mg PO daily for seven days- called into the pharmacy - called in by nurse (left message) Mucenix 600 mg PO Q12H for seven days- drop off prescription at pharmacy Diet: Heart Healthy Activity: As Tolerated DME DME: Date Ordered: Name of Company: [employer] Services Needed: Name of Company: Date or Referral: IMMUNIZATION Influenza Vaccine Indicated: No Influenza Vaccine Given: Date Given: Pneumonia Vaccine Indicated: No Pneumonia Vaccine Given: Date Given: Problem COVID pneumonia Followup: Eliel Gimenez DO, DO [Primary Care Provider] -
[2023-09-10 12:51] VITALS: O2SAT 98
[2023-09-10 12:53] VITALS: BP 125/75; TEMP 98.2; BMI 30.5
== END 2023-09-07 19:15 | disposition home or self-care (01) | DRG 871 ==
LOC: ER 11:09 → ERHOLD 16:52 → 4TH 17:10
PROVIDERS: ADMIT Internal Medicine; ATTEND Internal Medicine
DX: A41.89 Other specified sepsis (principal); J12.82 Pneumonia due to coronavirus disease 2019; U07.1 COVID-19; J96.01 Acute respiratory failure with hypoxia; I10 Essential (primary) hypertension; E78.5 Hyperlipidemia, unspecified; K21.9 Gastro-esophageal reflux disease without esophagitis; I71.40 Abdominal aortic aneurysm, without rupture, unspecified; Z88.5 Allergy status to narcotic agent; Z90.49 Acquired absence of other specified parts of digestive tract; Z79.82 Long term (current) use of aspirin; Z79.899 Other long term (current) drug therapy
CPT/HCPCS: 36415; 71045; 71275; 80048; 80076; 83605; 83735; 83880; 84100; 84484; 85025; 85610; 87040; 93005; 94010; 99285; J0696; J1100; J1644; J2270; J7030; J7050; J7613; Q9967